=== PATIENT | female | born 1980 | race Caucasian/White ===

== ENCOUNTER 2016-10-16 12:39 | Inpatient (IN) | payer OTHER ==
[2016-10-16] MEDS ORDERED: ONDANSETRON 4 MG/2 ML VIAL IVP STA ×2 (13:22→16:23)
[2016-10-16] MEDS ORDERED: HYDROmorphone 1 MG/ML 1 ML SYRINGE IVP STA (13:22)
[2016-10-16] MEDS ORDERED: SODIUM CHLORIDE 0.9% 500 ML IV STA (13:22)
[2016-10-16] MEDS ORDERED: SODIUM CHLORIDE 0.9% 1,000 ML IV STA ×3 (13:22→16:21)
--- NOTE | 2016-10-16 13:34 | ED ---
General Adult HPI - General Source: patient, RN notes reviewed, old records reviewed Mode of arrival: EMS Limitations: no limitations <Eris Quiros - Last Filed: 10/16/16 16:49> <Emiliano Parada - Last Filed: 10/16/16 17:59> - General Chief complaint: Nausea/Vomiting/Diarrhea Stated complaint: Vomiting Time Seen by Provider: 10/16/16 13:19 - History of Present Illness Initial comments: Patient 36-year-old female who presents emergency room today by EMS, the chief complaint of symptoms of nausea vomiting over the last week. Does admit to pain in her lower abdomen. Denies any signs of blood in the emesis. States had similar symptoms in the past. States never been diagnosed the cause of the symptoms. Patient denies any recent fever, chills, shortness of breath, chest pain, back pain, numbness or tingling, dysuria or hematuria, constipation or diarrhea, headaches or visual changes, or any other complaints. (Eris Quiros) - Related Data Home Medications Medication Instructions Recorded Confirmed Albuterol Inhaler [Ventolin Hfa 1 - 2 puff INHALATION RT-TID PRN 01/13/16 Inhaler] Aspirin EC [Ecotrin Low Dose] 162 mg PO DAILY 01/13/16 10/16/16 Butalb/APAP/Caff 50-325-40Mg 1 tab PO DAILY PRN 01/13/16 10/16/16 [Fioricet 50-325-40] Dicyclomine [Bentyl] 20 mg PO QID 01/13/16 10/16/16 Fluticasone Nasal Placida [Flonase 2 spr EA NOSTRIL DAILY PRN 01/13/16 10/16/16 Nasal Placida] Gabapentin [Neurontin] 300 mg PO HS 01/13/16 01/13/16 Montelukast [Singulair] 10 mg PO DAILY 01/13/16 10/16/16 Omeprazole [PriLOSEC] 20 mg PO DAILY 01/13/16 10/16/16 Potassium 297 mg PO DAILY 01/13/16 10/16/16 QUEtiapine [SEROquel] 100 mg PO HS 01/13/16 10/16/16 Warfarin [Coumadin] 7.5 mg PO DAILY 01/13/16 10/16/16 Cetirizine HCl [Zyrtec] 10 mg PO DAILY 10/16/16 10/16/16 FLUoxetine HCL [PROzac] 40 mg PO DAILY 10/16/16 10/16/16 Ferrous Sulfate [Iron (65 MG 325 mg PO DAILY 10/16/16 10/16/16 Elemental)] Hydrochlorothiazide [Hydrodiuril] 25 mg PO DAILY 10/16/16 10/16/16 Loratadine [Claritin] 10 mg PO DAILY PRN 10/16/16 10/16/16 carBAMazepine [TEGretol XR] 100 mg PO BID 10/16/16 10/16/16 traZODone HCL 100 mg PO HS 10/16/16 10/16/16 Allergies Allergy/AdvReac Type Severity Reaction Status Date / Time adhesive tape Allergy Itching Verified 10/16/16 17:20 corn [[place]] Allergy Unknown Verified 01/13/16 08:52 Review of Systems ROS Other: All systems not noted in ROS Statement are negative. <Eris Quiros - Last Filed: 10/16/16 16:49> ROS Other: All systems not noted in ROS Statement are negative. <Emiliano Parada - Last Filed: 10/16/16 17:59> ROS Statement: Those systems with pertinent positive or pertinent negative responses have been documented in the HPI. Past Medical History Past Medical History: Asthma, COPD, GERD/Reflux, Hyperlipidemia, Mitral Valve Prolapse (MVP), Osteoarthritis (OA) Additional Past Medical History / Comment(s): IBS, Migraines, hiatal hernia, anemia History of Any Multi-Drug Resistant Organisms: None Reported Past Surgical History: Cardiac Valve Replacement, Cholecystectomy, Heart Catheterization, Hernia Repair, Tubal Ligation Additional Past Surgical History / Comment(s): mitral valve replacement 2013, Past Anesthesia/Blood Transfusion Reactions: Motion Sickness, Postoperative Nausea & Vomiting (PONV) Past Psychological History: Anxiety, Depression Smoking Status: Current every day smoker Past Alcohol Use History: None Reported Additional Past Alcohol Use History / Comment(s): smokes 1/2 PPD for 20 yrs Past Drug Use History: Marijuana - Past Family History Mother Family Medical History: Cancer Additional Family Medical History / Comment(s): LUNG CA <Eris Quiros Last Filed: 10/16/16 16:49> General Exam Limitations: no limitations <Eris Quiros Last Filed: 10/16/16 16:49> <Emiliano Parada - Last Filed: 10/16/16 17:59> - General Exam Comments Initial Comments: General: The patient is awake and alert, in no distress, and does not appear acutely ill. Eye: Pupils are equal, round and reactive to light, extra-ocular movements are intact. No nystagmus. There is normal conjunctiva bilaterally. No signs of icterus. Ears, nose, mouth and throat: There are moist mucous membranes and no oral lesions. Neck: The neck is supple, there is no tenderness or JVD. Cardiovascular: There is a regular rate and rhythm. No murmur, rub or gallop is appreciated. Respiratory: Lungs are clear to auscultation, respirations are non-labored, breath sounds are equal. No wheezes, stridor, rales, or rhonchi. Gastrointestinal: Normal appearance of abdomen. Normal bowel sounds. Mild tenderness epigastric. Mild tenderness in the left and right lower quadrants. No rebound or guarding. Musculoskeletal: Normal ROM, no tenderness. Strength 5/5. Sensation intact. Pulses equal bilaterally 2+. Neurological: A&O x 3. CN II-XII intact, There are no obvious motor or sensory deficits. Coordination appears grossly intact. Speech is normal. Skin: Skin is warm and dry and no rashes or lesions are noted. Psychiatric: Cooperative, appropriate mood & affect, normal judgment. (Eris Quiros) EKG Findings - EKG Comments: EKG Findings:: EKG performed at 1452: Shows bigeminy at 80 bpm. UT interval 194. QRS 82. QT/QTc is 436/502. No acute ST changes. <Eris Quiros - Last Filed: 10/16/16 16:49> Medical Decision Making - Lab Data Result diagrams: 10/16/16 12:57 10/16/16 15:00 <Eris Quiros - Last Filed: 10/16/16 16:49> - Lab Data Result diagrams: 10/16/16 12:57 10/16/16 15:00 <Emiliano Parada - Last Filed: 10/16/16 17:59> - Medical Decision Making Patient's CT shows 1. No bowel obstruction is present. No CT evidence for acute appendicitis. Moderate diffuse colonic fecal stasis noted. 2. Abnormal right retroperitoneal findings from the lower quadrant through the right quadrant considered hematoma versus infection. Muscular involvement is likely present. Would consider right lower extremity venous ultrasound excluded DVT given mass effect to the venous return from the right lower extremity. Patient does have a 26,000 white count. Patient's INR greater than 10. chance of DVT at this times felt less likely. Patient will be started on broad-spectrum antibiotics cover for possible infection. as discussed with attending physician and seen at bedside by who did discuss case with admitting physician Dr. Laguna who will admit the patient with consult to . (Eris Quiros) The patient was seen and examined. All diagnostics were reviewed. The case is discussed with internal medicine and they're agreeable to admission. The patient is to be admitted to the intensive care unit. A page was placed for Dr. Obregon and we are currently awaiting his call back. The case is discussed with the PA and I agree with the findings as documented. Approximately 30 minutes of critical care time was utilized and the treatment of the patient. (Emiliano Parada) - Lab Data Lab Results 10/16/16 10/16/16 10/16/16 Range/Units 12:57 12:57 15:00 WBC 26.4 H* (3.8-10.6) k/uL RBC 4.76 (3.80-5.40) m/uL Hgb 14.4 (11.4-16.0) gm/dL Hct 39.6 (34.0-46.0) % MCV 83.4 (80.0-100.0) fL MCH 30.4 (25.0-35.0) pg MCHC 36.4 (31.0-37.0) g/dL RDW 13.3 (11.5-15.5) % Plt Count 326 (150-450) k/uL Neutrophils % 93 % Lymphocytes % 4 % Monocytes % 3 % Eosinophils % 0 % Basophils % 0 % Neutrophils # 24.4 H (1.3-7.7) k/uL Lymphocytes # 1.0 (1.0-4.8) k/uL Monocytes # 0.7 (0-1.0) k/uL Eosinophils # 0.0 (0-0.7) k/uL Basophils # 0.1 (0-0.2) k/uL Hyperchromasia Slight PT (9.0-12.0) sec INR (<1.1) APTT (22.0-30.0) sec Sodium 132 L (137-145) mmol/L Potassium 1.7 L* (3.5-5.1) mmol/L Chloride 103 (98-107) mmol/L Carbon Dioxide 16 L (22-30) mmol/L Anion Gap 13 mmol/L BUN 29 H (7-17) mg/dL Creatinine 1.58 H (0.52-1.04) mg/dL Est GFR (MDRD) Af Amer 44 (>60 ml/min/1.73 sqM) Est GFR (MDRD) Non-Af 37 (>60 ml/min/1.73 sqM) Glucose 140 H (74-99) mg/dL Calcium 7.8 L (8.4-10.2) mg/dL Total Bilirubin 0.8 (0.2-1.3) mg/dL AST 21 (14-36) U/L ALT 21 (9-52) U/L Alkaline Phosphatase 123 (38-126) U/L Total Protein 6.4 (6.3-8.2) g/dL Albumin 3.5 (3.5-5.0) g/dL Amylase 93 (30-110) U/L Lipase 471 H (23-300) U/L Urine Color Urine Appearance (Clear) Urine pH (5.0-8.0) Ur Specific Mercer (1.001-1.035) Urine Protein (Negative) Urine Glucose (UA) (Negative) Urine Ketones (Negative) Urine Blood (Negative) Urine Nitrite (Negative) Urine Bilirubin (Negative) Urine Urobilinogen (<2.0) mg/dL Ur Leukocyte Esterase (Negative) Urine RBC (0-5) /hpf Urine WBC (0-5) /hpf Ur Squamous Epith Cells (0-4) /hpf Urine Bacteria (None) /hpf Hyaline Casts (0-2) /lpf Urine Mucus (None) /hpf Urine HCG, Qual (Not Detectd) Urine Opiates Screen (NotDetected) Ur Oxycodone Screen (NotDetected) Urine Methadone Screen (NotDetected) Ur Propoxyphene Screen (NotDetected) Ur Barbiturates Screen (NotDetected) U Tricyclic Antidepress (NotDetected) Ur Phencyclidine Scrn (NotDetected) Ur Amphetamines Screen (NotDetected) U Methamphetamines Scrn (NotDetected) U Benzodiazepines Scrn (NotDetected) Urine Cocaine Screen (NotDetected) U Marijuana (THC) Screen (NotDetected) 10/16/16 10/16/16 10/16/16 Range/Units 15:00 16:45 16:45 WBC (3.8-10.6) k/uL RBC (3.80-5.40) m/uL Hgb (11.4-16.0) gm/dL Hct (34.0-46.0) % MCV (80.0-100.0) fL MCH (25.0-35.0) pg MCHC (31.0-37.0) g/dL RDW (11.5-15.5) % Plt Count (150-450) k/uL Neutrophils % % Lymphocytes % % Monocytes % % Eosinophils % % Basophils % % Neutrophils # (1.3-7.7) k/uL Lymphocytes # (1.0-4.8) k/uL Monocytes # (0-1.0) k/uL Eosinophils # (0-0.7) k/uL Basophils # (0-0.2) k/uL Hyperchromasia PT 108.8 H (9.0-12.0) sec INR >10.0 H* (<1.1) APTT 60.7 H (22.0-30.0) sec Sodium (137-145) mmol/L Potassium (3.5-5.1) mmol/L Chloride (98-107) mmol/L Carbon Dioxide (22-30) mmol/L Anion Gap mmol/L BUN (7-17) mg/dL Creatinine (0.52-1.04) mg/dL Est GFR (MDRD) Af Amer (>60 ml/min/1.73 sqM) Est GFR (MDRD) Non-Af (>60 ml/min/1.73 sqM) Glucose (74-99) mg/dL Calcium (8.4-10.2) mg/dL Total Bilirubin (0.2-1.3) mg/dL AST (14-36) U/L ALT (9-52) U/L Alkaline Phosphatase (38-126) U/L Total Protein (6.3-8.2) g/dL Albumin (3.5-5.0) g/dL Amylase (30-110) U/L Lipase (23-300) U/L Urine Color Yellow Urine Appearance Clear (Clear) Urine pH 7.0 (5.0-8.0) Ur Specific [place] 1.010 (1.001-1.035) Urine Protein 1+ H (Negative) Urine Glucose (UA) Negative (Negative) Urine Ketones 1+ H (Negative) Urine Blood Moderate H (Negative) Urine Nitrite Negative (Negative) Urine Bilirubin Negative (Negative) Urine Urobilinogen <2.0 (<2.0) mg/dL Ur Leukocyte Esterase Negative (Negative) Urine RBC 37 H (0-5) /hpf Urine WBC 1 (0-5) /hpf Ur Squamous Epith Cells <1 (0-4) /hpf Urine Bacteria Rare H (None) /hpf Hyaline Casts 10 H (0-2) /lpf Urine Mucus Rare H (None) /hpf Urine HCG, Qual Not Detected (Not Detectd) Urine Opiates Screen Detected H (NotDetected) Ur Oxycodone Screen Not Detected (NotDetected) Urine Methadone Screen Not Detected (NotDetected) Ur Propoxyphene Screen Not Detected (NotDetected) Ur Barbiturates Screen Not Detected (NotDetected) U Tricyclic Antidepress Detected H (NotDetected) Ur Phencyclidine Scrn Not Detected (NotDetected) Ur Amphetamines Screen Not Detected (NotDetected) U Methamphetamines Scrn Not Detected (NotDetected) U Benzodiazepines Scrn Detected H (NotDetected) Urine Cocaine Screen Not Detected (NotDetected) U Marijuana (THC) Screen Detected H (NotDetected) Disposition Time of Disposition: 16:31 <Eris Quiros - Last Filed: 10/16/16 16:49> <Emiliano Parada - Last Filed: 10/16/16 17:59> Clinical Impression: Hypokalemia, Elevated INR, Retroperitoneal fluid collection, Abdominal pain, Leukocytosis Disposition: ADMITTED IP TO THIS [facility] Condition: Undetermined Referrals: Izabella Franklin DO [Primary Care Provider] - 1-2 days
[2016-10-16 14:04] LABS: Basophils # (A) 0.1 k/uL (0-0.2); Basophils % (A) 0 %; CH 31.4; CHCM 37.8; Eosinophils % (A) 0 %; HCT 39.6 % (34.0-46.0); HDW 2.99; HGB 14.4 gm/dL (11.4-16.0); Hyperchromasia Slight; Luc # (Auto) 0.18; Luc % (Auto) 1; Lymphocytes % (A) 4 %; MCH 30.4 pg (25.0-35.0); MCHC 36.4 g/dL (31.0-37.0); MCV 83.4 fL (80.0-100.0); Mean Platelet Volume 6.8; Monocytes # (A) 0.7 k/uL (0-1.0); Monocytes % (A) 3 %; Neutrophils # (A) 24.4 k/uL (1.3-7.7); Neutrophils % (A) 93 %; RBC 4.76 m/uL (3.80-5.40); RDW 13.3 % (11.5-15.5); WBC (Perox) 26.68
[2016-10-16 14:05] LABS: WBC 26.4 k/uL (3.8-10.6)
--- NOTE | 2016-10-16 14:13 | XR ---
EXAMINATION TYPE: XR KUB DATE OF EXAM: 10/16/2016 CLINICAL HISTORY: Nausea and vomiting. History of hiatal hernia and gallbladder repair surgery. TECHNIQUE: Single supine KUB image of the abdomen is obtained. COMPARISON: CT abdomen pelvis December 05, 2013. FINDINGS: Scattered gas is seen in non-distended small bowel loops. There is slightly prominent smal l bowel loops left midabdomen with air-fluid level. No suspicious greater than 3 cm dilatation is see n. Gas and fecal material is seen in non-distended colon. The amount of fecal material is slightly p rominent in the right colon and near the splenic flexure. Surgical sutures epigastric region from [facility] macedo fundoplication surgery are present. No pneumoperitoneum is seen. Sternal wires and metallic aortic valvular ring are partially imaged. Ch olecystectomy clips are redemonstrated. There is right-sided pelvic phlebolith redemonstrated. Visual ized osseous structures are intact. IMPRESSION: Overall nonspecific but favor nonobstructive bowel gas pattern.
[2016-10-16 14:19] LABS: Calcium 7.8 mg/dL (8.4-10.2); Total Bilirubin 0.8 mg/dL (0.2-1.3); Total Protein 6.4 g/dL (6.3-8.2)
[2016-10-16] MEDS ORDERED: RX INFO: IV CONTRAST WAS GIVEN 1 EACH MISC MISCELLANE PRN (14:20)
[2016-10-16] MEDS ORDERED: HUMAN PROTHROMBIN COMPLX 500 UNIT/16 ML VIAL IV ONE (14:23)
[2016-10-16] MEDS ORDERED: POTASSIUM CHLORIDE 20 MEQ, LIDOCAINE 2% INJ 20 MG in SODIUM CHLORIDE 0.9% 100 ML IVPB ONE ×2 (15:00→17:00)
[2016-10-16 16:00] LABS: Prothrombin Time 108.8 sec (9.0-12.0)
[2016-10-16 16:04] LABS: INR >10.0 (<1.1)
--- NOTE | 2016-10-16 16:04 | CT ---
EXAMINATION TYPE: CT abdomen pelvis wo con DATE OF EXAM: 10/16/2016 HISTORY: N/V/D for [address] week[address] of [address]. [address] DLP: 688 mGycm. Automated Exposure Control for Dose Reduction was Utilized. TECHNIQUE: CT scan of the abdomen and pelvis is performed without oral or IV contrast. COMPARISON: CT abdomen and pelvis December 05, 2013. FINDINGS: Within the limitations of a non-contrast study, the following observations are made. LUNG BASES: There is suspected interval mitral valve surgery with metallic density causing streak art ifact at level of mitral valve noted. There is new right basilar linear atelectasis or scarring. LIVER/GB: Cholecystectomy clips are redemonstrated. PANCREAS: No significant abnormality is seen. SPLEEN: No significant abnormality is seen. ADRENALS: No significant abnormality is seen. KIDNEYS: No significant abnormality is seen. BOWEL: Evaluation bowel is suboptimal secondary to lack of enteric contrast. There are surgical clips epigastric region likely from hiatal hernia repair surgery redemonstrated. There is no suspicious sm all or large bowel dilatation. Moderate fecal material is fairly prominent throughout the entire colo n. Normal-appearing appendix is seen from cecum best on coronal images 42 through 47. GENITAL ORGANS: Uterus is anteverted in shape and within normal limits in size. LYMPH NODES: No greater than 1cm abdominal or pelvic lymph nodes are appreciated. OSSEOUS STRUCTURES: No significant abnormality is seen. OTHER: Inferior to the cecum there is asymmetric ill-defined fluid over the right psoas and iliac is muscles which are asymmetrically more prominent versus opposite left side (see axial image 64 for ref erence) there is local mass effect on the adjacent iliac vessels which are deviated medially. This ex tends to the right groin level. Differential includes infectious process or hematoma. Clinical and la b correlation advised. Ill-defined fluid and fat stranding is seen at level of right groin for refere nce axial image 88. IMPRESSION: 1. No bowel obstruction is present. No CT evidence for acute appendicitis. Fairly moderate diffuse co lonic fecal stasis noted. 2. Abnormal right retroperitoneal findings from the lower quadrant through the right groin consider h ematoma versus infection. Muscular involvement is likely present. Clinical and lab correlation advise d. Also would consider right lower extremity venous ultrasound to exclude DVT given mass effect on th e venous return from the right lower extremity.
[2016-10-16 16:05] LABS: Partial Thromboplastin Time 60.7 sec (22.0-30.0)
[2016-10-16] MEDS ORDERED: PHYTONADIONE 10 MG in SODIUM CHLORIDE 0.9% 50 ML IVPB STA (16:13)
[2016-10-16] MEDS ORDERED: LEVOFLOXACIN 500MG-D5W PMX 500 MG in DEXTROSE/WATER 1 100ML.BAG IVPB STA (16:21)
[2016-10-16] MEDS ORDERED: metroNIDAZOLE-NS PMX 500 MG in SALINE 1 100ML.BAG IVPB STA (16:21)
[2016-10-16] MEDS ORDERED: LEVOFLOXACIN 500MG-D5W PMX 500 MG in DEXTROSE/WATER 1 100ML.BAG IVPB SCH (16:30)
[2016-10-16] MEDS ORDERED: SODIUM CHLORIDE 0.9% 1,000 ML IV ONE (16:42)
[2016-10-16] MEDS ORDERED: NALOXONE 0.4 MG/ML 1 ML VIAL IV PRN (16:42)
[2016-10-16 17:21] LABS: Appearance,Urine Clear (Clear); Bacteria,Urine Rare /hpf; Bilirubin,Urine Negative (Negative); Glucose,Urine (UA) Negative (Negative); Ketones,Urine 1+ (Negative); Leukocyte Esterase,Urine Negative (Negative); Mucus,Urine Rare /hpf; Nitrite,Urine Negative (Negative); Particle Count 1161; Protein,Urine 1+ (Negative); RBC,Urine 37 /hpf (0-5); Squamous Epithelial Cell,Urine <1 /hpf (0-4); UA Billing (MACRO vs. MICRO) MICRO; Urobilinogen,Urine <2.0 mg/dL (<2.0); WBC,Urine 1 /hpf (0-5)
--- NOTE | 2016-10-16 18:59 | ED ---
Medical Decision Making - Medical Decision Making 1854 called back into the room by nursing staff at approximately 1845. Patient was unresponsive to voice the heart monitor showed V. tach. Rhythm strips reviewed and does show a strip of torsades. Called Dr Parada to cris. Episode lasted approximately lasted 2-3 minutes and resolved spontaneously. Patient somewhat responsive after event. Currently resting comfortable once again at this time. Blood pressure remained stable. Pulse: 103 bpm this time. cardiology has been paged. Patient ordered 2 g of magnesium. [address] Andrea has called back recommending to give another 20 mEq of potassium through second IV site as there is 20 mEq running through the first IV site at this time. recommends 2 units of fresh frozen plasma due to INR greater than 10 but states to run potassium before giving FFP. [address] Obregon has called back and recommends to Kcentra for INR greater than 10 and holding FFP at this time. Patient will be given 50 units per KG of Kcentra - Lab Data Result diagrams: 10/21/16 06:08 10/21/16 06:08 Lab Results 10/16/16 10/16/16 10/16/16 Range/Units 12:57 12:57 15:00 WBC 26.4 H* (3.8-10.6) k/uL RBC 4.76 (3.80-5.40) m/uL Hgb 14.4 (11.4-16.0) gm/dL Hct 39.6 (34.0-46.0) % MCV 83.4 (80.0-100.0) fL MCH 30.4 (25.0-35.0) pg MCHC 36.4 (31.0-37.0) g/dL RDW 13.3 (11.5-15.5) % Plt Count 326 (150-450) k/uL Neutrophils % 93 % Lymphocytes % 4 % Monocytes % 3 % Eosinophils % 0 % Basophils % 0 % Neutrophils # 24.4 H (1.3-7.7) k/uL Lymphocytes # 1.0 (1.0-4.8) k/uL Monocytes # 0.7 (0-1.0) k/uL Eosinophils # 0.0 (0-0.7) k/uL Basophils # 0.1 (0-0.2) k/uL Hyperchromasia Slight PT (9.0-12.0) sec INR (<1.1) APTT (22.0-30.0) sec Sodium 132 L (137-145) mmol/L Potassium 1.7 L* (3.5-5.1) mmol/L Chloride 103 (98-107) mmol/L Carbon Dioxide 16 L (22-30) mmol/L Anion Gap 13 mmol/L BUN 29 H (7-17) mg/dL Creatinine 1.58 H (0.52-1.04) mg/dL Est GFR (MDRD) Af Amer 44 (>60 ml/min/1.73 sqM) Est GFR (MDRD) Non-Af 37 (>60 ml/min/1.73 sqM) Glucose 140 H (74-99) mg/dL Calcium 7.8 L (8.4-10.2) mg/dL Total Bilirubin 0.8 (0.2-1.3) mg/dL AST 21 (14-36) U/L ALT 21 (9-52) U/L Alkaline Phosphatase 123 (38-126) U/L Total Protein 6.4 (6.3-8.2) g/dL Albumin 3.5 (3.5-5.0) g/dL Amylase 93 (30-110) U/L Lipase 471 H (23-300) U/L 10/16/16 Range/Units 15:00 WBC (3.8-10.6) k/uL RBC (3.80-5.40) m/uL Hgb (11.4-16.0) gm/dL Hct (34.0-46.0) % MCV (80.0-100.0) fL MCH (25.0-35.0) pg MCHC (31.0-37.0) g/dL RDW (11.5-15.5) % Plt Count (150-450) k/uL Neutrophils % % Lymphocytes % % Monocytes % % Eosinophils % % Basophils % % Neutrophils # (1.3-7.7) k/uL Lymphocytes # (1.0-4.8) k/uL Monocytes # (0-1.0) k/uL Eosinophils # (0-0.7) k/uL Basophils # (0-0.2) k/uL Hyperchromasia PT 108.8 H (9.0-12.0) sec INR >10.0 H* (<1.1) APTT 60.7 H (22.0-30.0) sec Sodium (137-145) mmol/L Potassium (3.5-5.1) mmol/L Chloride (98-107) mmol/L Carbon Dioxide (22-30) mmol/L Anion Gap mmol/L BUN (7-17) mg/dL Creatinine (0.52-1.04) mg/dL Est GFR (MDRD) Af Amer (>60 ml/min/1.73 sqM) Est GFR (MDRD) Non-Af (>60 ml/min/1.73 sqM) Glucose (74-99) mg/dL Calcium (8.4-10.2) mg/dL Total Bilirubin (0.2-1.3) mg/dL AST (14-36) U/L ALT (9-52) U/L Alkaline Phosphatase (38-126) U/L Total Protein (6.3-8.2) g/dL Albumin (3.5-5.0) g/dL Amylase (30-110) U/L Lipase (23-300) U/L Disposition Clinical Impression: Hypokalemia, Elevated INR, Retroperitoneal fluid collection, Abdominal pain, Leukocytosis Disposition: ADMITTED IP TO THIS [facility] Condition: Undetermined
[2016-10-16] MEDS ORDERED: HUMAN PROTHROMBIN COMPLX IV ONE ×3 (19:23→20:00)
[2016-10-16] MEDS: ONDANSETRON 4 MG/2 ML VIAL IVP PRN (19:46)
[2016-10-16 19:49] LABS: Creatine Kinase MB 2.1 ng/mL (0.0-2.4)
[2016-10-16 19:53] LABS: Troponin I 0.049 ng/mL (0.000-0.034)
[2016-10-16 19:53] LABS: Glucose,Whole Blood 160 mg/dL (75-99)
[2016-10-16] MEDS: MAGNESIUM SULFATE-D5W PMX 1 GM in DEXTROSE/WATER 1 100ML.BAG IVPB SCH ×2 (19:53→21:01)
[2016-10-16] MEDS: POTASSIUM CHLORIDE ER 20 MEQ TAB.ER PO SCH ×3 (20:02→23:42)
[2016-10-16] MEDS: HYDROmorphone 1 MG/ML 1 ML SYRINGE IV PRN (20:59)
[2016-10-16 21:17] LABS: CH 30.9; CHCM 36.8; HCT 32.2 % (34.0-46.0); HGB 11.7 gm/dL (11.4-16.0); MCH 30.7 pg (25.0-35.0); MCHC 36.4 g/dL (31.0-37.0); MCV 84.4 fL (80.0-100.0); Mean Platelet Volume 6.5; RBC 3.81 m/uL (3.80-5.40); RDW 13.2 % (11.5-15.5); WBC 17.1 k/uL (3.8-10.6)
[2016-10-16 21:27] LABS: Partial Thromboplastin Time 23.5 sec (22.0-30.0); Prothrombin Time 10.6 sec (9.0-12.0)
[2016-10-16 21:31] LABS: Anion Gap 7 mmol/L; Blood Urea Nitrogen 22 mg/dL (7-17); Calcium 7.5 mg/dL (8.4-10.2); Carbon Dioxide 16 mmol/L (22-30); Chloride 111 mmol/L (98-107); Glucose 108 mg/dL (74-99); Non-African American GFR(MDRD) 56 (>60 ml/min/1.73 sqM); Sodium 134 mmol/L (137-145)
[2016-10-16 21:35] LABS: Potassium 2.3 mmol/L (3.5-5.1)
[2016-10-16] MEDS ORDERED: Potassium Replacement Protocol 1 EACH MISC MISCELLANE PRN (21:52)
[2016-10-16] MEDS: metroNIDAZOLE-NS PMX 500 MG in SALINE 1 100ML.BAG IVPB SCH (23:53)
[2016-10-17] MEDS: POTASSIUM CHLORIDE ER 20 MEQ TAB.ER PO SCH ×13 (00:30→21:03)
[2016-10-17 02:06] LABS: Creatine Kinase MB 1.8 ng/mL (0.0-2.4)
[2016-10-17 02:16] LABS: Troponin I 0.041 ng/mL (0.000-0.034)
[2016-10-17 05:06] LABS: Basophils # (A) 0.1 k/uL (0-0.2); Basophils % (A) 1 %; CH 30.5; CHCM 34.9; Eosinophils # (A) 0.1 k/uL (0-0.7); Eosinophils % (A) 1 %; HCT 32.1 % (34.0-46.0); HDW 2.78; Luc # (Auto) 0.17; Luc % (Auto) 1; Lymphocytes # (A) 2.1 k/uL (1.0-4.8); Lymphocytes % (A) 18 %; MCHC 34.2 g/dL (31.0-37.0); MCV 87.9 fL (80.0-100.0); Mean Platelet Volume 6.6; Monocytes # (A) 0.5 k/uL (0-1.0); Monocytes % (A) 4 %; Neutrophils # (A) 9.2 k/uL (1.3-7.7); Neutrophils % (A) 76 %; RBC 3.65 m/uL (3.80-5.40); RDW 13.3 % (11.5-15.5); WBC 12.1 k/uL (3.8-10.6)
[2016-10-17 05:18] LABS: Partial Thromboplastin Time 23.8 sec (22.0-30.0); Prothrombin Time 10.3 sec (9.0-12.0)
[2016-10-17 05:19] LABS: ALT 22 U/L (9-52); AST 19 U/L (14-36); Alkaline Phosphatase 85 U/L (38-126); Anion Gap 7 mmol/L; Blood Urea Nitrogen 17 mg/dL (7-17); Calcium 7.5 mg/dL (8.4-10.2); Carbon Dioxide 14 mmol/L (22-30); Chloride 114 mmol/L (98-107); Cholesterol 156 mg/dL (<200); Glucose 90 mg/dL (74-99); HDL Cholesterol 31 mg/dL (40-60); Magnesium 2.9 mg/dL (1.6-2.3); Non-African American GFR(MDRD) >60 (>60 ml/min/1.73 sqM); Phosphorous 2.1 mg/dL (2.5-4.5); Sodium 135 mmol/L (137-145); Total Bilirubin 0.9 mg/dL (0.2-1.3); Total Protein 5.2 g/dL (6.3-8.2); Triglycerides 217 mg/dL (<150)
[2016-10-17 05:21] LABS: Potassium 2.6 mmol/L (3.5-5.1)
[2016-10-17] MEDS ORDERED: Potassium Replacement Protocol 1 EACH MISC MISCELLANE PRN (05:26)
[2016-10-17] MEDS: POTASSIUM CHLORIDE 10 MEQ, LIDOCAINE 2% INJ 10 MG in SODIUM CHLORIDE 0.9% 100 ML IV SCH ×3 (05:41→06:54)
[2016-10-17] MEDS ORDERED: POTASSIUM CHLORIDE ER 20 MEQ TAB.ER PO ONE (06:00)
[2016-10-17] MEDS ORDERED: ENOXAPARIN 60 MG/0.6 ML SYRINGE SQ STA (06:20)
[2016-10-17] MEDS: SODIUM CHLORIDE 0.9% 1,000 ML IV SCH ×2 (06:29→21:08)
[2016-10-17] MEDS: HYDROmorphone 1 MG/ML 1 ML SYRINGE IV PRN ×4 (08:41→19:52)
[2016-10-17] MEDS: metroNIDAZOLE-NS PMX 500 MG in SALINE 1 100ML.BAG IVPB SCH ×3 (09:06→23:22)
[2016-10-17] MEDS: PANTOPRAZOLE 40 MG/10 ML VIAL IV SCH (09:07)
[2016-10-17] MEDS ORDERED: WARFARIN 7.5 MG TAB PO ONE (09:30)
--- NOTE | 2016-10-17 09:58 | P.GSCN ---
History of Present Illness Consult date: 10/17/16 Reason for Consult: Retroperitoneal hematoma History of present illness: Patient came to the hospital last night with a one-week history of nausea vomiting vague abdominal discomforts back pain and malaise. She was found to have critical hypokalemia with a potassium of 1.5. She also had critical INR level greater than 10. Her numbers have improved this morning. Her nausea and vomiting seems much better she states. The pain that she was having was diffuse although there did appear to be some pain in the right thigh and right back. CAT scan done last night shows what appears represent a small hematoma in the right retroperitoneal region extending down to the upper thigh. White blood cell count was elevated however that is improved this morning at 12.1. Potassium currently 2.6 INR is normal now. The patient does have a mechanical valve and for that reason anticoagulation has been restarted. She says she feels significantly better. Review of Systems The patient denies any acute changes in his vision or hearing, no dysphagia or odynophagia, no chest pain or shortness of breath, no dysuria or hematuria, no headache, no runny nose, no rectal bleeding or melena, no unexplained weight loss Past Medical History Past Medical History: Asthma, COPD, GERD/Reflux, Hyperlipidemia, Mitral Valve Prolapse (MVP), Osteoarthritis (OA) Additional Past Medical History / Comment(s): IBS, Migraines, hiatal hernia, anemia History of Any Multi-Drug Resistant Organisms: None Reported Past Surgical History: Cardiac Valve Replacement, Cholecystectomy, Heart Catheterization, Hernia Repair, Tubal Ligation Additional Past Surgical History / Comment(s): mitral valve replacement 2013, Past Anesthesia/Blood Transfusion Reactions: Motion Sickness, Postoperative Nausea & Vomiting (PONV) Past Psychological History: Anxiety, Depression Smoking Status: Current every day smoker Past Alcohol Use History: None Reported Additional Past Alcohol Use History / Comment(s): smokes 1/2 PPD for 20 yrs Past Drug Use History: Marijuana - Past Family History Mother Family Medical History: Cancer Additional Family Medical History / Comment(s): LUNG CA Medications and Allergies Home Medications Medication Instructions Recorded Confirmed Type Albuterol Inhaler [Ventolin Hfa 1 - 2 puff INHALATION RT-TID PRN 01/13/16 History Inhaler] Aspirin EC [Ecotrin Low Dose] 162 mg PO DAILY 01/13/16 10/16/16 History Butalb/APAP/Caff 50-325-40Mg 1 tab PO DAILY PRN 01/13/16 10/16/16 History [Fioricet 50-325-40] Dicyclomine [Bentyl] 20 mg PO QID 01/13/16 10/16/16 History Fluticasone Nasal [place] [Flonase 2 spr EA NOSTRIL DAILY PRN 01/13/16 10/16/16 History Nasal [place]] Gabapentin [Neurontin] 300 mg PO HS 01/13/16 01/13/16 History Montelukast [Singulair] 10 mg PO DAILY 01/13/16 10/16/16 History Omeprazole [PriLOSEC] 20 mg PO DAILY 01/13/16 10/16/16 History Potassium 297 mg PO DAILY 01/13/16 10/16/16 History QUEtiapine [SEROquel] 100 mg PO HS 01/13/16 10/16/16 History Warfarin [Coumadin] 7.5 mg PO DAILY 01/13/16 10/16/16 History Cetirizine HCl [Zyrtec] 10 mg PO DAILY 10/16/16 10/16/16 History FLUoxetine HCL [PROzac] 40 mg PO DAILY 10/16/16 10/16/16 History Ferrous Sulfate [Iron (65 MG 325 mg PO DAILY 10/16/16 10/16/16 History Elemental)] Hydrochlorothiazide [Hydrodiuril] 25 mg PO DAILY 10/16/16 10/16/16 History Loratadine [Claritin] 10 mg PO DAILY PRN 10/16/16 10/16/16 History carBAMazepine [TEGretol XR] 100 mg PO BID 10/16/16 10/16/16 History traZODone HCL 100 mg PO HS 10/16/16 10/16/16 History Allergies Allergy/AdvReac Type Severity Reaction Status Date / Time adhesive tape Allergy Itching Verified 10/16/16 17:20 corn [Thomson] Allergy Unknown Verified 01/13/16 08:52 Surgical - Exam Vital Signs Temp Pulse Resp BP Pulse Ox 98 F 46 L 20 129/68 99 10/16/16 12:43 10/16/16 12:43 10/16/16 12:43 10/16/16 12:43 10/16/16 12:43 Patient's hematoma seems to be fairly small and is related to the toxic effects of Coumadin. Agree with resuming anticoagulation with close surveillance. Continue diet as tolerated. Repeat lab work tomorrow. We'll follow with you. Results - Labs 10/17/16 04:35 10/17/16 04:35 Abnormal Lab Results - Last 24 Hours (Table) 10/16/16 10/16/16 10/16/16 Range/Units 12:57 12:57 15:00 WBC 26.4 H* (3.8-10.6) k/uL RBC (3.80-5.40) m/uL Hgb (11.4-16.0) gm/dL Hct (34.0-46.0) % Neutrophils # 24.4 H (1.3-7.7) k/uL PT (9.0-12.0) sec INR (<1.1) APTT (22.0-30.0) sec Sodium 132 L (137-145) mmol/L Potassium 1.7 L* (3.5-5.1) mmol/L Chloride (98-107) mmol/L Carbon Dioxide 16 L (22-30) mmol/L BUN 29 H (7-17) mg/dL Creatinine 1.58 H (0.52-1.04) mg/dL Glucose 140 H (74-99) mg/dL POC Glucose (mg/dL) (75-99) mg/dL Calcium 7.8 L (8.4-10.2) mg/dL Phosphorus (2.5-4.5) mg/dL Magnesium (1.6-2.3) mg/dL Troponin I (0.000-0.034) ng/mL Total Protein (6.3-8.2) g/dL Albumin (3.5-5.0) g/dL Triglycerides (<150) mg/dL HDL Cholesterol (40-60) mg/dL Lipase 471 H (23-300) U/L Urine Protein (Negative) Urine Ketones (Negative) Urine Blood (Negative) Urine RBC (0-5) /hpf Urine Bacteria (None) /hpf Hyaline Casts (0-2) /lpf Urine Mucus (None) /hpf Urine Opiates Screen (NotDetected) U Tricyclic Antidepress (NotDetected) U Benzodiazepines Scrn (NotDetected) U Marijuana (THC) Screen (NotDetected) 10/16/16 10/16/16 10/16/16 Range/Units 15:00 16:45 19:07 WBC (3.8-10.6) k/uL RBC (3.80-5.40) m/uL Hgb (11.4-16.0) gm/dL Hct (34.0-46.0) % Neutrophils # (1.3-7.7) k/uL PT 108.8 H (9.0-12.0) sec INR >10.0 H* (<1.1) APTT 60.7 H (22.0-30.0) sec Sodium (137-145) mmol/L Potassium (3.5-5.1) mmol/L Chloride (98-107) mmol/L Carbon Dioxide (22-30) mmol/L BUN (7-17) mg/dL Creatinine (0.52-1.04) mg/dL Glucose (74-99) mg/dL POC Glucose (mg/dL) (75-99) mg/dL Calcium (8.4-10.2) mg/dL Phosphorus (2.5-4.5) mg/dL Magnesium (1.6-2.3) mg/dL Troponin I 0.049 H* (0.000-0.034) ng/mL Total Protein (6.3-8.2) g/dL Albumin (3.5-5.0) g/dL Triglycerides (<150) mg/dL HDL Cholesterol (40-60) mg/dL Lipase (23-300) U/L Urine Protein 1+ H (Negative) Urine Ketones 1+ H (Negative) Urine Blood Moderate H (Negative) Urine RBC 37 H (0-5) /hpf Urine Bacteria Rare H (None) /hpf Hyaline Casts 10 H (0-2) /lpf Urine Mucus Rare H (None) /hpf Urine Opiates Screen Detected H (NotDetected) U Tricyclic Antidepress Detected H (NotDetected) U Benzodiazepines Scrn Detected H (NotDetected) U Marijuana (THC) Screen Detected H (NotDetected) 10/16/16 10/16/16 10/16/16 Range/Units 19:07 19:51 21:06 WBC (3.8-10.6) k/uL RBC (3.80-5.40) m/uL Hgb (11.4-16.0) gm/dL Hct (34.0-46.0) % Neutrophils # (1.3-7.7) k/uL PT (9.0-12.0) sec INR (<1.1) APTT (22.0-30.0) sec Sodium 134 L (137-145) mmol/L Potassium 2.1 L* 2.3 L* (3.5-5.1) mmol/L Chloride 111 H (98-107) mmol/L Carbon Dioxide 16 L (22-30) mmol/L BUN 22 H (7-17) mg/dL Creatinine 1.10 H (0.52-1.04) mg/dL Glucose 108 H (74-99) mg/dL POC Glucose (mg/dL) 160 H (75-99) mg/dL Calcium 7.5 L (8.4-10.2) mg/dL Phosphorus (2.5-4.5) mg/dL Magnesium (1.6-2.3) mg/dL Troponin I (0.000-0.034) ng/mL Total Protein (6.3-8.2) g/dL Albumin (3.5-5.0) g/dL Triglycerides (<150) mg/dL HDL Cholesterol (40-60) mg/dL Lipase (23-300) U/L Urine Protein (Negative) Urine Ketones (Negative) Urine Blood (Negative) Urine RBC (0-5) /hpf Urine Bacteria (None) /hpf Hyaline Casts (0-2) /lpf Urine Mucus (None) /hpf Urine Opiates Screen (NotDetected) U Tricyclic Antidepress (NotDetected) U Benzodiazepines Scrn (NotDetected) U Marijuana (THC) Screen (NotDetected) 10/16/16 10/17/16 10/17/16 Range/Units 21:06 01:02 04:35 WBC 17.1 H 12.1 H (3.8-10.6) k/uL RBC 3.65 L (3.80-5.40) m/uL Hgb 11.0 L (11.4-16.0) gm/dL Hct 32.2 L 32.1 L (34.0-46.0) % Neutrophils # 9.2 H (1.3-7.7) k/uL PT (9.0-12.0) sec INR (<1.1) APTT (22.0-30.0) sec Sodium (137-145) mmol/L Potassium (3.5-5.1) mmol/L Chloride (98-107) mmol/L Carbon Dioxide (22-30) mmol/L BUN (7-17) mg/dL Creatinine (0.52-1.04) mg/dL Glucose (74-99) mg/dL POC Glucose (mg/dL) (75-99) mg/dL Calcium (8.4-10.2) mg/dL Phosphorus (2.5-4.5) mg/dL Magnesium (1.6-2.3) mg/dL Troponin I 0.041 H* (0.000-0.034) ng/mL Total Protein (6.3-8.2) g/dL Albumin (3.5-5.0) g/dL Triglycerides (<150) mg/dL HDL Cholesterol (40-60) mg/dL Lipase (23-300) U/L Urine Protein (Negative) Urine Ketones (Negative) Urine Blood (Negative) Urine RBC (0-5) /hpf Urine Bacteria (None) /hpf Hyaline Casts (0-2) /lpf Urine Mucus (None) /hpf Urine Opiates Screen (NotDetected) U Tricyclic Antidepress (NotDetected) U Benzodiazepines Scrn (NotDetected) U Marijuana (THC) Screen (NotDetected) 10/17/16 Range/Units 04:35 WBC (3.8-10.6) k/uL RBC (3.80-5.40) m/uL Hgb (11.4-16.0) gm/dL Hct (34.0-46.0) % Neutrophils # (1.3-7.7) k/uL PT (9.0-12.0) sec INR (<1.1) APTT (22.0-30.0) sec Sodium 135 L (137-145) mmol/L Potassium 2.6 L* (3.5-5.1) mmol/L Chloride 114 H (98-107) mmol/L Carbon Dioxide 14 L (22-30) mmol/L BUN (7-17) mg/dL Creatinine (0.52-1.04) mg/dL Glucose (74-99) mg/dL POC Glucose (mg/dL) (75-99) mg/dL Calcium 7.5 L (8.4-10.2) mg/dL Phosphorus 2.1 L (2.5-4.5) mg/dL Magnesium 2.9 H (1.6-2.3) mg/dL Troponin I (0.000-0.034) ng/mL Total Protein 5.2 L (6.3-8.2) g/dL Albumin 2.6 L (3.5-5.0) g/dL Triglycerides 217 H (<150) mg/dL HDL Cholesterol 31 L (40-60) mg/dL Lipase (23-300) U/L Urine Protein (Negative) Urine Ketones (Negative) Urine Blood (Negative) Urine RBC (0-5) /hpf Urine Bacteria (None) /hpf Hyaline Casts (0-2) /lpf Urine Mucus (None) /hpf Urine Opiates Screen (NotDetected) U Tricyclic Antidepress (NotDetected) U Benzodiazepines Scrn (NotDetected) U Marijuana (THC) Screen (NotDetected) Diabetes panel 10/16/16 10/16/16 10/16/16 Range/Units 12:57 15:00 19:07 Sodium 132 L (137-145) mmol/L Potassium 1.7 L* 2.1 L* (3.5-5.1) mmol/L Chloride 103 (98-107) mmol/L Carbon Dioxide 16 L (22-30) mmol/L BUN 29 H (7-17) mg/dL Creatinine 1.58 H (0.52-1.04) mg/dL Glucose 140 H (74-99) mg/dL Calcium 7.8 L (8.4-10.2) mg/dL AST 21 (14-36) U/L ALT 21 (9-52) U/L Alkaline Phosphatase 123 (38-126) U/L Total Protein 6.4 (6.3-8.2) g/dL Albumin 3.5 (3.5-5.0) g/dL Triglycerides (<150) mg/dL HDL Cholesterol (40-60) mg/dL 10/16/16 10/17/16 Range/Units 21:06 04:35 Sodium 134 L 135 L (137-145) mmol/L Potassium 2.3 L* 2.6 L* (3.5-5.1) mmol/L Chloride 111 H 114 H (98-107) mmol/L Carbon Dioxide 16 L 14 L (22-30) mmol/L BUN 22 H 17 (7-17) mg/dL Creatinine 1.10 H 0.94 (0.52-1.04) mg/dL Glucose 108 H 90 (74-99) mg/dL Calcium 7.5 L 7.5 L (8.4-10.2) mg/dL AST 19 (14-36) U/L ALT 22 (9-52) U/L Alkaline Phosphatase 85 (38-126) U/L Total Protein 5.2 L (6.3-8.2) g/dL Albumin 2.6 L (3.5-5.0) g/dL Triglycerides 217 H (<150) mg/dL HDL Cholesterol 31 L (40-60) mg/dL Calcium panel 10/16/16 10/16/16 10/17/16 Range/Units 12:57 21:06 04:35 Calcium 7.8 L 7.5 L 7.5 L (8.4-10.2) mg/dL Phosphorus 2.1 L (2.5-4.5) mg/dL Albumin 3.5 2.6 L (3.5-5.0) g/dL Pituitary panel 10/16/16 10/16/16 10/16/16 Range/Units 12:57 15:00 19:07 Sodium 132 L (137-145) mmol/L Potassium 1.7 L* 2.1 L* (3.5-5.1) mmol/L Chloride 103 (98-107) mmol/L Carbon Dioxide 16 L (22-30) mmol/L BUN 29 H (7-17) mg/dL Creatinine 1.58 H (0.52-1.04) mg/dL Glucose 140 H (74-99) mg/dL Calcium 7.8 L (8.4-10.2) mg/dL 10/16/16 10/17/16 Range/Units 21:06 04:35 Sodium 134 L 135 L (137-145) mmol/L Potassium 2.3 L* 2.6 L* (3.5-5.1) mmol/L Chloride 111 H 114 H (98-107) mmol/L Carbon Dioxide 16 L 14 L (22-30) mmol/L BUN 22 H 17 (7-17) mg/dL Creatinine 1.10 H 0.94 (0.52-1.04) mg/dL Glucose 108 H 90 (74-99) mg/dL Calcium 7.5 L 7.5 L (8.4-10.2) mg/dL Adrenal panel 10/16/16 10/16/16 10/16/16 Range/Units 12:57 15:00 19:07 Sodium 132 L (137-145) mmol/L Potassium 1.7 L* 2.1 L* (3.5-5.1) mmol/L Chloride 103 (98-107) mmol/L Carbon Dioxide 16 L (22-30) mmol/L BUN 29 H (7-17) mg/dL Creatinine 1.58 H (0.52-1.04) mg/dL Glucose 140 H (74-99) mg/dL Calcium 7.8 L (8.4-10.2) mg/dL Total Bilirubin 0.8 (0.2-1.3) mg/dL AST 21 (14-36) U/L ALT 21 (9-52) U/L Alkaline Phosphatase 123 (38-126) U/L Total Protein 6.4 (6.3-8.2) g/dL Albumin 3.5 (3.5-5.0) g/dL 10/16/16 10/17/16 Range/Units 21:06 04:35 Sodium 134 L 135 L (137-145) mmol/L Potassium 2.3 L* 2.6 L* (3.5-5.1) mmol/L Chloride 111 H 114 H (98-107) mmol/L Carbon Dioxide 16 L 14 L (22-30) mmol/L BUN 22 H 17 (7-17) mg/dL Creatinine 1.10 H 0.94 (0.52-1.04) mg/dL Glucose 108 H 90 (74-99) mg/dL Calcium 7.5 L 7.5 L (8.4-10.2) mg/dL Total Bilirubin 0.9 (0.2-1.3) mg/dL AST 19 (14-36) U/L ALT 22 (9-52) U/L Alkaline Phosphatase 85 (38-126) U/L Total Protein 5.2 L (6.3-8.2) g/dL Albumin 2.6 L (3.5-5.0) g/dL
[2016-10-17] MEDS ORDERED: POTASSIUM CHLORIDE 20 MEQ, LIDOCAINE 2% INJ 20 MG in SODIUM CHLORIDE 0.9% 100 ML IVPB ONE (10:40)
--- NOTE | 2016-10-17 10:58 | US ---
EXAMINATION TYPE: US venous doppler duplex LE RT DATE OF EXAM: 10/17/2016 10:37 AM COMPARISON: CT abdomen and pelvis from yesterday. CLINICAL HISTORY: r/o DVT. elevated INR. Abnormal CT with right pelvic process causing mass effect on right pelvic veins. SIDE PERFORMED: Right TECHNIQUE: The lower extremity deep venous system is examined utilizing real time linear array sonog alannah with graded compression, doppler sonography and color-flow sonography. VESSELS IMAGED: External Iliac Vein (EIV) Common Femoral Vein Deep Femoral Vein Greater Saphenous Vein * Femoral Vein Popliteal Vein Proximal Calf Veins (* superficial vessels) Right Leg: Negative for DVT Grayscale, color doppler, spectral doppler imaging performed of the deep veins of the lower extremiti es. There is normal flow, compressibility, vascular waveforms bilaterally. IMPRESSION: No ultrasound evidence for acute DVT in the right lower extremity.
--- NOTE | 2016-10-17 11:08 | P.HPIM ---
History of Present Illness H&P Date: 10/17/16 Chief Complaint: Not feeling well This is a 36-year-old female with past medical history noted below significant for history of mitral valve replacement with [employer]'s mechanical valve in 2013 presented to the emergency room with worsening nausea and vomiting. Patient said that her symptoms started several days ago and is being getting progressively worse. She was unable to take her medication or keep anything down. She said that she was supposed to be on potassium supplements that she did not have for several weeks as her insurance did not cover. She was evaluated in the emergency room and was found to have an INR greater than 10. Patient was having abdominal discomfort so computed tomography scan of the abdomen was obtained showing evidence of retroperitoneal hematoma that was described as small in size with extension to the upper thigh. Patient remained in the emergency room and was noted to be significantly hypokalemic. She had an episode of what appeared to be V. tach with torsade to pointe. she is currently admitted to the intensive care unit. She had a hemoglobin drop approximately 4 g since presentation. Her INR was reversed with intravenous vitamin K.. Review of Systems Review of system: 14 points review of systems were obtained and were negative except to what were mentioned in the HPI. Past Medical History Past Medical History: Asthma, COPD, GERD/Reflux, Hyperlipidemia, Mitral Valve Prolapse (MVP), Osteoarthritis (OA) Additional Past Medical History / Comment(s): IBS, Migraines, hiatal hernia, anemia History of Any Multi-Drug Resistant Organisms: None Reported Past Surgical History: Cardiac Valve Replacement, Cholecystectomy, Heart Catheterization, Hernia Repair, Tubal Ligation Additional Past Surgical History / Comment(s): mitral valve replacement 2013, Past Anesthesia/Blood Transfusion Reactions: Motion Sickness, Postoperative Nausea & Vomiting (PONV) Past Psychological History: Anxiety, Depression Smoking Status: Current every day smoker Past Alcohol Use History: None Reported Additional Past Alcohol Use History / Comment(s): smokes 1/2 PPD for 20 yrs Past Drug Use History: Marijuana - Past Family History Mother Family Medical History: Cancer Additional Family Medical History / Comment(s): LUNG CA Medications and Allergies Home Medications Medication Instructions Recorded Confirmed Type Albuterol Inhaler [Ventolin Hfa 1 - 2 puff INHALATION RT-TID PRN 01/13/16 History Inhaler] Aspirin EC [Ecotrin Low Dose] 162 mg PO DAILY 01/13/16 10/16/16 History Butalb/APAP/Caff 50-325-40Mg 1 tab PO DAILY PRN 01/13/16 10/16/16 History [Fioricet 50-325-40] Dicyclomine [Bentyl] 20 mg PO QID 01/13/16 10/16/16 History Fluticasone Nasal [place] [Flonase 2 spr EA NOSTRIL DAILY PRN 01/13/16 10/16/16 History Nasal [place]] Gabapentin [Neurontin] 300 mg PO HS 01/13/16 01/13/16 History Montelukast [Singulair] 10 mg PO DAILY 01/13/16 10/16/16 History Omeprazole [PriLOSEC] 20 mg PO DAILY 01/13/16 10/16/16 History Potassium 297 mg PO DAILY 01/13/16 10/16/16 History QUEtiapine [SEROquel] 100 mg PO HS 01/13/16 10/16/16 History Warfarin [Coumadin] 7.5 mg PO DAILY 01/13/16 10/16/16 History Cetirizine HCl [Zyrtec] 10 mg PO DAILY 10/16/16 10/16/16 History FLUoxetine HCL [PROzac] 40 mg PO DAILY 10/16/16 10/16/16 History Ferrous Sulfate [Iron (65 MG 325 mg PO DAILY 10/16/16 10/16/16 History Elemental)] Hydrochlorothiazide [Hydrodiuril] 25 mg PO DAILY 10/16/16 10/16/16 History Loratadine [Claritin] 10 mg PO DAILY PRN 10/16/16 10/16/16 History carBAMazepine [TEGretol XR] 100 mg PO BID 10/16/16 10/16/16 History traZODone HCL 100 mg PO HS 10/16/16 10/16/16 History Allergies Allergy/AdvReac Type Severity Reaction Status Date / Time adhesive tape Allergy Itching Verified 10/16/16 17:20 corn [[place]] Allergy Unknown Verified 01/13/16 08:52 Physical Exam Vitals: Vital Signs Temp Pulse Resp BP Pulse Ox 10/17/16 07:00 99 29 H 94/62 100 10/17/16 06:00 86 22 110/57 98 10/17/16 05:00 83 19 98/57 99 10/17/16 04:00 98.2 F 90 21 97/52 98 10/17/16 03:52 14 10/17/16 03:00 87 14 95/60 100 10/17/16 02:00 88 18 85/59 100 10/17/16 01:00 90 19 104/66 98 10/17/16 00:00 98.3 F 84 25 H 101/56 99 10/16/16 23:52 13 10/16/16 23:00 87 13 101/60 99 10/16/16 22:40 90 15 101/60 99 10/16/16 22:20 91 17 99/56 99 10/16/16 22:00 88 18 106/59 99 10/16/16 21:40 90 16 106/59 99 10/16/16 21:20 93 14 99/57 99 10/16/16 21:00 90 129 H 99/57 100 10/16/16 20:40 90 30 H 99/57 100 10/16/16 20:20 92 85 H 109/59 100 10/16/16 20:00 100 111/58 10/16/16 19:45 92 10/16/16 19:00 90 112/62 10/16/16 18:44 270 H 101/65 10/16/16 18:14 74 18 122/83 74 L 10/16/16 17:44 76 18 118/80 99 10/16/16 17:14 88 18 99 10/16/16 16:46 76 18 140/64 99 10/16/16 16:07 98.2 F 76 18 126/60 98 10/16/16 14:34 66 20 137/64 98 10/16/16 13:34 97.5 F L 66 18 137/64 99 10/16/16 12:43 98 F 46 L 20 129/68 99 Intake and Output 10/16/16 10/17/16 10/17/16 22:59 06:59 14:59 Intake Total 300 1000 Balance 300 1000 Intake: IV 300 1000 Levofloxacin 500Mg-D5w 100 Pmx 500 mg In Dextrose/ Water 1 100ml.bag @ 100 mls/hr IVPB Q24H KLAUDIA Rx#: [id number] Sodium Chloride 0.9% 1, 200 900 000 ml @ 100 mls/hr IV . Q10H STA Rx#:[id number] metroNIDAZOLE-NS PMX 500 100 mg In Saline 1 100ml.bag @ 100 mls/hr IVPB Q8HR KLAUDIA Rx#:[id number] Other: # Voids 0 1 # Bowel Movements 1 1 Weight 62.8 kg General: The patient is awake and alert, in no distress Eye: there is normal conjunctiva bilaterally. Neck: The neck is supple, there is no JVD. Cardiovascular: Normal S1-S2, no S3-S4, no murmurs. Respiratory: Lungs clear to auscultation bilaterally Gastrointestinal: Abdomen is soft, nontender Musculoskeletal: There is no pedal edema. Neurological:. Speech is normal. Skin: Skin is warm and dry Results CBC & Chem 7: 10/17/16 04:35 10/17/16 04:35 Labs: Abnormal Lab Results - Last 24 Hours (Table) 10/16/16 10/16/16 10/16/16 Range/Units 12:57 12:57 15:00 WBC 26.4 H* (3.8-10.6) k/uL RBC (3.80-5.40) m/uL Hgb (11.4-16.0) gm/dL Hct (34.0-46.0) % Neutrophils # 24.4 H (1.3-7.7) k/uL PT (9.0-12.0) sec INR (<1.1) APTT (22.0-30.0) sec Sodium 132 L (137-145) mmol/L Potassium 1.7 L* (3.5-5.1) mmol/L Chloride (98-107) mmol/L Carbon Dioxide 16 L (22-30) mmol/L BUN 29 H (7-17) mg/dL Creatinine 1.58 H (0.52-1.04) mg/dL Glucose 140 H (74-99) mg/dL POC Glucose (mg/dL) (75-99) mg/dL Calcium 7.8 L (8.4-10.2) mg/dL Phosphorus (2.5-4.5) mg/dL Magnesium (1.6-2.3) mg/dL Troponin I (0.000-0.034) ng/mL Total Protein (6.3-8.2) g/dL Albumin (3.5-5.0) g/dL Triglycerides (<150) mg/dL HDL Cholesterol (40-60) mg/dL Lipase 471 H (23-300) U/L Urine Protein (Negative) Urine Ketones (Negative) Urine Blood (Negative) Urine RBC (0-5) /hpf Urine Bacteria (None) /hpf Hyaline Casts (0-2) /lpf Urine Mucus (None) /hpf Urine Opiates Screen (NotDetected) U Tricyclic Antidepress (NotDetected) U Benzodiazepines Scrn (NotDetected) U Marijuana (THC) Screen (NotDetected) 10/16/16 10/16/16 10/16/16 Range/Units 15:00 16:45 19:07 WBC (3.8-10.6) k/uL RBC (3.80-5.40) m/uL Hgb (11.4-16.0) gm/dL Hct (34.0-46.0) % Neutrophils # (1.3-7.7) k/uL PT 108.8 H (9.0-12.0) sec INR >10.0 H* (<1.1) APTT 60.7 H (22.0-30.0) sec Sodium (137-145) mmol/L Potassium (3.5-5.1) mmol/L Chloride (98-107) mmol/L Carbon Dioxide (22-30) mmol/L BUN (7-17) mg/dL Creatinine (0.52-1.04) mg/dL Glucose (74-99) mg/dL POC Glucose (mg/dL) (75-99) mg/dL Calcium (8.4-10.2) mg/dL Phosphorus (2.5-4.5) mg/dL Magnesium (1.6-2.3) mg/dL Troponin I 0.049 H* (0.000-0.034) ng/mL Total Protein (6.3-8.2) g/dL Albumin (3.5-5.0) g/dL Triglycerides (<150) mg/dL HDL Cholesterol (40-60) mg/dL Lipase (23-300) U/L Urine Protein 1+ H (Negative) Urine Ketones 1+ H (Negative) Urine Blood Moderate H (Negative) Urine RBC 37 H (0-5) /hpf Urine Bacteria Rare H (None) /hpf Hyaline Casts 10 H (0-2) /lpf Urine Mucus Rare H (None) /hpf Urine Opiates Screen Detected H (NotDetected) U Tricyclic Antidepress Detected H (NotDetected) U Benzodiazepines Scrn Detected H (NotDetected) U Marijuana (THC) Screen Detected H (NotDetected) 10/16/16 10/16/16 10/16/16 Range/Units 19:07 19:51 21:06 WBC (3.8-10.6) k/uL RBC (3.80-5.40) m/uL Hgb (11.4-16.0) gm/dL Hct (34.0-46.0) % Neutrophils # (1.3-7.7) k/uL PT (9.0-12.0) sec INR (<1.1) APTT (22.0-30.0) sec Sodium 134 L (137-145) mmol/L Potassium 2.1 L* 2.3 L* (3.5-5.1) mmol/L Chloride 111 H (98-107) mmol/L Carbon Dioxide 16 L (22-30) mmol/L BUN 22 H (7-17) mg/dL Creatinine 1.10 H (0.52-1.04) mg/dL Glucose 108 H (74-99) mg/dL POC Glucose (mg/dL) 160 H (75-99) mg/dL Calcium 7.5 L (8.4-10.2) mg/dL Phosphorus (2.5-4.5) mg/dL Magnesium (1.6-2.3) mg/dL Troponin I (0.000-0.034) ng/mL Total Protein (6.3-8.2) g/dL Albumin (3.5-5.0) g/dL Triglycerides (<150) mg/dL HDL Cholesterol (40-60) mg/dL Lipase (23-300) U/L Urine Protein (Negative) Urine Ketones (Negative) Urine Blood (Negative) Urine RBC (0-5) /hpf Urine Bacteria (None) /hpf Hyaline Casts (0-2) /lpf Urine Mucus (None) /hpf Urine Opiates Screen (NotDetected) U Tricyclic Antidepress (NotDetected) U Benzodiazepines Scrn (NotDetected) U Marijuana (THC) Screen (NotDetected) 10/16/16 10/17/16 10/17/16 Range/Units 21:06 01:02 04:35 WBC 17.1 H 12.1 H (3.8-10.6) k/uL RBC 3.65 L (3.80-5.40) m/uL Hgb 11.0 L (11.4-16.0) gm/dL Hct 32.2 L 32.1 L (34.0-46.0) % Neutrophils # 9.2 H (1.3-7.7) k/uL PT (9.0-12.0) sec INR (<1.1) APTT (22.0-30.0) sec Sodium (137-145) mmol/L Potassium (3.5-5.1) mmol/L Chloride (98-107) mmol/L Carbon Dioxide (22-30) mmol/L BUN (7-17) mg/dL Creatinine (0.52-1.04) mg/dL Glucose (74-99) mg/dL POC Glucose (mg/dL) (75-99) mg/dL Calcium (8.4-10.2) mg/dL Phosphorus (2.5-4.5) mg/dL Magnesium (1.6-2.3) mg/dL Troponin I 0.041 H* (0.000-0.034) ng/mL Total Protein (6.3-8.2) g/dL Albumin (3.5-5.0) g/dL Triglycerides (<150) mg/dL HDL Cholesterol (40-60) mg/dL Lipase (23-300) U/L Urine Protein (Negative) Urine Ketones (Negative) Urine Blood (Negative) Urine RBC (0-5) /hpf Urine Bacteria (None) /hpf Hyaline Casts (0-2) /lpf Urine Mucus (None) /hpf Urine Opiates Screen (NotDetected) U Tricyclic Antidepress (NotDetected) U Benzodiazepines Scrn (NotDetected) U Marijuana (THC) Screen (NotDetected) 10/17/16 Range/Units 04:35 WBC (3.8-10.6) k/uL RBC (3.80-5.40) m/uL Hgb (11.4-16.0) gm/dL Hct (34.0-46.0) % Neutrophils # (1.3-7.7) k/uL PT (9.0-12.0) sec INR (<1.1) APTT (22.0-30.0) sec Sodium 135 L (137-145) mmol/L Potassium 2.6 L* (3.5-5.1) mmol/L Chloride 114 H (98-107) mmol/L Carbon Dioxide 14 L (22-30) mmol/L BUN (7-17) mg/dL Creatinine (0.52-1.04) mg/dL Glucose (74-99) mg/dL POC Glucose (mg/dL) (75-99) mg/dL Calcium 7.5 L (8.4-10.2) mg/dL Phosphorus 2.1 L (2.5-4.5) mg/dL Magnesium 2.9 H (1.6-2.3) mg/dL Troponin I (0.000-0.034) ng/mL Total Protein 5.2 L (6.3-8.2) g/dL Albumin 2.6 L (3.5-5.0) g/dL Triglycerides 217 H (<150) mg/dL HDL Cholesterol 31 L (40-60) mg/dL Lipase (23-300) U/L Urine Protein (Negative) Urine Ketones (Negative) Urine Blood (Negative) Urine RBC (0-5) /hpf Urine Bacteria (None) /hpf Hyaline Casts (0-2) /lpf Urine Mucus (None) /hpf Urine Opiates Screen (NotDetected) U Tricyclic Antidepress (NotDetected) U Benzodiazepines Scrn (NotDetected) U Marijuana (THC) Screen (NotDetected) Thrombosis Risk Factor Assmnt - Choose All That Apply Any of the Below Risk Factors Present?: No Other Risk Factors: No Other congenital or acquired thrombophilia - If yes, enter type in comment: No Thrombosis Risk Factor Assessment Level: Very Low Risk Assessment and Plan Plan: 1. Retroperitoneal hematoma with extension to the right thigh: Probably attributed to supratherapeutic INR 2. Acute blood loss anemia: Secondary to #1 3. Severe hypokalemia: Currently replaced intravenously 4. Acute gastritis with nausea and vomiting on presentation 5. History of mitral valve replacement with [facility] [facility] mechanical valve in 2013 6. Episode of nonsustained V. tach in the emergency room probably attributed to electrolyte disturbance 7. Major depressive disorder This 36-year-old female with past medical history noted above significant for mitral valve replacement with [facility] mechanical valve in 2013 who presented to the hospital with nausea and vomiting and was found to have a supratherapeutic INR with evidence of a small retroperitoneal hematoma noted on computed tomography scan of the abdomen with extension to the right thigh. Patient had a trauma in her hemoglobin of approximately 4 g since admission. She was seen and evaluated by cardiology. She was started on anticoagulation with subcu Lovenox first dose given this morning 6:20 AM prior to my evaluation. Her blood pressure. Borderline low with a systolic in the 90s. She is awake and alert otherwise and does not appear toxic. I suggest to use IV heparin for anticoagulation for the next 24-48 hours to assure that the hemoglobin is stable and there is no expansion of the underlying hematoma. Patient was also restarted on Coumadin. Patient was also started on broad-spectrum antibiotic to cover intra-abdominal pathogens with a low suspicion that this fluid collection may represent infection. There is no documented fever. Patient does not appear toxic. We will continue antibiotic for now and monitor closely. Appreciate marketing sales consultant's recommendations. Continue ICU care. Potassium replacement. Repeat lab work in the morning.
[2016-10-17 11:28] LABS: CH 30.7; CHCM 35.4; HCT 31.9 % (34.0-46.0); HDW 2.77; HGB 11.4 gm/dL (11.4-16.0); MCH 30.9 pg (25.0-35.0); MCHC 35.5 g/dL (31.0-37.0); Mean Platelet Volume 6.7; RBC 3.67 m/uL (3.80-5.40); RDW 13.5 % (11.5-15.5); WBC 10.4 k/uL (3.8-10.6)
[2016-10-17 11:43] LABS: Anion Gap 5 mmol/L; Blood Urea Nitrogen 14 mg/dL (7-17); Calcium 7.8 mg/dL (8.4-10.2); Carbon Dioxide 16 mmol/L (22-30); Chloride 114 mmol/L (98-107); Glucose 91 mg/dL (74-99); Non-African American GFR(MDRD) >60 (>60 ml/min/1.73 sqM); Sodium 135 mmol/L (137-145)
[2016-10-17 11:53] LABS: Potassium 2.8 mmol/L (3.5-5.1)
--- NOTE | 2016-10-17 13:23 | P.CNPUL ---
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 However she continued to take her medications. Note that she is on a combination of medication which includes warfarin and hydrochlorothiazide. She came into the emergency department dehydrated. She was feeling very weak. Potassium level was as low as 1.5. During her hospital stay in the emergency, the patient went into acute torsades and this recovered spontaneously. Immediately, the patient was given potassium supplementation and 60 mg was given in the resuscitation was continued in the ICU. Magnesium level was also checked and came back at one point and this was also replaced. The most recent potassium level is up to 2.8 the patient is receiving another 60 meq. The magnesium level was checked and it was replaced.. Also the patient was toxic on Coumadin with an INR of above 10. The patient was given a CAT scan of the abdomen and pelvis and the patient was found to have an abnormal right retroperitoneal finding from the lower quadrants with the right groin which raises suspicion for hematoma. She denies having a left lower lobe or right lower quadrant pain or tenderness. No fever or chills. No paresis have appendicitis. The appendix looks within normal limits and there was no inflammatory changes. At that point at the perineal bleed was suspected due to Coumadin toxicity. The patient was given Kcentra which immediately reversed her toxicity. Her hemoglobin has remained stable and there is no significant drop in hemoglobin for now. The patient was seen this morning by cardiology and general surgery. Based on this, IV heparin was the resumed and we are closely monitoring the patient's hemoglobin for now. The patient is doing well. No further cardiac arrhythmias have been noted. Her gastrointestinal complaints have completely subsided. No toxicity. No recent antibiotic intake. No other complaints otherwise. She is a nondrinker. She smokes cigarettes and marijuana. Review of Systems All systems: negative Constitutional: Denies chills, Denies fever Eyes: denies blurred vision, denies pain Ears, nose, mouth and throat: Denies headache, Denies sore throat Cardiovascular: Denies chest pain, Denies shortness of breath Respiratory: Denies cough Gastrointestinal: Denies abdominal pain, Denies diarrhea, Denies nausea, Denies vomiting Genitourinary: Denies dysuria, Denies hematuria Musculoskeletal: Denies myalgias Integumentary: Denies pruritus, Denies rash Neurological: Denies numbness, Denies weakness Psychiatric: Denies anxiety, Denies depression Endocrine: Denies fatigue, Denies weight change Past Medical History Past Medical History: Asthma, GERD/Reflux, Hyperlipidemia, Mitral Valve Prolapse (MVP), Osteoarthritis (OA) Additional Past Medical History / Comment(s): Mitral regurgitation status post mitral valve replacement with a mechanical valve, IBS, Migraines, hiatal hernia , hypertension History of Any Multi-Drug Resistant Organisms: None Reported Past Surgical History: Cardiac Valve Replacement, Cholecystectomy, Heart Catheterization, Hernia Repair, Tubal Ligation Additional Past Surgical History / Comment(s): mitral valve replacement 2013, Past Anesthesia/Blood Transfusion Reactions: Motion Sickness, Postoperative Nausea & Vomiting (PONV) Past Psychological History: Anxiety, Depression Smoking Status: Current every day smoker Past Alcohol Use History: None Reported Additional Past Alcohol Use History / Comment(s): smokes 1/2 PPD for 20 yrs Past Drug Use History: Marijuana - Past Family History Mother Family Medical History: Cancer Additional Family Medical History / Comment(s): LUNG CA Medications and Allergies Home Medications Medication Instructions Recorded Confirmed Type Albuterol Inhaler [Ventolin Hfa 1 - 2 puff INHALATION RT-TID PRN 01/13/16 History Inhaler] Aspirin EC [Ecotrin Low Dose] 162 mg PO DAILY 01/13/16 10/16/16 History Butalb/APAP/Caff 50-325-40Mg 1 tab PO DAILY PRN 01/13/16 10/16/16 History [Fioricet 50-325-40] Dicyclomine [Bentyl] 20 mg PO QID 01/13/16 10/16/16 History Fluticasone Nasal [place] [Flonase 2 spr EA NOSTRIL DAILY PRN 01/13/16 10/16/16 History Nasal [place]] Gabapentin [Neurontin] 300 mg PO HS 01/13/16 01/13/16 History Montelukast [Singulair] 10 mg PO DAILY 01/13/16 10/16/16 History Omeprazole [PriLOSEC] 20 mg PO DAILY 01/13/16 10/16/16 History Potassium 297 mg PO DAILY 01/13/16 10/16/16 History QUEtiapine [SEROquel] 100 mg PO HS 01/13/16 10/16/16 History Warfarin [Coumadin] 7.5 mg PO DAILY 01/13/16 10/16/16 History Cetirizine HCl [Zyrtec] 10 mg PO DAILY 10/16/16 10/16/16 History FLUoxetine HCL [PROzac] 40 mg PO DAILY 10/16/16 10/16/16 History Ferrous Sulfate [Iron (65 MG 325 mg PO DAILY 10/16/16 10/16/16 History Elemental)] Hydrochlorothiazide [Hydrodiuril] 25 mg PO DAILY 10/16/16 10/16/16 History Loratadine [Claritin] 10 mg PO DAILY PRN 10/16/16 10/16/16 History carBAMazepine [TEGretol XR] 100 mg PO BID 10/16/16 10/16/16 History traZODone HCL 100 mg PO HS 10/16/16 10/16/16 History Allergies Allergy/AdvReac Type Severity Reaction Status Date / Time adhesive tape Allergy Itching Verified 10/16/16 17:20 corn [[place]] Allergy Unknown Verified 01/13/16 08:52 Physical Exam Vitals: Vital Signs Temp Pulse Resp BP Pulse Ox 10/17/16 11:00 87 20 115/67 98 10/17/16 10:00 83 23 97/61 99 10/17/16 09:00 91 17 91/46 99 10/17/16 08:00 98.7 F 88 17 95/58 100 10/17/16 07:00 99 29 H 94/62 100 10/17/16 06:00 86 22 110/57 98 10/17/16 05:00 83 19 98/57 99 10/17/16 04:00 98.2 F 90 21 97/52 98 10/17/16 03:52 14 10/17/16 03:00 87 14 95/60 100 10/17/16 02:00 88 18 85/59 100 10/17/16 01:00 90 19 104/66 98 10/17/16 00:00 98.3 F 84 25 H 101/56 99 10/16/16 23:52 13 10/16/16 23:00 87 13 101/60 99 10/16/16 22:40 90 15 101/60 99 10/16/16 22:20 91 17 99/56 99 10/16/16 22:00 88 18 106/59 99 10/16/16 21:40 90 16 106/59 99 10/16/16 21:20 93 14 99/57 99 10/16/16 21:00 90 129 H 99/57 100 10/16/16 20:40 90 30 H 99/57 100 10/16/16 20:20 92 85 H 109/59 100 10/16/16 20:00 100 111/58 10/16/16 19:45 92 10/16/16 19:00 90 112/62 10/16/16 18:44 270 H 101/65 10/16/16 18:14 74 18 122/83 74 L 10/16/16 17:44 76 18 118/80 99 10/16/16 17:14 88 18 99 10/16/16 16:46 76 18 140/64 99 10/16/16 16:07 98.2 F 76 18 126/60 98 10/16/16 14:34 66 20 137/64 98 10/16/16 13:34 97.5 F L 66 18 137/64 99 Intake and Output 10/16/16 10/17/16 10/17/16 22:59 06:59 14:59 Intake Total 300 1000 400 Balance 300 1000 400 Intake: IV 300 1000 400 Levofloxacin 500Mg-D5w 100 Pmx 500 mg In Dextrose/ Water 1 100ml.bag @ 100 mls/hr IVPB Q24H [facility] Rx#: [id number] Sodium Chloride 0.9% 1, 200 900 000 ml @ 100 mls/hr IV . Q10H [facility] Rx#:[id number] Sodium Chloride 0.9% 1, 300 000 ml @ 75 mls/hr IV . [id number] [facility] Rx#:[id number] metroNIDAZOLE-NS PMX 500 100 100 mg In Saline 1 100ml.bag @ 100 mls/hr IVPB Q8HR [facility] Rx#:[id number] Other: Voiding Method Toilet # Voids 0 1 1 # Bowel Movements 1 1 Weight 62.8 kg The patient appeared well nourished and normally developed. Vital signs as documented. Head exam is unremarkable. No scleral icterus or corneal arcus noted. Neck is without jugular venous distension, thyromegaly, or carotid bruits. Carotid upstrokes are brisk bilaterally. Lungs are clear to auscultation and percussion. Cardiac exam reveals a mitral valve click. Rhythm is regular. First and second heart sounds normal. No murmurs, rubs or gallops. Abdominal exam reveals normal bowel sounds, no masses, no organomegaly and no aortic enlargement. Extremities are nonedematous and both femoral and pedal pulses are normal. Results - Laboratory Findings CBC and BMP: 10/17/16 10:58 10/17/16 10:58 PT/INR, D-dimer PT 10.3 sec (9.0-12.0) 10/17/16 04:40 INR 1.0 (<1.1) 10/17/16 04:40 Abnormal lab findings: Abnormal Labs 10/16/16 10/16/16 10/16/16 12:57 12:57 15:00 WBC 26.4 H* RBC Hgb Hct Neutrophils # 24.4 H PT INR APTT Sodium 132 L Potassium 1.7 L* Chloride Carbon Dioxide 16 L BUN 29 H Creatinine 1.58 H Glucose 140 H POC Glucose (mg/dL) Calcium 7.8 L Phosphorus Magnesium Troponin I Total Protein Albumin Triglycerides HDL Cholesterol Lipase 471 H Urine Protein Urine Ketones Urine Blood Urine RBC Urine Bacteria Hyaline Casts Urine Mucus Urine Opiates Screen U Tricyclic Antidepress U Benzodiazepines Scrn U Marijuana (THC) Screen 10/16/16 10/16/16 10/16/16 15:00 16:45 19:07 WBC RBC Hgb Hct Neutrophils # PT 108.8 H INR >10.0 H* APTT 60.7 H Sodium Potassium Chloride Carbon Dioxide BUN Creatinine Glucose POC Glucose (mg/dL) Calcium Phosphorus Magnesium Troponin I 0.049 H* Total Protein Albumin Triglycerides HDL Cholesterol Lipase Urine Protein 1+ H Urine Ketones 1+ H Urine Blood Moderate H Urine RBC 37 H Urine Bacteria Rare H Hyaline Casts 10 H Urine Mucus Rare H Urine Opiates Screen Detected H U Tricyclic Antidepress Detected H U Benzodiazepines Scrn Detected H U Marijuana (THC) Screen Detected H 10/16/16 10/16/16 10/16/16 19:07 19:51 21:06 WBC RBC Hgb Hct Neutrophils # PT INR APTT Sodium 134 L Potassium 2.1 L* 2.3 L* Chloride 111 H Carbon Dioxide 16 L BUN 22 H Creatinine 1.10 H Glucose 108 H POC Glucose (mg/dL) 160 H Calcium 7.5 L Phosphorus Magnesium Troponin I Total Protein Albumin Triglycerides HDL Cholesterol Lipase Urine Protein Urine Ketones Urine Blood Urine RBC Urine Bacteria Hyaline Casts Urine Mucus Urine Opiates Screen U Tricyclic Antidepress U Benzodiazepines Scrn U Marijuana (THC) Screen 10/16/16 10/17/16 10/17/16 21:06 01:02 04:35 WBC 17.1 H 12.1 H RBC 3.65 L Hgb 11.0 L Hct 32.2 L 32.1 L Neutrophils # 9.2 H PT INR APTT Sodium Potassium Chloride Carbon Dioxide BUN Creatinine Glucose POC Glucose (mg/dL) Calcium Phosphorus Magnesium Troponin I 0.041 H* Total Protein Albumin Triglycerides HDL Cholesterol Lipase Urine Protein Urine Ketones Urine Blood Urine RBC Urine Bacteria Hyaline Casts Urine Mucus Urine Opiates Screen U Tricyclic Antidepress U Benzodiazepines Scrn U Marijuana (THC) Screen 10/17/16 10/17/16 10/17/16 04:35 10:58 10:58 WBC RBC 3.67 L Hgb Hct 31.9 L Neutrophils # PT INR APTT Sodium 135 L 135 L Potassium 2.6 L* 2.8 L* Chloride 114 H 114 H Carbon Dioxide 14 L 16 L BUN Creatinine Glucose POC Glucose (mg/dL) Calcium 7.5 L 7.8 L Phosphorus 2.1 L Magnesium 2.9 H Troponin I Total Protein 5.2 L Albumin 2.6 L Triglycerides 217 H HDL Cholesterol 31 L Lipase Urine Protein Urine Ketones Urine Blood Urine RBC Urine Bacteria Hyaline Casts Urine Mucus Urine Opiates Screen U Tricyclic Antidepress U Benzodiazepines Scrn U Marijuana (THC) Screen Assessment and Plan Plan: Assessment 1 acute torsades the point secondary to profound hypokalemia, improved with electrode management and potassium supplementation 2 acute Coumadin toxicity with suspected retroperitoneal hematoma, the coagulopathy has been reversed and the patient is currently back on IV heparin 3 mitral valve replacement for severe mitral regurgitation and the patient has a mechanical valve in place, [facility] mechanical valve in 2013 4 suspected blood loss probably related to retroperitoneal hematoma development as the patient's hemoglobin has dropped approximately 3 g since her admission. We'll monitor this very closely. 5 smoker 6 marijuana abuse 7 depression 8 in terms of viral gastroenteritis, improved Plan Continue monitoring the potassium level and replace accordingly to bring her potassium level above 4. Keep the magnesium level above 2. Monitor the cardiac rhythm. Start IV heparin monitor the hemoglobin and watch for any signs of bleeding. We'll continue to follow make further recommendations based on her progress. Keep the patient ICU for 24 hours. For now, the patient is hemodynamically stable.
[2016-10-17] MEDS: carBAMazepine 200 MG TAB PO SCH ×2 (16:23→21:04)
--- NOTE | 2016-10-17 16:38 | CONS ---
DATE OF CONSULTATION: This is a 36-year-old lady who sees Dr. Persaud in the outpatient setting. She came into the hospital, brought in by EMS, with a one-week history of nausea, vomiting, weakness, lack of energy, and unable to get up and move around. After she arrived she was found to be hypokalemic with a potassium of 1.7. Her BUN and creatinine were elevated. She was listless, weak, with lack of energy, and then while she was in the emergency room she had a run of wide QRS tachycardia with a torsades-type picture probably related to hypokalemia. Her INR was more than 10.0. She has a mechanical mitral valve that was placed in 2013. She had INR of more than 10.0. Hemoglobin was normal. She was severely dehydrated and she had abdominal pain. CT scan revealed a possible retroperitoneal hematoma. In view of the retroperitoneal hematoma and INR of more than 10.0, I recommended immediate reversal of her Coumadin and Kcentra was given. Patient's PT, INR was normalized. She has no further active bleeding. Her potassium was aggressively supplemented. The torsades de pointes resolved pretty much spontaneously. She is feeling much better, resting comfortably. Denies any chest discomfort at the time of my evaluation. Her nausea has improved. However, her appetite is still not back. PAST MEDICAL HISTORY: 1. 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 2. History of sinus problems and allergies. She is status post cholecystectomy, hernia surgery and tubal ligation. Medications at home include: 1. Coumadin 7.5 mg daily, and 2 days a week she takes 14 mg. 2. Hydrochlorothiazide 25 mg daily. 3. Loratadine 10 mg daily. 4. Trazodone. 5. Tegretol. 6. Singulair. 7. Flonase spray. Patient has a history of COPD, gastroesophageal reflux disease. Patient smokes half pack daily. Does not consume alcohol on a regular basis. She does use marijuana. On examination, blood pressure is 110/70. Pulse is about 80 per minute, regular. HEENT: Unremarkable. Fundus was not examined by me. Neck is supple. There is no JVD. I do hear a soft carotid bruit. Heart exam reveals S1, S2 with prosthetic valve clicks that are crisp. Lungs are clear. ABDOMEN: Soft. There is no tenderness. Lower extremities reveal diminished pulses. Central nervous system is normal. EKG this morning revealed sinus mechanism with nonspecific ST-T wave changes, QT slightly prolonged. Rhythm strips suggested torsades de pointes, and this was in the ER yesterday with a potassium of 1.7. Patient's potassium this morning is 2.6 and she has received additional 60 mEq. IMPRESSION: 1. Acute gastritis for the last one week causing severe dehydration and hypokalemia. 2. Torsades de pointes secondary to hypokalemia. 3. Status post mechanical mitral valve replacement with coagulopathy; INR of more than 10.0. 4. Probable retroperitoneal hematoma in the setting of coagulopathy. 5. History of smoking and marijuana abuse. RECOMMENDATIONS: I am recommending that we can resume anticoagulation. PT, INR have been normalized with the administration of Kcentra. Will initiate her on Lovenox 60 mg q.12 hours along with Coumadin 7.5 mg daily. I will also aggressively supplement potassium. Repeat BMP around 6 p.m. today. Patient's nausea has resolved. She is being fed. Amylase level is not elevated. Lipase is slightly high. We will therefore resume her diet, resume anticoagulation and supplement electrolytes and see how she does. I will keep her in the unit at least for one more day. Thank you very much for the consult.
[2016-10-17] MEDS: ENOXAPARIN 60 MG/0.6 ML SYRINGE SQ SCH (18:31)
[2016-10-17] MEDS: LEVOFLOXACIN 500MG-D5W PMX 500 MG in DEXTROSE/WATER 1 100ML.BAG IVPB SCH (18:31)
[2016-10-17 18:53] LABS: Anion Gap 3 mmol/L; Blood Urea Nitrogen 12 mg/dL (7-17); Calcium 7.9 mg/dL (8.4-10.2); Carbon Dioxide 19 mmol/L (22-30); Chloride 116 mmol/L (98-107); Glucose 81 mg/dL (74-99); Magnesium 2.4 mg/dL (1.6-2.3); Non-African American GFR(MDRD) >60 (>60 ml/min/1.73 sqM); Sodium 138 mmol/L (137-145)
[2016-10-17 18:55] LABS: Potassium 2.9 mmol/L (3.5-5.1)
[2016-10-17] MEDS: MONTELUKAST 10 MG TAB PO SCH (21:32)
[2016-10-17 23:54] LABS: Anion Gap 3 mmol/L; Blood Urea Nitrogen 10 mg/dL (7-17); Calcium 7.6 mg/dL (8.4-10.2); Carbon Dioxide 17 mmol/L (22-30); Chloride 118 mmol/L (98-107); Glucose 91 mg/dL (74-99); Non-African American GFR(MDRD) >60 (>60 ml/min/1.73 sqM); Potassium 3.5 mmol/L (3.5-5.1); Sodium 138 mmol/L (137-145)
[2016-10-18] MEDS ORDERED: Potassium Replacement Protocol 1 EACH MISC MISCELLANE PRN (00:01)
[2016-10-18] MEDS: POTASSIUM CHLORIDE ER 20 MEQ TAB.ER PO SCH ×3 (00:20→08:10)
[2016-10-18] MEDS: HYDROmorphone 1 MG/ML 1 ML SYRINGE IV PRN ×6 (00:27→22:39)
[2016-10-18] MEDS: ONDANSETRON 4 MG/2 ML VIAL IVP PRN (04:11)
[2016-10-18 04:45] LABS: Basophils # (A) 0.1 k/uL (0-0.2); Basophils % (A) 1 %; CH 30.4; CHCM 34.6; Eosinophils # (A) 0.1 k/uL (0-0.7); Eosinophils % (A) 1 %; HCT 33.3 % (34.0-46.0); HDW 2.72; Luc # (Auto) 0.14; Luc % (Auto) 2; Lymphocytes # (A) 3.1 k/uL (1.0-4.8); Lymphocytes % (A) 33 %; MCH 29.1 pg (25.0-35.0); MCHC 32.9 g/dL (31.0-37.0); MCV 88.3 fL (80.0-100.0); Mean Platelet Volume 6.7; Monocytes # (A) 0.4 k/uL (0-1.0); Monocytes % (A) 4 %; Neutrophils # (A) 5.5 k/uL (1.3-7.7); Neutrophils % (A) 59 %; RBC 3.77 m/uL (3.80-5.40); RDW 13.6 % (11.5-15.5); WBC 9.3 k/uL (3.8-10.6); WBC (Perox) 9.26
[2016-10-18 04:55] LABS: Anion Gap 7 mmol/L; Blood Urea Nitrogen 8 mg/dL (7-17); Calcium 8.1 mg/dL (8.4-10.2); Carbon Dioxide 13 mmol/L (22-30); Glucose 88 mg/dL (74-99); Magnesium 1.9 mg/dL (1.6-2.3); Non-African American GFR(MDRD) >60 (>60 ml/min/1.73 sqM); Phosphorous 1.5 mg/dL (2.5-4.5); Potassium 4.2 mmol/L (3.5-5.1); Sodium 140 mmol/L (137-145)
[2016-10-18 04:56] LABS: Partial Thromboplastin Time 26.1 sec (22.0-30.0)
[2016-10-18 05:06] LABS: Chloride 120 mmol/L (98-107)
[2016-10-18] MEDS ORDERED: Phosphorus Replacement Protoco 1 EACH MISC MISCELLANE PRN (05:08)
[2016-10-18] MEDS ORDERED: Magnesium Replacement Protocol 1 EACH MISC MISCELLANE PRN (05:10)
[2016-10-18] MEDS: MAGNESIUM SULFATE-D5W PMX 1 GM in DEXTROSE/WATER 1 100ML.BAG IVPB SCH ×2 (05:58→07:05)
[2016-10-18] MEDS: SODIUM PHOSPHATE 10 MMOL in SODIUM CHLORIDE 0.9% 250 ML IVPB SCH ×2 (06:00→09:44)
[2016-10-18] MEDS: ENOXAPARIN 60 MG/0.6 ML SYRINGE SQ SCH ×2 (06:01→17:51)
[2016-10-18] MEDS: PANTOPRAZOLE 40 MG/10 ML VIAL IV SCH (08:09)
[2016-10-18] MEDS: metroNIDAZOLE-NS PMX 500 MG in SALINE 1 100ML.BAG IVPB SCH ×2 (08:09→16:37)
[2016-10-18] MEDS: carBAMazepine 200 MG TAB PO SCH ×2 (09:44→20:17)
[2016-10-18] MEDS: amLODIPine 5 MG TAB PO SCH (09:44)
[2016-10-18] MEDS ORDERED: ONDANSETRON 4 MG/2 ML VIAL IVP PRN (09:53)
[2016-10-18] MEDS: SODIUM CHLORIDE 0.9% 1,000 ML IV SCH (09:56)
[2016-10-18 10:58] LABS: Amylase 65 U/L (30-110)
--- NOTE | 2016-10-18 12:34 | P.PN ---
Subjective Principal diagnosis: Abdominal pain. Patient seen to be doing better. Hemoglobin remained stable. Denies abdominal pain. No nausea or vomiting. Tolerating diet thus far. Objective - Vital Signs Vital signs: Vital Signs Temp 98.2 F 10/18/16 09:00 Pulse 79 10/18/16 12:00 Resp 18 10/18/16 12:00 BP 165/78 10/18/16 12:00 Pulse Ox 98 10/18/16 12:00 Intake & Output 10/17/16 10/18/16 10/18/16 18:59 06:59 18:59 Intake Total 1365 1365 800 Balance 1365 1365 800 Weight 65.7 kg Intake: IV 1125 925 550 Levofloxacin 500Mg-D5w 100 Pmx 500 mg In Dextrose/ Water 1 100ml.bag @ 100 mls/hr IVPB Q24H [facility] Rx#: [id number] Sodium Chloride 0.9% 1, 825 825 450 000 ml @ 75 mls/hr IV . [id number] [facility] Rx#:[id number] metroNIDAZOLE-NS PMX 500 200 100 100 mg In Saline 1 100ml.bag @ 100 mls/hr IVPB Q8HR [facility] Rx#:[id number] Intake, IV Titration 250 Amount Sodium Phosphate 10 mmol 250 In Sodium Chloride 0.9% 250 ml @ 125 mls/hr IVPB Q2H [facility] Rx#:[id number] Oral 240 440 Other: Voiding Method Toilet Toilet Toilet # Voids 1 1 1 - Exam Abdomen: Soft, nondistended, nontender - Labs CBC & Chem 7: 10/18/16 04:15 10/18/16 04:15 Labs: Abnormal Lab Results - Last 24 Hours (Table) 10/17/16 10/17/16 10/18/16 Range/Units 18:04 23:27 04:15 RBC 3.77 L (3.80-5.40) m/uL Hgb 11.0 L (11.4-16.0) gm/dL Hct 33.3 L (34.0-46.0) % Potassium 2.9 L* (3.5-5.1) mmol/L Chloride 116 H 118 H (98-107) mmol/L Carbon Dioxide 19 L 17 L (22-30) mmol/L Calcium 7.9 L 7.6 L (8.4-10.2) mg/dL Phosphorus (2.5-4.5) mg/dL Magnesium 2.4 H (1.6-2.3) mg/dL Lipase (23-300) U/L 10/18/16 10/18/16 Range/Units 04:15 04:15 RBC (3.80-5.40) m/uL Hgb (11.4-16.0) gm/dL Hct (34.0-46.0) % Potassium (3.5-5.1) mmol/L Chloride 120 H* (98-107) mmol/L Carbon Dioxide 13 L (22-30) mmol/L Calcium 8.1 L (8.4-10.2) mg/dL Phosphorus 1.5 L (2.5-4.5) mg/dL Magnesium (1.6-2.3) mg/dL Lipase 654 H (23-300) U/L Microbiology - Last 24 Hours (Table) 10/16/16 16:40 Blood Culture - Preliminary Blood No Growth after 24 hours Assessment and Plan (1) Abdominal pain Narrative/Plan: Continue diet as tolerated. Follow labs. Status: Acute
--- NOTE | 2016-10-18 12:56 | P.PN ---
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 However she continued to take her medications. Note that she is on a combination of medication which includes warfarin and hydrochlorothiazide. She came into the emergency department dehydrated. She was feeling very weak. Potassium level was as low as 1.5. During her hospital stay in the emergency, the patient went into acute torsades and this recovered spontaneously. Immediately, the patient was given potassium supplementation and 60 mg was given in the resuscitation was continued in the ICU. Magnesium level was also checked and came back at one point and this was also replaced. The most recent potassium level is up to 2.8 the patient is receiving another 60 meq. The magnesium level was checked and it was replaced.. Also the patient was toxic on Coumadin with an INR of above 10. The patient was given a CAT scan of the abdomen and pelvis and the patient was found to have an abnormal right retroperitoneal finding from the lower quadrants with the right groin which raises suspicion for hematoma. She denies having a left lower lobe or right lower quadrant pain or tenderness. No fever or chills. No paresis have appendicitis. The appendix looks within normal limits and there was no inflammatory changes. At that point at the perineal bleed was suspected due to Coumadin toxicity. The patient was given Kcentra which immediately reversed her toxicity. Her hemoglobin has remained stable and there is no significant drop in hemoglobin for now. The patient was seen this morning by cardiology and general surgery. Based on this, IV heparin was the resumed and we are closely monitoring the patient's hemoglobin for now. The patient is doing well. No further cardiac arrhythmias have been noted. Her gastrointestinal complaints have completely subsided. No toxicity. No recent antibiotic intake. No other complaints otherwise. She is a nondrinker. She smokes cigarettes and marijuana. On the patient is being seen in follow-up. No further arrhythmias of been noted in the potassium level is been corrected. There is increase in the chloride level which resulted in to a component of non-anion gap metabolic acidosis. Meanwhile, the patient is on Lovenox and the patient is being anticoagulated with warfarin. The patient had some nausea for which she was started on Zofran. Hemoglobin is stable. No abdominal distention. No signs of any bleeding. Her abdomen is extremely soft. Objective - Vital Signs Vital signs: Vital Signs Temp 98.2 F 10/18/16 09:00 Pulse 79 10/18/16 12:00 Resp 18 10/18/16 12:00 BP 165/78 10/18/16 12:00 Pulse Ox 98 10/18/16 12:00 Intake & Output 10/17/16 10/18/16 10/18/16 18:59 06:59 18:59 Intake Total 1365 1365 800 Balance 1365 1365 800 Weight 65.7 kg Intake: IV 1125 925 550 Levofloxacin 500Mg-D5w 100 Pmx 500 mg In Dextrose/ Water 1 100ml.bag @ 100 mls/hr IVPB Q24H [facility] Rx#: [id number] Sodium Chloride 0.9% 1, 825 825 450 000 ml @ 75 mls/hr IV . [id number] [facility] Rx#:[id number] metroNIDAZOLE-NS PMX 500 200 100 100 mg In Saline 1 100ml.bag @ 100 mls/hr IVPB Q8HR [facility] Rx#:[id number] Intake, IV Titration 250 Amount Sodium Phosphate 10 mmol 250 In Sodium Chloride 0.9% 250 ml @ 125 mls/hr IVPB Q2H [facility] Rx#:[id number] Oral 240 440 Other: Voiding Method Toilet Toilet Toilet # Voids 1 1 1 - Exam The patient appeared well nourished and normally developed. Vital signs as documented. Head exam is unremarkable. No scleral icterus or corneal arcus noted. Neck is without jugular venous distension, thyromegaly, or carotid bruits. Carotid upstrokes are brisk bilaterally. Lungs are clear to auscultation and percussion. Cardiac exam reveals a mitral valve click. Rhythm is regular. First and second heart sounds normal. No murmurs, rubs or gallops. Abdominal exam reveals normal bowel sounds, no masses, no organomegaly and no aortic enlargement. Extremities are nonedematous and both femoral and pedal pulses are normal. - Labs CBC & Chem 7: 10/18/16 04:15 10/18/16 04:15 Labs: Abnormal Lab Results - Last 24 Hours (Table) 0610/17/16 10/18/16 Range/Units 18:04 23:27 04:15 RBC 3.77 L (3.80-5.40) m/uL Hgb 11.0 L (11.4-16.0) gm/dL Hct 33.3 L (34.0-46.0) % Potassium 2.9 L* (3.5-5.1) mmol/L Chloride 116 H 118 H (98-107) mmol/L Carbon Dioxide 19 L 17 L (22-30) mmol/L Calcium 7.9 L 7.6 L (8.4-10.2) mg/dL Phosphorus (2.5-4.5) mg/dL Magnesium 2.4 H (1.6-2.3) mg/dL Lipase (23-300) U/L 10/18/16 10/18/16 Range/Units 04:15 04:15 RBC (3.80-5.40) m/uL Hgb (11.4-16.0) gm/dL Hct (34.0-46.0) % Potassium (3.5-5.1) mmol/L Chloride 120 H* (98-107) mmol/L Carbon Dioxide 13 L (22-30) mmol/L Calcium 8.1 L (8.4-10.2) mg/dL Phosphorus 1.5 L (2.5-4.5) mg/dL Magnesium (1.6-2.3) mg/dL Lipase 654 H (23-300) U/L Microbiology - Last 24 Hours (Table) 10/16/16 16:40 Blood Culture - Preliminary Blood No Growth after 24 hours Assessment and Plan Plan: Assessment 1 acute torsades de pointes secondary to profound hypokalemia, improved with electrode management and potassium supplementation 2 acute Coumadin toxicity with suspected retroperitoneal hematoma, the coagulopathy has been reversed and the patient is currently back on Lovenox and warfarin. 3 mitral valve replacement for severe mitral regurgitation and the patient has a mechanical valve in place, [facility] mechanical valve in 2013 4 suspected blood loss probably related to retroperitoneal hematoma development as the patient's hemoglobin has dropped approximately 3 g since her admission. We'll monitor this very closely. The hemoglobin has been stable since 5 smoker 6 marijuana abuse 7 depression 8 ongoing nausea, currently on Zofran. No vomiting. No diarrhea 9 non-anion gap metabolic acidosis because of hyperchloremia. Plan Continue Lovenox. Continue articulation with warfarin. Watch for any signs of GI bleeding. Continue antibiotic coverage. Continue Zofran. No arrhythmias have been noted. Potassium was supplemented. Monitor the non-anion gap metabolic acidosis. We'll follow
--- NOTE | 2016-10-18 13:28 | P.PN ---
Subjective Patient is awake and alert today. She does not have any pain in her side. Hemoglobin is stable. Objective - Vital Signs Vital signs: Vital Signs Temp 98.2 F 10/18/16 09:00 Pulse 79 10/18/16 12:00 Resp 18 10/18/16 12:00 BP 165/78 10/18/16 12:00 Pulse Ox 98 10/18/16 12:00 Intake & Output 10/17/16 10/18/16 10/18/16 18:59 06:59 18:59 Intake Total 1365 1365 800 Balance 1365 1365 800 Weight 65.7 kg Intake: IV 1125 925 550 Levofloxacin 500Mg-D5w 100 Pmx 500 mg In Dextrose/ Water 1 100ml.bag @ 100 mls/hr IVPB Q24H [facility] Rx#: [id number] Sodium Chloride 0.9% 1, 825 825 450 000 ml @ 75 mls/hr IV . [id number] [facility] Rx#:[id number] metroNIDAZOLE-NS PMX 500 200 100 100 mg In Saline 1 100ml.bag @ 100 mls/hr IVPB Q8HR [facility] Rx#:[id number] Intake, IV Titration 250 Amount Sodium Phosphate 10 mmol 250 In Sodium Chloride 0.9% 250 ml @ 125 mls/hr IVPB Q2H [facility] Rx#:[id number] Oral 240 440 Other: Voiding Method Toilet Toilet Toilet # Voids 1 1 1 - Exam General: The patient is awake and alert, in no distress Eye: there is normal conjunctiva bilaterally. Neck: The neck is supple, there is no JVD. Cardiovascular: Normal S1-S2, no S3-S4, no murmurs. Respiratory: Lungs clear to auscultation bilaterally Gastrointestinal: Abdomen is soft, nontender Musculoskeletal: There is no pedal edema. Neurological:. Speech is normal. Skin: Skin is warm and dry - Labs CBC & Chem 7: 10/18/16 04:15 10/18/16 04:15 Labs: Abnormal Lab Results - Last 24 Hours (Table) 10/17/16 10/17/16 10/18/16 Range/Units 18:04 23:27 04:15 RBC 3.77 L (3.80-5.40) m/uL Hgb 11.0 L (11.4-16.0) gm/dL Hct 33.3 L (34.0-46.0) % Potassium 2.9 L* (3.5-5.1) mmol/L Chloride 116 H 118 H (98-107) mmol/L Carbon Dioxide 19 L 17 L (22-30) mmol/L Calcium 7.9 L 7.6 L (8.4-10.2) mg/dL Phosphorus (2.5-4.5) mg/dL Magnesium 2.4 H (1.6-2.3) mg/dL Lipase (23-300) U/L 10/18/16 10/18/16 Range/Units 04:15 04:15 RBC (3.80-5.40) m/uL Hgb (11.4-16.0) gm/dL Hct (34.0-46.0) % Potassium (3.5-5.1) mmol/L Chloride 120 H* (98-107) mmol/L Carbon Dioxide 13 L (22-30) mmol/L Calcium 8.1 L (8.4-10.2) mg/dL Phosphorus 1.5 L (2.5-4.5) mg/dL Magnesium (1.6-2.3) mg/dL Lipase 654 H (23-300) U/L Microbiology - Last 24 Hours (Table) 10/16/16 16:40 Blood Culture - Preliminary Blood No Growth after 24 hours Assessment and Plan Plan: 1. Retroperitoneal hematoma with extension to the right thigh: Probably attributed to supratherapeutic INR 2. Acute blood loss anemia: Secondary to #1 3. Severe hypokalemia: Currently replaced intravenously 4. Acute gastritis with nausea and vomiting on presentation 5. History of mitral valve replacement with [employer] Fidel's mechanical valve in 2013 6. Episode of nonsustained V. tach in the emergency room probably attributed to electrolyte disturbance 7. Major depressive disorder 8. Metabolic acidosis This 36-year-old female with past medical history noted above significant for mitral valve replacement with [employer] Fidel's mechanical valve in 2013 who presented to the hospital with nausea and vomiting and was found to have a supratherapeutic INR with evidence of a small retroperitoneal hematoma noted on computed tomography scan of the abdomen with extension to the right thigh. She was seen and evaluated by cardiology. She was started on anticoagulation with subcu Lovenox. She is awake and alert otherwise and does not appear toxic. Hemoglobin appears stable today. May consider repeating computed tomography scan of the abdomen and pelvis within the next day or 2 to reassess the hematoma. Patient was also started on broad-spectrum antibiotic to cover intra-abdominal pathogens with a low suspicion that this fluid collection may represent infection. There is no documented fever. Patient does not appear toxic. We will continue antibiotic for now and monitor closely. Appreciate air quality consultant's recommendations. Continue ICU care. Potassium replacement. Repeat lab work in the morning.
--- NOTE | 2016-10-18 17:43 | PN ---
This lady is doing much better. Her potassium level is good. She has no chest pain. No further arrhythmia. Vital signs are stable. However, she has some nausea. S1 and S2 heard normally with a prosthetic valve clicks. Lungs reveal decent air entry. Abdomen and lower extremity exam unchanged. Plan is to continue current medications including Lovenox, Coumadin and she can be moved to telemetry unit. She continues to have intractable nausea and I am requesting a gastrointestinal evaluation for this patient. I discussed my thoughts in detail with the patient. I impressed upon her the importance of taking her medications regularly and also following up with her advertising supervisor, Dr. Persaud.
[2016-10-18] MEDS: WARFARIN 7.5 MG TAB PO SCH (17:51)
[2016-10-18] MEDS: LEVOFLOXACIN 500MG-D5W PMX 500 MG in DEXTROSE/WATER 1 100ML.BAG IVPB SCH (17:51)
[2016-10-18 18:25] LABS: Anion Gap 5 mmol/L; Blood Urea Nitrogen 5 mg/dL (7-17); Carbon Dioxide 16 mmol/L (22-30); Chloride 116 mmol/L (98-107); Glucose 114 mg/dL (74-99); Magnesium 1.9 mg/dL (1.6-2.3); Non-African American GFR(MDRD) >60 (>60 ml/min/1.73 sqM); Phosphorous 2.2 mg/dL (2.5-4.5); Potassium 3.9 mmol/L (3.5-5.1); Sodium 137 mmol/L (137-145)
[2016-10-18] MEDS: MONTELUKAST 10 MG TAB PO SCH (20:17)
[2016-10-19] MEDS: metroNIDAZOLE-NS PMX 500 MG in SALINE 1 100ML.BAG IVPB SCH ×3 (00:06→18:16)
[2016-10-19] MEDS: ENOXAPARIN 60 MG/0.6 ML SYRINGE SQ SCH ×2 (05:13→18:16)
[2016-10-19 06:46] LABS: INR 1.1 (<1.1); Partial Thromboplastin Time 28.4 sec (22.0-30.0); Prothrombin Time 11.5 sec (9.0-12.0)
[2016-10-19 06:49] LABS: Basophils # (A) 0.1 k/uL (0-0.2); Basophils % (A) 1 %; CH 30.2; CHCM 33.1; Eosinophils # (A) 0.1 k/uL (0-0.7); Eosinophils % (A) 2 %; HGB 11.2 gm/dL (11.4-16.0); Luc # (Auto) 0.15; Luc % (Auto) 2; Lymphocytes # (A) 1.6 k/uL (1.0-4.8); Lymphocytes % (A) 22 %; MCH 30.2 pg (25.0-35.0); MCV 91.5 fL (80.0-100.0); Mean Platelet Volume 6.7; Monocytes # (A) 0.5 k/uL (0-1.0); Monocytes % (A) 7 %; Neutrophils # (A) 4.6 k/uL (1.3-7.7); Neutrophils % (A) 66 %; RBC 3.71 m/uL (3.80-5.40); RDW 13.5 % (11.5-15.5); WBC (Perox) 6.62
[2016-10-19 06:56] LABS: Anion Gap 6 mmol/L; Blood Urea Nitrogen 3 mg/dL (7-17); Carbon Dioxide 17 mmol/L (22-30); Chloride 115 mmol/L (98-107); Glucose 93 mg/dL (74-99); Magnesium 1.7 mg/dL (1.6-2.3); Non-African American GFR(MDRD) >60 (>60 ml/min/1.73 sqM); Phosphorous 2.5 mg/dL (2.5-4.5); Potassium 3.2 mmol/L (3.5-5.1); Sodium 138 mmol/L (137-145)
[2016-10-19] MEDS ORDERED: Potassium Replacement Protocol 1 EACH MISC MISCELLANE PRN (08:35)
[2016-10-19] MEDS ORDERED: Magnesium Replacement Protocol 1 EACH MISC MISCELLANE PRN (08:36)
[2016-10-19] MEDS: HYDROmorphone 1 MG/ML 1 ML SYRINGE IV PRN ×4 (08:48→20:19)
[2016-10-19] MEDS: carBAMazepine 200 MG TAB PO SCH ×2 (08:48→20:18)
[2016-10-19] MEDS: amLODIPine 5 MG TAB PO SCH (08:48)
[2016-10-19] MEDS: PANTOPRAZOLE 40 MG/10 ML VIAL IV SCH (08:48)
[2016-10-19 08:58] LABS: Amylase 90 U/L (30-110)
[2016-10-19] MEDS: POTASSIUM CHLORIDE ER 20 MEQ TAB.ER PO SCH ×2 (09:43→12:18)
--- NOTE | 2016-10-19 09:59 | P.PN ---
Subjective This 36-year-old female with past medical history noted above significant for mitral valve replacement with [employer] Fidel's mechanical valve in 2013 who presented to the hospital with nausea and vomiting and was found to have a supratherapeutic INR with evidence of a small retroperitoneal hematoma noted on computed tomography scan of the abdomen with extension to the right thigh. She was seen and evaluated by cardiology. She was started on anticoagulation with subcu Lovenox. She is awake and alert otherwise and does not appear toxic. Hemoglobin appears stable today. May consider repeating computed tomography scan of the abdomen and pelvis within the next day or 2 to reassess the hematoma. Patient was also started on broad-spectrum antibiotic to cover intra-abdominal pathogens with a low suspicion that this fluid collection may represent infection. There is no documented fever. Patient does not appear toxic. Patient does report improvement in her nausea. GI service was consulted for her chronic nausea over the past week. Patient reports that she does not vomit after having her gallbladder and hiatal hernia surgery. She is remained in sinus rhythm. Magnesium and potassium replaced. She denies any chest pain or shortness of breath. Denies any burning with urination. Reports having bowel movements. She was noted to have elevated lipase today of 1011. We'll make her nothing by mouth for pancreatitis. Objective - Vital Signs Vital signs: Vital Signs Temp 97.9 F 10/19/16 08:00 Pulse 103 H 10/19/16 08:00 Resp 16 10/19/16 04:00 BP 127/92 10/19/16 08:00 Pulse Ox 97 10/19/16 08:00 Intake & Output 10/18/16 10/19/16 10/19/16 18:59 06:59 18:59 Intake Total 1340 140 Balance 1340 140 Weight 64.8 kg Intake: IV 850 140 0.9 @ 5 ml/ hr 40 Levofloxacin 500Mg-D5w 100 100 Pmx 500 mg In Dextrose/ Water 1 100ml.bag @ 100 mls/hr IVPB Q24H [facility] Rx#: [id number] Sodium Chloride 0.9% 1, 450 000 ml @ 75 mls/hr IV . [id number] [facility] Rx#:[id number] metroNIDAZOLE-NS PMX 500 300 mg In Saline 1 100ml.bag @ 100 mls/hr IVPB Q8HR [facility] Rx#:[id number] Intake, IV Titration 250 Amount Sodium Phosphate 10 mmol 250 In Sodium Chloride 0.9% 250 ml @ 125 mls/hr IVPB Q2H [facility] Rx#:[id number] Oral 240 Other: Voiding Method Toilet Toilet # Voids 1 1 # Bowel Movements 5 - Exam Head normocephalic Neck supple Lungs clear to auscultation bilaterally no wheezing or crackles Heart regular rate and rhythm S1-S2, no rub or gallop Abdomen is soft epigastric tenderness nondistended positive bowel sounds no hepatosplenomegaly Extremities no edema Neuro alert and orientated to 3 - Labs CBC & Chem 7: 10/19/16 06:09 10/19/16 06:09 Labs: Abnormal Lab Results - Last 24 Hours (Table) 10/18/16 10/18/16 10/19/16 Range/Units 04:15 17:46 06:09 RBC 3.71 L (3.80-5.40) m/uL Hgb 11.2 L (11.4-16.0) gm/dL Potassium (3.5-5.1) mmol/L Chloride 116 H (98-107) mmol/L Carbon Dioxide 16 L (22-30) mmol/L BUN 5 L (7-17) mg/dL Glucose 114 H (74-99) mg/dL Calcium 8.0 L (8.4-10.2) mg/dL Phosphorus 2.2 L (2.5-4.5) mg/dL Lipase 654 H (23-300) U/L 10/19/16 10/19/16 Range/Units 06:09 06:09 RBC (3.80-5.40) m/uL Hgb (11.4-16.0) gm/dL Potassium 3.2 L (3.5-5.1) mmol/L Chloride 115 H (98-107) mmol/L Carbon Dioxide 17 L (22-30) mmol/L BUN 3 L (7-17) mg/dL Glucose (74-99) mg/dL Calcium 8.0 L (8.4-10.2) mg/dL Phosphorus (2.5-4.5) mg/dL Lipase 1011 H (23-300) U/L Microbiology - Last 24 Hours (Table) 10/16/16 16:40 Blood Culture - Preliminary Blood No Growth after 48 hours Assessment and Plan Plan: 1. Retroperitoneal hematoma with extension to the right thigh: Probably attributed to supratherapeutic INR. Evaluated by surgical service. 2. Acute blood loss anemia: Secondary to #1. Hemoglobin currently stable at 11.2. Continue monitor closely. 3. Severe hypokalemia: Being replaced 4. Possible acute pancreatitis contributing to her nausea. Lipase elevated at 1011. Amylase normal. She does have epigastric tenderness. We'll have patient evaluated by GI service. Currently make her nothing by mouth except for meds. Patient reports having gallbladder removed 5. History of mitral valve replacement with [employer] Fidel's mechanical valve in 2013 6. Episode of nonsustained V. tach with torsades de pointes in the emergency room probably attributed to electrolyte disturbance. Followed by cardiology 7. Major depressive disorder 8. Metabolic acidosis 9. Coagulopathy on admission. Received vitamin K. INR 1.1. She's been restarted on Coumadin currently on Lovenox for bridging until INR is therapeutic I performed an examination of the patient and discussed their management with the physician Ship Yard Electrical Person. I have reviewed the Physician [employer] Electrical Person's notes and agree with the documented findings and plan of care
[2016-10-19] MEDS: MAGNESIUM SULFATE-D5W PMX 1 GM in DEXTROSE/WATER 1 100ML.BAG IVPB SCH ×2 (11:00→12:51)
--- NOTE | 2016-10-19 11:00 | ECHOF ---
Referral Reason:follw up hx mitral valve replacement MEASUREMENTS -------- HEIGHT: 165.1 cm WEIGHT: 65.3 kg BP: 100/53 IVSd: 0.8 cm (0.6 - 1.1) LVIDd: 4.2 cm (3.9 - 5.3) LVPWd: 1.3 cm (0.6 - 1.1) IVSs: 1.2 cm LVIDs: 2.8 cm LVPWs: 1.4 cm LAESV Index (A-L): 34.29 ml/m Ao Diam: 2.9 cm (2.0 - 3.7) AV Cusp: 1.2 cm (1.5 - 2.6) LA Diam: 3.9 cm (2.7 - 3.8) MV EXCURSION: 22.646 mm (> 18.000) MV EF SLOPE: 49 mm/s (70 - 150) EPSS: 0.8 cm MV E Clinton: 1.76 m/s MV DecT: 232 ms MV A [place]: 0.93 m/s MV E/A Ratio: 1.88 AV maxP.50 mmHg AV meanP.29 mmHg AR PHT: 304 ms RAP: 5.00 mmHg RVSP: 28.89 mmHg FINDINGS -------- Sinus rhythm. This was a technically good study. LV size, wall thickness and systolic function are normal, with an EF greater than 55%. The right ventricle is normal in size. LA is moderately dilated 34-39 ml/m2 The right atrial size is normal. There is moderate aortic regurgitation. Peak/mean gradient across the Aortic Valve is 18.50mmHg / 9.29mmHg. AOV opens Bicuspid. The peak and mean MV gradients are 15.28mmHg 4.37mmHg as measured by doppler. Mechanical [facility] Fidel MV. Mild tricuspid regurgitation present. There is no evidence of pulmonary hypertension. The right ventricular systolic pressure, as measured by Doppler, is 28.89mmHg. The aortic root size is normal. There is no pericardial effusion. CONCLUSIONS -------- 1. LV size, wall thickness and systolic function are normal, with an EF greater than 55%. 2. The right ventricular systolic pressure, as measured by Doppler, is 28.89mmHg. 3. The aortic root size is normal. 4. There is no pericardial effusion. 5. LA is moderately dilated 34-39 ml/m2 6. There is moderate aortic regurgitation. 7. Peak/mean gradient across the Aortic Valve is 18.50mmHg / 9.29mmHg. 8. AOV opens Bicuspid. 9. The peak and mean MV gradients are 15.28mmHg 4.37mmHg as measured by doppler. 10. Mechanical [facility] Fidel MV. 11. Mild tricuspid regurgitation present. 12. There is no evidence of pulmonary hypertension. GROUP LEADER [employer]: Marisa Morris RDCS
--- NOTE | 2016-10-19 11:50 | CDI ---
In responding to this query, please exercise your independent professional judgment. The [facility] Coding Staff and Clinical Documentation Specialists appreciate your assistance in clarifying documentation, maintaining compliance with coding guidelines, accurately documenting patients condition and capturing severity of illness. The fact that a question is asked does not imply that any particular answer is desired or expected. Communication forms are a method of clarifying documentation and are not made part of the Legal Health Record. Thank you in advance for your clarification. Last Revision, March 2015 Rowdy Veronica [address] [place] [address] Documentation Clarification Form Date: 10/19/2016 11:25:00 AM From: Wendy Broussard RN, CDS Admit Date: 10/16/2016 4:45:00 PM Patient Name: Wilmer Mendoza Visit Number: [id number] Dr. Eulalia Arias, 36 y/o female presented to ED w/ c/o nausea and vomiting for 1 week and low back pain. INR 10, Potassium 1.7 initially. Admitting diagnosis Coagulopathy Patient history/risk factors: Mitral Valve replacement, Irritable Bowel Syndrome , GERD, COPD, Severe Hypokalemia on presentation, [place] in ED Clinical Indicators: Lab findings: INR 10, K+ 1.7, WBC 26.4, LIPASE 471, CT ABD showed abnormal right retroperitoneal lower quad -right groin hematoma v. infection, mod diffuse colonic fecal stasis, "probable retroperitoneal hematoma in setting of coagulopathy" per Cardiology consult, "retroperitoneal hematoma probably r/t supratherapeutic INR" per H&P Vital Signs: 98.2 79 18 165/78 98 Treatment: Kcentra IV, Vitamin K IV, Potassium replacement IV, PT/INR, BMP/CMP, Consults: Cardiology, CCU, GI, In your professional opinion, can you please further specify Coagulopathy? Hemorrhagic Disorder due to extrinsic circulating Anticoagulants Coagulopathy Other Unable to determine Please document in your progress notes and discharge summary in order to capture severity of illness and risk of mortality. Include clinical findings that support your diagnosis. FYI: Press F11 to launch patient chart. Place X here if this finding has no clinical significance, is not applicable or if you are not able to provide any additional documentation. CRISTINA
[2016-10-19] MEDS: SODIUM CHLORIDE 0.45% 1,000 ML IV SCH (12:19)
--- NOTE | 2016-10-19 12:58 | P.PN ---
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 However she continued to take her medications. Note that she is on a combination of medication which includes warfarin and hydrochlorothiazide. She came into the emergency department dehydrated. She was feeling very weak. Potassium level was as low as 1.5. During her hospital stay in the emergency, the patient went into acute torsades and this recovered spontaneously. Immediately, the patient was given potassium supplementation and 60 mg was given in the resuscitation was continued in the ICU. Magnesium level was also checked and came back at one point and this was also replaced. The most recent potassium level is up to 2.8 the patient is receiving another 60 meq. The magnesium level was checked and it was replaced.. Also the patient was toxic on Coumadin with an INR of above 10. The patient was given a CAT scan of the abdomen and pelvis and the patient was found to have an abnormal right retroperitoneal finding from the lower quadrants with the right groin which raises suspicion for hematoma. She denies having a left lower lobe or right lower quadrant pain or tenderness. No fever or chills. No paresis have appendicitis. The appendix looks within normal limits and there was no inflammatory changes. At that point at the perineal bleed was suspected due to Coumadin toxicity. The patient was given Kcentra which immediately reversed her toxicity. Her hemoglobin has remained stable and there is no significant drop in hemoglobin for now. The patient was seen this morning by cardiology and general surgery. Based on this, IV heparin was the resumed and we are closely monitoring the patient's hemoglobin for now. The patient is doing well. No further cardiac arrhythmias have been noted. Her gastrointestinal complaints have completely subsided. No toxicity. No recent antibiotic intake. No other complaints otherwise. She is a nondrinker. She smokes cigarettes and marijuana. On the patient is being seen in follow-up. No further arrhythmias of been noted in the potassium level is been corrected. There is increase in the chloride level which resulted in to a component of non-anion gap metabolic acidosis. Meanwhile, the patient is on Lovenox and the patient is being anticoagulated with warfarin. The patient had some nausea for which she was started on Zofran. Hemoglobin is stable. No abdominal distention. No signs of any bleeding. Her abdomen is extremely soft. Patient was reevaluated today on 10/19/2016, she seems to be doing quite well, asymptomatic, she is now on Lovenox and Coumadin. Patient is basically asymptomatic, hemoglobin is 11.2. Electrolytes continued to show potassium of 3.2, and that being addressed by the medicine service. Rest of the labs were unremarkable. Patient again is asymptomatic, ambulating down in the hallway. Objective - Vital Signs Vital signs: Vital Signs Temp 97.9 F 10/19/16 08:00 Pulse 103 H 10/19/16 08:00 Resp 16 10/19/16 04:00 BP 127/92 10/19/16 08:00 Pulse Ox 97 10/19/16 08:00 Intake & Output 10/18/16 10/19/16 10/19/16 18:59 06:59 18:59 Intake Total 1340 140 Balance 1340 140 Weight 64.8 kg Intake: IV 850 140 0.9 @ 5 ml/ hr 40 Levofloxacin 500Mg-D5w 100 100 Pmx 500 mg In Dextrose/ Water 1 100ml.bag @ 100 mls/hr IVPB Q24H [facility] Rx#: [id number] Sodium Chloride 0.9% 1, 450 000 ml @ 75 mls/hr IV . [id number] [facility] Rx#:[id number] metroNIDAZOLE-NS PMX 500 300 mg In Saline 1 100ml.bag @ 100 mls/hr IVPB Q8HR [facility] Rx#:[id number] Intake, IV Titration 250 Amount Sodium Phosphate 10 mmol 250 In Sodium Chloride 0.9% 250 ml @ 125 mls/hr IVPB Q2H [facility] Rx#:[id number] Oral 240 Other: Voiding Method Toilet Toilet # Voids 1 1 # Bowel Movements 5 - Exam Physical Exam: Revealed a 36-year-old female in no distress HEENT:[Neck is supple.] [No neck masses.] [No thyromegaly.] [No JVD.] Chest: [Clear throughout, no crackles, no rhonchi, no wheezes.] Cardiac Exam: [Normal S1 and S2, no S3 gallop, no murmur.] Abdomen: [Soft, nontender, no megaly, no rebound, no guarding, normal bowel sounds.] Extremities: [No clubbing, no edema, no cyanosis.] Neurological Exam: [No focal neurologic deficit.] - Labs CBC & Chem 7: 10/19/16 06:09 10/19/16 06:09 Labs: Abnormal Lab Results - Last 24 Hours (Table) 10/18/16 10/19/16 10/19/16 Range/Units 17:46 06:09 06:09 RBC 3.71 L (3.80-5.40) m/uL Hgb 11.2 L (11.4-16.0) gm/dL Potassium 3.2 L (3.5-5.1) mmol/L Chloride 116 H 115 H (98-107) mmol/L Carbon Dioxide 16 L 17 L (22-30) mmol/L BUN 5 L 3 L (7-17) mg/dL Glucose 114 H (74-99) mg/dL Calcium 8.0 L 8.0 L (8.4-10.2) mg/dL Phosphorus 2.2 L (2.5-4.5) mg/dL Lipase (23-300) U/L 10/19/16 Range/Units 06:09 RBC (3.80-5.40) m/uL Hgb (11.4-16.0) gm/dL Potassium (3.5-5.1) mmol/L Chloride (98-107) mmol/L Carbon Dioxide (22-30) mmol/L BUN (7-17) mg/dL Glucose (74-99) mg/dL Calcium (8.4-10.2) mg/dL Phosphorus (2.5-4.5) mg/dL Lipase 1011 H (23-300) U/L Microbiology - Last 24 Hours (Table) 10/16/16 16:40 Blood Culture - Preliminary Blood No Growth after 48 hours Assessment and Plan Plan: 1 acute torsades de pointes secondary to profound hypokalemia, improved with electrode management and potassium supplementation 2 acute Coumadin toxicity with suspected retroperitoneal hematoma, the coagulopathy has been reversed and the patient is currently back on Lovenox and warfarin. 3 mitral valve replacement for severe mitral regurgitation and the patient has a mechanical valve in place, [employer] Fidel mechanical valve in 2014 4 suspected blood loss probably related to retroperitoneal hematoma development as the patient's hemoglobin has dropped approximately 3 g since her admission. We'll monitor this very closely. The hemoglobin has been stable since 5 smoker 6 marijuana abuse 7 depression 8 ongoing nausea, currently on Zofran. No vomiting. No diarrhea 9 non-anion gap metabolic acidosis because of hyperchloremia. Recommendation: Continue present treatment plan, not much to be added from our perspective, consider discharge planning once cleared by cardiology and by medicine. We'll see on when necessary basis. Time with Patient: Less than 30
--- NOTE | 2016-10-19 14:32 | P.PN ---
Subjective Principal diagnosis: Hypokalemia and hypomagnesemia This is a 36-year-old female with history of mitral valve replacement with mechanical valve, on long-term anticoagulation with Coumadin. She presented to the hospital with symptoms of feeling extremely weak. Prior to her admission to the hospital patient had been having several episodes of nausea and vomiting, was still able to take her medications at home. Potassium level on admission 1.5. Patient was also noted during this admission to have episodes of sustained ventricular tachycardia and torsade. Patient was given a potassium and magnesium replacement. She was also noted on admission here to have an INR of greater than 10. Patient was noted on the initial CAT scan of the abdomen performed that she was having abnormal right retroperitoneal finding which raise the suspicion for a hematoma. She was seen and examined on the telemetry unit today. She is not noted to have any further arrhythmias, potassium today 3.2, 80 cm level I.7. Lipase was 654 yesterday up to 1011 today. Patient is overall feeling well, no complaints today. Objective - Vital Signs Vital signs: Vital Signs Temp 97.9 F 10/19/16 08:00 Pulse 91 10/19/16 12:00 Resp 16 10/19/16 04:00 BP 107/58 10/19/16 12:00 Pulse Ox 100 10/19/16 12:00 Intake & Output 10/18/16 10/19/16 10/19/16 18:59 06:59 18:59 Intake Total 1340 140 225 Balance 1340 140 225 Weight 64.8 kg Intake: IV 850 140 125 0.9 @ 5 ml/ hr 40 25 Levofloxacin 500Mg-D5w 100 100 Pmx 500 mg In Dextrose/ Water 1 100ml.bag @ 100 mls/hr IVPB Q24H [facility] Rx#: [id number] Sodium Chloride 0.9% 1, 450 000 ml @ 75 mls/hr IV . [id number] [facility] Rx#:[id number] metroNIDAZOLE-NS PMX 500 300 100 mg In Saline 1 100ml.bag @ 100 mls/hr IVPB Q8HR [facility] Rx#:[id number] Intake, IV Titration 250 100 Amount Magnesium Sulfate-D5w Pmx 100 1 gm In Dextrose/Water 1 100ml.bag @ 100 mls/hr IVPB Q1H [facility] Rx#: [id number] Sodium Phosphate 10 mmol 250 In Sodium Chloride 0.9% 250 ml @ 125 mls/hr IVPB Q2H [facility] Rx#:[id number] Oral 240 Other: Voiding Method Toilet Toilet # Voids 1 1 # Bowel Movements 5 - Exam PHYSICAL EXAMINATION: HEENT: Head is atraumatic, normocephalic. Pupils equal, round. Neck is supple. There is no elevated jugular venous pressure. HEART EXAMINATION: Heart S1 and S2 metallic valve click is heard. CHEST EXAMINATION: Lungs are clear to auscultation and precussion. No chest wall tenderness is noted on palpation or with deep breathing.] ABDOMEN: [ Soft, nontender. Bowel sounds are heard. No organomegaly noted]. EXTREMITIES:[ 2+ peripheral pulses with no evidence of peripheral edema and no calf tenderness noted]. NEUROLOGIC [patient is awake, alert and oriented -3.] . - Labs CBC & Chem 7: 10/19/16 06:09 10/19/16 06:09 Labs: Abnormal Lab Results - Last 24 Hours (Table) 10/18/16 10/19/16 10/19/16 Range/Units 17:46 06:09 06:09 RBC 3.71 L (3.80-5.40) m/uL Hgb 11.2 L (11.4-16.0) gm/dL Potassium 3.2 L (3.5-5.1) mmol/L Chloride 116 H 115 H (98-107) mmol/L Carbon Dioxide 16 L 17 L (22-30) mmol/L BUN 5 L 3 L (7-17) mg/dL Glucose 114 H (74-99) mg/dL Calcium 8.0 L 8.0 L (8.4-10.2) mg/dL Phosphorus 2.2 L (2.5-4.5) mg/dL Lipase (23-300) U/L 10/19/16 Range/Units 06:09 RBC (3.80-5.40) m/uL Hgb (11.4-16.0) gm/dL Potassium (3.5-5.1) mmol/L Chloride (98-107) mmol/L Carbon Dioxide (22-30) mmol/L BUN (7-17) mg/dL Glucose (74-99) mg/dL Calcium (8.4-10.2) mg/dL Phosphorus (2.5-4.5) mg/dL Lipase 1011 H (23-300) U/L Microbiology - Last 24 Hours (Table) 10/16/16 16:40 Blood Culture - Preliminary Blood No Growth after 48 hours Assessment and Plan (1) Torsades de pointes Status: Acute (2) V-tach Status: Acute (3) Elevated INR Status: Acute (4) Hypokalemia Status: Acute (5) Retroperitoneal fluid collection Status: Acute (6) Status post mitral valve replacement Status: Acute Plan: From cardiology's perspective, we will replace the patient's magnesium and potassium today, continue to monitor for any arrhythmias. DNP note has been reviewed, I agree with a documented findings and plan of care. Patient was seen and examined.
--- NOTE | 2016-10-19 17:39 | CONS ---
REQUESTING PHYSICIAN: Dr. Izabella Franklin. REASON FOR CONSULTATION: Nausea, vomiting. HISTORY OF PRESENT ILLNESS: The patient is a 36-year-old white female with history of mitral valve replacement who is presently on long-term anticoagulation, was admitted to the hospital because of persistent nausea, vomiting of 1 week duration. Her symptoms were to a point where she was not able to handle any medications. She was admitted initially and resuscitated because of severe electrolyte abnormalities with potassium of 1.5. Subsequently, she was treated symptomatically and was transferred from the intensive care nature to the regular floor today. This morning, she has no further episodes of nausea or vomiting. She denies any abdominal pain. She is on a regular diet, tolerating well. In the emergency room, she did have a CT of the abdomen and pelvis done that showed abnormal right retroperitoneal findings suspicious for a hematoma and Dr. Roque has been consulted. Presently denies any abdominal pain. No prior history of peptic ulcer disease. No recent NSAID use. Her past medical history is significant for GERD, asthma, hyperlipidemia, mitral valve prolapse, osteoarthritis. PAST ( ) HISTORY: Mitral valve replacement with a mechanical valve, history of IBS, migraine, GERD, hypertension. PAST SURGICAL HISTORY: Cholecystectomy, cardiac cath, mitral valve replacement, tubal ligation, hernia repair. MEDICATIONS AT HOME: 1. Claritin. 2. Tegretol. 3. Trazodone. 4. HydroDIURIL. 5. Iron sulfate. 6. Zyrtec. 7. Coumadin. 8. Seroquel. 9. Prilosec. 10. Singulair. 11. Neurontin. 12. Nasal spray. 13. Bentyl. 14. Vicodin. 15. Aspirin. SOCIAL HISTORY: No smoking. No alcohol use. FAMILY HISTORY: Mother had some kind of lung cancer. REVIEW OF SYSTEMS: CARDIOPULMONARY: No chest pain or shortness of breath. GENITOURINARY: No dysuria or hematuria. MUSCULOSKELETAL: Unremarkable. SKIN: Unremarkable. ENDOCRINE: Unremarkable. PSYCHIATRIC: Unremarkable. NEUROLOGY: Unremarkable. ENT/VISION: Unremarkable. CONSTITUTIONAL: No recent weight loss. No fever, chills, night sweats. On physical examination, she appears comfortable, in no apparent distress. Vital signs as are stable. Blood pressure 97/61, pulse rate 91, temperature 97.9. HEENT: Unremarkable. Conjunctivae pink. Sclerae anicteric. Oral cavity, no lesions. NECK: No JVD or lymph node enlargement. CHEST: Clear to auscultation. HEART: Regular rate and rhythm. ABDOMEN: Soft. Bowel sounds are positive. No organomegaly. EXTREMITIES: No pedal edema. SKIN: No rashes. NEURO: Alert and oriented x3. No focal deficits. LABS: From today, CBC: WBC 7, hemoglobin 11, platelets normal. Basic metabolic panel showed a sodium 138, potassium 3.2, chloride 115, CO2 17, BUN 6, creatinine 0.6. Lipase was 654 and today it 1011. At the time of admission to the hospital, amylase and lipase were not done. IMPRESSION: This is a lady who presents to the hospital with persistent nausea and vomiting for the last 1 week duration and significant electrolyte abnormalities requiring admission to the intensive care unit. Presently, her electrolytes have been replaced, her symptoms have significantly improved and in fact she is on a regular diet, tolerating well. Nausea and vomiting have completely resolved. She is noted to have mild elevation of lipase, but clinically she is asymptomatic. CT of the abdomen and pelvis done in the emergency room showed possible hematoma in the right psoas, but not normal-appearing pancreas. RECOMMENDATIONS: 1. Continue with symptomatic supportive treatment. 2. Continue with a regular diet. 3. Since her symptoms are better, no need for any endoscopic intervention. Thank you for this consultation.
[2016-10-19] MEDS: WARFARIN 7.5 MG TAB PO SCH (18:16)
[2016-10-19] MEDS: MONTELUKAST 10 MG TAB PO SCH (20:19)
[2016-10-19] MEDS: LEVOFLOXACIN 500MG-D5W PMX 500 MG in DEXTROSE/WATER 1 100ML.BAG IVPB SCH (21:03)
[2016-10-20] MEDS: metroNIDAZOLE-NS PMX 500 MG in SALINE 1 100ML.BAG IVPB SCH ×2 (00:06→08:37)
[2016-10-20] MEDS: HYDROmorphone 1 MG/ML 1 ML SYRINGE IV PRN ×6 (00:07→21:46)
[2016-10-20] MEDS: SODIUM CHLORIDE 0.45% 1,000 ML IV SCH ×3 (00:07→18:23)
[2016-10-20] MEDS: ENOXAPARIN 60 MG/0.6 ML SYRINGE SQ SCH ×2 (06:01→17:51)
[2016-10-20 06:27] LABS: Basophils # (A) 0.1 k/uL (0-0.2); Basophils % (A) 1 %; CH 29.8; CHCM 33.2; Eosinophils # (A) 0.1 k/uL (0-0.7); Eosinophils % (A) 2 %; HCT 33.5 % (34.0-46.0); HDW 2.64; Luc # (Auto) 0.15; Luc % (Auto) 3; Lymphocytes % (A) 34 %; MCH 29.6 pg (25.0-35.0); MCHC 32.8 g/dL (31.0-37.0); MCV 90.2 fL (80.0-100.0); Mean Platelet Volume 6.6; Monocytes # (A) 0.3 k/uL (0-1.0); Monocytes % (A) 5 %; Neutrophils # (A) 3.3 k/uL (1.3-7.7); Neutrophils % (A) 56 %; RBC 3.71 m/uL (3.80-5.40); RDW 13.5 % (11.5-15.5); WBC (Perox) 6.21
[2016-10-20 06:33] LABS: INR 1.4 (<1.1); Partial Thromboplastin Time 26.7 sec (22.0-30.0); Prothrombin Time 13.6 sec (9.0-12.0)
[2016-10-20 06:37] LABS: Sodium 140 mmol/L (137-145)
[2016-10-20 06:39] LABS: ALT 20 U/L (9-52); AST 24 U/L (14-36); Alkaline Phosphatase 69 U/L (38-126); Amylase 77 U/L (30-110); Anion Gap 3 mmol/L; Blood Urea Nitrogen <2 mg/dL (7-17); Calcium 8.1 mg/dL (8.4-10.2); Carbon Dioxide 21 mmol/L (22-30); Chloride 116 mmol/L (98-107); Glucose 92 mg/dL (74-99); Magnesium 1.8 mg/dL (1.6-2.3); Non-African American GFR(MDRD) >60 (>60 ml/min/1.73 sqM); Potassium 4.2 mmol/L (3.5-5.1); Total Bilirubin 0.4 mg/dL (0.2-1.3); Total Protein 5.3 g/dL (6.3-8.2)
[2016-10-20] MEDS: amLODIPine 5 MG TAB PO SCH (08:38)
[2016-10-20] MEDS: carBAMazepine 200 MG TAB PO SCH ×2 (08:38→21:43)
[2016-10-20] MEDS: PANTOPRAZOLE 40 MG/10 ML VIAL IV SCH (08:38)
--- NOTE | 2016-10-20 10:05 | P.PN ---
Subjective Principal diagnosis: Nausea vomiting 36-year-old female history of cholecystectomy mechanical mitral valve with Coumadin monitoring reevaluated in regards to nausea vomiting and elevated lipase. Denies nausea vomiting. Tolerating clear liquids and asking for advancement. Anticipating discharge possibly today. Denies epigastric pain. Yesterday lipase was 1011 today 722. Amylase 77. Liver enzymes normal. Triglycerides 217. CT abdomen and pelvis reported no significant abnormality of pancreas. Small hematoma right retroperitoneal region. Objective - Vital Signs Vital signs: Vital Signs Temp 98.4 F 10/20/16 08:00 Pulse 80 10/20/16 08:00 Resp 16 10/20/16 04:00 BP 137/65 10/20/16 08:00 Pulse Ox 99 10/20/16 08:00 Intake & Output 10/19/16 10/20/16 10/20/16 18:59 06:59 18:59 Intake Total 225 800 Balance 225 800 Weight 59.5 kg Intake: IV 125 800 0.45 @ 5 ml/ hr 25 600 Levofloxacin 500Mg-D5w 100 Pmx 500 mg In Dextrose/ Water 1 100ml.bag @ 100 mls/hr IVPB Q24H [facility] Rx#: [id number] metroNIDAZOLE-NS PMX 500 100 100 mg In Saline 1 100ml.bag @ 100 mls/hr IVPB Q8HR [facility] Rx#:[id number] Intake, IV Titration 100 Amount Magnesium Sulfate-D5w Pmx 100 1 gm In Dextrose/Water 1 100ml.bag @ 100 mls/hr IVPB Q1H [facility] Rx#: [id number] Other: # Voids 1 2 # Bowel Movements 0 - Exam General appearance: The patient is alert, oriented, in no acute distress. HET: Head is normocephalic and atraumatic. Pupils are equal and reactive. Oropharynx is clear without lesions. Neck: Supple without lymphadenopathy. Trachea midline. Heart: S1 S2. Regular rate and rhythm. Lungs: No crackles or wheezes are heard. Abdomen: Soft, nontender, nondistended with bowel sounds. No peritoneal signs. No palpable organomegaly or masses. Extremities: Normal skin color and turgor. No cyanosis, rash, ulceration, clubbing, or edema. Radial and pedal pulses are 2/4 bilaterally. Neurological: No focal deficits. Strength and sensation are grossly intact. - Labs CBC & Chem 7: 10/20/16 06:03 06/13/17 06:03 Labs: Abnormal Lab Results - Last 24 Hours (Table) 10/20/16 10/20/16 10/20/16 Range/Units 06:03 06:03 06:03 RBC 3.71 L (3.80-5.40) m/uL Hgb 11.0 L (11.4-16.0) gm/dL Hct 33.5 L (34.0-46.0) % PT 13.6 H (9.0-12.0) sec Chloride 116 H (98-107) mmol/L Carbon Dioxide 21 L (22-30) mmol/L BUN <2 L (7-17) mg/dL Calcium 8.1 L (8.4-10.2) mg/dL Total Protein 5.3 L (6.3-8.2) g/dL Albumin 2.7 L (3.5-5.0) g/dL Lipase 722 H (23-300) U/L Microbiology - Last 24 Hours (Table) 10/16/16 16:40 Blood Culture - Preliminary Blood No Growth after 72 hours Assessment and Plan Plan: Impression : 1. Nausea and vomiting 1 week duration with significant electrolyte abnormalities on admission improved. Mild elevation of lipase with normal liver enzymes clinically asymptomatic. CT of the abdomen and pelvis reported no significant abnormality of the pancreas. History of cholecystectomy. Recommendations: 1. Will advance to regular diet. Continue symptomatic supportive treatment. Discharge per medicine. Assessment and plan of care discussed with Dr. Campa.
--- NOTE | 2016-10-20 13:13 | P.PN ---
Subjective Principal diagnosis: Vomiting with severe electrolyte imbalance Patient clinically improving she is able to tolerate diet well today there was no nausea or vomiting Electrolyte imbalance improving INR is still low at 1.4 patient has mechanical valve she is currently covered with Lovenox until INR is therapeutic will continue was Lovenox will give Coumadin 10 mg today and recheck labs in a.m. Patient was admitted was nausea vomiting and abdominal pain she was started on IV antibiotic Levaquin and Flagyl at this time will discontinue IV antibiotic and monitor still tomorrow Patient also had significant elevation in amylase and lipase which are improving computed tomography scan did not reveal significant abnormality Objective - Vital Signs Vital signs: Vital Signs Temp 98.4 F 10/20/16 08:00 Pulse 80 10/20/16 08:00 Resp 16 10/20/16 04:00 BP 137/65 10/20/16 08:00 Pulse Ox 99 10/20/16 08:00 Intake & Output 10/19/16 10/20/16 10/20/16 18:59 06:59 18:59 Intake Total 225 800 520 Balance 225 800 520 Weight 59.5 kg Intake: IV 125 800 0.45 @ 5 ml/ hr 25 600 Levofloxacin 500Mg-D5w 100 Pmx 500 mg In Dextrose/ Water 1 100ml.bag @ 100 mls/hr IVPB Q24H [facility] Rx#: [id number] metroNIDAZOLE-NS PMX 500 100 100 mg In Saline 1 100ml.bag @ 100 mls/hr IVPB Q8HR [facility] Rx#:[id number] Intake, IV Titration 100 Amount Magnesium Sulfate-D5w Pmx 100 1 gm In Dextrose/Water 1 100ml.bag @ 100 mls/hr IVPB Q1H [facility] Rx#: [id number] Oral 520 Other: # Voids 1 2 2 # Bowel Movements 0 0 - Exam HEENT head normocephalic and atraumatic Neck is supple no JVD no goiter no lymphadenopathy Chest is clear to auscultation no wheezing Cardiac exam reveals regular heart sounds no gallops no murmurs Abdomen is soft nontender no organomegaly Extremity exam reveals no edema no cyanosis or clubbing Neurological examination reveals no gross focal deficits - Labs CBC & Chem 7: 10/20/16 06:03 10/20/16 06:03 Labs: Abnormal Lab Results - Last 24 Hours (Table) 10/20/16 10/20/16 10/20/16 Range/Units 06:03 06:03 06:03 RBC 3.71 L (3.80-5.40) m/uL Hgb 11.0 L (11.4-16.0) gm/dL Hct 33.5 L (34.0-46.0) % PT 13.6 H (9.0-12.0) sec Chloride 116 H (98-107) mmol/L Carbon Dioxide 21 L (22-30) mmol/L BUN <2 L (7-17) mg/dL Calcium 8.1 L (8.4-10.2) mg/dL Total Protein 5.3 L (6.3-8.2) g/dL Albumin 2.7 L (3.5-5.0) g/dL Lipase 722 H (23-300) U/L Microbiology - Last 24 Hours (Table) 10/16/16 16:40 Blood Culture - Preliminary Blood No Growth after 72 hours Assessment and Plan Plan: 1. Retroperitoneal hematoma with extension to the right thigh: Probably attributed to supratherapeutic INR. Evaluated by surgical service. 2. Acute blood loss anemia: Secondary to #1. Hemoglobin currently stable at 11.2. Continue monitor closely. 3. Severe hypokalemia: Being replaced 4. Possible acute pancreatitis contributing to her nausea. Lipase elevated at 1011. Down to 770 today Amylase normal. She does have epigastric tenderness. We'll have patient evaluated by GI service. Currently make her nothing by mouth except for meds. Patient reports having gallbladder removed 5. History of mitral valve replacement with [employer] mechanical valve in 2013 6. Episode of nonsustained V. tach with torsades de pointes in the emergency room probably attributed to electrolyte disturbance. Followed by cardiology 7. Major depressive disorder 8. Metabolic acidosis 9. Coagulopathy on admission. Received vitamin K. INR 1.4. She's been restarted on Coumadin currently on Lovenox for bridging until INR is therapeutic patient has a mechanical valve and need to be on anticoagulation at all times
--- NOTE | 2016-10-20 13:45 | P.PN ---
Progress Note - Text The patient feels well. She is tolerating regular diet. On exam her vital signs are stable. Her abdomen soft nontender. Her CAT scan performed yesterday is unremarkable. Resolving abdominal pain, elevated lipase. Patient discharged home per Dr. rueda.
--- NOTE | 2016-10-20 13:46 | P.PN ---
Progress Note - Text The patient resting comfortably in her bed. She has been made nothing by mouth due to her elevated lipase. She denies a significant abdominal pain. On exam her vital signs are stable. Her abdomen soft. Patient is scheduled for computed tomography scan of the abdomen. Her results will be reviewed once the report is available.
[2016-10-20] MEDS ORDERED: WARFARIN 10 MG TAB PO ONE (18:00)
--- NOTE | 2016-10-20 21:20 | PN ---
Ms. Mendoza is a 36-year-old female status post mitral valve replacement who presented with severe hypokalemia and ventricular tachycardia. She is doing quite well this morning. Her breathing is stable. She is denying any symptoms of chest pain. She denies any dizziness. She is quite anxious to go home. She denies any nausea or vomiting. Her diarrhea and nausea and vomiting have resolved. She continues to be at this time on amlodipine and Coumadin. PHYSICAL EXAMINATION: Blood pressure running in the 130s with the heart rate in the 80s. LUNGS: Clear. HEART: Regular rate and rhythm. S1, S2 with prosthetic mitral sounds and a systolic murmur. No diastolic murmur. ABDOMEN: Soft, nontender. EXTREMITIES: No edema. Lab data revealed BUN and creatinine of less than 2 and 0.66. Potassium 4.2. Magnesium is 3. Her INR is 1.4. IMPRESSION: 1. Ventricular tachycardia related to hypokalemia, resolved with nausea and vomiting. 2. Status post mitral valve replacement with prosthetic mitral valve. 3. Episode of ventricular tachycardia and torsade de pointes. 4. Chronic anticoagulation. RECOMMENDATIONS: From the cardiac standpoint, she is stable. She will continue on the Lovenox until her INR is therapeutic. She will follow as an outpatient with Dr. Persaud.
[2016-10-20] MEDS: MONTELUKAST 10 MG TAB PO SCH (21:43)
[2016-10-21] MEDS: HYDROmorphone 1 MG/ML 1 ML SYRINGE IV PRN ×2 (01:17→06:17)
[2016-10-21 01:40] VITALS: TEMP 99.1
[2016-10-21] MEDS: SODIUM CHLORIDE 0.45% 1,000 ML IV SCH (02:49)
[2016-10-21] MEDS: ENOXAPARIN 60 MG/0.6 ML SYRINGE SQ SCH ×2 (06:17→10:33)
[2016-10-21 06:23] VITALS: RESP 18
[2016-10-21 06:27] LABS: Basophils # (A) 0.1 k/uL (0-0.2); Basophils % (A) 1 %; CHCM 32.7; Eosinophils # (A) 0.2 k/uL (0-0.7); Eosinophils % (A) 2 %; HCT 36.3 % (34.0-46.0); HDW 2.68; HGB 11.8 gm/dL (11.4-16.0); Luc # (Auto) 0.14; Luc % (Auto) 2; Lymphocytes % (A) 29 %; MCH 29.8 pg (25.0-35.0); MCHC 32.3 g/dL (31.0-37.0); MCV 92.2 fL (80.0-100.0); Mean Platelet Volume 6.4; Monocytes # (A) 0.3 k/uL (0-1.0); Monocytes % (A) 4 %; Neutrophils # (A) 4.4 k/uL (1.3-7.7); Neutrophils % (A) 62 %; RBC 3.94 m/uL (3.80-5.40); WBC 7.1 k/uL (3.8-10.6); WBC (Perox) 7.78
[2016-10-21 06:35] LABS: INR 1.9 (<1.1); Prothrombin Time 18.2 sec (9.0-12.0)
[2016-10-21 06:49] LABS: ALT 25 U/L (9-52); AST 29 U/L (14-36); Alkaline Phosphatase 70 U/L (38-126); Amylase 72 U/L (30-110); Anion Gap 7 mmol/L; Blood Urea Nitrogen 2 mg/dL (7-17); Calcium 8.2 mg/dL (8.4-10.2); Carbon Dioxide 20 mmol/L (22-30); Chloride 114 mmol/L (98-107); Glucose 92 mg/dL (74-99); Magnesium 1.6 mg/dL (1.6-2.3); Non-African American GFR(MDRD) >60 (>60 ml/min/1.73 sqM); Phosphorous 3.7 mg/dL (2.5-4.5); Potassium 3.7 mmol/L (3.5-5.1); Sodium 141 mmol/L (137-145); Total Bilirubin 0.4 mg/dL (0.2-1.3); Total Protein 5.5 g/dL (6.3-8.2)
[2016-10-21] MEDS: carBAMazepine 200 MG TAB PO SCH (08:19)
[2016-10-21] MEDS: PANTOPRAZOLE 40 MG/10 ML VIAL IV SCH (08:20)
[2016-10-21] MEDS: amLODIPine 5 MG TAB PO SCH (08:20)
[2016-10-21 09:49] VITALS: BP 116/59; PULSE 78
--- NOTE | 2016-10-21 10:08 | P.DS ---
Providers Date of admission: 10/16/16 16:45 Expected date of discharge: 10/21/16 Attending physician: Danielle Galindo Consults: 10/16/16 16:42 Consult Physician Stat Consulting Provider: Dwight Membreno Consult Reason/Comments: retroperitoneal fluid Do you want consulting provider notified?: Yes 10/16/16 17:57 Consult Physician Stat Consulting Provider: Roberto Obregon Consult Reason/Comments: INR greater than 10 Do you want consulting provider notified?: Yes 10/16/16 18:47 Consult Physician Stat Consulting Provider: [facility] Consult Reason/Comments: Hypokalemia Do you want consulting provider notified?: Yes Primary care physician: Izabella Franklin Hospital Course: Diagnoses on discharge 1. Retroperitoneal hematoma with extension to the right thigh: Probably attributed to supratherapeutic INR. Evaluated by surgical service. 2. Acute blood loss anemia: Secondary to #1. Hemoglobin currently stable at 11.2. Continue monitor closely. 3. Severe hypokalemia: Being replaced 4. Possible acute pancreatitis contributing to her nausea. Lipase elevated at 1011. Down to 770 today Amylase normal. She does have epigastric tenderness. We'll have patient evaluated by GI service. Currently make her nothing by mouth except for meds. Patient reports having gallbladder removed 5. History of mitral valve replacement with [employer] mechanical valve in 2013 6. Episode of nonsustained V. tach with torsades de pointes in the emergency room probably attributed to electrolyte disturbance. Followed by cardiology 7. Major depressive disorder 8. Metabolic acidosis 9. Coagulopathy on admission. Received vitamin K. INR 1.4. INR went down to 1.1 She's been restarted on Coumadin currently on Lovenox for bridging until INR is therapeutic patient has a mechanical valve and need to be on anticoagulation at all times, at the time of discharge INR was 1.9, at that point patient was given 10 mg of Coumadin and Lovenox 60 mg subcu she was discharged home she will start taking Coumadin 7.5 mg on 10/22/2016 she will go to cardiology office on 10/23/2016 to have her INR rechecked patient has a mechanical valve and her INR should be between 2.5-3.5 Hospital course This is a 36-year-old female with past medical history noted below significant for history of mitral valve replacement with [employer] mechanical valve in 2013 presented to the emergency room with worsening nausea and vomiting. Patient said that her symptoms started several days ago and is being getting progressively worse. She was unable to take her medication or keep anything down. She said that she was supposed to be on potassium supplements that she did not have for several weeks as her insurance did not cover. She was evaluated in the emergency room and was found to have an INR greater than 10. Patient was having abdominal discomfort so computed tomography scan of the abdomen was obtained showing evidence of retroperitoneal hematoma that was described as small in size with extension to the upper thigh. Patient remained in the emergency room and was noted to be significantly hypokalemic. She had an episode of what appeared to be V. tach with torsade to pointe. she is currently admitted to the intensive care unit. She had a hemoglobin drop approximately 4 g since presentation. Her INR was reversed with intravenous vitamin K.. Patient was evaluated by gastroenterology and by cardiology, electrolytes were corrected and patient, Coumadin dose was adjusted patient's symptoms resolved she was able to tolerate diet without any nausea or vomiting and the patient was cleared for discharge. She was discharged home on 10/21/2016 During this admission blood pressure was elevated and patient was started on Norvasc 5 mg daily hydrochlorothiazide was discontinued due to severe electrolyte imbalance. Patient will follow with cardiology in 2 days on Wednesday She was also instructed to follow-up with her primary care physician within one week Patient Condition at Discharge: Undetermined Plan - Discharge Summary New Discharge Prescriptions: New amLODIPine [Norvasc] 5 mg PO DAILY tab Continue Dicyclomine [Bentyl] 20 mg PO QID Butalb/APAP/Caff 50-325-40Mg [Fioricet 50-325-40] 1 tab PO DAILY PRN PRN Reason: Headache Warfarin [Coumadin] 7.5 mg PO DAILY Gabapentin [Neurontin] 300 mg PO HS QUEtiapine [SEROquel] 100 mg PO HS Omeprazole [PriLOSEC] 20 mg PO DAILY Aspirin EC [Ecotrin Low Dose] 162 mg PO DAILY Fluticasone Nasal Hammond [Flonase Nasal [place]] 2 spr EA NOSTRIL DAILY PRN PRN Reason: ALLERGIES Montelukast [Singulair] 10 mg PO DAILY Albuterol Inhaler [Ventolin Hfa Inhaler] 1 - 2 puff INHALATION RT-TID PRN PRN Reason: Shortness Of Breath carBAMazepine [TEGretol XR] 100 mg PO BID Cetirizine HCl [Zyrtec] 10 mg PO DAILY Ferrous Sulfate [Iron (65 MG Elemental)] 325 mg PO DAILY FLUoxetine HCL [PROzac] 40 mg PO DAILY traZODone HCL 100 mg PO HS Discontinued Potassium 297 mg PO DAILY Hydrochlorothiazide [Hydrodiuril] 25 mg PO DAILY Loratadine [Claritin] 10 mg PO DAILY PRN PRN Reason: Allergy Symptoms Discharge Medication List Albuterol Inhaler [Ventolin Hfa Inhaler] 1 - 2 puff INHALATION RT-TID PRN [History] Aspirin EC [Ecotrin Low Dose] 162 mg PO DAILY 01/13/16 [History] Butalb/APAP/Caff 50-325-40Mg [Fioricet 50-325-40] 1 tab PO DAILY PRN 01/13/16 [ History] Dicyclomine [Bentyl] 20 mg PO QID 01/13/16 [History] Fluticasone Nasal Hammond [Flonase Nasal Hammond] 2 spr EA NOSTRIL DAILY PRN [History] Gabapentin [Neurontin] 300 mg PO HS 01/13/16 [History] Montelukast [Singulair] 10 mg PO DAILY 01/13/16 [History] Omeprazole [PriLOSEC] 20 mg PO DAILY 01/13/16 [History] QUEtiapine [SEROquel] 100 mg PO HS 01/13/16 [History] Warfarin [Coumadin] 7.5 mg PO DAILY 01/13/16 [History] Cetirizine HCl [Zyrtec] 10 mg PO DAILY 10/16/16 [History] FLUoxetine HCL [PROzac] 40 mg PO DAILY 10/16/16 [History] Ferrous Sulfate [Iron (65 MG Elemental)] 325 mg PO DAILY 10/16/16 [History] carBAMazepine [TEGretol XR] 100 mg PO BID 10/16/16 [History] traZODone HCL 100 mg PO HS 10/16/16 [History] amLODIPine [Norvasc] 5 mg PO DAILY tab 10/21/16 [Rx] Follow up Appointment(s)/Referral(s): Izabella Franklin DO [Primary Care Provider] - 1-2 days
[2016-10-21] MEDS ORDERED: WARFARIN 10 MG TAB PO ONE (10:36)
== END 2016-10-21 11:16 | disposition home or self-care (01) | DRG 813 ==
LOC: EC 12:39 → 6ICU 16:45 → 6SEL 10-18 17:10
PROVIDERS: ADMIT Internal Medicine; ATTEND Internal Medicine
DX: D68.32 Hemorrhagic disorder due to extrinsic circulating anticoagulants (principal); E87.2 Acidosis; E87.8 Other disorders of electrolyte and fluid balance, not elsewhere classified; K85.90 Acute pancreatitis without necrosis or infection, unspecified; D62 Acute posthemorrhagic anemia; E83.42 Hypomagnesemia; E86.0 Dehydration; R58 Hemorrhage, not elsewhere classified; T45.515A Adverse effect of anticoagulants, initial encounter; E78.5 Hyperlipidemia, unspecified; E87.6 Hypokalemia; F12.10 Cannabis abuse, uncomplicated; F17.210 Nicotine dependence, cigarettes, uncomplicated; F32.9 Major depressive disorder, single episode, unspecified; F41.9 Anxiety disorder, unspecified; I10 Essential (primary) hypertension; J44.9 Chronic obstructive pulmonary disease, unspecified; K21.9 Gastro-esophageal reflux disease without esophagitis; K29.00 Acute gastritis without bleeding; K58.9 Irritable bowel syndrome, unspecified; Z79.01 Long term (current) use of anticoagulants; Z79.899 Other long term (current) drug therapy; Z95.2 Presence of prosthetic heart valve
CPT/HCPCS: 36415; 74000; 74176; 80048; 80053; 80061; 80306; 81001; 81025; 82150; 82550; 82553; 83690; 83735; 84100; 84132; 84484; 85025; 85027; 85610; 85730; 87040; 93005; 93306; 96361; 96365; 96366; 96368; 96375; 96376; 99291

== ENCOUNTER 2016-12-26 18:28 | Inpatient (IN) | payer OTHER ==
[2016-12-26] MEDS ORDERED: SODIUM CHLORIDE 0.9% 1,000 ML IV STA (18:39)
[2016-12-26] MEDS ORDERED: ONDANSETRON 4 MG/2 ML VIAL IVP STA (18:39)
[2016-12-26] MEDS ORDERED: HYDROmorphone 1 MG/ML 1 ML SYRINGE IVP STA (18:39)
[2016-12-26] MEDS ORDERED: RX INFO: IV CONTRAST WAS GIVEN 1 EACH MISC MISCELLANE PRN (18:57)
--- NOTE | 2016-12-26 18:57 | ED ---
General Adult HPI <Musa Do - Last Filed: 12/26/16 20:32> - General Source: EMS, RN notes reviewed Mode of arrival: EMS Limitations: no limitations <Macy Norman - Last Filed: 12/26/16 20:52> - General Chief complaint: Recheck/Abnormal Lab/Rx Stated complaint: Nausea Time Seen by Provider: 12/26/16 18:31 - History of Present Illness Initial comments: 36-year-old female presents to the emergency department with a chief complaint of nausea and lower abdominal pain. Patient states that she has been feeling this way for the past 2 days. Patient does have a history of GI bleed due to an elevated Coumadin level in the past. Patient states that she is concerned she may have similar symptoms. Patient denies any blood in the stool. Patient states she's vomited without any blood as well. Patient states she just continues to have this nausea and lower abdominal cramping so she thought that she should be evaluated. Patient denies any cough cold runny nose with this. Patient states that she has not had any other symptoms. Patient denies any recent fever, chills, shortness of breath, chest pain, back pain, numbness or tingling, dysuria or hematuria, constipation or diarrhea, headaches or visual changes, or any other current symptoms. (Macy Norman) - Related Data Home Medications Medication Instructions Recorded Confirmed Albuterol Inhaler [Ventolin Hfa 1 - 2 puff INHALATION RT-TID PRN 01/13/16 Inhaler] Aspirin EC [Ecotrin Low Dose] 162 mg PO DAILY 01/13/16 12/26/16 Dicyclomine [Bentyl] 20 mg PO QID 01/13/16 12/26/16 Fluticasone Nasal [place] [Flonase 2 spr EA NOSTRIL DAILY PRN 01/13/16 12/26/16 Nasal [place]] Montelukast [Singulair] 10 mg PO DAILY 01/13/16 12/26/16 Omeprazole [PriLOSEC] 20 mg PO DAILY 01/13/16 12/26/16 QUEtiapine [SEROquel] 100 mg PO HS 01/13/16 12/26/16 Warfarin [Coumadin] 7.5 mg PO SUTUWETHFRSA 01/13/16 12/26/16 Cetirizine HCl [Zyrtec] 10 mg PO DAILY 10/16/16 12/26/16 FLUoxetine HCL [PROzac] 40 mg PO DAILY 10/16/16 12/26/16 Ferrous Sulfate [Iron (65 MG 325 mg PO DAILY 10/16/16 12/26/16 Elemental)] carBAMazepine [TEGretol XR] 100 mg PO BID 10/16/16 12/26/16 traZODone HCL 100 mg PO HS 10/16/16 12/26/16 Potassium 396 mg PO DAILY 12/26/16 12/26/16 Warfarin [Coumadin] 15 mg PO MO 12/26/16 12/26/16 Allergies Allergy/AdvReac Type Severity Reaction Status Date / Time adhesive tape Allergy Itching Verified 12/26/16 19:09 corn [[place]] Allergy Unknown Verified 12/26/16 19:09 Review of Systems ROS Other: All systems not noted in ROS Statement are negative. <Musa Do - Last Filed: 12/26/16 20:32> ROS Other: All systems not noted in ROS Statement are negative. <Macy Norman - Last Filed: 12/26/16 20:52> ROS Statement: Those systems with pertinent positive or pertinent negative responses have been documented in the HPI. Past Medical History Past Medical History: Asthma, GERD/Reflux, Hyperlipidemia, Mitral Valve Prolapse (MVP), Osteoarthritis (OA) Additional Past Medical History / Comment(s): Mitral regurgitation status post mitral valve replacement with a mechanical valve, IBS, Migraines, hiatal hernia , hypertension History of Any Multi-Drug Resistant Organisms: None Reported Past Surgical History: Cardiac Valve Replacement, Cholecystectomy, Heart Catheterization, Hernia Repair, Tubal Ligation Additional Past Surgical History / Comment(s): mitral valve replacement 2013, Past Anesthesia/Blood Transfusion Reactions: Motion Sickness, Postoperative Nausea & Vomiting (PONV) Past Psychological History: Anxiety, Depression Smoking Status: Current every day smoker Past Alcohol Use History: None Reported Past Drug Use History: Marijuana - Past Family History Mother Family Medical History: Cancer Additional Family Medical History / Comment(s): LUNG CA <Macy Norman - Last Filed: 12/26/16 20:52> General Exam <Musa Do - Last Filed: 12/26/16 20:32> Limitations: no limitations <Macy Norman - Last Filed: 12/26/16 20:52> - General Exam Comments Initial Comments: General: The patient is awake and alert, in no distress, and does not appear acutely ill. Eye: Pupils are equal, round and reactive to light, extra-ocular movements are intact; there is normal conjunctiva bilaterally. No signs of icterus. Ears, nose, mouth and throat: There are moist mucous membranes and no oral lesions. Neck: The neck is supple, there is no tenderness. Cardiovascular: There is a regular rate and rhythm. No murmur, rub or gallop is appreciated. Respiratory: Lungs are clear to auscultation, respirations are non-labored, breath sounds are equal. No wheezes, stridor, rales, or rhonchi. Gastrointestinal: Soft, non-distended, non-tender abdomen without masses or organomegaly noted. There is no rebound or guarding present. No CVA tenderness. Bowel sounds are unremarkable. Back: There is no tenderness to palpation in the midline. There is no obvious deformity. No rashes noted. Musculoskeletal: Normal ROM, no tenderness, There is no pedal edema. There is no calf tenderness or swelling. Sensation intact. Pulses equal bilaterally 2+. Neurological: CN II-XII intact, There are no obvious motor or sensory deficits. Coordination appears grossly intact. Speech is normal. Skin: Skin is warm and dry and no rashes or lesions are noted. Psychiatric: Cooperative, appropriate mood & affect, normal judgment. (Macy Norman) Medical Decision Making - Lab Data Result diagrams: 12/26/16 18:53 12/26/16 18:53 <Musa Do - Last Filed: 12/26/16 20:32> - Lab Data Result diagrams: 12/26/16 18:53 12/26/16 18:53 - Radiology Data Radiology results: report reviewed, image reviewed <Macy Norman - Last Filed: 12/26/16 20:52> - Medical Decision Making Medical decision-making. The patient presents with abdominal cramping and discomfort. With history of colitis. Patient's on Coumadin because of having had her mitral valve replaced. Labs at this time showed a white count of 16.5 hemoglobin 13 hematocrit 39 with an INR 6.6. Patient reports she did take Coumadin today but she vomited shortly thereafter. The patient's CT of the abdomen was done and reviewed. The radiologist's impression includes colitis of the ascending colon at the hepatic flexure. Minimal ascites within the lower pelvis. 1.9 cm right ovarian cyst. And diverticulosis without acute diverticulitis. As read by Dr. Castillo I examined the patient does not have an acute surgical abdomen. No rebound or referred pain. Patient will be admitted to hospital with pain management and repeat INR levels. Urine shows greater than 180 rbc's i.e. microscopic hematuria. Her stool guaiac was negative. No flank pain suggestive of a kidney stone. Last week she had GI bleed because of an INR of 8. Dr. Do I discussed the case with Dr. dr kruse, . (Musa Do) 28-year-old female presents to the emergency room with chief complaint of left abdominal pain and nausea.assessment patient will be admitted. This is discussed and they are negative this plan. (Macy Norman) - Lab Data Lab Results 12/26/16 12/26/16 12/26/16 Range/Units 18:53 18:53 18:53 WBC 16.5 H (3.8-10.6) k/uL RBC 4.32 (3.80-5.40) m/uL Hgb 13.2 (11.4-16.0) gm/dL Hct 39.5 (34.0-46.0) % MCV 91.5 (80.0-100.0) fL MCH 30.6 (25.0-35.0) pg MCHC 33.4 (31.0-37.0) g/dL RDW 14.0 (11.5-15.5) % Plt Count 265 (150-450) k/uL Neutrophils % 94 % Lymphocytes % 4 % Monocytes % 1 % Eosinophils % 1 % Basophils % 0 % Neutrophils # 15.5 H (1.3-7.7) k/uL Lymphocytes # 0.7 L (1.0-4.8) k/uL Monocytes # 0.2 (0-1.0) k/uL Eosinophils # 0.1 (0-0.7) k/uL Basophils # 0.0 (0-0.2) k/uL PT (9.0-12.0) sec INR (<1.2) APTT (22.0-30.0) sec Sodium 139 (137-145) mmol/L Potassium 4.5 (3.5-5.1) mmol/L Chloride 113 H (98-107) mmol/L Carbon Dioxide 18 L (22-30) mmol/L Anion Gap 8 mmol/L BUN 12 (7-17) mg/dL Creatinine 0.80 (0.52-1.04) mg/dL Est GFR (MDRD) Af Amer >60 (>60 ml/min/1.73 sqM) Est GFR (MDRD) Non-Af >60 (>60 ml/min/1.73 sqM) Glucose 117 H (74-99) mg/dL Plasma Lactic Acid [place] 1.1 (0.7-2.0) mmol/L Calcium 8.4 (8.4-10.2) mg/dL Total Bilirubin 0.3 (0.2-1.3) mg/dL AST 15 (14-36) U/L ALT 24 (9-52) U/L Alkaline Phosphatase 132 H (38-126) U/L Total Protein 5.1 L (6.3-8.2) g/dL Albumin 2.6 L (3.5-5.0) g/dL Amylase <30 L (30-110) U/L Lipase 52 (23-300) U/L Urine Color Urine Appearance (Clear) Urine pH (5.0-8.0) Ur Specific [place] (1.001-1.035) Urine Protein (Negative) Urine Glucose (UA) (Negative) Urine Ketones (Negative) Urine Blood (Negative) Urine Nitrite (Negative) Urine Bilirubin (Negative) Urine Urobilinogen (<2.0) mg/dL Ur Leukocyte Esterase (Negative) Urine RBC (0-5) /hpf Urine WBC (0-5) /hpf Ur Squamous Epith Cells (0-4) /hpf Urine Bacteria (None) /hpf Urine Mucus (None) /hpf Stool Occult Blood (Negative) 12/26/16 12/26/16 12/26/16 Range/Units 18:53 18:53 19:31 WBC (3.8-10.6) k/uL RBC (3.80-5.40) m/uL Hgb (11.4-16.0) gm/dL Hct (34.0-46.0) % MCV (80.0-100.0) fL MCH (25.0-35.0) pg MCHC (31.0-37.0) g/dL RDW (11.5-15.5) % Plt Count (150-450) k/uL Neutrophils % % Lymphocytes % % Monocytes % % Eosinophils % % Basophils % % Neutrophils # (1.3-7.7) k/uL Lymphocytes # (1.0-4.8) k/uL Monocytes # (0-1.0) k/uL Eosinophils # (0-0.7) k/uL Basophils # (0-0.2) k/uL PT 67.7 H (9.0-12.0) sec INR 6.6 H* (<1.2) APTT 52.2 H (22.0-30.0) sec Sodium (137-145) mmol/L Potassium (3.5-5.1) mmol/L Chloride (98-107) mmol/L Carbon Dioxide (22-30) mmol/L Anion Gap mmol/L BUN (7-17) mg/dL Creatinine (0.52-1.04) mg/dL Est GFR (MDRD) Af Amer (>60 ml/min/1.73 sqM) Est GFR (MDRD) Non-Af (>60 ml/min/1.73 sqM) Glucose (74-99) mg/dL Plasma Lactic Acid [place] (0.7-2.0) mmol/L Calcium (8.4-10.2) mg/dL Total Bilirubin (0.2-1.3) mg/dL AST (14-36) U/L ALT (9-52) U/L Alkaline Phosphatase (38-126) U/L Total Protein (6.3-8.2) g/dL Albumin (3.5-5.0) g/dL Amylase (30-110) U/L Lipase (23-300) U/L Urine Color Yellow Urine Appearance Cloudy H (Clear) Urine pH 6.5 (5.0-8.0) Ur Specific [place] 1.039 H (1.001-1.035) Urine Protein 2+ H (Negative) Urine Glucose (UA) Negative (Negative) Urine Ketones Negative (Negative) Urine Blood Moderate H (Negative) Urine Nitrite Negative (Negative) Urine Bilirubin Negative (Negative) Urine Urobilinogen 3.0 (<2.0) mg/dL Ur Leukocyte Esterase Negative (Negative) Urine RBC >182 H (0-5) /hpf Urine WBC 3 (0-5) /hpf Ur Squamous Epith Cells 10 H (0-4) /hpf Urine Bacteria Rare H (None) /hpf Urine Mucus Occasional H (None) /hpf Stool Occult Blood Negative (Negative) Disposition <Musa Do - Last Filed: 12/26/16 20:32> Time of Disposition: 20:52 Decision Date: 12/26/16 Decision Time: 20:52 <Macy Norman - Last Filed: 12/26/16 20:52> Clinical Impression: Colitis, Coagulopathy, Hematuria Disposition: ADMITTED IP TO THIS [facility] Condition: Stable Referrals: Izabella Franklin DO [Primary Care Provider] - 1-2 days
[2016-12-26 19:03] LABS: Basophils % (A) 0 %; CH 30.2; CHCM 33.2; Eosinophils # (A) 0.1 k/uL (0-0.7); Eosinophils % (A) 1 %; HCT 39.5 % (34.0-46.0); HDW 2.43; HGB 13.2 gm/dL (11.4-16.0); Luc # (Auto) 0.03; Luc % (Auto) 0; Lymphocytes # (A) 0.7 k/uL (1.0-4.8); Lymphocytes % (A) 4 %; MCH 30.6 pg (25.0-35.0); MCHC 33.4 g/dL (31.0-37.0); MCV 91.5 fL (80.0-100.0); Mean Platelet Volume 7.1; Monocytes # (A) 0.2 k/uL (0-1.0); Monocytes % (A) 1 %; Neutrophils # (A) 15.5 k/uL (1.3-7.7); Neutrophils % (A) 94 %; RBC 4.32 m/uL (3.80-5.40); WBC 16.5 k/uL (3.8-10.6)
[2016-12-26 19:23] LABS: ALT 24 U/L (9-52); AST 15 U/L (14-36); Alkaline Phosphatase 132 U/L (38-126); Amylase <30 U/L (30-110); Anion Gap 8 mmol/L; Blood Urea Nitrogen 12 mg/dL (7-17); Calcium 8.4 mg/dL (8.4-10.2); Carbon Dioxide 18 mmol/L (22-30); Chloride 113 mmol/L (98-107); Glucose 117 mg/dL (74-99); Non-African American GFR(MDRD) >60 (>60 ml/min/1.73 sqM); Potassium 4.5 mmol/L (3.5-5.1); Sodium 139 mmol/L (137-145); Total Bilirubin 0.3 mg/dL (0.2-1.3); Total Protein 5.1 g/dL (6.3-8.2)
[2016-12-26 19:46] LABS: Partial Thromboplastin Time 52.2 sec (22.0-30.0); Prothrombin Time 67.7 sec (9.0-12.0)
[2016-12-26 19:49] LABS: INR 6.6 (<1.2)
[2016-12-26 19:52] LABS: Appearance,Urine Cloudy (Clear); Bacteria,Urine Rare /hpf; Bilirubin,Urine Negative (Negative); Glucose,Urine (UA) Negative (Negative); Ketones,Urine Negative (Negative); Leukocyte Esterase,Urine Negative (Negative); Mucus,Urine Occasional /hpf; Nitrite,Urine Negative (Negative); PH, Urine 6.5 (5.0-8.0); Particle Count 11253; Protein,Urine 2+ (Negative); RBC,Urine >182 /hpf (0-5); Specific Gravity,Urine 1.039 (1.001-1.035); Squamous Epithelial Cell,Urine 10 /hpf (0-4); UA Billing (MACRO vs. MICRO) MICRO; WBC,Urine 3 /hpf (0-5)
--- NOTE | 2016-12-26 20:21 | CT ---
EXAMINATION TYPE: CT abdomen pelvis w con DATE OF EXAM: 12/26/2016 COMPARISON: 10/16/2016 INDICATION: Patient complains of nausea, vomiting, and generalized pelvic pain. DLP: 965 mGycm, Automated exposure control for dose reduction was used. CONTRAST: 100 mL of Omnipaque 300. Study performed without Oral Contrast TECHNIQUE: Axial images were obtained from above the diaphragm to the pubic rami in the axial plane a t 5 mm thick sections. Reconstructed images are reviewed on the computer in the coronal plane. FINDINGS: Limited CT sections are obtained the lung bases. The lung bases are clear. A pneumatocele may be in the posterior right lung base. CT ABDOMEN: Liver: Normal Spleen: Normal Pancreas: Atrophic Adrenal glands: The adrenal glands are normal. Gallbladder: Surgically absent Kidneys: No masses are evident. No hydronephrosis is present. No cysts are present. Delayed images were obtained through the kidneys, which remain unremarkable. Aorta: Normal Inferior vena cava: Normal. CT PELVIS: There is thickening through the ascending colon especially at the hepatic flexure. Findings can be co mpatible with colitis. Clinical correlation is recommended. Mild inflammatory changes adjacent. Diverticulosis without acute diverticulitis is within the sigmoid colon. Small amount of free fluid is within the lower pelvis. Appendix: The appendix is normal. Urinary bladder: Decompressed and nondiagnostic for evaluation Genitourinary structures: Uterus appears normal. There is a 1.9 cm cyst on the right ovary. Osseous structures: No suspicious lytic or sclerotic lesions. IMPRESSIONS: 1. Colitis of the ascending colon at the hepatic flexure. 2. Minimal ascites within the lower pelvis. 3. 1.9 cm right ovarian cyst 4. Diverticulosis without acute diverticulitis.
[2016-12-26] MEDS ORDERED: NALOXONE 0.4 MG/ML 1 ML VIAL IV PRN (20:52)
[2016-12-26] MEDS ORDERED: HYDROcodone/APAP 5-325MG 1 EACH TAB PO PRN (20:52)
[2016-12-26] MEDS ORDERED: ACETAMINOPHEN TAB 325 MG TAB PO PRN (20:52)
[2016-12-26] MEDS ORDERED: ALBUTEROL NEBULIZED 2.5 MG/3 ML INHALATION PRN (20:54)
[2016-12-26] MEDS ORDERED: FLUTICASONE 50MCG/SPRAY NASAL 16GM EA NOSTRIL PRN (20:54)
[2016-12-26] MEDS: SODIUM CHLORIDE 0.9% 1,000 ML IV SCH (21:48)
[2016-12-26] MEDS: HYDROmorphone 1 MG/ML 1 ML SYRINGE IV PRN (21:56)
[2016-12-26] MEDS: ONDANSETRON 4 MG/2 ML VIAL IVP PRN (21:56)
[2016-12-26] MEDS: DICYCLOMINE 20 MG TAB PO SCH (22:58)
[2016-12-26] MEDS: QUEtiapine 100 MG TAB PO SCH (22:58)
[2016-12-26] MEDS: traZODone HCL 100 MG TAB PO SCH (22:58)
[2016-12-26] MEDS: carBAMazepine 100 MG TAB.ER.12H PO SCH (22:58)
[2016-12-27] MEDS: HYDROmorphone 1 MG/ML 1 ML SYRINGE IV PRN ×7 (00:17→23:06)
[2016-12-27] MEDS: ONDANSETRON 4 MG/2 ML VIAL IVP PRN ×2 (07:39→16:48)
[2016-12-27] MEDS: SODIUM CHLORIDE 0.9% 1,000 ML IV SCH ×2 (07:54→17:21)
[2016-12-27 08:49] LABS: ALT 20 U/L (9-52); AST 11 U/L (14-36); Alkaline Phosphatase 101 U/L (38-126); Anion Gap 1 mmol/L; Blood Urea Nitrogen 7 mg/dL (7-17); Calcium 7.7 mg/dL (8.4-10.2); Carbon Dioxide 19 mmol/L (22-30); Chloride 116 mmol/L (98-107); Glucose 74 mg/dL (74-99); Non-African American GFR(MDRD) >60 (>60 ml/min/1.73 sqM); Potassium 4.1 mmol/L (3.5-5.1); Sodium 136 mmol/L (137-145); Total Bilirubin <0.1 mg/dL (0.2-1.3); Total Protein 4.4 g/dL (6.3-8.2)
[2016-12-27 08:50] LABS: Prothrombin Time 90.7 sec (9.0-12.0)
[2016-12-27 08:52] LABS: Basophils # (A) 0.1 k/uL (0-0.2); Basophils % (A) 0 %; CH 29.9; Eosinophils # (A) 0.3 k/uL (0-0.7); Eosinophils % (A) 2 %; HCT 36.1 % (34.0-46.0); HDW 2.44; HGB 11.9 gm/dL (11.4-16.0); Luc # (Auto) 0.09; Luc % (Auto) 1; Lymphocytes # (A) 2.5 k/uL (1.0-4.8); Lymphocytes % (A) 20 %; MCH 30.9 pg (25.0-35.0); MCHC 32.9 g/dL (31.0-37.0); MCV 93.9 fL (80.0-100.0); Mean Platelet Volume 7.3; Monocytes # (A) 0.4 k/uL (0-1.0); Monocytes % (A) 3 %; Neutrophils # (A) 9.6 k/uL (1.3-7.7); Neutrophils % (A) 74 %; RBC 3.85 m/uL (3.80-5.40); RDW 14.1 % (11.5-15.5); WBC 12.9 k/uL (3.8-10.6); WBC (Perox) 12.73
[2016-12-27] MEDS ORDERED: NON-FORMULARY DRUG (Omeprazole 20 MG) PO SCH (09:00)
[2016-12-27] MEDS: FERROUS SULFATE 325 MG TAB PO SCH (09:01)
[2016-12-27] MEDS: carBAMazepine 100 MG TAB.ER.12H PO SCH ×2 (09:01→20:21)
[2016-12-27] MEDS: ASPIRIN 81 MG CHEW PO SCH (09:01)
[2016-12-27] MEDS: POTASSIUM CHLORIDE ER 10 MEQ TAB.ER.PRT PO SCH (09:01)
[2016-12-27] MEDS: DICYCLOMINE 20 MG TAB PO SCH ×4 (09:01→23:06)
[2016-12-27] MEDS: LORATADINE 10 MG TAB PO SCH (09:01)
[2016-12-27] MEDS: MONTELUKAST 10 MG TAB PO SCH (09:01)
[2016-12-27] MEDS: FLUoxetine HCL 20 MG CAP PO SCH (09:01)
[2016-12-27 09:05] LABS: INR 8.7 (<1.2)
[2016-12-27] MEDS: PANTOPRAZOLE 40 MG/10 ML VIAL IV SCH (10:31)
--- NOTE | 2016-12-27 16:02 | P.HPIM ---
History of Present Illness H&P Date: 12/27/16 Chief Complaint: Abdominal pain This is a 36-year-old female complicated past medical history significant for history of mitral valve replacement with mechanical valve in 2013 and presented to the emergency room with worsening abdominal pain and nausea. Patient said that her symptoms started a few days ago and is being getting progressively worse. She described her pain as sharp and occasionally up to 10 out of 10 in severity. She said that she is also feeling nauseated and vomited once. She denies any blood in her stool or black stool. She was evaluated in the emergency room and computed tomography scan of the abdomen showed evidence of colitis of the ascending colon at the hepatic flexure. No evidence of diverticulitis. Patient was started on IV fluid hydration and pain medication and was admitted to the hospital for further evaluation. Patient said that her symptoms of improved significantly since admission. She is able to tolerate liquid diet with no difficulty. No episode of vomiting since admission. Review of Systems Review of system: 14 points review of systems were obtained and were negative except to what were mentioned in the HPI. Past Medical History Past Medical History: Asthma, GERD/Reflux, Hyperlipidemia, Mitral Valve Prolapse (MVP), Osteoarthritis (OA) Additional Past Medical History / Comment(s): Mitral regurgitation status post mitral valve replacement with a mechanical valve, IBS, Migraines, hiatal hernia , hypertension History of Any Multi-Drug Resistant Organisms: None Reported Past Surgical History: Cardiac Valve Replacement, Cholecystectomy, Heart Catheterization, Hernia Repair, Tubal Ligation Additional Past Surgical History / Comment(s): mitral valve replacement 2013, Past Anesthesia/Blood Transfusion Reactions: Motion Sickness, Postoperative Nausea & Vomiting (PONV) Past Psychological History: Anxiety, Depression Smoking Status: Current every day smoker Past Alcohol Use History: None Reported Additional Past Alcohol Use History / Comment(s): smokes 1/2 PPD for 20 yrs Past Drug Use History: Marijuana - Past Family History Mother Family Medical History: Cancer Additional Family Medical History / Comment(s): LUNG CA Medications and Allergies Home Medications Medication Instructions Recorded Confirmed Type Albuterol Inhaler [Ventolin Hfa 1 - 2 puff INHALATION RT-TID PRN 01/13/16 History Inhaler] Aspirin EC [Ecotrin Low Dose] 162 mg PO DAILY 01/13/16 12/26/16 History Dicyclomine [Bentyl] 20 mg PO QID 01/13/16 12/26/16 History Fluticasone Nasal [place] [Flonase 2 spr EA NOSTRIL DAILY PRN 01/13/16 12/26/16 History Nasal [place]] Montelukast [Singulair] 10 mg PO DAILY 01/13/16 12/26/16 History Omeprazole [PriLOSEC] 20 mg PO DAILY 01/13/16 12/26/16 History QUEtiapine [SEROquel] 100 mg PO HS 01/13/16 12/26/16 History Warfarin [Coumadin] 7.5 mg PO SUTUWETHFRSA 01/13/16 12/26/16 History Cetirizine HCl [Zyrtec] 10 mg PO DAILY 10/16/16 12/26/16 History FLUoxetine HCL [PROzac] 40 mg PO DAILY 10/16/16 12/26/16 History Ferrous Sulfate [Iron (65 MG 325 mg PO DAILY 10/16/16 12/26/16 History Elemental)] carBAMazepine [TEGretol XR] 100 mg PO BID 10/16/16 12/26/16 History traZODone HCL 100 mg PO HS 10/16/16 12/26/16 History Potassium 396 mg PO DAILY 12/26/16 12/26/16 History Warfarin [Coumadin] 15 mg PO MO 12/26/16 12/26/16 History Allergies Allergy/AdvReac Type Severity Reaction Status Date / Time adhesive tape Allergy Itching Verified 12/26/16 19:09 corn [[place]] Allergy Unknown Verified 12/26/16 19:09 Physical Exam Vitals: Vital Signs Temp Pulse Pulse Resp BP BP Pulse Ox 12/27/16 15:00 97.5 F L 75 16 90/58 97 12/27/16 07:00 99.5 F 78 16 87/44 97 12/26/16 23:51 98.1 F 82 18 105/58 97 12/26/16 22:20 98.0 F 76 16 142/73 12/26/16 18:33 98.8 F 75 18 137/64 99 Intake and Output 12/27/16 12/27/16 12/27/16 06:59 14:59 22:59 Intake Total 320 Balance 320 Intake: Oral 320 Other: # Voids 1 2 General: The patient is awake and alert, in no distress Eye: there is normal conjunctiva bilaterally. Neck: The neck is supple, there is no JVD. Cardiovascular: Normal S1-S2, no S3-S4, no murmurs. Respiratory: Lungs clear to auscultation bilaterally Gastrointestinal: Abdomen is soft, nontender Musculoskeletal: There is no pedal edema. Neurological:. Speech is normal. Skin: Skin is warm and dry Results CBC & Chem 7: 12/27/16 08:00 12/27/16 08:00 Labs: Abnormal Lab Results - Last 24 Hours (Table) 12/26/16 12/26/16 12/26/16 Range/Units 18:53 18:53 18:53 WBC 16.5 H (3.8-10.6) k/uL Neutrophils # 15.5 H (1.3-7.7) k/uL Lymphocytes # 0.7 L (1.0-4.8) k/uL PT 67.7 H (9.0-12.0) sec INR 6.6 H* (<1.2) APTT 52.2 H (22.0-30.0) sec Sodium (137-145) mmol/L Chloride 113 H (98-107) mmol/L Carbon Dioxide 18 L (22-30) mmol/L Glucose 117 H (74-99) mg/dL Calcium (8.4-10.2) mg/dL Total Bilirubin (0.2-1.3) mg/dL AST (14-36) U/L Alkaline Phosphatase 132 H (38-126) U/L Total Protein 5.1 L (6.3-8.2) g/dL Albumin 2.6 L (3.5-5.0) g/dL Amylase <30 L (30-110) U/L Urine Appearance (Clear) Ur Specific [place] (1.001-1.035) Urine Protein (Negative) Urine Blood (Negative) Urine RBC (0-5) /hpf Ur Squamous Epith Cells (0-4) /hpf Urine Bacteria (None) /hpf Urine Mucus (None) /hpf 12/26/16 12/27/16 12/27/16 Range/Units 19:31 08:00 08:00 WBC 12.9 H (3.8-10.6) k/uL Neutrophils # 9.6 H (1.3-7.7) k/uL Lymphocytes # (1.0-4.8) k/uL PT 90.7 H (9.0-12.0) sec INR 8.7 H* (<1.2) APTT (22.0-30.0) sec Sodium (137-145) mmol/L Chloride (98-107) mmol/L Carbon Dioxide (22-30) mmol/L Glucose (74-99) mg/dL Calcium (8.4-10.2) mg/dL Total Bilirubin (0.2-1.3) mg/dL AST (14-36) U/L Alkaline Phosphatase (38-126) U/L Total Protein (6.3-8.2) g/dL Albumin (3.5-5.0) g/dL Amylase (30-110) U/L Urine Appearance Cloudy H (Clear) Ur Specific [place] 1.039 H (1.001-1.035) Urine Protein 2+ H (Negative) Urine Blood Moderate H (Negative) Urine RBC >182 H (0-5) /hpf Ur Squamous Epith Cells 10 H (0-4) /hpf Urine Bacteria Rare H (None) /hpf Urine Mucus Occasional H (None) /hpf 12/27/16 Range/Units 08:00 WBC (3.8-10.6) k/uL Neutrophils # (1.3-7.7) k/uL Lymphocytes # (1.0-4.8) k/uL PT (9.0-12.0) sec INR (<1.2) APTT (22.0-30.0) sec Sodium 136 L (137-145) mmol/L Chloride 116 H (98-107) mmol/L Carbon Dioxide 19 L (22-30) mmol/L Glucose (74-99) mg/dL Calcium 7.7 L (8.4-10.2) mg/dL Total Bilirubin <0.1 L (0.2-1.3) mg/dL AST 11 L (14-36) U/L Alkaline Phosphatase (38-126) U/L Total Protein 4.4 L (6.3-8.2) g/dL Albumin 2.1 L (3.5-5.0) g/dL Amylase (30-110) U/L Urine Appearance (Clear) Ur Specific [place] (1.001-1.035) Urine Protein (Negative) Urine Blood (Negative) Urine RBC (0-5) /hpf Ur Squamous Epith Cells (0-4) /hpf Urine Bacteria (None) /hpf Urine Mucus (None) /hpf Thrombosis Risk Factor Assmnt - Choose All That Apply Any of the Below Risk Factors Present?: Yes Each Factor Represents 1 point: Hx of IBD Other Risk Factors: No Other congenital or acquired thrombophilia - If yes, enter type in comment: No Thrombosis Risk Factor Assessment Total Risk Factor Score: 1 Thrombosis Risk Factor Assessment Level: Low Risk Assessment and Plan Plan: 1. Acute colitis: I doubt infectious cause. May be inflammatory? I would consult gastroenterology for further evaluation. We'll continue symptomatic management. 2. Coagulopathy with elevated INR. I would hold off on her Coumadin right now. I would not give her any vitamin K at this time as there is no evidence of bleeding. We'll monitor INR daily. 3. History of mitral valve replacement with [facility] mechanical valve is 2013 4. Major depressive disorder Today, I reviewed her medication list and lab work results. Continue current regimen. Continue IV fluid hydration, antiemetic, and pain medications as needed. Repeat lab work in the morning. Consult gastroenterology for further evaluation.
[2016-12-27] MEDS: traZODone HCL 100 MG TAB PO SCH (20:22)
[2016-12-27] MEDS: QUEtiapine 100 MG TAB PO SCH (20:22)
--- NOTE | 2016-12-27 23:44 | P.CONS ---
History of Present Illness - Reason for Consult Consult date: 12/27/16 - History of Present Illness The patient is a 36-year-old female with past medical history significant for mitral valve replacement with mechanical valve in 2013 on anticoagulation, presented to the emergency room with worsening abdominal pain and nausea. The patient gave history of irritable bowel syndrome and has been on treatment for the last 2 years with exacerbation of her symptoms of diarrhea and pain recently when she ran out of her Bentyl. Her medication has subsequently been renew it and was doing well for the last week or so. Her symptoms started a few days prior to admission and were getting progressively worse. She described her pain as sharp and occasionally up to 10 out of 10 in severity. She said that she is also feeling nauseated and vomited once. She denies any blood in her stool or black stool. She was evaluated in the emergency room and computed tomography scan of the abdomen showed evidence of colitis of the ascending colon at the hepatic flexure. No evidence of diverticulitis. Patient was started on IV fluid hydration and pain medication and was admitted to the hospital for further evaluation. We were asked to see her regarding her colitis. Patient said that her symptoms has improved significantly since admission. She is able to tolerate liquid diet with no difficulty. No episode of vomiting since admission. Her last colonoscopy was within the last few years. Review of Systems 14 point review of systems is, otherwise, negative except as mentioned in the present illness above. Past Medical History Past Medical History: Asthma, GERD/Reflux, Hyperlipidemia, Mitral Valve Prolapse (MVP), Osteoarthritis (OA) Additional Past Medical History / Comment(s): Mitral regurgitation status post mitral valve replacement with a mechanical valve, IBS, Migraines, hiatal hernia , hypertension History of Any Multi-Drug Resistant Organisms: None Reported Past Surgical History: Cardiac Valve Replacement, Cholecystectomy, Heart Catheterization, Hernia Repair, Tubal Ligation Additional Past Surgical History / Comment(s): mitral valve replacement 2013, Past Anesthesia/Blood Transfusion Reactions: Motion Sickness, Postoperative Nausea & Vomiting (PONV) Past Psychological History: Anxiety, Depression Smoking Status: Current every day smoker Past Alcohol Use History: None Reported Additional Past Alcohol Use History / Comment(s): smokes 1/2 PPD for 20 yrs Past Drug Use History: Marijuana - Past Family History Mother Family Medical History: Cancer Additional Family Medical History / Comment(s): LUNG CA Medications and Allergies Home Medications Medication Instructions Recorded Confirmed Type Albuterol Inhaler [Ventolin Hfa 1 - 2 puff INHALATION RT-TID PRN 01/13/16 History Inhaler] Aspirin EC [Ecotrin Low Dose] 162 mg PO DAILY 01/13/16 12/26/16 History Dicyclomine [Bentyl] 20 mg PO QID 01/13/16 12/26/16 History Fluticasone Nasal [place] [Flonase 2 spr EA NOSTRIL DAILY PRN 01/13/16 12/26/16 History Nasal [place]] Montelukast [Singulair] 10 mg PO DAILY 01/13/16 12/26/16 History Omeprazole [PriLOSEC] 20 mg PO DAILY 01/13/16 12/26/16 History QUEtiapine [SEROquel] 100 mg PO HS 01/13/16 12/26/16 History Warfarin [Coumadin] 7.5 mg PO SUTUWETHFRSA 01/13/16 12/26/16 History Cetirizine HCl [Zyrtec] 10 mg PO DAILY 10/16/16 12/26/16 History FLUoxetine HCL [PROzac] 40 mg PO DAILY 10/16/16 12/26/16 History Ferrous Sulfate [Iron (65 MG 325 mg PO DAILY 10/16/16 12/26/16 History Elemental)] carBAMazepine [TEGretol XR] 100 mg PO BID 10/16/16 12/26/16 History traZODone HCL 100 mg PO HS 10/16/16 12/26/16 History Potassium 396 mg PO DAILY 12/26/16 12/26/16 History Warfarin [Coumadin] 15 mg PO MO 12/26/16 12/26/16 History Allergies Allergy/AdvReac Type Severity Reaction Status Date / Time adhesive tape Allergy Itching Verified 12/26/16 19:09 corn [[place]] Allergy Unknown Verified 12/26/16 19:09 Physical Exam Vitals: Vital Signs Temp Pulse Resp BP Pulse Ox 12/27/16 15:00 97.5 F L 75 16 90/58 97 12/27/16 07:00 99.5 F 78 16 87/44 97 12/26/16 23:51 98.1 F 82 18 105/58 97 Intake and Output 12/27/16 12/27/16 12/27/16 06:59 14:59 22:59 Intake Total 320 Balance 320 Intake: Oral 320 Other: # Voids 1 2 General appearance: The patient is alert, oriented, in no acute distress. HET: Head is normocephalic and atraumatic. Pupils are equal and reactive. Oropharynx is clear without lesions. Neck: Supple without lymphadenopathy. Trachea midline. Heart: S1 S2. Regular rate and rhythm. Lungs: No crackles or wheezes are heard. Abdomen: Soft, nontender, nondistended with bowel sounds. No peritoneal signs. No palpable organomegaly or masses. Extremities: Normal skin color and turgor. No cyanosis, rash, ulceration, clubbing, or edema. Radial and pedal pulses are 2/4 bilaterally. Neurological: No focal deficits. Strength and sensation are grossly intact. Results CBC & Chem 7: 12/27/16 08:00 12/27/16 08:00 Labs: Abnormal Lab Results - Last 24 Hours (Table) 12/27/16 12/27/16 12/27/16 Range/Units 08:00 08:00 08:00 WBC 12.9 H (3.8-10.6) k/uL Neutrophils # 9.6 H (1.3-7.7) k/uL PT 90.7 H (9.0-12.0) sec INR 8.7 H* (<1.2) Sodium 136 L (137-145) mmol/L Chloride 116 H (98-107) mmol/L Carbon Dioxide 19 L (22-30) mmol/L Calcium 7.7 L (8.4-10.2) mg/dL Total Bilirubin <0.1 L (0.2-1.3) mg/dL AST 11 L (14-36) U/L Total Protein 4.4 L (6.3-8.2) g/dL Albumin 2.1 L (3.5-5.0) g/dL Assessment and Plan Plan: 36-year-old female with history of irritable bowel syndrome, now presenting with abdominal pain and nausea and abnormal findings on CT. In the absence of diarrhea or bleeding at this time, I doubt that we are dealing with nonspecific inflammatory bowel disease such as ulcerative colitis. It is possible that the changes on CT are related to a recent gastroenteritis or self-limited colitis that she thought was all part of her irritable bowel syndrome when she was off her medications recently. Since she is improving and is tolerating diet, I will recommend that we continue current management and keep additional endoscopic workup as a contingency based on her course.
[2016-12-28] MEDS: HYDROmorphone 1 MG/ML 1 ML SYRINGE IV PRN ×6 (02:01→22:01)
[2016-12-28] MEDS: SODIUM CHLORIDE 0.9% 1,000 ML IV SCH ×3 (06:03→23:32)
[2016-12-28 07:54] LABS: INR 4.1 (<1.2); Prothrombin Time 40.8 sec (9.0-12.0)
[2016-12-28] MEDS: ASPIRIN 81 MG CHEW PO SCH (08:02)
[2016-12-28] MEDS: DICYCLOMINE 20 MG TAB PO SCH ×4 (08:02→22:01)
[2016-12-28] MEDS: FERROUS SULFATE 325 MG TAB PO SCH (08:02)
[2016-12-28] MEDS: LORATADINE 10 MG TAB PO SCH (08:02)
[2016-12-28] MEDS: PANTOPRAZOLE 40 MG/10 ML VIAL IV SCH (08:02)
[2016-12-28] MEDS: FLUoxetine HCL 20 MG CAP PO SCH (08:02)
[2016-12-28] MEDS: POTASSIUM CHLORIDE ER 10 MEQ TAB.ER.PRT PO SCH (08:02)
[2016-12-28] MEDS: carBAMazepine 100 MG TAB.ER.12H PO SCH ×2 (08:02→22:00)
[2016-12-28] MEDS: MONTELUKAST 10 MG TAB PO SCH (08:02)
[2016-12-28 08:15] LABS: Anion Gap 1 mmol/L; Blood Urea Nitrogen 2 mg/dL (7-17); Calcium 7.3 mg/dL (8.4-10.2); Carbon Dioxide 20 mmol/L (22-30); Chloride 118 mmol/L (98-107); Glucose 70 mg/dL (74-99); Non-African American GFR(MDRD) >60 (>60 ml/min/1.73 sqM); Potassium 4.2 mmol/L (3.5-5.1); Sodium 139 mmol/L (137-145)
[2016-12-28 08:19] LABS: Basophils % (A) 1 %; CH 29.9; CHCM 31.8; Eosinophils # (A) 0.2 k/uL (0-0.7); Eosinophils % (A) 3 %; HDW 2.53; HGB 10.8 gm/dL (11.4-16.0); Luc # (Auto) 0.11; Luc % (Auto) 2; Lymphocytes # (A) 2.1 k/uL (1.0-4.8); Lymphocytes % (A) 28 %; MCH 29.1 pg (25.0-35.0); MCHC 30.8 g/dL (31.0-37.0); MCV 94.5 fL (80.0-100.0); Mean Platelet Volume 7.2; Monocytes # (A) 0.3 k/uL (0-1.0); Monocytes % (A) 4 %; Neutrophils # (A) 4.7 k/uL (1.3-7.7); Neutrophils % (A) 63 %; WBC 7.4 k/uL (3.8-10.6)
[2016-12-28] MEDS: ONDANSETRON 4 MG/2 ML VIAL IVP PRN ×2 (10:15→18:42)
--- NOTE | 2016-12-28 11:49 | P.PN ---
Subjective This is a 36-year-old female complicated past medical history significant for history of mitral valve replacement with mechanical valve in 2013 and presented to the emergency room with worsening abdominal pain and nausea. Patient said that her symptoms started a few days ago and is being getting progressively worse. She described her pain as sharp and occasionally up to 10 out of 10 in severity. She said that she is also feeling nauseated and vomited once. She denies any blood in her stool or black stool. She was evaluated in the emergency room and computed tomography scan of the abdomen showed evidence of colitis of the ascending colon at the hepatic flexure. No evidence of diverticulitis. Patient was started on IV fluid hydration and pain medication and was admitted to the hospital for further evaluation. Patient said that her symptoms of improved significantly since admission. She is able to tolerate liquid diet with no difficulty. No episode of vomiting since admission. 12/28/2016 patient still complaining of abdominal pain. She is tolerating a clear liquid diet. She reports that pain may have had slight improvement since admission. She denies any nausea or vomiting. Last bowel movement 2 days ago. She had low blood pressure this morning of 88/54. Repeat blood pressure shows 101/62. She's followed by GI service at this time they are monitoring patient and endoscopy workup on contingency based on her course Objective - Vital Signs Vital signs: Vital Signs Temp 97.6 F 12/28/16 07:00 Pulse 69 12/28/16 07:00 Resp 16 12/28/16 07:00 BP 101/62 12/28/16 10:00 Pulse Ox 96 12/28/16 07:00 Intake & Output 12/27/16 12/28/16 12/28/16 18:59 06:59 18:59 Intake Total 320 1050 200 Balance 320 1050 200 Intake: Oral 320 1050 200 Other: # Voids 2 2 1 - Exam Head normocephalic Neck supple Lungs clear to auscultation bilaterally no wheezing or crackles Heart regular rate and rhythm S1-S2, no rub or gallop Abdomen is soft tender in the lower abdominal quadrants positive bowel sounds and nondistended Extremities no edema Neuro alert and orientated to 3 - Labs CBC & Chem 7: 12/28/16 07:29 12/28/16 07:29 Labs: Abnormal Lab Results - Last 24 Hours (Table) 12/28/16 12/28/16 12/28/16 Range/Units 07:29 07:29 07:29 RBC 3.70 L (3.80-5.40) m/uL Hgb 10.8 L (11.4-16.0) gm/dL MCHC 30.8 L (31.0-37.0) g/dL PT 40.8 H (9.0-12.0) sec INR 4.1 H (<1.2) Chloride 118 H (98-107) mmol/L Carbon Dioxide 20 L (22-30) mmol/L BUN 2 L (7-17) mg/dL Glucose 70 L (74-99) mg/dL Calcium 7.3 L (8.4-10.2) mg/dL Assessment and Plan Plan: 1. Acute colitis: Computed tomography scan had shown colitis in the ascending colon and hepatic flexure. Fecal occult blood negative. Patient seen by GI service. [place] findings and symptoms might be related to a gastroenteritis and is self limited colitis. Patient currently on IV fluids and receiving pain medication. We'll await further GI recommendations. Continue Protonix 2. Coagulopathy with elevated INR. I would hold off on her Coumadin right now. INR has come down to 4.1. She reports no evidence of bleeding. Repeat PT /INR in a.m. 3. History of mitral valve replacement with [facility] mechanical valve is 2013. 4. Major depressive disorder 5. Severe protein calorie malnutrition: Start ensure I performed an examination of the patient and discussed their management with the physician Wet Wheeler. I have reviewed the Physician Wet Wheeler's notes and agree with the documented findings and plan of care
[2016-12-28] MEDS ORDERED: WARFARIN 7.5 MG TAB PO ONE (18:00)
[2016-12-28] MEDS: DOCUSATE 100 MG CAP PO SCH (22:01)
[2016-12-28] MEDS: traZODone HCL 100 MG TAB PO SCH (22:01)
[2016-12-28] MEDS: QUEtiapine 100 MG TAB PO SCH (22:01)
[2016-12-29] MEDS: HYDROmorphone 1 MG/ML 1 ML SYRINGE IV PRN ×7 (01:04→23:58)
--- NOTE | 2016-12-29 01:18 | P.PN ---
Subjective Principal diagnosis: Colitis The patient is a 36-year-old female with past medical history significant for mitral valve replacement with mechanical valve in 2013 on anticoagulation, presented to the emergency room with worsening abdominal pain and nausea. The patient gave history of irritable bowel syndrome and has been on treatment for the last 2 years with exacerbation of her symptoms of diarrhea and pain recently when she ran out of her Bentyl. Her medication has subsequently been renew it and was doing well for the last week or so. Her symptoms started a few days prior to admission and were getting progressively worse. She described her pain as sharp and occasionally up to 10 out of 10 in severity. She said that she is also feeling nauseated and vomited once. She denies any blood in her stool or black stool. She was evaluated in the emergency room and computed tomography scan of the abdomen showed evidence of colitis of the ascending colon at the hepatic flexure. No evidence of diverticulitis. Patient was started on IV fluid hydration and pain medication and was admitted to the hospital for further evaluation. We were asked to see her regarding her colitis. The patient has no new complaints. She continues to have back and flank aches. No bowel movements since admission and no nausea or vomiting. Tolerating liquid diet. Objective - Vital Signs Vital signs: Vital Signs Temp 97.6 F 12/28/16 15:00 Pulse 84 12/28/16 15:00 Resp 16 12/28/16 15:00 BP 96/61 12/28/16 15:00 Pulse Ox 99 12/28/16 15:00 Intake & Output 12/28/16 12/28/16 12/29/16 06:59 18:59 06:59 Intake Total 1050 600 Balance 1050 600 Intake: Oral 1050 600 Other: # Voids 2 3 # Bowel Movements 0 - Exam General appearance: The patient is alert, oriented, in no acute distress. HET: Head is normocephalic and atraumatic. Pupils are equal and reactive. Oropharynx is clear without lesions. Neck: Supple without lymphadenopathy. Trachea midline. Heart: S1 S2. Regular rate and rhythm. Lungs: No crackles or wheezes are heard. Abdomen: Soft, nontender, nondistended with bowel sounds. No peritoneal signs. No palpable organomegaly or masses. Extremities: Normal skin color and turgor. No cyanosis, rash, ulceration, clubbing, or edema. Radial and pedal pulses are 2/4 bilaterally. Neurological: No focal deficits. Strength and sensation are grossly intact. - Labs CBC & Chem 7: 12/28/16 07:29 12/28/16 07:29 Labs: Abnormal Lab Results - Last 24 Hours (Table) 12/28/16 12/28/16 12/28/16 Range/Units 07:29 07:29 07:29 RBC 3.70 L (3.80-5.40) m/uL Hgb 10.8 L (11.4-16.0) gm/dL MCHC 30.8 L (31.0-37.0) g/dL PT 40.8 H (9.0-12.0) sec INR 4.1 H (<1.2) Chloride 118 H (98-107) mmol/L Carbon Dioxide 20 L (22-30) mmol/L BUN 2 L (7-17) mg/dL Glucose 70 L (74-99) mg/dL Calcium 7.3 L (8.4-10.2) mg/dL Assessment and Plan Plan: 36-year-old female with history of irritable bowel syndrome presented with abdominal pain and nausea and abnormal findings on CT. In the absence of diarrhea or bleeding it is unlikely that we are dealing with inflammatory bowel disease. A resolving passed gastroenteritis remains a possibility. I did not schedule any endoscopic workup at this time and this can be kept as a contingency based on her course. I will discuss with you and follow with interest.
[2016-12-29] MEDS: ASPIRIN 81 MG CHEW PO SCH (07:32)
[2016-12-29] MEDS: PANTOPRAZOLE 40 MG/10 ML VIAL IV SCH (07:32)
[2016-12-29] MEDS: FERROUS SULFATE 325 MG TAB PO SCH (07:32)
[2016-12-29] MEDS: FLUoxetine HCL 20 MG CAP PO SCH (07:32)
[2016-12-29] MEDS: MONTELUKAST 10 MG TAB PO SCH (07:32)
[2016-12-29] MEDS: carBAMazepine 100 MG TAB.ER.12H PO SCH ×2 (07:32→21:04)
[2016-12-29] MEDS: DOCUSATE 100 MG CAP PO SCH ×2 (07:32→21:02)
[2016-12-29] MEDS: POTASSIUM CHLORIDE ER 10 MEQ TAB.ER.PRT PO SCH (07:33)
[2016-12-29] MEDS: LORATADINE 10 MG TAB PO SCH (07:33)
[2016-12-29] MEDS: DICYCLOMINE 20 MG TAB PO SCH ×4 (07:34→21:03)
[2016-12-29 07:46] LABS: Basophils % (A) 1 %; Eosinophils # (A) 0.1 k/uL (0-0.7); Eosinophils % (A) 2 %; HCT 33.8 % (34.0-46.0); HDW 2.63; HGB 10.9 gm/dL (11.4-16.0); Luc # (Auto) 0.07; Luc % (Auto) 2; Lymphocytes # (A) 1.9 k/uL (1.0-4.8); Lymphocytes % (A) 39 %; MCH 29.4 pg (25.0-35.0); MCHC 32.3 g/dL (31.0-37.0); MCV 90.9 fL (80.0-100.0); Mean Platelet Volume 6.5; Monocytes # (A) 0.3 k/uL (0-1.0); Monocytes % (A) 5 %; Neutrophils # (A) 2.6 k/uL (1.3-7.7); Neutrophils % (A) 52 %; RBC 3.72 m/uL (3.80-5.40); RDW 13.4 % (11.5-15.5); WBC (Perox) 5.16
[2016-12-29 07:54] LABS: Anion Gap 5 mmol/L; Blood Urea Nitrogen 2 mg/dL (7-17); Calcium 7.7 mg/dL (8.4-10.2); Carbon Dioxide 19 mmol/L (22-30); Chloride 115 mmol/L (98-107); Glucose 71 mg/dL (74-99); Non-African American GFR(MDRD) >60 (>60 ml/min/1.73 sqM); Potassium 3.7 mmol/L (3.5-5.1); Sodium 139 mmol/L (137-145)
[2016-12-29 07:58] LABS: Prothrombin Time 19.2 sec (9.0-12.0)
--- NOTE | 2016-12-29 08:22 | P.PN ---
Progress Note - Text Incident Report: Patient admitted with coagulopathy, INR on 12/27/2016 was 8.7 It came down on 12/28/2016 to 4.1 Order for Coumadin 7.5 mg on 12/28/2016 was given Pharmacy questioned disorder and I talked to the nurse on 12/28/2016 and due to the decline from 8.7 to 4.1. I asked that Coumadin would be given. However Coumadin was not given on 12/28/2016 against my orders. On 12/29/2016 INR is down to 2.0 which is low for patient with a mechanical valve. I ordered Coumadin 7.5 mg today and started patient on Lovenox 80 mg subcu twice daily to bridge while her Coumadin comes up to above 2.5 Incident report will be filed.
[2016-12-29] MEDS ORDERED: ENOXAPARIN 60 MG/0.6 ML SYRINGE SQ SCH (09:00)
[2016-12-29] MEDS ORDERED: ENOXAPARIN 80 MG/0.8 ML SYRINGE SQ SCH (09:00)
[2016-12-29] MEDS: SODIUM CHLORIDE 0.9% 1,000 ML IV SCH ×2 (09:08→21:01)
[2016-12-29] MEDS: ENOXAPARIN 60 MG/0.6 ML SYRINGE SQ SCH ×2 (09:22→21:02)
--- NOTE | 2016-12-29 10:28 | P.PN ---
Subjective Principal diagnosis: Feels better. Reports back pain. No diarrhea. Requesting diet advancement. Afebrile. Denies abdominal pain. Objective - Vital Signs Vital signs: Vital Signs Temp 96.7 F L 12/29/16 07:00 Pulse 70 12/29/16 07:00 Resp 19 12/29/16 07:00 BP 99/51 12/29/16 07:00 Pulse Ox 99 12/29/16 07:00 Intake & Output 12/28/16 12/29/16 12/29/16 18:59 06:59 18:59 Intake Total 600 1100 Balance 600 1100 Intake: Oral 600 1100 Other: # Voids 3 2 # Bowel Movements 0 - Exam General appearance: The patient is alert, oriented, in no acute distress. HET: Head is normocephalic and atraumatic. Pupils are equal and reactive. Oropharynx is clear without lesions. Neck: Supple without lymphadenopathy. Trachea midline. Heart: S1 S2. Regular rate and rhythm. Lungs: No crackles or wheezes are heard. Abdomen: Soft, nontender, nondistended with bowel sounds. No peritoneal signs. No palpable organomegaly or masses. Extremities: Normal skin color and turgor. No cyanosis, rash, ulceration, clubbing, or edema. Radial and pedal pulses are 2/4 bilaterally. Neurological: No focal deficits. Strength and sensation are grossly intact. - Labs CBC & Chem 7: 12/29/16 07:23 12/29/16 07:23 Labs: Abnormal Lab Results - Last 24 Hours (Table) 12/29/16 12/29/16 12/29/16 Range/Units 07:23 07:23 07:23 RBC 3.72 L (3.80-5.40) m/uL Hgb 10.9 L (11.4-16.0) gm/dL Hct 33.8 L (34.0-46.0) % PT 19.2 H (9.0-12.0) sec INR 2.0 H (<1.2) Chloride 115 H (98-107) mmol/L Carbon Dioxide 19 L (22-30) mmol/L BUN 2 L (7-17) mg/dL Glucose 71 L (74-99) mg/dL Calcium 7.7 L (8.4-10.2) mg/dL Assessment and Plan Plan: Impression: 1. Abdominal pain with history of IBS doubt inflammatory bowel disease possible gastroenteritis. 2. History of mitral mechanical valve. Recommendations: 1. Symptoms are improving. Bentyl 20 mg 4 times daily. Continue with anticoagulation. Advance diet. Discharge per medicine. Follow up in GI office after discharge 2 weeks for reevaluation. Assessment and plan a care discussed with Dr. Sweet
[2016-12-29] MEDS: ONDANSETRON 4 MG/2 ML VIAL IVP PRN ×2 (11:21→21:04)
[2016-12-29 11:34] VITALS: BMI 19.4
[2016-12-29] MEDS ORDERED: WARFARIN 7.5 MG TAB PO ONE (18:00)
--- NOTE | 2016-12-29 18:04 | P.PN ---
Subjective This is a 36-year-old female complicated past medical history significant for history of mitral valve replacement with mechanical valve in 2013 and presented to the emergency room with worsening abdominal pain and nausea. Patient said that her symptoms started a few days ago and is being getting progressively worse. She described her pain as sharp and occasionally up to 10 out of 10 in severity. She said that she is also feeling nauseated and vomited once. She denies any blood in her stool or black stool. She was evaluated in the emergency room and computed tomography scan of the abdomen showed evidence of colitis of the ascending colon at the hepatic flexure. No evidence of diverticulitis. Patient was started on IV fluid hydration and pain medication and was admitted to the hospital for further evaluation. Patient said that her symptoms of improved significantly since admission. She is able to tolerate liquid diet with no difficulty. No episode of vomiting since admission. 12/28/2016 patient still complaining of abdominal pain. She is tolerating a clear liquid diet. She reports that pain may have had slight improvement since admission. She denies any nausea or vomiting. Last bowel movement 2 days ago. She had low blood pressure this morning of 88/54. Repeat blood pressure shows 101/62. She's followed by GI service at this time they are monitoring patient and endoscopy workup on contingency based on her course On 12/29/2016 patient is still complaining of abdominal pain she states she is having constipation last bowel movement was 4 days ago before she was admitted to the hospital, INR today is low at 2.0 patient has a mechanical valve she will be bridged with Lovenox until INR is above 2.5 Objective - Vital Signs Vital signs: Vital Signs Temp 98.0 F 12/29/16 15:00 Pulse 77 12/29/16 15:00 Resp 18 12/29/16 15:00 BP 103/60 12/29/16 15:00 Pulse Ox 99 12/29/16 15:00 Intake & Output 12/28/16 12/29/16 12/29/16 18:59 06:59 18:59 Intake Total 600 1100 Balance 600 1100 Weight 53.07 kg Intake: Oral 600 1100 Other: # Voids 3 2 4 # Bowel Movements 0 - Exam In general patient is alert and oriented 3 in no apparent distress HEENT head normocephalic and atraumatic Neck is supple no JVD no goiter no lymphadenopathy Chest exam reveals a few scattered rhonchi no wheezing Cardiac exam reveals regular heart sounds S1 and S2 no gallops no murmurs Abdomen is soft with mild diffuse tenderness no organomegaly Extremity exam reveals no edema no cyanosis or clubbing - Labs CBC & Chem 7: 12/29/16 07:23 12/29/16 07:23 Labs: Abnormal Lab Results - Last 24 Hours (Table) 12/29/16 12/29/16 12/29/16 Range/Units 07:23 07:23 07:23 RBC 3.72 L (3.80-5.40) m/uL Hgb 10.9 L (11.4-16.0) gm/dL Hct 33.8 L (34.0-46.0) % PT 19.2 H (9.0-12.0) sec INR 2.0 H (<1.2) Chloride 115 H (98-107) mmol/L Carbon Dioxide 19 L (22-30) mmol/L BUN 2 L (7-17) mg/dL Glucose 71 L (74-99) mg/dL Calcium 7.7 L (8.4-10.2) mg/dL Assessment and Plan Plan: 1. Acute colitis: Computed tomography scan had shown colitis in the ascending colon and hepatic flexure. Fecal occult blood negative. Patient seen by GI service. [place] findings and symptoms might be related to a gastroenteritis and is self limited colitis. Patient currently on IV fluids and receiving pain medication. We'll await further GI recommendations. Continue Protonix 2. Coagulopathy on admission now INR is low at 2.0 continue with Coumadin 7.5 mg daily bridge was Lovenox until INR is above 2.5 patient has a mechanical 3. History of mitral valve replacement with [facility] mechanical valve is 2013. 4. Major depressive disorder 5. Severe protein calorie malnutrition: Start ensure 6. constipation patient will be given a dose of lactulose today
[2016-12-29] MEDS: traZODone HCL 100 MG TAB PO SCH (21:03)
[2016-12-29] MEDS: QUEtiapine 100 MG TAB PO SCH (21:03)
[2016-12-30] MEDS: HYDROmorphone 1 MG/ML 1 ML SYRINGE IV PRN ×7 (04:15→23:41)
[2016-12-30] MEDS: SODIUM CHLORIDE 0.9% 1,000 ML IV SCH ×2 (06:10→18:10)
[2016-12-30 07:32] VITALS: RESP 16
[2016-12-30] MEDS: ENOXAPARIN 60 MG/0.6 ML SYRINGE SQ SCH ×2 (08:26→20:19)
[2016-12-30] MEDS: LORATADINE 10 MG TAB PO SCH (08:26)
[2016-12-30] MEDS: PANTOPRAZOLE 40 MG/10 ML VIAL IV SCH (08:26)
[2016-12-30] MEDS: FERROUS SULFATE 325 MG TAB PO SCH (08:26)
[2016-12-30] MEDS: FLUoxetine HCL 20 MG CAP PO SCH (08:26)
[2016-12-30] MEDS: POTASSIUM CHLORIDE ER 10 MEQ TAB.ER.PRT PO SCH (08:26)
[2016-12-30] MEDS: DICYCLOMINE 20 MG TAB PO SCH ×4 (08:27→21:35)
[2016-12-30] MEDS: DOCUSATE 100 MG CAP PO SCH ×2 (08:27→20:05)
[2016-12-30] MEDS: MONTELUKAST 10 MG TAB PO SCH (08:27)
[2016-12-30] MEDS: ASPIRIN 81 MG CHEW PO SCH (08:27)
[2016-12-30] MEDS: ONDANSETRON 4 MG/2 ML VIAL IVP PRN (08:35)
[2016-12-30 09:09] LABS: Basophils % (A) 0 %; CH 30.3; CHCM 32.9; Eosinophils # (A) 0.1 k/uL (0-0.7); Eosinophils % (A) 2 %; HCT 37.3 % (34.0-46.0); HDW 2.56; HGB 11.7 gm/dL (11.4-16.0); Luc # (Auto) 0.08; Luc % (Auto) 1; Lymphocytes # (A) 1.4 k/uL (1.0-4.8); Lymphocytes % (A) 26 %; MCH 29.1 pg (25.0-35.0); MCHC 31.4 g/dL (31.0-37.0); MCV 92.5 fL (80.0-100.0); Mean Platelet Volume 7.3; Monocytes # (A) 0.4 k/uL (0-1.0); Monocytes % (A) 7 %; Neutrophils # (A) 3.5 k/uL (1.3-7.7); Neutrophils % (A) 64 %; RBC 4.04 m/uL (3.80-5.40); RDW 13.9 % (11.5-15.5); WBC 5.5 k/uL (3.8-10.6); WBC (Perox) 5.86
[2016-12-30 09:15] LABS: INR 1.8 (<1.2); Prothrombin Time 17.4 sec (9.0-12.0)
[2016-12-30] MEDS: carBAMazepine 100 MG TAB.ER.12H PO SCH ×2 (09:58→20:07)
[2016-12-30 10:13] LABS: ALT 15 U/L (9-52); AST 9 U/L (14-36); Alkaline Phosphatase 103 U/L (38-126); Anion Gap 4 mmol/L; Blood Urea Nitrogen 3 mg/dL (7-17); Calcium 7.8 mg/dL (8.4-10.2); Carbon Dioxide 22 mmol/L (22-30); Chloride 113 mmol/L (98-107); Glucose 76 mg/dL (74-99); Non-African American GFR(MDRD) >60 (>60 ml/min/1.73 sqM); Potassium 4.3 mmol/L (3.5-5.1); Sodium 139 mmol/L (137-145); Total Bilirubin 0.2 mg/dL (0.2-1.3); Total Protein 4.4 g/dL (6.3-8.2)
[2016-12-30] MEDS ORDERED: WARFARIN 10 MG TAB PO ONE (18:00)
--- NOTE | 2016-12-30 19:38 | P.PN ---
Subjective This is a 36-year-old female complicated past medical history significant for history of mitral valve replacement with mechanical valve in 2013 and presented to the emergency room with worsening abdominal pain and nausea. Patient said that her symptoms started a few days ago and is being getting progressively worse. She described her pain as sharp and occasionally up to 10 out of 10 in severity. She said that she is also feeling nauseated and vomited once. She denies any blood in her stool or black stool. She was evaluated in the emergency room and computed tomography scan of the abdomen showed evidence of colitis of the ascending colon at the hepatic flexure. No evidence of diverticulitis. Patient was started on IV fluid hydration and pain medication and was admitted to the hospital for further evaluation. Patient said that her symptoms of improved significantly since admission. She is able to tolerate liquid diet with no difficulty. No episode of vomiting since admission. 12/28/2016 patient still complaining of abdominal pain. She is tolerating a clear liquid diet. She reports that pain may have had slight improvement since admission. She denies any nausea or vomiting. Last bowel movement 2 days ago. She had low blood pressure this morning of 88/54. Repeat blood pressure shows 101/62. She's followed by GI service at this time they are monitoring patient and endoscopy workup on contingency based on her course On 12/29/2016 patient is still complaining of abdominal pain she states she is having constipation last bowel movement was 4 days ago before she was admitted to the hospital, INR today is low at 2.0 patient has a mechanical valve she will be bridged with Lovenox until INR is above 2.5 On 12/30/2016 and was seen and examined she is doing better she is tolerating diet well INR is subtherapeutic at 1.8 continue was Lovenox injection will give Coumadin 10 mg today and recheck INR tomorrow Objective - Vital Signs Vital signs: Vital Signs Temp 98.4 F 12/30/16 14:46 Pulse 71 12/30/16 15:29 Resp 16 12/30/16 15:29 BP 103/62 12/30/16 15:22 Pulse Ox 96 12/30/16 15:22 Intake & Output 12/30/16 12/30/16 12/31/16 06:59 18:59 06:59 Intake Total 1600 840 Balance 1600 840 Intake: Intake, IV Titration 1000 Amount Sodium Chloride 0.9% 1, 1000 000 ml @ 100 mls/hr IV . Q10H [facility] Rx#:[id number] Oral 600 840 Other: Voiding Method Toilet # Voids 1 3 # Bowel Movements 0 - Exam In general patient is alert and oriented 3 in no apparent distress HEENT head normocephalic and atraumatic Neck is supple no JVD no goiter no lymphadenopathy Chest exam reveals a few scattered rhonchi no wheezing Cardiac exam reveals regular heart sounds S1 and S2 no gallops no murmurs Abdomen is soft with mild diffuse tenderness no organomegaly Extremity exam reveals no edema no cyanosis or clubbing - Labs CBC & Chem 7: 12/30/16 08:05 12/30/16 08:05 Labs: Abnormal Lab Results - Last 24 Hours (Table) 12/30/16 12/30/16 Range/Units 08:05 08:05 PT 17.4 H (9.0-12.0) sec INR 1.8 H (<1.2) Chloride 113 H (98-107) mmol/L BUN 3 L (7-17) mg/dL Calcium 7.8 L (8.4-10.2) mg/dL AST 9 L (14-36) U/L Total Protein 4.4 L (6.3-8.2) g/dL Albumin 2.1 L (3.5-5.0) g/dL Assessment and Plan Plan: 1. Acute colitis: Computed tomography scan had shown colitis in the ascending colon and hepatic flexure. Fecal occult blood negative. Patient seen by GI service. [place] findings and symptoms might be related to a gastroenteritis and is self limited colitis. Patient currently on IV fluids and receiving pain medication. We'll await further GI recommendations. Continue Protonix 2. Coagulopathy on admission now INR is low at 1.8 continue with Coumadin 10 mg daily bridge was Lovenox until INR is above 2.5 patient has a mechanical 3. History of mitral valve replacement with [facility] mechanical valve is 2013. 4. Major depressive disorder 5. Severe protein calorie malnutrition: Start ensure 6. constipation patient will be given a dose of lactulose today
[2016-12-30] MEDS: QUEtiapine 100 MG TAB PO SCH (21:35)
[2016-12-30] MEDS: traZODone HCL 100 MG TAB PO SCH (21:35)
[2016-12-31] MEDS: ONDANSETRON 4 MG/2 ML VIAL IVP PRN (02:18)
[2016-12-31] MEDS: HYDROmorphone 1 MG/ML 1 ML SYRINGE IV PRN (02:20)
[2016-12-31] MEDS: SODIUM CHLORIDE 0.9% 1,000 ML IV SCH ×2 (02:21→12:11)
[2016-12-31] MEDS ORDERED: PANTOPRAZOLE 40 MG TABLET PO SCH (07:30)
[2016-12-31 07:46] VITALS: BP 105/57; PULSE 64; TEMP 97.8
[2016-12-31 07:58] LABS: Basophils # (A) 0.1 k/uL (0-0.2); Basophils % (A) 1 %; CH 30.1; CHCM 32.6; Eosinophils # (A) 0.1 k/uL (0-0.7); Eosinophils % (A) 3 %; HCT 36.2 % (34.0-46.0); HDW 2.49; HGB 11.3 gm/dL (11.4-16.0); Luc % (Auto) 2; Lymphocytes % (A) 38 %; MCH 29.1 pg (25.0-35.0); MCHC 31.3 g/dL (31.0-37.0); MCV 92.8 fL (80.0-100.0); Mean Platelet Volume 6.9; Monocytes # (A) 0.3 k/uL (0-1.0); Monocytes % (A) 6 %; Neutrophils # (A) 2.6 k/uL (1.3-7.7); Neutrophils % (A) 50 %; RDW 14.3 % (11.5-15.5); WBC 5.2 k/uL (3.8-10.6); WBC (Perox) 5.23
[2016-12-31 08:00] LABS: INR 3.1 (<1.2); Prothrombin Time 29.8 sec (9.0-12.0)
[2016-12-31 08:02] LABS: ALT 23 U/L (9-52); AST 9 U/L (14-36); Alkaline Phosphatase 88 U/L (38-126); Anion Gap 2 mmol/L; Blood Urea Nitrogen 3 mg/dL (7-17); Calcium 7.9 mg/dL (8.4-10.2); Carbon Dioxide 25 mmol/L (22-30); Chloride 113 mmol/L (98-107); Glucose 74 mg/dL (74-99); Non-African American GFR(MDRD) >60 (>60 ml/min/1.73 sqM); Potassium 4.3 mmol/L (3.5-5.1); Sodium 140 mmol/L (137-145); Total Bilirubin <0.1 mg/dL (0.2-1.3); Total Protein 4.5 g/dL (6.3-8.2)
[2016-12-31] MEDS ORDERED: HYDROcodone/APAP 10-325MG 1 EACH TAB PO PRN (09:40)
[2016-12-31] MEDS: carBAMazepine 100 MG TAB.ER.12H PO SCH (09:59)
[2016-12-31] MEDS: POTASSIUM CHLORIDE ER 10 MEQ TAB.ER.PRT PO SCH (09:59)
[2016-12-31] MEDS: ASPIRIN 81 MG CHEW PO SCH (09:59)
[2016-12-31] MEDS: FERROUS SULFATE 325 MG TAB PO SCH (09:59)
[2016-12-31] MEDS: LORATADINE 10 MG TAB PO SCH (09:59)
[2016-12-31] MEDS: FLUoxetine HCL 20 MG CAP PO SCH (09:59)
[2016-12-31] MEDS: DICYCLOMINE 20 MG TAB PO SCH ×2 (09:59→12:12)
[2016-12-31] MEDS: MONTELUKAST 10 MG TAB PO SCH (10:00)
[2016-12-31] MEDS: DOCUSATE 100 MG CAP PO SCH (10:00)
[2016-12-31] MEDS: ENOXAPARIN 60 MG/0.6 ML SYRINGE SQ SCH (10:15)
--- NOTE | 2016-12-31 12:24 | P.DS ---
Providers Date of admission: 12/26/16 21:08 Expected date of discharge: 12/31/16 Attending physician: Danielle Galindo Primary care physician: Izabella Franklin Hospital Course: Discharge diagnosis 1. Acute colitis: Computed tomography scan had shown colitis in the ascending colon and hepatic flexure. Fecal occult blood negative. Patient seen by GI service. [place] findings and symptoms might be related to a gastroenteritis and is self limited colitis. Patient currently on IV fluids and receiving pain medication. We'll await further GI recommendations. Continue Protonix 2. Coagulopathy INR now therapeutic 3. History of mitral valve replacement with [facility] [employer] mechanical valve is 2013. 4. Major depressive disorder 5. Severe protein calorie malnutrition: Start ensure 6. constipation patient will be given a dose of lactulose today Hospital course This is a 36-year-old female complicated past medical history significant for history of mitral valve replacement with mechanical valve in 2013 and presented to the emergency room with worsening abdominal pain and nausea. Patient said that her symptoms started a few days ago and is being getting progressively worse. She described her pain as sharp and occasionally up to 10 out of 10 in severity. She said that she is also feeling nauseated and vomited once. She denies any blood in her stool or black stool. She was evaluated in the emergency room and computed tomography scan of the abdomen showed evidence of colitis of the ascending colon at the hepatic flexure. No evidence of diverticulitis. Patient was started on IV fluid hydration and pain medication and was admitted to the hospital for further evaluation. Patient said that her symptoms of improved significantly since admission. She is able to tolerate liquid diet with no difficulty. No episode of vomiting since admission. Patient's symptoms did improve over the course of her stay. She was diagnosed with a acute colitis is likely related to gastroenteritis and is self-limited colitis. Treated with IV fluids and pain meds. She tolerated advancement of diet. GI service cleared her for discharge and she'll follow up with them in 2 weeks. She is to continue on her Bentyl. INR was elevated on admission. Discharge INR is 3.1. Coumadin dose adjusted to 7.5 mg daily. Patient will follow-up with her PCP and GI service outpatient. Please refer to chart for any further details. Patient was informed that she needs to follow-up with her PCP for pain medications I performed an examination of the patient and discussed their management with the physician Mobile Solutions Architect. I have reviewed the Physician Mobile Solutions Architect's notes and agree with the documented findings and plan of care Patient Condition at Discharge: Stable Plan - Discharge Summary New Discharge Prescriptions: New Warfarin [Coumadin] 7.5 mg PO DAILY #30 tab Continue Dicyclomine [Bentyl] 20 mg PO QID QUEtiapine [SEROquel] 100 mg PO HS Omeprazole [PriLOSEC] 20 mg PO DAILY Aspirin EC [Ecotrin Low Dose] 162 mg PO DAILY Fluticasone Nasal [place] [Flonase Nasal [place]] 2 spr EA NOSTRIL DAILY PRN PRN Reason: ALLERGIES Montelukast [Singulair] 10 mg PO DAILY Albuterol Inhaler [Ventolin Hfa Inhaler] 1 - 2 puff INHALATION RT-TID PRN PRN Reason: Shortness Of Breath carBAMazepine [TEGretol XR] 100 mg PO BID Cetirizine HCl [Zyrtec] 10 mg PO DAILY Ferrous Sulfate [Iron (65 MG Elemental)] 325 mg PO DAILY FLUoxetine HCL [PROzac] 40 mg PO DAILY traZODone HCL 100 mg PO HS Potassium 396 mg PO DAILY Discontinued Warfarin [Coumadin] 7.5 mg PO SUTUWETHFRSA Warfarin [Coumadin] 15 mg PO MO Discharge Medication List Albuterol Inhaler [Ventolin Hfa Inhaler] 1 - 2 puff INHALATION RT-TID PRN [History] Aspirin EC [Ecotrin Low Dose] 162 mg PO DAILY 01/13/16 [History] Dicyclomine [Bentyl] 20 mg PO QID 01/13/16 [History] Fluticasone Nasal [place] [Flonase Nasal [place]] 2 spr EA NOSTRIL DAILY PRN [History] Montelukast [Singulair] 10 mg PO DAILY 01/13/16 [History] Omeprazole [PriLOSEC] 20 mg PO DAILY 01/13/16 [History] QUEtiapine [SEROquel] 100 mg PO HS 01/13/16 [History] Cetirizine HCl [Zyrtec] 10 mg PO DAILY 10/16/16 [History] FLUoxetine HCL [PROzac] 40 mg PO DAILY 10/16/16 [History] Ferrous Sulfate [Iron (65 MG Elemental)] 325 mg PO DAILY 10/16/16 [History] carBAMazepine [TEGretol XR] 100 mg PO BID 10/16/16 [History] traZODone HCL 100 mg PO HS 10/16/16 [History] Potassium 396 mg PO DAILY 12/26/16 [History] Warfarin [Coumadin] 7.5 mg PO DAILY #30 tab 12/31/16 [Rx] Follow up Appointment(s)/Referral(s): David Sweet MD [STAFF PHYSICIAN] - 3 Weeks Izabella Franklin DO [Primary Care Provider] - 3 Days Activity/Diet/Wound Care/Special Instructions: Diet: Low fiber diet Activity as tolerated Discharge Disposition: HOME SELF-CARE
== END 2016-12-31 12:59 | disposition home or self-care (01) | DRG 391 ==
LOC: EC 18:28 → 4MS4W 21:08
PROVIDERS: ADMIT Internal Medicine; ATTEND Internal Medicine
DX: K52.9 Noninfective gastroenteritis and colitis, unspecified (principal); E43 Unspecified severe protein-calorie malnutrition; I10 Essential (primary) hypertension; F32.9 Major depressive disorder, single episode, unspecified; J45.909 Unspecified asthma, uncomplicated; K21.9 Gastro-esophageal reflux disease without esophagitis; E78.5 Hyperlipidemia, unspecified; M19.91 Primary osteoarthritis, unspecified site; G43.909 Migraine, unspecified, not intractable, without status migrainosus; K44.9 Diaphragmatic hernia without obstruction or gangrene; F17.200 Nicotine dependence, unspecified, uncomplicated; N83.201 Unspecified ovarian cyst, right side; K57.30 Diverticulosis of large intestine without perforation or abscess without bleeding; T45.515A Adverse effect of anticoagulants, initial encounter; R79.1 Abnormal coagulation profile; F41.9 Anxiety disorder, unspecified; Z79.01 Long term (current) use of anticoagulants; Z79.82 Long term (current) use of aspirin; Z79.899 Other long term (current) drug therapy; Z90.49 Acquired absence of other specified parts of digestive tract; Z95.2 Presence of prosthetic heart valve; Z91.018 Allergy to other foods; Z91.048 Other nonmedicinal substance allergy status
CPT/HCPCS: 36415; 74177; 80048; 80053; 81001; 82150; 82272; 83605; 83690; 85025; 85610; 85730; 96361; 96374; 96375; 96376; 99285

== ENCOUNTER 2021-02-01 22:01 | Observation (INO) | payer OTHER ==
[2021-02-01 22:40] LABS: Anisocytosis Slight; Basophils # (A) 0.1 k/uL (0-0.2); Basophils % (A) 1 %; Eosinophils % (A) 0 %; HCT 34.7 % (34.0-46.0); HGB 11.3 gm/dL (11.4-16.0); Hypochromasia Slight; Lymphocytes # (A) 1.5 k/uL (1.0-4.8); Lymphocytes % (A) 13 %; MCH 25.5 pg (25.0-35.0); MCHC 32.6 g/dL (31.0-37.0); MCV 78.3 fL (80.0-100.0); Mean Platelet Volume 8.1; Microcytosis Slight; Monocytes # (A) 0.5 k/uL (0-1.0); Monocytes % (A) 4 %; Neutrophils # (A) 9.7 k/uL (1.3-7.7); Neutrophils % (A) 81 %; Platelet Count 349 k/uL (150-450); Poikilocytosis Slight; RBC 4.42 m/uL (3.80-5.40); RDW 17.3 % (11.5-15.5); WBC 11.9 k/uL (3.8-10.6)
[2021-02-01 22:49] LABS: INR 1.1 (<1.2); Prothrombin Time 11.5 sec (9.0-12.0)
[2021-02-01 23:19] LABS: ALT 9 U/L (4-34); AST 17 U/L (14-36); African American GFR (CKD) >90 (>60 ml/min/1.73 sqM); Albumin 3.3 g/dL (3.5-5.0); Alkaline Phosphatase 69 U/L (38-126); Anion Gap 7 mmol/L; Blood Urea Nitrogen 13 mg/dL (7-17); Calcium 8.2 mg/dL (8.4-10.2); Carbon Dioxide 16 mmol/L (22-30); Chloride 114 mmol/L (98-107); Glucose 115 mg/dL (74-99); Non-African American GFR(CKD) 84 (>60 ml/min/1.73 sqM); Partial Thromboplastin Time 67.9 sec (22.0-30.0); Potassium 3.9 mmol/L (3.5-5.1); Sodium 137 mmol/L (137-145); Total Bilirubin 0.4 mg/dL (0.2-1.3); Total Protein 6.1 g/dL (6.3-8.2)
[2021-02-02] MEDS ORDERED: NALOXONE 0.4 MG/ML 1 ML VIAL IV PRN (00:14)
--- NOTE | 2021-02-02 00:14 | ED ---
General Adult HPI - General Chief complaint: Chest Pain Stated complaint: Chest Pain Time Seen by Provider: 02/01/21 22:04 Source: patient, EMS Mode of arrival: EMS Limitations: no limitations - History of Present Illness Initial comments: Nechole 40-year-old female who presents to the emergency department at [facility] via ambulance as a transfer from [facility]. Patient presented to the [facility] with complaint of abdominal pain and 3 days of intractable nausea and vomiting. Labs at the outside hospital showed some signs of dehydration some mild hypokalemia and most concerning the an INR of only 1.0. Patient is on Coumadin due to mechanical mitral valve. Patient has not been able to tolerate any of her oral home medications for 3 days and therefore is subtherapeutic on her Coumadin level. Incidentally her labs also showed a mildly elevated troponin. Due to need for anticoagulation and elevated troponin discharge the patient needed to be hospitalized the facility with cardiology. Patient previously followed with Dr. Rosas out of our hospital therefore transferred to our facility was recommended. Patient received multiple antiemetics, Pepcid, Ativan and had persistent nausea and vomiting at outside facility. CT could not rule out possible colitis. No other acute findings were noted. Patient tested negative for COVID-19 - Related Data Home Medications Medication Instructions Recorded Confirmed Aspirin EC [Ecotrin Low Dose] 162 mg PO DAILY 01/13/16 02/01/21 Dicyclomine [Bentyl] 20 mg PO TID 01/13/16 02/01/21 Fluticasone Nasal [place] [Flonase 2 spr EA NOSTRIL DAILY PRN 01/13/16 02/01/21 Nasal [place]] Montelukast [Singulair] 10 mg PO HS 01/13/16 02/01/21 Potassium 99 mg PO DAILY 12/26/16 02/01/21 Albuterol Sulfate [Proair Hfa] 2 puff INHALATION RT-Q6H PRN 02/01/21 02/01/21 Amitriptyline HCl [Elavil] 25 mg PO HS 02/01/21 02/01/21 DULoxetine HCL [Cymbalta] 60 mg PO DAILY 02/01/21 02/01/21 Fexofenadine HCl [Sonja Allergy] 180 mg PO DAILY 02/01/21 02/01/21 Omeprazole 40 mg PO DAILY 02/01/21 02/01/21 Rizatriptan Benzoate [Maxalt] 10 mg PO DAILY PRN 02/01/21 02/01/21 Topiramate [Topamax] 50 mg PO HS 02/01/21 02/01/21 Warfarin [Coumadin] 7.5 mg PO HS 02/01/21 02/01/21 Allergies Allergy/AdvReac Type Severity Reaction Status Date / Time adhesive tape Allergy Itching Verified 02/01/21 23:22 Review of Systems ROS Statement: Those systems with pertinent positive or pertinent negative responses have been documented in the HPI. ROS Other: All systems not noted in ROS Statement are negative. Past Medical History Past Medical History: Asthma, GERD/Reflux, Hyperlipidemia, Mitral Valve Prolapse (MVP), Osteoarthritis (OA) Additional Past Medical History / Comment(s): Mitral regurgitation status post mitral valve replacement with a mechanical valve, IBS, Migraines, hiatal hernia, hypertension, anemia History of Any Multi-Drug Resistant Organisms: None Reported Past Surgical History: Cardiac Valve Replacement, Cholecystectomy, Heart Catheterization, Hernia Repair, Tubal Ligation Additional Past Surgical History / Comment(s): mitral valve replacement 2013, Past Anesthesia/Blood Transfusion Reactions: Motion Sickness, Postoperative Nausea & Vomiting (PONV) Past Psychological History: Anxiety, Depression Smoking Status: Current every day smoker Past Alcohol Use History: None Reported Past Drug Use History: Marijuana - Past Family History Mother Family Medical History: Cancer Additional Family Medical History / Comment(s): LUNG CA General Exam - General Exam Comments Initial Comments: Physical Exam GENERAL: Patient is well-developed and well-nourished. Patient is nontoxic and well-hydrated and is in no distress. HENT: Normocephalic, Atraumatic. EYES: PERRL, EOMI PULMONARY: Unlabored respirations. CARDIOVASCULAR: RRR Warm and well perfused extremities Mechanical valve ABDOMEN: Non-distended SKIN: No rashes or bruising : Deferred NEUROLOGIC: Alert and oriented Normal speech Normal gait MUSCULOSKELETAL: Moving all extremities with no apparent injury PSYCHIATRIC: No SI/HI Limitations: no limitations Course Vital Signs 02/01/21 22:04 Temperature 98.8 F Pulse Rate 62 Respiratory 16 Rate Blood Pressure 146/50 O2 Sat by Pulse 100 Oximetry Medical Decision Making - Medical Decision Making Patient was seen and evaluated history is obtained from the patient and transferring physician exam 40-year-old female with a mechanical mitral valve on Coumadin and had 3 days of nausea vomiting unable to tolerate oral medications presents to the hospital with intractable nausea and vomiting subtherapeutic INR. Patient was treated with heparin for her need for anticoagulation and for mildly elevated troponins. Patient with persistent nausea here but not actively vomiting repeat labs were obtained PTT is elevated consistent with heparin use. Troponin continues to trend downward from 0.08, 0.07 to now 0.068 Patient will be admitted for intractable nausea and vomiting, inability tolerate oral medications, subtherapeutic INR - Lab Data Result diagrams: 02/01/21 22:23 02/01/21 22:23 Lab Results 02/01/21 02/01/21 02/01/21 Range/Units 22:23 22:23 22:23 WBC 11.9 H (3.8-10.6) k/uL RBC 4.42 (3.80-5.40) m/uL Hgb 11.3 L (11.4-16.0) gm/dL Hct 34.7 (34.0-46.0) % MCV 78.3 L (80.0-100.0) fL MCH 25.5 (25.0-35.0) pg MCHC 32.6 (31.0-37.0) g/dL RDW 17.3 H (11.5-15.5) % Plt Count 349 (150-450) k/uL MPV 8.1 Neutrophils % 81 % Lymphocytes % 13 % Monocytes % 4 % Eosinophils % 0 % Basophils % 1 % Neutrophils # 9.7 H (1.3-7.7) k/uL Lymphocytes # 1.5 (1.0-4.8) k/uL Monocytes # 0.5 (0-1.0) k/uL Eosinophils # 0.0 (0-0.7) k/uL Basophils # 0.1 (0-0.2) k/uL Hypochromasia Slight Poikilocytosis Slight Anisocytosis Slight Microcytosis Slight PT 11.5 (9.0-12.0) sec INR 1.1 (<1.2) APTT 67.9 H (22.0-30.0) sec Sodium 137 (137-145) mmol/L Potassium 3.9 (3.5-5.1) mmol/L Chloride 114 H (98-107) mmol/L Carbon Dioxide 16 L (22-30) mmol/L Anion Gap 7 mmol/L BUN 13 (7-17) mg/dL Creatinine 0.86 (0.52-1.04) mg/dL Est GFR (CKD-EPI)AfAm >90 (>60 ml/min/1.73 sqM) Est GFR (CKD-EPI)NonAf 84 (>60 ml/min/1.73 sqM) Glucose 115 H (74-99) mg/dL Calcium 8.2 L (8.4-10.2) mg/dL Total Bilirubin 0.4 (0.2-1.3) mg/dL AST 17 (14-36) U/L ALT 9 (4-34) U/L Alkaline Phosphatase 69 (38-126) U/L Troponin I (0.000-0.034) ng/mL Total Protein 6.1 L (6.3-8.2) g/dL Albumin 3.3 L (3.5-5.0) g/dL 02/01/21 Range/Units 22:23 WBC (3.8-10.6) k/uL RBC (3.80-5.40) m/uL Hgb (11.4-16.0) gm/dL Hct (34.0-46.0) % MCV (80.0-100.0) fL MCH (25.0-35.0) pg MCHC (31.0-37.0) g/dL RDW (11.5-15.5) % Plt Count (150-450) k/uL MPV Neutrophils % % Lymphocytes % % Monocytes % % Eosinophils % % Basophils % % Neutrophils # (1.3-7.7) k/uL Lymphocytes # (1.0-4.8) k/uL Monocytes # (0-1.0) k/uL Eosinophils # (0-0.7) k/uL Basophils # (0-0.2) k/uL Hypochromasia Poikilocytosis Anisocytosis Microcytosis PT (9.0-12.0) sec INR (<1.2) APTT (22.0-30.0) sec Sodium (137-145) mmol/L Potassium (3.5-5.1) mmol/L Chloride (98-107) mmol/L Carbon Dioxide (22-30) mmol/L Anion Gap mmol/L BUN (7-17) mg/dL Creatinine (0.52-1.04) mg/dL Est GFR (CKD-EPI)AfAm (>60 ml/min/1.73 sqM) Est GFR (CKD-EPI)NonAf (>60 ml/min/1.73 sqM) Glucose (74-99) mg/dL Calcium (8.4-10.2) mg/dL Total Bilirubin (0.2-1.3) mg/dL AST (14-36) U/L ALT (4-34) U/L Alkaline Phosphatase (38-126) U/L Troponin I 0.068 H* (0.000-0.034) ng/mL Total Protein (6.3-8.2) g/dL Albumin (3.5-5.0) g/dL Disposition Clinical Impression: Intractable nausea and vomiting, Subtherapeutic international normalized ratio (INR), Colitis Disposition: ADMITTED IP TO THIS HOSP Referrals: Yonny Nettles MD [Primary Care Provider] - 1-2 days
[2021-02-02] MEDS ORDERED: MORPHINE SULFATE 4 MG/ML SYRINGE IVP STA (01:06)
[2021-02-02] MEDS ORDERED: ONDANSETRON 4 MG/2 ML VIAL IVP STA (01:06)
[2021-02-02] MEDS ORDERED: ENOXAPARIN 60 MG/0.6 ML SYRINGE SQ SCH (03:08)
[2021-02-02] MEDS ORDERED: ONDANSETRON 4 MG/2 ML VIAL IVP PRN (03:15)
[2021-02-02] MEDS ORDERED: IPRATROPIUM-ALBUTEROL 3 ML NEB INHALATION PRN (03:15)
[2021-02-02] MEDS ORDERED: WARFARIN 10 MG TAB PO ONE (03:30)
--- NOTE | 2021-02-02 03:59 | P.HPIM ---
History of Present Illness H&P Date: 02/01/21 40 year old female with IBS, mechanical mitral heart valve on coumadin non compliant due to heavy menses, GERD patient transferred from [facility] where she presented with intractable nausea and vomiting of few days, however, she was found to have subtheraputic INR due to inability to take her PO pills, and elevated trops, she was sent in here for cardiology eval imaging at [facility] showd possible colitis. patient denies any fever, chills, she reports repeated vomoiting and generalized vague abd discomfort. she admits to being non compliant with her coumadin due to heavy menses. she denies any diarrhea, urinary changes, denies any current chest pain , but does report an episode earlier when she was at work had some chest pain left sided 5/10 in severity associated with nausea and vomiting and diaphoresis . no SOB, no cough COVID testing negative patient denies family history of premature CAD, however, she does smoke cigarettes and marijuana , she also had a LHC at time of her surgery 2013 which was clean at the time. patient also reports dizziness and lightheadedness at this time , she is currently on her period Review of Systems Pertinent positives as noted in HPI. All other systems were reviewed and are negative Past Medical History Past Medical History: Asthma, GERD/Reflux, Hyperlipidemia, Mitral Valve Prolapse (MVP), Osteoarthritis (OA) Additional Past Medical History / Comment(s): Mitral regurgitation status post mitral valve replacement with a mechanical valve, IBS, Migraines, hiatal hernia, hypertension, anemia History of Any Multi-Drug Resistant Organisms: None Reported Past Surgical History: Cardiac Valve Replacement, Cholecystectomy, Heart Catheterization, Hernia Repair, Tubal Ligation Additional Past Surgical History / Comment(s): mitral valve replacement 2013, Past Anesthesia/Blood Transfusion Reactions: Motion Sickness, Postoperative Nausea & Vomiting (PONV) Past Psychological History: Anxiety, Depression Smoking Status: Current every day smoker Past Alcohol Use History: None Reported Past Drug Use History: Marijuana - Past Family History Mother Family Medical History: Cancer Additional Family Medical History / Comment(s): LUNG CA Medications and Allergies Home Medications Medication Instructions Recorded Confirmed Type Aspirin EC [Ecotrin Low Dose] 162 mg PO DAILY 01/13/16 02/01/21 History Dicyclomine [Bentyl] 20 mg PO TID 01/13/16 02/01/21 History Fluticasone Nasal [place] [Flonase 2 spr EA NOSTRIL DAILY PRN 01/13/16 02/01/21 History Nasal [place]] Montelukast [Singulair] 10 mg PO HS 01/13/16 02/01/21 History Potassium 99 mg PO DAILY 12/26/16 02/01/21 History Albuterol Sulfate [Proair Hfa] 2 puff INHALATION RT-Q6H PRN 02/01/21 02/01/21 History Amitriptyline HCl [Elavil] 25 mg PO HS 02/01/21 02/01/21 History DULoxetine HCL [Cymbalta] 60 mg PO DAILY 02/01/21 02/01/21 History Fexofenadine HCl [Sonja Allergy] 180 mg PO DAILY 02/01/21 02/01/21 History Omeprazole 40 mg PO DAILY 02/01/21 02/01/21 History Rizatriptan Benzoate [Maxalt] 10 mg PO DAILY PRN 02/01/21 02/01/21 History Topiramate [Topamax] 50 mg PO HS 02/01/21 02/01/21 History Warfarin [Coumadin] 7.5 mg PO HS 02/01/21 02/01/21 History Allergies Allergy/AdvReac Type Severity Reaction Status Date / Time adhesive tape Allergy Itching Verified 02/01/21 23:22 Physical Exam Vitals: Vital Signs Temp Pulse Resp BP Pulse Ox 02/02/21 01:10 73 16 134/57 99 02/01/21 22:04 98.8 F 62 16 146/50 100 Intake and Output 02/01/21 02/01/21 02/02/21 14:59 22:59 06:59 Other: Weight 55.792 kg Constitutional: No acute distress, conversant, pleasant Eyes: Anicteric sclerae, moist conjunctiva, Pupils equal round reactive to light ENMT: NC/AT Oropharynx clear, no erythema, or exudates Neck: Supple, FROM, no masses, or JVD No carotid bruits No thyromegaly Lungs: Clear to auscultation Clear to percussion Normal respiratory effort, no accessory muscle use Cardiovascular: Heart regular in rate and rhythm, systolic murmurs, gallops, or rubs No peripheral edema Abdominal: Soft Nontender, no guarding, rebound or rigidity Abdomen moving with respiration Normoactive bowel sounds No hepatomegaly, No splenomegaly No palpable mass No abdominal wall hernia noted Skin: Normal temperature, tone, texture, turgor No induration No subcutaneous nodules No rash, lesions No ulcers Extremities: No digital cyanosis No clubbing Pedal pulses intact and symmetrical Radial pulses intact and symmetrical No calf tenderness Psychiatric: Alert and oriented to person, place and time Appropriate affect fair judgement Neuro Muscles Strength 5/5 in all 4 extremities Sensation to light touch grossly present throughout Cranial nerves II-XII grossly intact No focal sensory deficits Lymphatics: no palpable cervical or supraclavicular , or inguinal lymph nodes Results CBC & Chem 7: 02/01/21 22:23 02/01/21 22:23 Labs: Abnormal Lab Results - Last 24 Hours (Table) 02/01/21 02/01/21 02/01/21 Range/Units 22:23 22:23 22:23 WBC 11.9 H (3.8-10.6) k/uL Hgb 11.3 L (11.4-16.0) gm/dL MCV 78.3 L (80.0-100.0) fL RDW 17.3 H (11.5-15.5) % Neutrophils # 9.7 H (1.3-7.7) k/uL APTT 67.9 H (22.0-30.0) sec Chloride 114 H (98-107) mmol/L Carbon Dioxide 16 L (22-30) mmol/L Glucose 115 H (74-99) mg/dL Calcium 8.2 L (8.4-10.2) mg/dL Troponin I (0.000-0.034) ng/mL Total Protein 6.1 L (6.3-8.2) g/dL Albumin 3.3 L (3.5-5.0) g/dL 02/01/21 Range/Units 22:23 WBC (3.8-10.6) k/uL Hgb (11.4-16.0) gm/dL MCV (80.0-100.0) fL RDW (11.5-15.5) % Neutrophils # (1.3-7.7) k/uL APTT (22.0-30.0) sec Chloride (98-107) mmol/L Carbon Dioxide (22-30) mmol/L Glucose (74-99) mg/dL Calcium (8.4-10.2) mg/dL Troponin I 0.068 H* (0.000-0.034) ng/mL Total Protein (6.3-8.2) g/dL Albumin (3.5-5.0) g/dL Assessment and Plan Assessment: atypical chest pain , with elevated trops, trending down , rule out ACS mechanical mitral valve non-compliant with coumadin intractable nausea and vomiting 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
[2021-02-02] MEDS: SODIUM CHLORIDE 0.9% 1,000 ML IV SCH ×2 (05:30→18:00)
[2021-02-02 06:13] LABS: Anisocytosis Slight; Basophils # (A) 0.1 k/uL (0-0.2); Basophils % (A) 1 %; Eosinophils % (A) 1 %; HGB 10.4 gm/dL (11.4-16.0); Hypochromasia Slight; Lymphocytes # (A) 2.1 k/uL (1.0-4.8); Lymphocytes % (A) 26 %; MCH 25.1 pg (25.0-35.0); MCHC 31.5 g/dL (31.0-37.0); MCV 79.5 fL (80.0-100.0); Mean Platelet Volume 7.6; Microcytosis Slight; Monocytes # (A) 0.4 k/uL (0-1.0); Monocytes % (A) 5 %; Neutrophils # (A) 5.5 k/uL (1.3-7.7); Neutrophils % (A) 67 %; Platelet Count 274 k/uL (150-450); RBC 4.15 m/uL (3.80-5.40); RDW 17.1 % (11.5-15.5); WBC 8.2 k/uL (3.8-10.6)
[2021-02-02] MEDS: ENOXAPARIN 60 MG/0.6 ML SYRINGE SQ SCH ×2 (06:19→18:00)
[2021-02-02 06:23] LABS: ALT 7 U/L (4-34); AST 16 U/L (14-36); African American GFR (CKD) >90 (>60 ml/min/1.73 sqM); Albumin 3.2 g/dL (3.5-5.0); Alkaline Phosphatase 67 U/L (38-126); Anion Gap 6 mmol/L; Blood Urea Nitrogen 13 mg/dL (7-17); Calcium 8.5 mg/dL (8.4-10.2); Carbon Dioxide 18 mmol/L (22-30); Chloride 113 mmol/L (98-107); Glucose 91 mg/dL (74-99); Non-African American GFR(CKD) 89 (>60 ml/min/1.73 sqM); Potassium 3.8 mmol/L (3.5-5.1); Sodium 137 mmol/L (137-145); Total Bilirubin 0.4 mg/dL (0.2-1.3); Total Protein 5.8 g/dL (6.3-8.2)
[2021-02-02 06:24] LABS: INR 1.1 (<1.2); Prothrombin Time 11.4 sec (9.0-12.0)
[2021-02-02] MEDS: DULoxetine HCL 60 MG CAPSULE.DR PO SCH (09:09)
[2021-02-02] MEDS: PANTOPRAZOLE 40 MG TABLET PO SCH (09:09)
[2021-02-02] MEDS: ASPIRIN 81 MG PO SCH (09:09)
[2021-02-02] MEDS: DICYCLOMINE 20 MG TAB PO SCH ×3 (09:09→22:31)
[2021-02-02] MEDS: LORATADINE 10 MG TAB PO SCH (09:09)
[2021-02-02 10:29] LABS: % Iron Saturation 5.96 (12.00-45.00); Ferritin 5.8 ng/mL (10.0-291.0); Iron 19 ug/dL (50-170); Total Iron Binding Capacity 319 ug/dL (228-460)
--- NOTE | 2021-02-02 10:35 | P.PN ---
Subjective Progress Note Date: 02/02/21 Pt says that her diarrhea, nausea, and vomiting have improved today. Able to tolerate PO and has an appetite. Currently bridging back to coumadin with lovenox. Pending cardiology c/s. Objective - Vital Signs Vital signs: Vital Signs Temp 98.8 F 02/01/21 22:04 Pulse 66 02/02/21 09:15 Resp 18 02/02/21 09:15 BP 98/48 02/02/21 09:15 Pulse Ox 100 02/02/21 09:15 Intake & Output 02/01/21 02/02/21 02/02/21 18:59 06:59 18:59 Weight 55.792 kg - Exam Gen: awake, alert HEENT: normocephalic, atraumatic, good hearing acuity, moist mucous membranes Resp: good air exchange, breathing comfortably with no accessory muscle use, clear to auscultation bilaterally without wheezes or crackles CVS: good distal perfusion x 4, regular rate and rhythm, blowing systolic murmur GI: soft, NTTP, ND : no SPT, no CVAT, araujo catheter not present MSK: no pitting edema, no clubbing Neuro: non-focal, moving all extremities Psych: cooperative, euthymic mood - Labs CBC & Chem 7: 02/02/21 05:16 02/02/21 05:16 Labs: Abnormal Lab Results - Last 24 Hours (Table) 02/01/21 02/01/21 02/01/21 Range/Units 22:23 22:23 22:23 WBC 11.9 H (3.8-10.6) k/uL Hgb 11.3 L (11.4-16.0) gm/dL Hct (34.0-46.0) % MCV 78.3 L (80.0-100.0) fL RDW 17.3 H (11.5-15.5) % Neutrophils # 9.7 H (1.3-7.7) k/uL APTT 67.9 H (22.0-30.0) sec Chloride 114 H (98-107) mmol/L Carbon Dioxide 16 L (22-30) mmol/L Glucose 115 H (74-99) mg/dL Calcium 8.2 L (8.4-10.2) mg/dL Iron (50-170) ug/dL % Saturation (12.00-45.00) Ferritin (10.0-291.0) ng/mL Troponin I (0.000-0.034) ng/mL Total Protein 6.1 L (6.3-8.2) g/dL Albumin 3.3 L (3.5-5.0) g/dL 02/01/21 02/02/21 02/02/21 Range/Units 22:23 05:16 05:16 WBC (3.8-10.6) k/uL Hgb 10.4 L (11.4-16.0) gm/dL Hct 33.0 L (34.0-46.0) % MCV 79.5 L (80.0-100.0) fL RDW 17.1 H (11.5-15.5) % Neutrophils # (1.3-7.7) k/uL APTT (22.0-30.0) sec Chloride 113 H (98-107) mmol/L Carbon Dioxide 18 L (22-30) mmol/L Glucose (74-99) mg/dL Calcium (8.4-10.2) mg/dL Iron 19 L (50-170) ug/dL % Saturation 5.96 L (12.00-45.00) Ferritin 5.8 L (10.0-291.0) ng/mL Troponin I 0.068 H* (0.000-0.034) ng/mL Total Protein 5.8 L (6.3-8.2) g/dL Albumin 3.2 L (3.5-5.0) g/dL Assessment and Plan Assessment: atypical chest pain , with elevated trops, trending down , rule out ACS mechanical mitral valve non-compliant with coumadin intractable nausea and vomiting 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
--- NOTE | 2021-02-02 13:01 | P.CRDCN ---
History of Present Illness Consult date: 02/02/21 History of present illness: This is a 40-year-old female with history of mitral valve replacement done in 2013 for severe mitral stenosis and regurgitation and symptoms of CHF. She had a mechanical valve, which was 29 mm in size. Recently patient hasn't had any cardiac follow-up. Patient has been on Coumadin. Recently, patient became sick and was having nausea vomiting and was unable to take medications. Patient was also having some palpitations and atypical chest pain. Because of the symptom, Patient went to the emergency room. Her troponin was mildly elevated. Her INR was subtherapeutic. Patient was transferred here for further evaluation. She also had a microscopic hypochromic picture size to of iron deficiency. Her EKGs did not reveal any acute changes. Patient seemed to be comfortable. Patient also had hypo-kalemia with the potassium of 3. Patient had similar symptoms when she had previous potassium levels being low. She is being admitted for further evaluation. She is being bridged with Lovenox until the Coumadin and PT/INR levels become therapeutic. We will get an echocardiogram to assess LV function. Denies any orthopnea or paroxysmal nocturnal dyspnea. Patient seemed to be in sinus rhythm Review of Systems As per the chart Past Medical History Past Medical History: Asthma, GERD/Reflux, Hyperlipidemia, Mitral Valve Prolapse (MVP), Osteoarthritis (OA) Additional Past Medical History / Comment(s): Mitral regurgitation status post mitral valve replacement with a mechanical valve, IBS, Migraines, hiatal hernia, hypertension, anemia History of Any Multi-Drug Resistant Organisms: None Reported Past Surgical History: Cardiac Valve Replacement, Cholecystectomy, Heart Catheterization, Hernia Repair, Tubal Ligation Additional Past Surgical History / Comment(s): mitral valve replacement 2013, Past Anesthesia/Blood Transfusion Reactions: Motion Sickness, Postoperative Nausea & Vomiting (PONV) Past Psychological History: Anxiety, Depression Smoking Status: Current every day smoker Past Alcohol Use History: None Reported Past Drug Use History: Marijuana - Past Family History Mother Family Medical History: Cancer Additional Family Medical History / Comment(s): LUNG CA Medications and Allergies Home Medications Medication Instructions Recorded Confirmed Type Aspirin EC [Ecotrin Low Dose] 162 mg PO DAILY 01/13/16 02/01/21 History Dicyclomine [Bentyl] 20 mg PO TID 01/13/16 02/01/21 History Fluticasone Nasal [place] [Flonase 2 spr EA NOSTRIL DAILY PRN 01/13/16 02/01/21 History Nasal [place]] Montelukast [Singulair] 10 mg PO HS 01/13/16 02/01/21 History Potassium 99 mg PO DAILY 12/26/16 02/01/21 History Albuterol Sulfate [Proair Hfa] 2 puff INHALATION RT-Q6H PRN 02/01/21 02/01/21 History Amitriptyline HCl [Elavil] 25 mg PO HS 02/01/21 02/01/21 History DULoxetine HCL [Cymbalta] 60 mg PO DAILY 02/01/21 02/01/21 History Fexofenadine HCl [Sonja Allergy] 180 mg PO DAILY 02/01/21 02/01/21 History Omeprazole 40 mg PO DAILY 02/01/21 02/01/21 History Rizatriptan Benzoate [Maxalt] 10 mg PO DAILY PRN 02/01/21 02/01/21 History Topiramate [Topamax] 50 mg PO HS 02/01/21 02/01/21 History Warfarin [Coumadin] 7.5 mg PO HS 02/01/21 02/01/21 History Allergies Allergy/AdvReac Type Severity Reaction Status Date / Time adhesive tape Allergy Itching Verified 02/01/21 23:22 Physical Exam Vitals: Vital Signs Temp Pulse Resp BP Pulse Ox 02/02/21 12:00 98.1 F 63 18 100/51 99 02/02/21 09:15 66 18 98/48 100 02/02/21 06:21 62 16 104/52 98 02/02/21 01:10 73 16 134/57 99 02/01/21 22:04 98.8 F 62 16 146/50 100 Intake and Output 02/01/21 02/02/21 02/02/21 22:59 06:59 14:59 Other: Weight 55.792 kg GENERAL EXAM: Patient is alert and oriented and doesn't appear to be in any acute distress HEENT: Normocephalic. Normal reaction of pupils, equal size, normal range of extraocular motion. No erythema or exudates in the throat. NECK: No masses, no nuchal rigidity. CHEST: No chest wall deformity. LUNGS: Equal air entry with no crackles or wheeze. HEART: S1 and S2 normal with mechanical heart sounds ABDOMEN: No hepatosplenomegaly, normal bowel sounds, no guarding or rigidity. SKIN: No rashes CENTRAL NERVOUS SYSTEM: No focal deficits. EXTREMITIES: No cyanosis, clubbing or edema. Results 02/02/21 05:16 02/02/21 05:16 Cardiac Enzymes 02/01/21 02/01/21 02/02/21 Range/Units 22:23 22:23 05:16 AST 17 16 (14-36) U/L Troponin I 0.068 H* (0.000-0.034) ng/mL Coagulation 02/01/21 02/02/21 Range/Units 22:23 05:16 PT 11.5 11.4 (9.0-12.0) sec APTT 67.9 H (22.0-30.0) sec CBC 02/01/21 02/02/21 Range/Units 22:23 05:16 WBC 11.9 H 8.2 (3.8-10.6) k/uL RBC 4.42 4.15 (3.80-5.40) m/uL Hgb 11.3 L 10.4 L (11.4-16.0) gm/dL Hct 34.7 33.0 L (34.0-46.0) % Plt Count 349 274 (150-450) k/uL Comprehensive Metabolic Panel 02/01/21 02/02/21 Range/Units 22:23 05:16 Sodium 137 137 (137-145) mmol/L Potassium 3.9 3.8 (3.5-5.1) mmol/L Chloride 114 H 113 H (98-107) mmol/L Carbon Dioxide 16 L 18 L (22-30) mmol/L BUN 13 13 (7-17) mg/dL Creatinine 0.86 0.82 (0.52-1.04) mg/dL Glucose 115 H 91 (74-99) mg/dL Calcium 8.2 L 8.5 (8.4-10.2) mg/dL AST 17 16 (14-36) U/L ALT 9 7 (4-34) U/L Alkaline Phosphatase 69 67 (38-126) U/L Total Protein 6.1 L 5.8 L (6.3-8.2) g/dL Albumin 3.3 L 3.2 L (3.5-5.0) g/dL Current Medications Generic Name Dose Route Start Last Admin Trade Name Freq PRN Reason Stop Dose Admin Albuterol/Ipratropium 3 ml 02/02/21 03:15 Ipratropium-Albuterol 3 Ml Neb INHALATION RT-QID PRN Shortness Of Breath Or Wheezing Amitriptyline HCl 25 mg 02/02/21 21:00 Amitriptyline Hcl 25 Mg Tab PO HS KLAUDIA Aspirin 162 mg 02/02/21 09:00 02/02/21 09:09 Aspirin 81 Mg PO 162 mg DAILY KLAUDIA Administration Dicyclomine HCl 20 mg 02/02/21 09:00 02/02/21 09:09 Dicyclomine 20 Mg Tab PO 20 mg TID KLAUDIA Administration Duloxetine HCl 60 mg 02/02/21 09:00 02/02/21 09:09 Duloxetine Hcl 60 Mg Capsule.Dr PO 60 mg DAILY KLAUDIA Administration Enoxaparin Sodium 60 mg 02/02/21 06:00 02/02/21 06:19 Enoxaparin 60 Mg/0.6 Ml Syringe SQ 60 mg Q12H KLAUDIA Administration Sodium Chloride 1,000 mls @ 75 mls/hr 02/02/21 03:15 02/02/21 05:30 Saline 0.9% IV 75 mls/hr .[id number] KLAUDIA Administration Loratadine 10 mg 02/02/21 09:00 02/02/21 09:09 Loratadine 10 Mg Tab PO 10 mg DAILY KLAUDIA Administration Miscellaneous Information 1 each 02/02/21 03:09 Warfarin Per Pharmacy MISCELLANE DIRECTED PRN Per Protocol Protocol Montelukast Sodium 10 mg 02/02/21 21:00 Montelukast 10 Mg Tab PO HS KLAUDIA Naloxone HCl 0.2 mg 02/02/21 00:14 Naloxone 0.4 Mg/Ml 1 Ml Vial IV Q2M PRN Opioid Reversal Ondansetron HCl 4 mg 02/02/21 03:15 Ondansetron 4 Mg/2 Ml Vial IVP Q6HR PRN Nausea And Vomiting Pantoprazole Sodium 40 mg 02/02/21 07:30 02/02/21 09:09 Pantoprazole 40 Mg Tablet PO 40 mg [id number] KLAUDIA Administration Sumatriptan Succinate 100 mg 02/02/21 03:09 Sumatriptan Succinate 50 Mg Tab PO DAILY PRN Migraine Headache Topiramate 50 mg 02/02/21 21:00 Topiramate 25 Mg Tab PO HS KLAUDIA Intake and Output 02/01/21 02/02/21 02/02/21 22:59 06:59 14:59 Other: Weight 55.792 kg 02/02/21 05:16 02/02/21 05:16 EKG Interpretations (text) Sinus rhythm Assessment and Plan (1) Elevated troponin Current Visit: Yes Status: Acute Code(s): R77.8 - OTHER SPECIFIED ABNORMALITIES OF PLASMA PROTEINS SNOMED Code(s): 970533929 (2) Colitis Current Visit: Yes Status: Acute Code(s): K52.9 - NONINFECTIVE GASTROENTERITIS AND COLITIS, UNSPECIFIED SNOMED Code(s): 85048583 (3) Subtherapeutic international normalized ratio (INR) Current Visit: Yes Status: Acute Code(s): R79.1 - ABNORMAL COAGULATION PROFILE SNOMED Code(s): 608966207 (4) Hypokalemia Current Visit: No Status: Acute Code(s): E87.6 - HYPOKALEMIA SNOMED Code(s): 33757288 (5) Status post mitral valve replacement Current Visit: No Status: Acute Code(s): Z95.2 - PRESENCE OF PROSTHETIC HEART VALVE SNOMED Code(s): 8583768562126 Plan: Patient basically went to the hospital with palpitations and weakness, nausea and vomiting. Found to be hypokalemic. EKG did not reveal any acute changes. Cardiac enzymes showed mildly elevated troponin. We'll continue to monitor her for any arrhythmias. We'll get an echo cardiogram to rule out any wall motion abnormalities and also check processing mitral valve. Further recommendation depend upon the clinical course. She has no history of ischemic heart disease. Unfortunately, patient continues to smoke
[2021-02-02] MEDS: WARFARIN 10 MG TAB PO ONE ×4 (18:54→22:48)
[2021-02-02] MEDS: TOPIRAMATE 25 MG TAB PO SCH (22:48)
[2021-02-02] MEDS: MONTELUKAST 10 MG TAB PO SCH (22:48)
[2021-02-02] MEDS: AMITRIPTYLINE HCL 25 MG TAB PO SCH (22:49)
[2021-02-03] MEDS ORDERED: LORazepam 2 MG/ML INJ IV STA (02:03)
[2021-02-03] MEDS: PANTOPRAZOLE 40 MG TABLET PO SCH (07:29)
[2021-02-03] MEDS: ENOXAPARIN 60 MG/0.6 ML SYRINGE SQ SCH ×2 (07:30→18:10)
[2021-02-03] MEDS: SUMAtriptan succinate 50 MG TAB PO PRN ×2 (09:37→14:47)
[2021-02-03] MEDS: DICYCLOMINE 20 MG TAB PO SCH ×3 (09:38→20:17)
[2021-02-03] MEDS: ASPIRIN 81 MG PO SCH (09:38)
[2021-02-03] MEDS: DULoxetine HCL 60 MG CAPSULE.DR PO SCH (09:38)
[2021-02-03] MEDS: LORATADINE 10 MG TAB PO SCH (09:38)
--- NOTE | 2021-02-03 11:41 | P.PN ---
Subjective Progress Note Date: 02/03/21 HISTORY OF PRESENT ILLNESS: This is a 40-year-old female with history of mitral valve replacement done in 2013 for severe mitral stenosis and regurgitation and symptoms of CHF. She had a mechanical valve, which was 29 mm in size. Recently patient hasn't had any cardiac follow-up. Patient has been on Coumadin. Recently, patient became sick and was having nausea vomiting and was unable to take medications. Patient was also having some palpitations and atypical chest pain. Because of the symptom, Patient went to the emergency room. Her troponin was mildly elevated. Her INR was subtherapeutic. Patient was transferred here for further evaluation. She also had a microscopic hypochromic picture size to of iron deficiency. Her EKGs did not reveal any acute changes. Patient seemed to be comfortable. Patient also had hypo-kalemia with the potassium of 3. Patient had similar symptoms when she had previous potassium levels being low. She is being admitted for further evaluation. She is being bridged with Lovenox until the Coumadin and PT/INR levels become therapeutic. We will get an echocardiogram to assess LV function. Denies any orthopnea or paroxysmal nocturnal dyspnea. Patient seemed to be in sinus rhythm 02/03/2021 Patient examined this morning in the emergency room. Patient denies chest pain or pressure. Denies shortness of breath. Telemetry reveals sinus mechanism. INR 1.0 today. Patient received 10mg of Coumadin last night. She is also on Lovenox. PHYSICAL EXAM: VITAL SIGNS: Reviewed. GENERAL: Well-developed in no acute distress. NECK: Supple. No JVD or thyromegaly LUNGS: Respirations even and unlabored. Lungs essentially clear to auscultation bilaterally. HEART: Regular rate and rhythm. S1 and S2 heard. Systolic murmur noted. EXTREMITIES: Normal range of motion. No clubbing or cyanosis. Peripheral pulses intact. No lower extremity edema ASSESSMENT: Nausea and vomiting History of mitral valve replacement secondary to severe mitral stenosis and regurgitation Abnormal troponins, not suggestive of acute coronary syndrome Subtherapeutic INR Hypokalemia Nicotine dependence PLAN: 2D echo ordered. Await results. Check additional troponin level Continue Coumadin. Monitor INR. Continue Lovenox. Further recommendations pending patient course. Nurse practitioner note has been reviewed by physician. Signing provider agrees with the documented findings, assessment, and plan of care. Objective - Vital Signs Vital signs: Vital Signs Temp 99.1 F 02/03/21 05:55 Pulse 66 02/03/21 09:41 Resp 18 02/03/21 09:41 BP 158/73 02/03/21 09:41 Pulse Ox 98 02/03/21 09:41 - Labs CBC & Chem 7: 02/02/21 05:16 02/02/21 05:16 Labs: Abnormal Lab Results - Last 24 Hours (Table) 02/03/21 Range/Units 09:06 Troponin I 0.037 H* (0.000-0.034) ng/mL
[2021-02-03] MEDS ORDERED: FLUTICASONE 50MCG/SPRAY NASAL 16GM EA NOSTRIL PRN (12:34)
--- NOTE | 2021-02-03 13:07 | P.PN ---
Subjective Progress Note Date: 02/03/21 Pt is in distress from migraines today. Had some elevation of troponin, cardiology following. Objective - Vital Signs Vital signs: Vital Signs Temp 99.1 F 02/03/21 05:55 Pulse 66 02/03/21 09:41 Resp 18 02/03/21 09:41 BP 158/73 02/03/21 09:41 Pulse Ox 98 02/03/21 09:41 - Exam Gen: awake, alert HEENT: normocephalic, atraumatic, good hearing acuity, moist mucous membranes Resp: good air exchange, breathing comfortably with no accessory muscle use, clear to auscultation bilaterally without wheezes or crackles CVS: good distal perfusion x 4, regular rate and rhythm, blowing systolic murmur GI: soft, NTTP, ND : no SPT, no CVAT, araujo catheter not present MSK: no pitting edema, no clubbing Neuro: non-focal, moving all extremities Psych: cooperative, euthymic mood - Labs CBC & Chem 7: 02/02/21 05:16 02/02/21 05:16 Labs: Abnormal Lab Results - Last 24 Hours (Table) 02/03/21 Range/Units 09:06 Troponin I 0.037 H* (0.000-0.034) ng/mL Assessment and Plan Assessment: atypical chest pain , with elevated trops, trending down , rule out ACS mechanical mitral valve non-compliant with coumadin intractable nausea and vomiting cardiology consult trend trops [employer] lovenox bridging coumadin pain control IVF hydration with normal saline monitor vital signs microcytic anemia , most likely secondary to heavy periods check iron studies monitor hemoglobin chronic conditions GERD IBS migraine headaches resume home meds full code anticipated length of stay < 2 midnights
--- NOTE | 2021-02-03 13:44 | ECHOF ---
Referral Reason:LV function, abnormal troponin MEASUREMENTS -------- HEIGHT: 165.1 cm WEIGHT: 55.8 kg BP: 158/73 RVIDd: 2.8 cm (< 3.3) IVSd: 1.0 cm (0.6 - 1.1) LVIDd: 4.9 cm (3.9 - 5.3) LVPWd: 1.1 cm (0.6 - 1.1) IVSs: 1.5 cm LVIDs: 2.9 cm LVPWs: 1.4 cm LA Diam: 4.6 cm (2.7 - 3.8) LAESV Index (A-L): 30.60 ml/m Ao Diam: 2.8 cm (2.0 - 3.7) AV Cusp: 1.6 cm (1.5 - 2.6) MV E Clinton: 1.93 m/s MV DecT: 236 ms MV A [place]: 0.80 m/s MV E/A Ratio: 2.43 AV maxP.84 mmHg AV meanP.93 mmHg AR PHT: 472 ms RAP: 5.00 mmHg RVSP: 41.95 mmHg FINDINGS -------- Sinus rhythm. This was a technically adequate study. The left ventricular size is normal. Left ventricular wall thickness is normal. Overall left vent ricular systolic function is normal with, an EF between 60 - 65 %. The right ventricle is normal in size. LA is midly dilated 29-33ml/m2. The right atrium is normal in size. Interatrial and interventricular septum intact. There is diyyfwfq-vk-cvwriv aortic regurgitation. There is mild aortic stenosis present. Peak/jose n gradient across the Aortic Valve is 40.84mmHg / 15.93mmHg. The peak and mean MV gradients are 21.23mmHg 4.52mmHg as measured by doppler. Mechanical MVR is wel l seated. Trace tricuspid regurgitation present. Trace/mild (physiologic) pulmonic regurgitation. The aortic root size is normal. Normal inferior vena cava with normal inspiratory collapse consistent with estimated right atrial pre ssure of 5 mmHg. There is no pericardial effusion. CONCLUSIONS -------- 1. The left ventricular size is normal. 2. Left ventricular wall thickness is normal. 3. Overall left ventricular systolic function is normal with, an EF between 60 - 65 %. 4. LA is midly dilated 29-33ml/m2. 5. There is dtcusmer-wa-uhqnlu aortic regurgitation. 6. There is mild aortic stenosis present. 7. Peak/mean gradient across the Aortic Valve is 40.84mmHg / 15.93mmHg. 8. The peak and mean MV gradients are 21.23mmHg 4.52mmHg as measured by doppler. 9. Mechanical MVR is well seated. 10. Trace tricuspid regurgitation present. 11. Trace/mild (physiologic) pulmonic regurgitation. 12. There is no pericardial effusion. SUPERVISOR INSTRUMENT REPAIR: Sallie Hanley RDCS
[2021-02-03] MEDS: LORazepam 2 MG/ML INJ IV PRN ×2 (14:52→18:07)
[2021-02-03] MEDS: SODIUM CHLORIDE 0.9% 1,000 ML IV SCH ×2 (16:43→18:01)
[2021-02-03] MEDS ORDERED: WARFARIN 10 MG TAB PO ONE (18:00)
[2021-02-03] MEDS ORDERED: MORPHINE SULFATE 4 MG/ML SYRINGE IVP STA (18:13)
[2021-02-03 18:36] LABS: Appearance,Urine Clear (Clear); Bacteria,Urine Rare /hpf; Bilirubin,Urine Negative (Negative); Blood,Urine Moderate (Negative); Color,Urine Light Yellow; Glucose,Urine (UA) Negative (Negative); Ketones,Urine Negative (Negative); Leukocyte Esterase,Urine Negative (Negative); Nitrite,Urine Negative (Negative); PH, Urine 6.5 (5.0-8.0); Protein,Urine Negative (Negative); RBC,Urine 6 /hpf (0-5); Specific Gravity,Urine 1.005 (1.001-1.035); Squamous Epithelial Cell,Urine <1 /hpf (0-4); Urobilinogen,Urine <2.0 mg/dL (<2.0); WBC,Urine <1 /hpf (0-5)
[2021-02-03] MEDS: TOPIRAMATE 25 MG TAB PO SCH (20:16)
[2021-02-03] MEDS: MONTELUKAST 10 MG TAB PO SCH (20:16)
[2021-02-03] MEDS: AMITRIPTYLINE HCL 25 MG TAB PO SCH (20:17)
[2021-02-04] MEDS: ENOXAPARIN 60 MG/0.6 ML SYRINGE SQ SCH ×2 (06:17→17:40)
[2021-02-04] MEDS: PANTOPRAZOLE 40 MG TABLET PO SCH (06:17)
[2021-02-04 08:05] LABS: INR 1.8 (<1.2); Prothrombin Time 17.5 sec (9.0-12.0)
[2021-02-04 09:24] LABS: Anisocytosis Slight; Basophils # (A) 0.1 k/uL (0-0.2); Basophils % (A) 1 %; Eosinophils # (A) 0.1 k/uL (0-0.7); Eosinophils % (A) 1 %; HCT 35.9 % (34.0-46.0); HGB 11.6 gm/dL (11.4-16.0); Hypochromasia Slight; Lymphocytes # (A) 1.8 k/uL (1.0-4.8); Lymphocytes % (A) 30 %; MCH 25.4 pg (25.0-35.0); MCHC 32.3 g/dL (31.0-37.0); MCV 78.4 fL (80.0-100.0); Mean Platelet Volume 8.5; Microcytosis Slight; Monocytes # (A) 0.3 k/uL (0-1.0); Monocytes % (A) 5 %; Neutrophils # (A) 3.6 k/uL (1.3-7.7); Neutrophils % (A) 60 %; Platelet Count 343 k/uL (150-450); Poikilocytosis Slight; RBC 4.57 m/uL (3.80-5.40); RDW 17.1 % (11.5-15.5)
[2021-02-04] MEDS: SODIUM CHLORIDE 0.9% 1,000 ML IV SCH (09:37)
[2021-02-04 09:39] LABS: Calcium 8.8 mg/dL (8.4-10.2); Potassium 3.6 mmol/L (3.5-5.1)
[2021-02-04] MEDS: DICYCLOMINE 20 MG TAB PO SCH ×2 (09:44→16:38)
[2021-02-04] MEDS: DULoxetine HCL 60 MG CAPSULE.DR PO SCH (09:44)
[2021-02-04] MEDS: ASPIRIN 81 MG PO SCH (09:44)
[2021-02-04] MEDS: LORATADINE 10 MG TAB PO SCH (09:44)
[2021-02-04] MEDS ORDERED: WARFARIN 7.5 MG TAB PO ONE ×2 (11:00→18:00)
--- NOTE | 2021-02-04 12:35 | P.PN ---
Subjective This is a pleasant 40-year-old female past medical history significant for valvular heart disease status post mechanical mitral valve replacement 2013, aortic stenosis, chronic nicotine dependence and migraines. She has followed in the past with Dr. Dr. Persaud however has not been to the office since 2016. She is seen and examined resting comfortably lying flat in bed in no acute distress. She denies any further symptoms of nausea or vomiting. She has had no shortness of breath or chest pain. Telemetry tracings reveal she is maintaining sinus rhythm. Blood pressure 100/64 heart rate 74 afebrile maintaining oxygen saturation on room air. Laboratory data reviewed, CBC unremarkable, INR 1.8, sodium 138, potassium 3.6, creatinine 0.95 and repeat troponin 0.0 37. Echocardiogram obtained reveals preserved LV systolic function with ejection fraction 60-65%, moderate to severe aortic regurgitation with a mean gradient across the valve of 15 mmHg, normally functioning mechanical valve in the mitral placement with a mean gradient of 4.5 mmHg, suspect bicuspid aortic valve. GENERAL: Well-appearing, well-nourished and in no acute distress. NECK: Supple without JVD or thyromegaly. LUNGS: Breath sounds clear to auscultation bilaterally. Respiration equal and unlabored. No wheezes, rales or rhonchi. HEART: Regular rate and rhythm with mechanical click noted, systolic ejection murmurs, rubs or gallops. S1 and S2 heard. EXTREMITIES: Normal range of motion, no edema. No clubbing or cyanosis. Peripheral pulses intact. ASSESSMENT Subtherapeutic INR status post mechanical mitral valve replacement 2013 Troponin leak of unclear significance, not related to ACS Aortic stenosis, suspect bicuspid aortic valve Chronic nicotine dependence PLAN Give Coumadin 7.5 mg today. Continue Lovenox bridging for another 24 hours. Target INR 2.5-3.5. Nurse Practitioner note has been reviewed, I agree with a documented findings and plan of care. Patient was seen and examined. Objective - Vital Signs Vital signs: Vital Signs Temp 98.1 F 02/04/21 11:18 Pulse 74 02/04/21 11:18 Resp 16 02/04/21 11:18 BP 100/64 02/04/21 11:18 Pulse Ox 99 02/04/21 11:18 Intake & Output 02/03/21 02/04/21 02/04/21 18:59 06:59 18:59 Intake Total 118 600 Output Total 200 Balance 118 -200 600 Weight 55.792 kg 50.8 kg Intake: Oral 118 600 Output: Urine 200 Other: Voiding Method Toilet Toilet Toilet # Voids 1 2 - Labs CBC & Chem 7: 02/04/21 07:31 02/04/21 07:31 Labs: Abnormal Lab Results - Last 24 Hours (Table) 02/03/21 02/04/21 02/04/21 Range/Units 18:26 07:31 07:31 MCV 78.4 L (80.0-100.0) fL RDW 17.1 H (11.5-15.5) % PT (9.0-12.0) sec INR (<1.2) Chloride 113 H (98-107) mmol/L Carbon Dioxide 21 L (22-30) mmol/L Glucose 104 H (74-99) mg/dL Urine Blood Moderate H (Negative) Urine RBC 6 H (0-5) /hpf Urine Bacteria Rare H (None) /hpf 02/04/21 Range/Units 07:33 MCV (80.0-100.0) fL RDW (11.5-15.5) % PT 17.5 H (9.0-12.0) sec INR 1.8 H (<1.2) Chloride (98-107) mmol/L Carbon Dioxide (22-30) mmol/L Glucose (74-99) mg/dL Urine Blood (Negative) Urine RBC (0-5) /hpf Urine Bacteria (None) /hpf
--- NOTE | 2021-02-04 13:27 | P.PN ---
Subjective Progress Note Date: 02/04/21 Pt no longer has migraine, feels back to usual state of health. Pending INR to become therapeutic. Objective - Vital Signs Vital signs: Vital Signs Temp 98.1 F 02/04/21 11:18 Pulse 74 02/04/21 11:18 Resp 16 02/04/21 11:18 BP 100/64 02/04/21 11:18 Pulse Ox 99 02/04/21 11:18 Intake & Output 02/03/21 02/04/21 02/04/21 18:59 06:59 18:59 Intake Total 118 600 Output Total 200 Balance 118 -200 600 Weight 55.792 kg 50.8 kg Intake: Oral 118 600 Output: Urine 200 Other: Voiding Method Toilet Toilet Toilet # Voids 1 2 - Exam Gen: awake, alert HEENT: normocephalic, atraumatic, good hearing acuity, moist mucous membranes Resp: good air exchange, breathing comfortably with no accessory muscle use, clear to auscultation bilaterally without wheezes or crackles CVS: good distal perfusion x 4, regular rate and rhythm, blowing systolic murmur GI: soft, NTTP, ND : no SPT, no CVAT, araujo catheter not present MSK: no pitting edema, no clubbing Neuro: non-focal, moving all extremities Psych: cooperative, euthymic mood - Labs CBC & Chem 7: 02/04/21 07:31 02/04/21 07:31 Labs: Abnormal Lab Results - Last 24 Hours (Table) 02/03/21 02/04/21 02/04/21 Range/Units 18:26 07:31 07:31 MCV 78.4 L (80.0-100.0) fL RDW 17.1 H (11.5-15.5) % PT (9.0-12.0) sec INR (<1.2) Chloride 113 H (98-107) mmol/L Carbon Dioxide 21 L (22-30) mmol/L Glucose 104 H (74-99) mg/dL Urine Blood Moderate H (Negative) Urine RBC 6 H (0-5) /hpf Urine Bacteria Rare H (None) /hpf 02/04/21 Range/Units 07:33 MCV (80.0-100.0) fL RDW (11.5-15.5) % PT 17.5 H (9.0-12.0) sec INR 1.8 H (<1.2) Chloride (98-107) mmol/L Carbon Dioxide (22-30) mmol/L Glucose (74-99) mg/dL Urine Blood (Negative) Urine RBC (0-5) /hpf Urine Bacteria (None) /hpf Assessment and Plan Assessment: atypical chest pain , with elevated trops, trending down , rule out ACS mechanical mitral valve non-compliant with coumadin intractable nausea and vomiting cardiology consult trend trops monitoring coordinator lovenox bridging coumadin pain control IVF hydration with normal saline monitor vital signs microcytic anemia , most likely secondary to heavy periods check iron studies monitor hemoglobin chronic conditions GERD IBS migraine headaches resume home meds full code anticipated length of stay < 2 midnights
[2021-02-04 13:49] VITALS: BMI 18.6
[2021-02-04] MEDS: MONTELUKAST 10 MG TAB PO SCH (20:48)
[2021-02-04] MEDS: TOPIRAMATE 25 MG TAB PO SCH (20:48)
[2021-02-04] MEDS: AMITRIPTYLINE HCL 25 MG TAB PO SCH (20:48)
[2021-02-04 22:43] VITALS: RESP 16
[2021-02-05] MEDS: SODIUM CHLORIDE 0.9% 1,000 ML IV SCH (00:04)
[2021-02-05] MEDS: DICYCLOMINE 20 MG TAB PO SCH ×2 (00:06→08:44)
[2021-02-05] MEDS: PANTOPRAZOLE 40 MG TABLET PO SCH (06:23)
[2021-02-05] MEDS: ENOXAPARIN 60 MG/0.6 ML SYRINGE SQ SCH (06:23)
[2021-02-05 07:47] LABS: Anisocytosis Slight; Basophils # (A) 0.1 k/uL (0-0.2); Basophils % (A) 1 %; Eosinophils # (A) 0.1 k/uL (0-0.7); Eosinophils % (A) 2 %; Hypochromasia Moderate; Lymphocytes # (A) 1.9 k/uL (1.0-4.8); Lymphocytes % (A) 31 %; MCH 24.8 pg (25.0-35.0); MCHC 30.7 g/dL (31.0-37.0); MCV 80.8 fL (80.0-100.0); Mean Platelet Volume 7.3; Monocytes # (A) 0.4 k/uL (0-1.0); Monocytes % (A) 6 %; Neutrophils # (A) 3.6 k/uL (1.3-7.7); Neutrophils % (A) 58 %; Platelet Count 270 k/uL (150-450); RBC 4.45 m/uL (3.80-5.40); RDW 16.8 % (11.5-15.5); WBC 6.2 k/uL (3.8-10.6)
[2021-02-05 07:52] LABS: INR 2.6 (<1.2); Prothrombin Time 25.2 sec (9.0-12.0)
[2021-02-05 08:15] LABS: Calcium 8.6 mg/dL (8.4-10.2); Potassium 4.3 mmol/L (3.5-5.1)
[2021-02-05 08:32] LABS: Magnesium 1.9 mg/dL (1.6-2.3)
[2021-02-05] MEDS: ASPIRIN 81 MG PO SCH (08:44)
[2021-02-05] MEDS: LORATADINE 10 MG TAB PO SCH (08:44)
[2021-02-05] MEDS: DULoxetine HCL 60 MG CAPSULE.DR PO SCH (08:44)
[2021-02-05 08:53] VITALS: BP 94/50; PULSE 71; TEMP 98.4
--- NOTE | 2021-02-05 10:06 | P.PN ---
Subjective This is a pleasant 40-year-old female past medical history significant for valvular heart disease status post mechanical mitral valve replacement 2013, aortic stenosis, chronic nicotine dependence and migraines. She has followed in the past with Dr. Dr. Persaud however has not been to the office since 2017. She is seen and examined resting comfortably lying flat in bed in no acute distress. She denies any further symptoms of nausea or vomiting. She has had no shortness of breath or chest pain. Telemetry tracings reveal she is maintaining sinus rhythm. Blood pressure 100/64 heart rate 74 afebrile maintaining oxygen saturation on room air. Laboratory data reviewed, CBC unremarkable, INR 1.8, sodium 138, potassium 3.6, creatinine 0.95 and repeat troponin 0.0 37. Echocardiogram obtained reveals preserved LV systolic function with ejection fraction 60-65%, moderate to severe aortic regurgitation with a mean gradient across the valve of 15 mmHg, normally functioning mechanical valve in the mitral placement with a mean gradient of 4.5 mmHg, suspect bicuspid aortic valve. 02/05/2021 Patient seen and examined sitting up in bed with family at the bedside. She has no symptoms of chest discomfort or shortness of breath. Nausea and vomiting has resolved. INR today is 2.6. Blood pressure 94/50 heart rate 71 afebrile maintaining oxygen saturation on room air. GENERAL: Well-appearing, well-nourished and in no acute distress. NECK: Supple without JVD or thyromegaly. LUNGS: Breath sounds clear to auscultation bilaterally. Respiration equal and unlabored. No wheezes, rales or rhonchi. HEART: Regular rate and rhythm with mechanical click noted, systolic ejection murmurs, rubs or gallops. S1 and S2 heard. EXTREMITIES: Normal range of motion, no edema. No clubbing or cyanosis. Peripheral pulses intact. ASSESSMENT Subtherapeutic INR status post mechanical mitral valve replacement 2013 Troponin leak of unclear significance, not related to ACS Aortic stenosis, suspect bicuspid aortic valve Chronic nicotine dependence PLAN Stable for discharge with therapeutic INR today. Advised patient to continue her home dose of 7.5 mg daily. The importance of close follow-up in the office discussed with patient and family at the bedside. Nurse Practitioner note has been reviewed, I agree with a documented findings and plan of care. Patient was seen and examined. Objective - Vital Signs Vital signs: Vital Signs Temp 98.4 F 02/05/21 08:00 Pulse 71 02/05/21 08:00 Resp 16 02/05/21 08:00 BP 94/50 02/05/21 08:00 Pulse Ox 100 02/05/21 08:00 Intake & Output 02/04/21 02/05/21 02/05/21 18:59 06:59 18:59 Intake Total 900 0 Balance 900 0 Weight 50.8 kg 52.6 kg Intake: Oral 900 0 Other: Voiding Method Toilet Toilet Toilet # Voids 2 1 - Labs CBC & Chem 7: 02/05/21 07:09 02/05/21 07:09 Labs: Abnormal Lab Results - Last 24 Hours (Table) 02/05/21 02/05/21 02/05/21 Range/Units 07:09 07:09 07:09 Hgb 11.0 L (11.4-16.0) gm/dL MCH 24.8 L (25.0-35.0) pg MCHC 30.7 L (31.0-37.0) g/dL RDW 16.8 H (11.5-15.5) % PT 25.2 H (9.0-12.0) sec INR 2.6 H (<1.2) Chloride 111 H (98-107) mmol/L Carbon Dioxide 21 L (22-30) mmol/L
--- NOTE | 2021-02-05 12:07 | P.DS ---
Providers Date of admission: 02/02/21 00:14 Expected date of discharge: 02/05/21 Attending physician: Elenita Morales MD Consults: 02/02/21 03:14 Consult Physician Routine Consulting Provider: Rosalino Kumar Consult Reason/Comments: elevated trops Do you want consulting provider notified?: Yes Primary care physician: Yonny Nettles MD Hospital Course: Atypical chest pain Mechanical mitral valve non-compliant with coumadin Subtherapeutic INR - patient was admitted to observation and cardiology consultation. She was subtherapeutic in her INR for known mechanical valve for rheumatic fever history. Pts troponins were monitored and trended down, and ACS was ruled out. Her INR improved to 2.6 with the resumption of her home dose of coumadin. No major cardiac issues arose during hopsitalization. She will f/u with her cardiac cath tech as outpatient. Intractable nausea and vomiting Migraines During admission, patient had n/v due to migraine headache, but this improved with IVF, sumatriptan and pain medications, and had completely resolved by the time of discharge. Chronic conditions GERD IBS resumed home meds, no changes Assessment: Gen: awake, alert HEENT: normocephalic, atraumatic, good hearing acuity, moist mucous membranes Resp: good air exchange, breathing comfortably with no accessory muscle use, clear to auscultation bilaterally without wheezes or crackles CVS: good distal perfusion x 4, regular rate and rhythm, blowing systolic murmur GI: soft, NTTP, ND : no SPT, no CVAT, araujo catheter not present MSK: no pitting edema, no clubbing Neuro: non-focal, moving all extremities Psych: cooperative, euthymic mood Patient Condition at Discharge: Good Plan - Discharge Summary Discharge Rx Participant: Yes New Discharge Prescriptions: Continue Dicyclomine [Bentyl] 20 mg PO TID Aspirin EC [Ecotrin Low Dose] 162 mg PO DAILY Fluticasone Nasal [place] [Flonase Nasal [place]] 2 spr EA NOSTRIL DAILY PRN PRN Reason: ALLERGIES Montelukast [Singulair] 10 mg PO HS Potassium 99 mg PO DAILY Topiramate [Topamax] 50 mg PO HS Fexofenadine HCl [Sonja Allergy] 180 mg PO DAILY Rizatriptan Benzoate [Maxalt] 10 mg PO DAILY PRN PRN Reason: Migraine Headache Omeprazole 40 mg PO DAILY Albuterol Sulfate [Proair Hfa] 2 puff INHALATION RT-Q6H PRN PRN Reason: Shortness Of Breath DULoxetine HCL [Cymbalta] 60 mg PO DAILY Amitriptyline HCl [Elavil] 25 mg PO HS Warfarin [Coumadin] 7.5 mg PO HS Discharge Medication List Aspirin EC [Ecotrin Low Dose] 162 mg PO DAILY 01/13/16 [History] Dicyclomine [Bentyl] 20 mg PO TID 01/13/16 [History] Fluticasone Nasal [place] [Flonase Nasal [place]] 2 spr EA NOSTRIL DAILY PRN 01/13/16 [History] Montelukast [Singulair] 10 mg PO HS 01/13/16 [History] Potassium 99 mg PO DAILY 12/26/16 [History] Albuterol Sulfate [Proair Hfa] 2 puff INHALATION RT-Q6H PRN 02/01/21 [History] Amitriptyline HCl [Elavil] 25 mg PO HS 02/01/21 [History] DULoxetine HCL [Cymbalta] 60 mg PO DAILY 02/01/21 [History] Fexofenadine HCl [Sonja Allergy] 180 mg PO DAILY 02/01/21 [History] Omeprazole 40 mg PO DAILY 02/01/21 [History] Rizatriptan Benzoate [Maxalt] 10 mg PO DAILY PRN 02/01/21 [History] Topiramate [Topamax] 50 mg PO HS 02/01/21 [History] Warfarin [Coumadin] 7.5 mg PO HS 02/01/21 [History] Follow up Appointment(s)/Referral(s): Yonny Nettlse MD [Primary Care Provider] - 1-2 days Flaco Persaud MD [STAFF PHYSICIAN] - 1 Week (Office will call patient with appointment date and time. ) Patient Instructions/Handouts: Warfarin (By mouth), Acute Nausea and Vomiting (GEN) Discharge Disposition: HOME SELF-CARE
[2021-02-05] MEDS ORDERED: WARFARIN 7.5 MG TAB PO ONE (18:00)
== END 2021-02-05 11:08 | disposition home or self-care (01) ==
LOC: EC 22:01 → 3SCARD 02-02 00:14
PROVIDERS: ADMIT Internal Medicine; ATTEND Internal Medicine
DX: R11.2 Nausea with vomiting, unspecified (principal); R07.89 Other chest pain; R79.89 Other specified abnormal findings of blood chemistry; K58.9 Irritable bowel syndrome, unspecified; R79.1 Abnormal coagulation profile; Z91.14 Patient's other noncompliance with medication regimen; K52.9 Noninfective gastroenteritis and colitis, unspecified; G43.909 Migraine, unspecified, not intractable, without status migrainosus; D50.9 Iron deficiency anemia, unspecified; N92.0 Excessive and frequent menstruation with regular cycle; K21.9 Gastro-esophageal reflux disease without esophagitis; Z90.49 Acquired absence of other specified parts of digestive tract; F17.210 Nicotine dependence, cigarettes, uncomplicated; Z95.2 Presence of prosthetic heart valve; E87.6 Hypokalemia; E86.0 Dehydration; Z20.822 Contact with and (suspected) exposure to COVID-19; Z79.82 Long term (current) use of aspirin; Z79.01 Long term (current) use of anticoagulants; Z79.899 Other long term (current) drug therapy; Z91.048 Other nonmedicinal substance allergy status; I35.2 Nonrheumatic aortic (valve) stenosis with insufficiency; R61 Generalized hyperhidrosis; E78.5 Hyperlipidemia, unspecified; J45.909 Unspecified asthma, uncomplicated; M19.90 Unspecified osteoarthritis, unspecified site; I10 Essential (primary) hypertension; K44.9 Diaphragmatic hernia without obstruction or gangrene; Z98.51 Tubal ligation status; F32.9 Major depressive disorder, single episode, unspecified; F41.9 Anxiety disorder, unspecified; Z80.1 Family history of malignant neoplasm of trachea, bronchus and lung
CPT/HCPCS: 96376 ×2; 96361 ×3; 96372 ×5; 96374; 96375; 99285; 36415; 93306; 80053 ×2; 80048 ×2; 82728; 83540; 83550; 83735 ×2; 84484 ×2; 85025 ×4; 85610 ×5; 85730; 81001; G0378 ×4; J2060; J2270 ×2; J2405 ×2; J1650 ×4

== ENCOUNTER 2023-03-18 18:10 | Emergency (ER) | payer OTHER ==
[2023-03-18 18:17] VITALS: RESP 18; TEMP 97.7
--- NOTE | 2023-03-18 21:26 | ED ---
General Adult HPI - General Chief complaint: Recheck/Abnormal Lab/Rx Stated complaint: sob/trouble swallowing Time Seen by Provider: 03/18/23 21:04 Source: patient, RN notes reviewed, old records reviewed Mode of arrival: ambulatory Limitations: no limitations - History of Present Illness Initial comments: 42-year-old female history of mitral valve replacement, current tobacco use presenting with difficulty swallowing and difficulty breathing. Symptoms have been going for approximately one month. No fever. She does report a mild cough. No central chest pain. No lower extremity pain or swelling. No prior history of head or neck cancer. - Related Data Home Medications Medication Instructions Recorded Confirmed Aspirin EC [Ecotrin Low Dose] 162 mg PO DAILY 01/13/16 02/01/21 Dicyclomine [Bentyl] 20 mg PO TID 01/13/16 02/01/21 Fluticasone Nasal [place] [Flonase 2 spr EA NOSTRIL DAILY PRN 01/13/16 02/01/21 Nasal [place]] Montelukast [Singulair] 10 mg PO HS 01/13/16 02/01/21 Potassium 99 mg PO DAILY 12/26/16 02/01/21 Albuterol Sulfate [Proair Hfa] 2 puff INHALATION RT-Q6H PRN 02/01/21 02/01/21 Amitriptyline HCl [Elavil] 25 mg PO HS 02/01/21 02/01/21 DULoxetine HCL [Cymbalta] 60 mg PO DAILY 02/01/21 02/01/21 Fexofenadine HCl [Sonja Allergy] 180 mg PO DAILY 02/01/21 02/01/21 Omeprazole 40 mg PO DAILY 02/01/21 02/01/21 Rizatriptan Benzoate [Maxalt] 10 mg PO DAILY PRN 02/01/21 02/01/21 Topiramate [Topamax] 50 mg PO HS 02/01/21 02/01/21 Warfarin [Coumadin] 7.5 mg PO HS 02/01/21 02/01/21 Allergies Allergy/AdvReac Type Severity Reaction Status Date / Time adhesive tape Allergy Itching Verified 03/18/23 18:16 Review of Systems ROS Statement: Those systems with pertinent positive or pertinent negative responses have been documented in the HPI. ROS Other: All systems not noted in ROS Statement are negative. Past Medical History Past Medical History: Asthma, GERD/Reflux, Hyperlipidemia, Mitral Valve Prolapse (MVP), Osteoarthritis (OA) Additional Past Medical History / Comment(s): Mitral regurgitation status post mitral valve replacement with a mechanical valve, IBS, Migraines, hiatal hernia, anemia, spinal stenosis, deg disc disease, colitis History of Any Multi-Drug Resistant Organisms: None Reported Past Surgical History: Cardiac Valve Replacement, Cholecystectomy, Heart Catheterization, Hernia Repair, Tubal Ligation Additional Past Surgical History / Comment(s): mitral valve replacement 2013, Past Anesthesia/Blood Transfusion Reactions: Previous Problems w/ Anesthesia, Motion Sickness, Postoperative Nausea & Vomiting (PONV) Past Psychological History: ADD/ADHD, Anxiety, Depression Smoking Status: Current every day smoker Past Alcohol Use History: None Reported Past Drug Use History: Marijuana - Past Family History Mother Family Medical History: Cancer Additional Family Medical History / Comment(s): LUNG CA Father Additional Family Medical History / Comment(s): COLON CA General Exam Limitations: no limitations General appearance: alert, in no apparent distress Head exam: Present: atraumatic, normocephalic Eye exam: Present: normal appearance, PERRL Neck exam: Present: normal inspection. Absent: tenderness, meningismus Respiratory exam: Present: normal lung sounds bilaterally. Absent: respiratory distress, wheezes Cardiovascular Exam: Present: regular rate, normal rhythm GI/Abdominal exam: Present: soft. Absent: distended, tenderness, guarding Extremities exam: Present: normal inspection Neurological exam: Present: alert, oriented X3, CN II-XII intact Psychiatric exam: Present: normal affect, normal mood Skin exam: Present: warm, dry, intact Course Vital Signs 03/18/23 03/18/23 03/18/23 18:12 21:12 21:14 Temperature 97.7 F Pulse Rate 102 H 84 Respiratory 18 18 18 Rate Blood Pressure 165/78 154/87 O2 Sat by Pulse 100 99 Oximetry Medical Decision Making - Medical Decision Making Was pt. sent in by a medical professional or institution (, PA, SENIOR SYSTEMS ADMINISTRATOR, urgent care, hospital, or prison...) When possible be specific @ -No Did you speak to anyone other than the patient for history (EMS, parent, family, police, friend...)? What history was obtained from this source @ -No Did you review nursing and triage notes (agree or disagree)? Why? @ -I reviewed and agree with nursing and triage notes Were old charts reviewed (outside hosp., previous admission, EMS record, old EKG, old radiological studies, urgent care reports/EKG's, prison records)? Report findings @ -No old charts were reviewed Differential Diagnosis (chest pain, altered mental status, abdominal pain women, abdominal pain men, vaginal bleeding, weakness, fever, dyspnea, syncope, headache, dizziness, GI bleed, back pain, seizure, CVA, palpatations, mental h ealth, musculoskeletal)? @ Laryngeal or pharyngeal mass EKG interpreted by me (3pts min.). @ -As above X-rays interpreted by me (1pt min.). @ Chest x-ray showing prior sternotomy, no acute findings CT interpreted by me (1pt min.). @ -[CT negative for upper airway mass, no acute findings. U/S interpreted by me (1pt. min.). @ -None done What testing was considered but not performed or refused? (CT, X-rays, U/S, labs)? Why? @ -None What meds were considered but not given or refused? Why? @ -None Did you discuss the management of the patient with other professionals (professionals i.e. , PA, SENIOR SYSTEMS ADMINISTRATOR, lab, RT, psych nurse, social worker school, choral teacher, teacher, chief medical officer, nurse case manager)? Give summary @ -No Was smoking cessation discussed for >3mins.? @ -No Was critical care preformed (if so, how long)? @ -No Were there social determinants of health that impacted care today? How? (Homelessness, low income, unemployed, alcoholism, drug addiction, transportation, low edu. Level, literacy, decrease access to med. care, usp, rehab)? @ -No Was there de-escalation of care discussed even if they declined (Discuss DNR or withdrawal of care, Hospice)? DNR status @ -No What co-morbidities impacted this encounter? (DM, HTN, Smoking, COPD, CAD, Cancer, CVA, ARF, Chemo, Hep., AIDS, mental health diagnosis, sleep apnea, morbid obesity)? @ -None Was patient admitted / discharged? Hospital course, mention meds given and route, prescriptions, significant lab abnormalities, going to OR and other pertinent info. @ 42-year-old female with difficulty swallowing over the past one month. She has fullness sensation and sensation of difficulty breathing from upper airway related issue. CT is ordered given the patient's symptoms. This is negative for obstructing mass, no acute findings. Chest x-ray is clear. She has a baseline chronic anemia. Otherwise laboratory testing unremarkable. Patient will require close outpatient follow-up with her primary care provider, she may require either ENT or gastroenterology follow-up. Undiagnosed new problem with uncertain prognosis? @ -No Drug Therapy requiring intensive monitoring for toxicity (Heparin, Nitro, Insulin, Cardizem)? @ -No Were any procedures done? @ -No Diagnosis/symptom? @ -[Difficulty swallowing Acute, or Chronic, or Acute on Chronic? @ -[Chronic Uncomplicated (without systemic symptoms) or Complicated (systemic symptoms)? @ -default Side effects of treatment? @ -No Exacerbation, Progression, or Severe Exacerbation? @ -No Poses a threat to life or bodily function? How? (Chest pain, [place], [place], pneumonia, PE, COPD, DKA, ARF, appy, cholecystitis, CVA, Diverticulitis, Homicidal, Suicidal, threat to staff... and all critical care pts) @ -[Low risk at this time - Lab Data Result diagrams: 03/18/23 21:30 03/18/23 21:30 Lab Results 03/18/23 03/18/23 Range/Units 21:30 21:30 WBC 11.8 H (3.8-10.6) k/uL RBC 4.91 (3.80-5.40) m/uL Hgb 10.2 L (11.4-16.0) gm/dL Hct 34.2 (34.0-46.0) % MCV 69.6 L (80.0-100.0) fL MCH 20.8 L (25.0-35.0) pg MCHC 29.9 L (31.0-37.0) g/dL RDW 17.1 H (11.5-15.5) % Plt Count 337 (150-450) k/uL MPV 7.4 Neutrophils % 76 % Lymphocytes % 17 % Monocytes % 5 % Eosinophils % 1 % Basophils % 0 % Neutrophils # 8.9 H (1.3-7.7) k/uL Lymphocytes # 2.0 (1.0-4.8) k/uL Monocytes # 0.6 (0-1.0) k/uL Eosinophils # 0.1 (0-0.7) k/uL Basophils # 0.0 (0-0.2) k/uL Hypochromasia Marked Poikilocytosis Slight Anisocytosis Slight Microcytosis Marked Sodium 139 (137-145) mmol/L Potassium 4.3 (3.5-5.1) mmol/L Chloride 112 H (98-107) mmol/L Carbon Dioxide 16 L (22-30) mmol/L Anion Gap 11 mmol/L BUN 18 H (7-17) mg/dL Creatinine 0.70 (0.52-1.04) mg/dL Est GFR (CKD-EPI)AfAm >90 (>60 ml/min/1.73 sqM) Est GFR (CKD-EPI)NonAf >90 (>60 ml/min/1.73 sqM) Glucose 95 (74-99) mg/dL Calcium 9.2 (8.4-10.2) mg/dL Total Bilirubin 0.4 (0.2-1.3) mg/dL AST 35 (14-36) U/L ALT 21 (4-34) U/L Alkaline Phosphatase 101 (38-126) U/L Total Protein 7.0 (6.3-8.2) g/dL Albumin 4.2 (3.5-5.0) g/dL Disposition Clinical Impression: Difficulty swallowing Disposition: HOME SELF-CARE Condition: Fair Additional Instructions: Please follow up with her primary care physician. If symptoms persist may require evaluation by ENT or gastroenterology. Is patient prescribed a controlled substance at d/c from ED?: No Referrals: None,Stated [REFERRING] - 1-2 days Time of Disposition: 22:34
[2023-03-18 21:29] VITALS: PULSE 84
[2023-03-18 21:49] LABS: Anisocytosis Slight; Basophils % (A) 0 %; Eosinophils # (A) 0.1 k/uL (0-0.7); Eosinophils % (A) 1 %; HCT 34.2 % (34.0-46.0); HGB 10.2 gm/dL (11.4-16.0); Hypochromasia Marked; Lymphocytes % (A) 17 %; MCH 20.8 pg (25.0-35.0); MCHC 29.9 g/dL (31.0-37.0); MCV 69.6 fL (80.0-100.0); Mean Platelet Volume 7.4; Microcytosis Marked; Monocytes # (A) 0.6 k/uL (0-1.0); Monocytes % (A) 5 %; Neutrophils # (A) 8.9 k/uL (1.3-7.7); Neutrophils % (A) 76 %; Platelet Count 337 k/uL (150-450); Poikilocytosis Slight; RBC 4.91 m/uL (3.80-5.40); RDW 17.1 % (11.5-15.5); WBC 11.8 k/uL (3.8-10.6)
--- NOTE | 2023-03-18 22:01 | XR ---
EXAMINATION: XR chest 2V: 03/18/2023 9:43 PM CLINICAL INDICATION: cough TECHNIQUE: Departmental protocol COMPARISON: 06/13/2017 FINDINGS: Sternal sutures and aortic valve prosthesis noted. The lungs are clear. The pleural spaces are negative. The cardiac silhouette is not enlarged. The skeletal structures and soft tissues are negative for acute findings. IMPRESSION: No definite acute radiographic process.
--- NOTE | 2023-03-18 22:12 | CT ---
EXAMINATION TYPE: CT soft tissue neck w con DATE OF EXAM: 03/18/2023 HISTORY: difficulty breathing and swallowing COMPARISON: NONE CT DLP: 153.4 mGycm. Automated Exposure Control for Dose Reduction was Utilized. TECHNIQUE: CT scan of the neck is performed with IV Contrast, patient injected with 100 mL of Isovue 300, axial images are obtained, coronal and sagittal reformatted images are reviewed. FINDINGS: Airway: No gross abnormality is seen. Parotid/submandibular glands: No gross abnormality seen. Carotid/Vascular Structures: Unremarkable. Osseous Structures: Unremarkable. IMPRESSION: No significant abnormality is seen.
[2023-03-18 22:21] LABS: ALT 21 U/L (4-34); AST 35 U/L (14-36); African American GFR (CKD) >90 (>60 ml/min/1.73 sqM); Albumin 4.2 g/dL (3.5-5.0); Alkaline Phosphatase 101 U/L (38-126); Anion Gap 11 mmol/L; Blood Urea Nitrogen 18 mg/dL (7-17); Calcium 9.2 mg/dL (8.4-10.2); Carbon Dioxide 16 mmol/L (22-30); Chloride 112 mmol/L (98-107); Glucose 95 mg/dL (74-99); Non-African American GFR(CKD) >90 (>60 ml/min/1.73 sqM); Potassium 4.3 mmol/L (3.5-5.1); Sodium 139 mmol/L (137-145); Total Bilirubin 0.4 mg/dL (0.2-1.3)
[2023-03-18] MEDS ORDERED: KETOROLAC 15 MG/ML 1 ML VIAL IVP STA (22:40)
[2023-03-18 22:58] VITALS: BP 136/52
== END 2023-03-18 22:48 | disposition home or self-care (01) ==
LOC: EC 18:10
DX: R13.10 Dysphagia, unspecified (principal); J45.909 Unspecified asthma, uncomplicated; K21.9 Gastro-esophageal reflux disease without esophagitis; M19.90 Unspecified osteoarthritis, unspecified site; E78.5 Hyperlipidemia, unspecified; F32.A Depression, unspecified; F41.9 Anxiety disorder, unspecified; F17.200 Nicotine dependence, unspecified, uncomplicated; F12.90 Cannabis use, unspecified, uncomplicated; Z88.8 Allergy status to other drugs, medicaments and biological substances; Z79.82 Long term (current) use of aspirin; Z79.51 Long term (current) use of inhaled steroids; Z79.01 Long term (current) use of anticoagulants; Z79.899 Other long term (current) drug therapy
CPT/HCPCS: 36415; 80053; 85025; 71046; 70491; 99285; 96374; J1885; Q9967

== ENCOUNTER 2023-07-16 07:51 | Day surgery (SDC) | payer OTHER ==
[2023-07-14 11:38] VITALS: BMI 18.9
[~2023-07-16 07:51] MED LIST: LIDOCAINE 1% (10MG/ML) FOR IV START INTRADERMA PRN
[2023-07-16] MEDS: LACTATED RINGERS 1,000 ML IV SCH (08:30)
[2023-07-16] MEDS ORDERED: LIDOCAINE 1% INJ 10MG/ML (20 ML MDV) ONE (08:33)
[2023-07-16] MEDS ORDERED: MIDAZOLAM 2 MG/2 ML VIAL ONE (08:33)
[2023-07-16] MEDS ORDERED: PROPOFOL 10 MG/ML 20 ML VIAL IV ONE (08:33)
[2023-07-16] MEDS ORDERED: fentaNYL (PF) 50 MCG/ML 2 ML AMP ONE (08:33)
--- NOTE | 2023-07-16 08:56 | P.PCN ---
Date of Procedure: 07/16/23 Procedure(s) Performed: Brief history: Patient is a pleasant 43-year-old white female scheduled for an elective upper endoscopy as well as colonoscopy as a part of evaluation of iron deficiency anemia. She also has progressive weight loss of almost 30 pounds in the last 6 months duration. Evidence of nausea and decreased appetite. Procedure performed: Esophagogastroduodenoscopy with biopsy Colonoscopy Preoperative diagnosis: Iron deficiency anemia Anesthesia: [facility] [place] Procedure: After informed consent was obtained from the patient was brought into the endoscopy unit and IV sedation was administered by anesthesia under continuous monitoring. Initially upper endoscopy was done. The Olympus GF 160 video endoscope was inserted inserted into the mouth and esophagus intubated without any difficulty and was gradually advanced into the stomach and duodenum and carefully examined. The bulb and second part of the duodenum appeared normal. The scope was then withdrawn into the stomach adequately insufflated with air and upon careful examination the antrum had diffuse gastritis and biopsies were done from this area. Mucosa of the body, cardia and fundus appeared normal. The scope was then withdrawn into the esophagus. The GE junction was located at 40 cm to the incisors. It appeared regular with no erythema erosions or ulcerations. In the proximal midesophagus there was white plaques identified and biopsies were done from this area to rule out Carmen esophagitis. . Patient tolerated the procedure well. At this time the patient continued to remain sedation. Initial digital rectal examination was normal. Olympus CF 160 video colonoscope was then inserted into the rectum and gradually advanced to the cecum without any difficulty. Careful examination was performed as the scope was gradually being withdrawn. The prep was excellent. The cecum, ascending colon, transverse colon, descending colon, sigmoid colon and rectum appeared normal. Retroflexion was performed in the rectum and no lesions were noted. Patient tolerated the procedure well. Impression: 1. Upper endoscopy revealed antral gastritis and esophagitis with whitish plaques in the proximal esophagus to rule out Carmen esophagitis. 2. Colonoscopy was within normal limits with no evidence of colorectal neoplasia Recommendations: Findings of this examination were discussed with the patient as well as her family. She was advised to follow with the biopsy results. Recommend repeat screening colonoscopy in 10 years. Advised to follow with Dr. Nettles for further workup of weight loss
[2023-07-16 08:57] VITALS: RESP 16; TEMP 97.6
[2023-07-16] MEDS: ONDANSETRON 4 MG/2 ML VIAL ONE (09:23)
[2023-07-16 10:06] VITALS: BP 132/64; PULSE 56
[2023-07-16] MEDS: METOCLOPRAMIDE 5 MG/ML 2 ML VIAL ONE (10:30)
== END 2023-07-16 11:02 | disposition home or self-care (01) ==
LOC: ORWHC2ENDO 07:51
PROVIDERS: ATTEND Internal Medicine Gastroenterology
DX: K29.50 Unspecified chronic gastritis without bleeding (principal); K21.00 Gastro-esophageal reflux disease with esophagitis, without bleeding; D50.9 Iron deficiency anemia, unspecified; E78.5 Hyperlipidemia, unspecified; J45.909 Unspecified asthma, uncomplicated; M19.90 Unspecified osteoarthritis, unspecified site; G43.909 Migraine, unspecified, not intractable, without status migrainosus; F41.9 Anxiety disorder, unspecified; F32.A Depression, unspecified; F90.9 Attention-deficit hyperactivity disorder, unspecified type; F17.210 Nicotine dependence, cigarettes, uncomplicated; Z79.01 Long term (current) use of anticoagulants; Z79.899 Other long term (current) drug therapy
CPT/HCPCS: 81025; 45378; 43239; J2250; J2765; J2405; J2001; J3010; J2704; 88305

== ENCOUNTER → 2023-09-27 | Day surgery (SDC) | payer OTHER ==
[2023-09-27] MEDS: SIMETHICONE 40 MG/0.6 ML DROPS 2,000 MG/30 ML BOTTLE PO ONE ×2 (07:08→07:10)
[2023-09-27 07:14] VITALS: BP 111/56; PULSE 74; RESP 14; TEMP 97.2
== END ==
LOC: ORWHC2ENDO 06:25
PROVIDERS: ATTEND Internal Medicine Gastroenterology
DX: D63.8 Anemia in other chronic diseases classified elsewhere (principal)
CPT/HCPCS: 91110

== ENCOUNTER → 2024-01-14 | Outpatient (CLI) | payer OTHER ==
--- NOTE | 2024-01-15 08:22 | CA ---
Transthoracic Echo Report Name: Wilmer Mendoza Age: 43 Gender: F : 1980 Exam Date: 01/14/2024 18:03 Exam Location: [place] Ht (in): 65 Wt (lb): 137 Ordering Physician: Yonny Nettles MD Attending/Referring Phys: Yarder Operator Mallory Yang RDCS Procedure CPT: Indications: I50.22[place] heart failure, aortic insufficiency Cardiac Hx: Technical Quality: Good Contrast 1: Total Dose (mL): Contrast 2: Total Dose (mL): MEASUREMENTS (Male / Female) Normal Values 2D ECHO LV Diastolic Diameter PLAX 4.6 cm 4.2 - 5.9 / 3.9 - 5.3 cm LV Systolic Diameter PLAX 3.1 cm IVS Diastolic Thickness 0.9 cm 0.6 - 1.0 / 0.6 - 0.9 cm LVPW Diastolic Thickness 1.2 cm 0.6 - 1.0 / 0.6 - 0.9 cm LV Relative Wall Thickness 0.4 LVOT Diameter 1.9 cm LV Diastolic Volume MOD BP 151.7 cm??? 67 - 155 / 56 - 104 cm??? LV Systolic Volume MOD BP 65.6 cm??? 22 - 58 / 19 - 49 cm??? LV Ejection Fraction MOD BP 56.8 % >= 55 % LV Cardiac Index MOD BP 4273.5 cm???/min???m??? LV Diastolic Volume MOD 4C 158.6 cm??? LV Systolic Volume MOD 4C 81.5 cm??? LV Ejection Fraction MOD 4C 48.6 % LV Cardiac Index MOD 4C 3821.9 cm???/min???m??? LV Diastolic Length 4C 8.7 cm LV Systolic Length 4C 7.7 cm LV Diastolic Volume MOD 2C 142.7 cm??? LV Systolic Volume MOD 2C 53.1 cm??? LV Ejection Fraction MOD 2C 62.8 % LV Cardiac Index MOD 2C 4446.3 cm???/min???m??? LV Diastolic Length 2C 8.8 cm LV Systolic Length 2C 7.7 cm LA Volume 45.9 cm??? 18 - 58 / 22 - 52 cm??? LA Volume Index 27.1 cm???/m??? 16 - 28 cm???/m??? DOPPLER AV Peak Velocity 304.2 cm/s AV Peak Gradient 37.0 mmHg AV Mean Velocity 207.1 cm/s AV Mean Gradient 19.7 mmHg AV Velocity Time Integral 65.5 cm AI Peak Velocity 443.3 cm/s AI Peak Gradient 78.6 mmHg AI Pressure Half Time 293.9 ms LVOT Peak Velocity 181.5 cm/s LVOT Peak Gradient 13.2 mmHg LVOT Velocity Time Integral 37.3 cm LVOT Stroke Volume 106.2 cm??? LVOT Stroke Volume Index 63.0 ml/m??? LVOT Cardiac Index 5269.3 cm???/min???m??? AV Area Cont Eq vti 1.6 cm??? AV Area Cont Eq pk 1.7 cm??? TR Peak Velocity 211.3 cm/s TR Peak Gradient 17.9 mmHg Right Atrial Pressure 5.0 mmHg Pulmonary Artery Systolic Pressu 22.9 mmHg Right Ventricular Systolic Press 22.9 mmHg FINDINGS Left Ventricle Left ventricular ejection fraction is estimated at 50-55 %. Mildly increased posterior wall thickness. Severely increased left ventricular diastolic volume. Moderately increased left ventricular systolic volume. No obvious regional wall motion abnormalities. Right Ventricle Normal right ventricular size and function. Right ventricular systolic pressure within normal limits. Right Atrium Normal right atrial size. Left Atrium Normal left atrial size. Mitral Valve Prosthetic mitral valve. Mild regurgitation. Unable to estimate pressure due to significant aortic regurgitation. Aortic Valve Trileaflet aortic valve. Mild aortic stenosis. Severe aortic regurgitation. Unable to calculate flow reversals in the descending aorta or abdominal aorta. Tricuspid Valve Structurally normal tricuspid valve. No tricuspid stenosis. Mild tricuspid regurgitation. Pulmonic Valve Structurally normal pulmonic valve. No pulmonic stenosis. Trace pulmonic regurgitation. Pericardium No pericardial effusion. Aorta Normal size aortic root and proximal ascending aorta. CONCLUSIONS LVEF 50-55% LV DD 4.9 cm, LV SD 3.1 cm., normal LV cavity size, mild eccentric hypertrophy in posterior wall Severe Aortic regurgitation, central Prior prosthetic mitral valve , normally functioning No pericardial effusion. Normal RV size and function Previewed by: Dr Taco Heard (Electronically Signed) Final Date: 15 January 2024 08:21
== END | disposition home or self-care (01) ==
LOC: RADECHMAIN 17:59
PROVIDERS: ATTEND Family Medicine
DX: I50.22 Chronic systolic (congestive) heart failure (principal); I35.1 Nonrheumatic aortic (valve) insufficiency; Z95.2 Presence of prosthetic heart valve; R06.9 Unspecified abnormalities of breathing; K92.2 Gastrointestinal hemorrhage, unspecified
CPT/HCPCS: 93306

== ENCOUNTER 2024-02-23 10:59 | Observation (INO) | payer OTHER ==
[2024-02-23] MEDS: MORPHINE SULFATE 4 MG/ML SYRINGE IVP STA (12:19)
--- NOTE | 2024-02-23 12:35 | XR ---
EXAMINATION TYPE: XR chest 2V DATE OF EXAM: 02/23/2024 COMPARISON: 03/28/2023 TECHNIQUE: PA and lateral views submitted. HISTORY: Elevated heart rate FINDINGS: The lungs are clear and there is no pneumothorax, pleural effusion, or focal pneumonia. Heart size normal and no overt failure. Osseous structures demonstrate hypertrophic and degenerative changes of the spine. Elevated heart rate sternotomy changes and previously cardiac valve surgery. Surgical clip s gallbladder fossa. IMPRESSION: 1. No acute process. [facility], , 02/23/2024 12:33 PM
[2024-02-23 12:38] LABS: Anisocytosis Marked; Basophils % (A) 0 %; Eosinophils # (A) 0.1 k/uL (0-0.7); Eosinophils % (A) 1 %; Hypochromasia Marked; Lymphocytes % (A) 17 %; MCH 22.2 pg (25.0-35.0); MCHC 28.9 g/dL (31.0-37.0); MCV 76.7 fL (80.0-100.0); Mean Platelet Volume 7.6; Microcytosis Marked; Monocytes # (A) 0.3 k/uL (0-1.0); Monocytes % (A) 4 %; Neutrophils # (A) 4.6 k/uL (1.3-7.7); Neutrophils % (A) 76 %; Platelet Count 574 k/uL (150-450); Poikilocytosis Moderate; RBC 2.42 m/uL (3.80-5.40)
[2024-02-23 12:47] LABS: ALT 11 U/L (4-34); AST 23 U/L (14-36); African American GFR (CKD) >90 (>60 ml/min/1.73 sqM); Albumin 3.1 g/dL (3.5-5.0); Alkaline Phosphatase 70 U/L (38-126); Anion Gap 7 mmol/L; Blood Urea Nitrogen 22 mg/dL (7-17); Calcium 7.9 mg/dL (8.4-10.2); Carbon Dioxide 14 mmol/L (22-30); Chloride 118 mmol/L (98-107); Glucose 128 mg/dL (74-99); Non-African American GFR(CKD) >90 (>60 ml/min/1.73 sqM); Potassium 3.5 mmol/L (3.5-5.1); Sodium 139 mmol/L (137-145); Total Bilirubin 0.3 mg/dL (0.2-1.3); Total Protein 5.5 g/dL (6.3-8.2)
[2024-02-23 12:49] LABS: HCT 18.6 % (34.0-46.0); HGB 5.4 gm/dL (11.4-16.0); RDW 25.9 % (11.5-15.5)
[2024-02-23 12:55] LABS: NT-Pro-B-Type Natriuretic Pept 928 pg/mL
[2024-02-23 12:56] LABS: INR 3.2 (<1.2); Partial Thromboplastin Time 31.6 sec (22.0-30.0); Prothrombin Time 31.8 sec (10.0-12.5)
--- NOTE | 2024-02-23 14:34 | CT ---
EXAMINATION TYPE: CT angio abdomen pelvis CT DLP: 1314 mGycm, Automated exposure control for dose reduction was used. DATE OF EXAM: 02/23/2024 2:09 PM Comparison: ct abdomen and pelvis 12/26/2016 CLINICAL INDICATION:Female, 43 years old with history of GI bleed protocol; GI Bleed TECHNIQUE: Multiple thin slice sub-millimeter images were obtained through the abdomen and pelvis bef ore and after administration of contrast. Patient was given Isovue 370, 100 cc intravenously. 3-D r econstructed images and maximum intensity projection images were obtained of the abdomen and pelvis. FINDINGS: CTA Abdomen and pelvis: The abdominal aorta does not demonstrate aneurysmal dilatation. Atherosclero tic plaquing is identified within the abdominal aorta. The origins of the superior mesenteric artery , renal arteries, inferior mesenteric artery, and celiac axis are patent. There are 2 left renal luana kimberley. The iliac vessels are normal in morphology. Atherosclerotic plaquing with some mural thrombus formation is identified in the common iliac arteries. VISCERA: The liver, spleen, adrenal glands, kidneys, pancreas, and gallbladder are not optimally enha nced due the arterial phase utilized. LIVER: Unremarkable GALLBLADDER AND BILE DUCTS: The gallbladder is surgically absent. No biliary duct dilatation. PANCREAS: Unremarkable. SPLEEN: Unremarkable. ADRENAL GLANDS: Unremarkable. KIDNEYS AND URETERS: No evidence of hydronephrosis . Punctate nonobstructive left renal calculus. PELVIS BLADDER: Unremarkable REPRODUCTIVE: Unremarkable. ABDOMEN & PELVIS STOMACH AND BOWEL: Post surgical changes at the GE junction from suspected hernia repair.No focal bow el wall thickening or surrounding inflammatory changes. Hyperdense stool identified within the distal colon and rectum on noncontrast imaging. This limits evaluation. No focal significantly high density identified within the bowel. No evidence of bowel obstruction. PERITONEUM: No evidence of pneumoperitoneum or free fluid. MUSCULOSKELETAL: No acute osseous abnormalities LYMPH NODES: No evidence for lymphadenopathy. SOFT TISSUE/ABDOMINAL WALL: Right gluteal soft tissue calcified granuloma. LOWER CHEST: Median sternotomy wires. Suggested mitral annulus postsurgical change. Bilateral lower l obe dependent atelectasis. Right lower lobe pulmonary cyst. No pericardial effusion. IMPRESSION: 1. No definitive CTA evidence for acute GI bleed however evaluation is significantly limited due to intrinsic hyperdense stool within the distal colon and rectum. 2. No evidence of vascular occlusion or abdominal aortic aneurysm. Mild to moderate atherosclerotic calcification of the aorta and its branches. 3. Nonobstructive left renal calculus. [facility], , 02/23/2024 2:32 PM
[2024-02-23] MEDS ORDERED: NALOXONE 0.4 MG/ML 1 ML VIAL IV PRN (14:44)
[2024-02-23] MEDS ORDERED: ONDANSETRON 4 MG/2 ML VIAL IVP PRN (14:44)
--- NOTE | 2024-02-23 14:44 | ED ---
General Adult HPI - General Chief complaint: Shortness of Breath Stated complaint: Cardiac issues Time Seen by Provider: 02/23/24 12:40 Source: patient, family, RN notes reviewed, old records reviewed Mode of arrival: ambulatory Limitations: no limitations - History of Present Illness Initial comments: Patient is a 43-year-old female who presents emergency department complaining of chest pain. She is also complaining of some mild headaches. Endorses exertional shortness of breath. No significant lower extremity swelling. Denies any obvious source of bleeding including denying hematemesis, hemoptysis, melena, dark tarry stools. States she is having light brown stools. Previously has had a GI bleed and she felt the same way before when her hemoglobin was low. Patient states that recently she completed a course of dysfunctional uterine bleeding that lasted for approximately 1 month. She has been having symptoms for over a week but no longer is having any vaginal bleeding at this time. Denies abdominal pain. Endorses chest pain with exertion. Endorses shortness of breath with exertion. She is on Coumadin and has a history of chemical valve replacement in addition to asthma, hyperlipidemia, mitral valve prolapse. Pres ents for further evaluation at this time. - Related Data Home Medications Medication Instructions Recorded Confirmed Aspirin EC [Ecotrin Low Dose] 162 mg PO HS 01/13/16 02/23/24 Dicyclomine [Bentyl] 60 mg PO HS 01/13/16 02/23/24 Montelukast [Singulair] 10 mg PO HS 01/13/16 02/23/24 Albuterol Sulfate [Proair Hfa] 2 puff INHALATION RT-Q4H PRN 02/01/21 02/23/24 Warfarin [Coumadin] 7.5 mg PO HS 02/01/21 02/23/24 Hydrocodone/Acetaminophen 1 tab PO TID 07/14/23 02/23/24 [Hydrocodone/Acetaminophen 7.5-325] tiZANidine [Zanaflex] 4 mg PO TID 07/14/23 02/23/24 Metoprolol Tartrate [Lopressor] 25 mg PO BID 09/24/23 02/23/24 Amitriptyline HCl [Elavil] 50 mg PO HS 02/23/24 02/23/24 Furosemide [Lasix] 40 mg PO DAILY PRN 02/23/24 02/23/24 Pantoprazole [Protonix] 40 mg PO HS 02/23/24 02/23/24 Rizatriptan Odt [Maxalt Court Monitor] 10 mg PO BID PRN 02/23/24 02/23/24 Allergies Allergy/AdvReac Type Severity Reaction Status Date / Time adhesive tape Allergy Itching Verified 02/23/24 14:43 corn Allergy Allergy Verified 02/23/24 14:43 testing Review of Systems ROS Statement: Those systems with pertinent positive or pertinent negative responses have been documented in the HPI. Review of Systems: CONST: Denies fever EYES: Denies blurry vision ENT: Denies nasal congestion C/V: Endorses chest pain RESP: Endorses shortness of breath GI: Denies abdominal pain : Denies dysuria SKIN: Denies rash. MSK: Denies joint pain. NEURO: Denies headache ROS Other: All systems not noted in ROS Statement are negative. Past Medical History Past Medical History: Asthma, GERD/Reflux, GI Bleed, Hyperlipidemia, Mitral Valve Prolapse (MVP), Musculoskeletal Disorder, Osteoarthritis (OA) Additional Past Medical History / Comment(s): Mitral regurgitation with mitral valve replacement. IBS and Colitis. Migraines, hiatal hernia, anemia. Spinal Stenosis, Degenerative Disc Disease. episode of heart racing in August-was hospitalized in [place], . thinks related to GI bleeding in small colon, put on metoprolol-much better, weight loss History of Any Multi-Drug Resistant Organisms: None Reported Past Surgical History: Cardiac Valve Replacement, Cholecystectomy, Heart Catheterization, Hernia Repair, Tubal Ligation Additional Past Surgical History / Comment(s): Mitral valve replacement with mechanical valve 2013. EGC/colonoscopy in July, recent EGD in August in [place] Past Anesthesia/Blood Transfusion Reactions: Motion Sickness, Postoperative Naus ea & Vomiting (PONV) Past Psychological History: ADD/ADHD, Anxiety, Depression Smoking Status: Current every day smoker Past Alcohol Use History: None Reported Past Drug Use History: None Reported - Past Family History Mother Family Medical History: Cancer Additional Family Medical History / Comment(s): LUNG CANCER. Father Family Medical History: Cancer Additional Family Medical History / Comment(s): COLON CANCER. General Exam - General Exam Comments Initial Comments: General: Appears in no acute distress. HEAD: Normal with no signs of head trauma. EYES: PERRLA, EOMI, conjunctiva normal, no discharge. ENT: Hearing grossly intact, normal oropharynx. RESPIRATORY: Clear breath sounds bilaterally. No wheezes, rales, or rhonchi. C/V: Regular rate and rhythm. S1 and S2 auscultated, no edema, peripheral pulses 2+ and intact throughout ABD: Abd is soft, nontender, nondistended. Rectal exam unremarkable. Uncomplicated external hemorrhoid present. No gross blood per rectum. Light brown stool. Occult sent. Performed in the presence of a female staff member. EXT: Normal range of motion, no obvious deformity SKIN: No rashes or lesions observed on exposed skin. NEURO: Alert and oriented x 4. Limitations: no limitations Course Vital Signs 02/23/24 02/23/24 11:16 14:45 Temperature 98.2 F 98.3 F Pulse Rate 95 101 H Respiratory 18 16 Rate Blood Pressure 110/68 91/48 O2 Sat by Pulse 98 100 Oximetry Medical Decision Making - Medical Decision Making Was pt. sent in by a medical professional or institution (, PA, SENIOR TELLER, urgent care, hospital, or alf...) When possible be specific @ -No Did you speak to anyone other than the patient for history (EMS, parent, family, police, friend...)? What history was obtained from this source @ -No Did you review nursing and triage notes (agree or disagree)? Why? @ -I reviewed and agree with nursing and triage notes Were old charts reviewed (outside hosp., previous admission, EMS record, old EKG, old radiological studies, urgent care reports/EKG's, alf records)? Report findings @ -Old charts reviewed including medication list confirmed patient is on Coumadin Differential Diagnosis (chest pain, altered mental status, abdominal pain women, abdominal pain men, vaginal bleeding, weakness, fever, dyspnea, syncope, headache, dizziness, GI bleed, back pain, seizure, CVA, palpatations, mental health, musculoskeletal)? @ -Differential Chest Pain: Stable Angina, Unstable Angina, STEMI, NSTEMI Aortic Dissection, Pneumothorax, Musculoskeletal, Esophageal Spasm GERD, Cholecystitis, Pancreatitis, Zoster, this is not meant to be an all-inclusive list. EKG interpreted by me (3pts min.). @ -As above X-rays interpreted by me (1pt min.). @ -Chest x-ray reveals no obvious acute cardiopulmonary process. CT interpreted by me (1pt min.). @ -CT angiogram GI bleed protocol of the abdomen and pelvis reveals no evidence of obvious active GI bleed. Stool present. U/S interpreted by me (1pt. min.). @ -None done What testing was considered but not performed or refused? (CT, X-rays, U/S, labs)? Why? @ -None What meds were considered but not given or refused? Why? @ -Considered vitamin K as well as reversal therapy for Coumadin however patient does not appear to be having an active GI bleed based on workup and therefore this will be held at this time. Did you discuss the management of the patient with other professionals (didi tamez i.e. , PA, SENIOR TELLER, lab, RT, psych nurse, social insurance administrator, grocery team member, teacher, loan service officer, classification case manager)? Give summary @ -Discussed with the admitting provider, Dr. Ward who accepted the admission. Was smoking cessation discussed for >3mins.? @ -No Was critical care preformed (if so, how long)? @ -No Were there social determinants of health that impacted care today? How? (Homelessness, low income, unemployed, alcoholism, drug addiction, transportation, low edu. Level, literacy, decrease access to med. care, skilled nursing, rehab)? @ -No Was there de-escalation of care discussed even if they declined (Discuss DNR or withdrawal of care, Hospice)? DNR status @ -No What co-morbidities impacted this encounter? (DM, HTN, Smoking, COPD, CAD, Cancer, CVA, ARF, Chemo, Hep., AIDS, mental health diagnosis, sleep apnea, morbid obesity)? @ -None Was patient admitted / discharged? Hospital course, mention meds given and route, prescriptions, significant lab abnormalities, going to OR and other pert inent info. @ -Patient presents with chest pain and shortness of breath. Concerned she may be anemic. Previously has a history of GI bleed but denies any GI bleed symptoms currently. Exam is unremarkable including rectal exam showing normal light brown stool with no gross blood. Will obtain GI bleed workup as well as CT angiogram of the abdomen pelvis to rule out GI bleed. Patient was in agr eement this plan. EKG shows no signs of acute ischemia. Imaging shows no evidence of GI bleed at this time that is obvious. Chest x-ray unremarkable. EKG unremarkable. Laboratory studies show a microcytic anemia with a hemoglobin of 5.4. INR is therapeutic for the patient at 3.2. Troponin undetectable. Occult blood negative. On reevaluation, patient is receiving her first of 2 units of packed red blood cells that I ordered. As there is no clear evidence of GI bleed, and I do suspect that her anemia may be related to her extensive dysfunctional uterine bleeding that she experienced but currently is not experiencing. No active bleeding at this time that can be discerned. I believe is safe for the patient to remain at our facility. She was in agreement this plan. I did discuss the case with Dr. Ward who was in agreement with this plan as well. He requested surgery consult. Cardiology will also be consulted. Will trend the troponins. Undiagnosed new problem with uncertain prognosis? @ -No Drug Therapy requiring intensive monitoring for toxicity (Heparin, Nitro, Insulin, Cardizem)? @ -No Were any procedures done? @ -No Diagnosis/symptom? @ -Symptomatic anemia, chest pain Acute, or Chronic, or Acute on Chronic? @ -Acute Uncomplicated (without systemic symptoms) or Complicated (systemic symptoms)? @ -Complicated Side effects of treatment? @ -No Exacerbation, Progression, or Severe Exacerbation? @ -No Poses a threat to life or bodily function? How? (Chest pain, USA, AR, pneumonia, PE, COPD, DKA, ARF, appy, cholecystitis, CVA, Diverticulitis, Homicidal, Mikaela cidal, threat to staff... and all critical care pts) @ -Potentially, yes - Lab Data Result diagrams: 02/23/24 12:14 02/23/24 12:14 Lab Results 02/23/24 02/23/24 02/23/24 Range/Units 12:14 12:14 12:14 WBC 6.0 (3.8-10.6) k/uL RBC 2.42 L (3.80-5.40) m/uL Hgb 5.4 L* (11.4-16.0) gm/dL Hct 18.6 L* (34.0-46.0) % MCV 76.7 L (80.0-100.0) fL MCH 22.2 L (25.0-35.0) pg MCHC 28.9 L (31.0-37.0) g/dL RDW 25.9 H (11.5-15.5) % Plt Count 574 H (150-450) k/uL MPV 7.6 Neutrophils % 76 % Lymphocytes % 17 % Monocytes % 4 % Eosinophils % 1 % Basophils % 0 % Neutrophils # 4.6 (1.3-7.7) k/uL Lymphocytes # 1.0 (1.0-4.8) k/uL Monocytes # 0.3 (0-1.0) k/uL Eosinophils # 0.1 (0-0.7) k/uL Basophils # 0.0 (0-0.2) k/uL Hypochromasia Marked Poikilocytosis Moderate Anisocytosis Marked Microcytosis Marked PT 31.8 H (10.0-12.5) sec INR 3.2 H (<1.2) APTT 31.6 H (22.0-30.0) sec Sodium 139 (137-145) mmol/L Potassium 3.5 (3.5-5.1) mmol/L Chloride 118 H (98-107) mmol/L Carbon Dioxide 14 L (22-30) mmol/L Anion Gap 7 mmol/L BUN 22 H (7-17) mg/dL Creatinine 0.75 (0.52-1.04) mg/dL Est GFR (CKD-EPI)AfAm >90 (>60 ml/min/1.73 sqM) Est GFR (CKD-EPI)NonAf >90 (>60 ml/min/1.73 sqM) Glucose 128 H (74-99) mg/dL Plasma Lactic Acid Rodrick (0.7-2.0) mmol/L Calcium 7.9 L (8.4-10.2) mg/dL Magnesium 2.0 (1.6-2.3) mg/dL Total Bilirubin 0.3 (0.2-1.3) mg/dL AST 23 (14-36) U/L ALT 11 (4-34) U/L Alkaline Phosphatase 70 (38-126) U/L Troponin I (0.000-0.034) ng/mL NT-Pro-B Natriuret Pep 928 pg/mL Total Protein 5.5 L (6.3-8.2) g/dL Albumin 3.1 L (3.5-5.0) g/dL Stool Occult Blood (Negative) Influenza Type A (PCR) (Not Detectd) Influenza Type B (PCR) (Not Detectd) RSV (PCR) (Not Detectd) SARS-CoV-2 (PCR) (Not Detectd) Blood Type Blood Type Recheck Bld Type Recheck Status Antibody Screen Crossmatch Spec Expiration Date 02/23/24 02/23/24 02/23/24 Range/Units 12:14 12:14 12:14 WBC (3.8-10.6) k/uL RBC (3.80-5.40) m/uL Hgb (11.4-16.0) gm/dL Hct (34.0-46.0) % MCV (80.0-100.0) fL MCH (25.0-35.0) pg MCHC (31.0-37.0) g/dL RDW (11.5-15.5) % Plt Count (150-450) k/uL MPV Neutrophils % % Lymphocytes % % Monocytes % % Eosinophils % % Basophils % % Neutrophils # (1.3-7.7) k/uL Lymphocytes # (1.0-4.8) k/uL Monocytes # (0-1.0) k/uL Eosinophils # (0-0.7) k/uL Basophils # (0-0.2) k/uL Hypochromasia Poikilocytosis Anisocytosis Microcytosis PT (10.0-12.5) sec INR (<1.2) APTT (22.0-30.0) sec Sodium (137-145) mmol/L Potassium (3.5-5.1) mmol/L Chloride (98-107) mmol/L Carbon Dioxide (22-30) mmol/L Anion Gap mmol/L BUN (7-17) mg/dL Creatinine (0.52-1.04) mg/dL Est GFR (CKD-EPI)AfAm (>60 ml/min/1.73 sqM) Est GFR (CKD-EPI)NonAf (>60 ml/min/1.73 sqM) Glucose (74-99) mg/dL Plasma Lactic Acid Rodrick 1.3 (0.7-2.0) mmol/L Calcium (8.4-10.2) mg/dL Magnesium (1.6-2.3) mg/dL Total Bilirubin (0.2-1.3) mg/dL AST (14-36) U/L ALT (4-34) U/L Alkaline Phosphatase (38-126) U/L Troponin I <0.012 (0.000-0.034) ng/mL NT-Pro-B Natriuret Pep pg/mL Total Protein (6.3-8.2) g/dL Albumin (3.5-5.0) g/dL Stool Occult Blood (Negative) Influenza Type A (PCR) Not Detected (Not Detectd) Influenza Type B (PCR) Not Detected (Not Detectd) RSV (PCR) Not Detected (Not Detectd) SARS-CoV-2 (PCR) Not Detected (Not Detectd) Blood Type Blood Type Recheck Bld Type Recheck Status Antibody Screen Crossmatch Spec Expiration Date 02/23/24 02/23/24 Range/Units 12:50 12:50 WBC (3.8-10.6) k/uL RBC (3.80-5.40) m/uL Hgb (11.4-16.0) gm/dL Hct (34.0-46.0) % MCV (80.0-100.0) fL MCH (25.0-35.0) pg MCHC (31.0-37.0) g/dL RDW (11.5-15.5) % Plt Count (150-450) k/uL MPV Neutrophils % % Lymphocytes % % Monocytes % % Eosinophils % % Basophils % % Neutrophils # (1.3-7.7) k/uL Lymphocytes # (1.0-4.8) k/uL Monocytes # (0-1.0) k/uL Eosinophils # (0-0.7) k/uL Basophils # (0-0.2) k/uL Hypochromasia Poikilocytosis Anisocytosis Microcytosis PT (10.0-12.5) sec INR (<1.2) APTT (22.0-30.0) sec Sodium (137-145) mmol/L Potassium (3.5-5.1) mmol/L Chloride (98-107) mmol/L Carbon Dioxide (22-30) mmol/L Anion Gap mmol/L BUN (7-17) mg/dL Creatinine (0.52-1.04) mg/dL Est GFR (CKD-EPI)AfAm (>60 ml/min/1.73 sqM) Est GFR (CKD-EPI)NonAf (>60 ml/min/1.73 sqM) Glucose (74-99) mg/dL Plasma Lactic Acid Rodrick (0.7-2.0) mmol/L Calcium (8.4-10.2) mg/dL Magnesium (1.6-2.3) mg/dL Total Bilirubin (0.2-1.3) mg/dL AST (14-36) U/L ALT (4-34) U/L Alkaline Phosphatase (38-126) U/L Troponin I (0.000-0.034) ng/mL NT-Pro-B Natriuret Pep pg/mL Total Protein (6.3-8.2) g/dL Albumin (3.5-5.0) g/dL Stool Occult Blood Negative (Negative) Influenza Type A (PCR) (Not Detectd) Influenza Type B (PCR) (Not Detectd) RSV (PCR) (Not Detectd) SARS-CoV-2 (PCR) (Not Detectd) Blood Type A Positive Blood Type Recheck A Pos Bld Type Recheck Status No Antibody Screen NEGATIVE Crossmatch See Detail Spec Expiration Date 02/26/20242349 - EKG Data -: EKG Interpreted by Me EKG Comments: 12-lead Electrocardiogram Interpretation Note EKG was reviewed and interpreted by myself. 12-lead ECG performed at 1206 is interpreted by me as revealing normal sinus rhythm at a rate of 93 beats per minute. Bronson is normal. ID interval is 175 ms, QRS durations 84 ms, QTc is 402 ms.. There were no ST or T wave abnormalities to suggest myocardial ischemia or injury. R wave progression across the precordium was satisfactory. By my interpretation this EKG is non-diagnostic for acute ischemia. Disposition Clinical Impression: Symptomatic anemia, Chest pain Disposition: ADMITTED IP TO THIS HOSP Condition: Stable Referrals: Yonny Nettles MD [Primary Care Provider] - 1-2 days Time of Disposition: 14:44
[2024-02-23] MEDS ORDERED: ALBUTEROL NEBULIZED 2.5 MG/3 ML INHALATION PRN (14:56)
[2024-02-23] MEDS: MORPHINE SULFATE 4 MG/ML SYRINGE IVP PRN (15:23)
[2024-02-23 15:36] LABS: Appearance,Urine Clear (Clear); Bacteria,Urine Occasional /hpf; Bilirubin,Urine Negative (Negative); Blood,Urine Moderate (Negative); Color,Urine Colorless; Glucose,Urine (UA) Negative (Negative); Ketones,Urine Negative (Negative); Leukocyte Esterase,Urine Negative (Negative); Nitrite,Urine Negative (Negative); PH, Urine 5.5 (5.0-8.0); Protein,Urine Trace (Negative); RBC,Urine 5 /hpf (0-5); Squamous Epithelial Cell,Urine 5 /hpf (0-4); Urobilinogen,Urine <2.0 mg/dL (<2.0); WBC,Urine 1 /hpf (0-5)
[2024-02-23 15:45] LABS: Specific Gravity,Urine >1.050 (1.001-1.035)
[2024-02-23] MEDS: ACETAMINOPHEN TAB 325 MG TAB PO PRN (18:20)
[2024-02-23] MEDS: ASPIRIN 81 MG PO SCH (20:37)
[2024-02-23] MEDS: AMITRIPTYLINE HCL 50 MG TAB PO SCH (20:37)
[2024-02-23] MEDS: METOPROLOL TARTRATE 25 MG TAB PO SCH (20:37)
[2024-02-23] MEDS: PANTOPRAZOLE 40 MG TABLET PO SCH (20:37)
[2024-02-23] MEDS: tiZANidine 4 MG TAB PO SCH (20:37)
[2024-02-23] MEDS: DICYCLOMINE 20 MG TAB PO SCH (21:58)
--- NOTE | 2024-02-23 23:04 | HP ---
HISTORY AND PHYSICAL CHIEF COMPLAINT: Anemia as well as weakness and some chest pain. HISTORY OF PRESENT ILLNESS: This is a 43-year-old woman with a past medical history of anemia, history of asthma, hyperlipidemia, mitral valve prolapse, followed by Dr. Ruperto Camarillo in the outpatient setting, complaining of severe weakness and anemia. Hemoglobin was found to be 5.4. The patient also had menometrorrhagia just February 2 weeks ago. There is no history of any GI bleed. The patient was seen by Dr. Campa yesterday and 2 units of transfusion has been planned. INR is 3.2. The patient is on Coumadin for cardiac valve replacement. There is no history of any fever, rigors, or chills. PAST MEDICAL HISTORY: Reviewed include asthma, GI bleed, hyperlipidemia. Rest of the history and rest of the chart is also reviewed. HOME MEDICATIONS: Reviewed include Zanaflex. Doses are reviewed. Medications are not confirmed yet. ALLERGIES: Adhesive tape. FAMILY HISTORY: History of lung cancer. SOCIAL HISTORY: Current smoking. REVIEW OF SYSTEMS: Fourteen-point review is negative except as mentioned earlier. PHYSICAL EXAMINATION: VITAL SIGNS: Pulse is 95, blood pressure 110/64, respirations 18. HEENT: Conjunctivae normal. CARDIOVASCULAR: S1, S2. RESPIRATIONS: A few scattered rhonchi. ABDOMEN: Soft and nontender. NERVOUS SYSTEM: Nonfocal. LABORATORY DATA: Hemoglobin 5.4. ASSESSMENT: 1. Severe anemia, symptomatic, possibly iron deficiency secondary to genitourinary bleeding. 2. History of cardiac valve replacement, on Coumadin with INR 3.2. 3. Chest pain for evaluation. 4. Hyperlipidemia. 5. History of mitral valve prolapse. 6. Degenerative joint disease. 7. Multiple medical issues. RECOMMENDATIONS AND DISCUSSION: This is a 43-year-old woman presented with multiple complex medical issues, we will monitor the patient closely. I would recommend [address] angio of the abdomen and pelvis was noted. Otherwise, the patient is still undergoing workup in the ER. Discussed with the ER physician. Recommend admission with consultation with Surgery and as well as Cardiology. Prognosis guarded. Further recommendations to follow. See orders for further details. MMODL / IJN: [id number] /
[2024-02-23] MEDS: HYDROcodone/APAP 7.5-325MG 1 EACH TAB PO SCH (23:21)
[2024-02-23] MEDS: FUROSEMIDE 40 MG TAB PO PRN (23:21)
[2024-02-24] MEDS ORDERED: SUMAtriptan succinate 50 MG TAB PO PRN (06:32)
[2024-02-24 07:34] LABS: African American GFR (CKD) >90 (>60 ml/min/1.73 sqM); Anion Gap 2 mmol/L; Blood Urea Nitrogen 17 mg/dL (7-17); Carbon Dioxide 20 mmol/L (22-30); Chloride 115 mmol/L (98-107); Glucose 84 mg/dL (74-99); Non-African American GFR(CKD) >90 (>60 ml/min/1.73 sqM); Potassium 3.7 mmol/L (3.5-5.1); Sodium 137 mmol/L (137-145)
[2024-02-24 07:36] LABS: Anisocytosis Moderate; Basophils % (A) 0 %; Eosinophils # (A) 0.1 k/uL (0-0.7); Eosinophils % (A) 2 %; HCT 27.3 % (34.0-46.0); Hypochromasia Marked; Lymphocytes # (A) 2.1 k/uL (1.0-4.8); Lymphocytes % (A) 27 %; MCH 26.4 pg (25.0-35.0); Mean Platelet Volume 8.3; Microcytosis Moderate; Monocytes # (A) 0.6 k/uL (0-1.0); Monocytes % (A) 8 %; Neutrophils % (A) 63 %; Platelet Count 507 k/uL (150-450); Poikilocytosis Marked; RBC 3.31 m/uL (3.80-5.40); RDW 22.8 % (11.5-15.5); WBC 7.9 k/uL (3.8-10.6)
[2024-02-24 07:42] LABS: HGB 8.7 gm/dL (11.4-16.0); MCV 82.3 fL (80.0-100.0)
[2024-02-24 09:02] LABS: INR 1.3 (<1.2); Prothrombin Time 13.6 sec (10.0-12.5)
[2024-02-24] MEDS: BUTALB/APAP/CAFF 50-325-40MG TAB PO PRN (10:17)
--- NOTE | 2024-02-24 10:31 | P.CRDCN ---
History of Present Illness History of present illness: HISTORY OF PRESENT ILLNESS: This is a 43-year-old female with a past medical history significant for valvular heart disease with previous mechanical mitral valve replacement, anemia, and normal coronary arteries. Patient follows in the office with Dr. Campa. We have been asked to see the patient in consultation for chest pain. Patient examined at the bedside. Patient initially presented to the hospital with a chief complaint of shortness of breath. Patient reports she has been feeling short of breath and fatigued for the past few days. Patient currently denies chest pain or pressure. Patient's hemoglobin was found to be low at 5.4 on admission. She received 2 units RBCs. Repeat hemoglobin 8.7. Patient has had a longstanding history of anemia. She was evaluated by Dr. Yenny Campa earlier this year. Patient underwent EGD and colonoscopy on 07/16/2023 revealing antral gastritis and esophagitis with whitish plaques in the proximal esophagus. 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 Colonoscopy was within normal limits with no evidence of colorectal neoplasm. Patient also underwent small bowel capsule endoscopy revealing diffuse gastritis with some old blood in the antrum and normal small bowel mucosa with no evidence of active bleeding or small bowel angioectasia. Patient denies any recent signs of obvious bleeding. Patient does report that she was recently seen at [facility] as she was seeking a second opinion. She states that they recommended that she undergo aortic valve replacement. However nothing has been scheduled at this time. DIAGNOSTICS: - EKG reveals sinus mechanism with no signs of acute ischemia - Chest xray negative for acute process - Laboratory data: WBC 7.9. Hemoglobin 8.7. Platelet count 507. INR today 1.3. Sodium 137. Potassium 3.7. BUN 17. Creatinine 0.77. Troponin negative x 3. - Current home cardiac medications include Lasix 20 mg daily as needed, aspirin 162 mg at night, metoprolol tartrate 25 mg twice a day, and warfarin 7.5 mg at night - Most recent echocardiogram obtained in January 2024 revealing ejection fr action 50 to 55%, no obvious regional wall motion abnormalities, prosthetic mitral valve, mild mitral regurgitation, mild aortic stenosis, severe aortic regurgitation, mild tricuspid regurgitation - Cardiac catheterization history: 2012 revealing normal coronary arteries - Patient underwent Lexiscan stress test in June 2022 which was negative for ischemia REVIEW OF SYSTEMS: At the time of my exam: CONSTITUTIONAL: Denies fever or chills. HEENT: Denies blurred vision, vision changes, or eye pain. Denies hemoptysis CARDIOVASCULAR: Denies chest pain. Denies orthopnea. Denies PND. Denies pal pitations RESPIRATORY: Denies shortness of breath. GASTROINTESTINAL: Denies abdominal pain. Denies nausea or vomiting. HEMATOLOGIC: Reports history of anemia. Denies any obvious signs of bleeding. GENITOURINARY: Denies any blood in urine. SKIN: Denies pruitis. Denies rash. PHYSICAL EXAM: VITAL SIGNS: Reviewed. GENERAL: Well-developed in no acute distress. HEENT: Head is normocephalic. Pupils are equal, round. Sclerae anicteric. Mucous membranes of the mouth are moist. Neck supple. No JVD or thyromegaly LUNGS: Respirations even and unlabored. Lungs essentially clear to auscultation bilaterally. HEART: Regular rate and rhythm. S1 and S2 heard. Systolic murmur noted. ABDOMEN: Soft. Nondistended. Nontender. EXTREMITIES: Normal range of motion. No clubbing or cyanosis. Peripheral pul ses intact. No lower extremity edema NEUROLOGIC: Awake and alert. Oriented x 3. ASSESSMENT: Acute on chronic anemia, status post 2 units RBC transfusion History of EGD, colonoscopy, and small bowel capsule endoscopy, 2023 History of mechanical mitral valve replacement Chest pain, troponin negative x 3, secondary to severe anemia, no evidence of acute coronary syndrome Severe aortic regurgitation, following at [facility] Normal coronary arteries, per cardiac catheterization 2012 PLAN: An acute coronary event has been ruled out No need to repeat echocardiogram as this was performed last month Continue to transfuse as needed. RBC transfusions per internal medicine. Discontinue aspirin Patient with mechanical mitral valve. Patient is very high risk for developing thrombus on her valve if Coumadin is stopped. Patient needs to be continued on Coumadin with INR 2.5-3.5. Further recommendations pending patient course Nurse practitioner note has been reviewed by physician. Signing provider agrees with the documented findings, assessment, and plan of care documented by LINOLE[employer] FLOOR INSTALLER as a scribe. Past Medical History Past Medical History: Asthma, GERD/Reflux, GI Bleed, Hyperlipidemia, Mitral Valve Prolapse (MVP), Musculoskeletal Disorder, Osteoarthritis (OA) Additional Past Medical History / Comment(s): Mitral regurgitation with mitral valve replacement. IBS and Colitis. Migraines, hiatal hernia, anemia. Spinal Stenosis, Degenerative Disc Disease. episode of heart racing in August-was hospitalized in [place], pt. thinks related to GI bleeding in small colon, put on metoprolol-much better, weight loss History of Any Multi-Drug Resistant Organisms: None Reported Past Surgical History: Cardiac Valve Replacement, Cholecystectomy, Heart Catheterization, Hernia Repair, Tubal Ligation Additional Past Surgical History / Comment(s): Mitral valve replacement with mechanical valve 2013. EGC/colonoscopy in July, recent EGD in August in [place] Past Anesthesia/Blood Transfusion Reactions: Motion Sickness, Postoperative Nausea & Vomiting (PONV) Past Psychological History: ADD/ADHD, Anxiety, Depression Smoking Status: Current every day smoker Past Alcohol Use History: None Reported Additional Past Alcohol Use History / Comment(s): Smoker for 20 yrs, 1/2 PPD. Past Drug Use History: None Reported - Past Family History Mother Family Medical History: Cancer Additional Family Medical History / Comment(s): LUNG CANCER. Father Family Medical History: Cancer Additional Family Medical History / Comment(s): COLON CANCER. Medications and Allergies Home Medications Medication Instructions Recorded Confirmed Type Aspirin EC [Ecotrin Low Dose] 162 mg PO HS 01/13/16 02/23/24 History Dicyclomine [Bentyl] 60 mg PO HS 01/13/16 02/23/24 History Montelukast [Singulair] 10 mg PO HS 01/13/16 02/23/24 History Albuterol Sulfate [Proair Hfa] 2 puff INHALATION RT-Q4H PRN 02/01/21 02/23/24 History Warfarin [Coumadin] 7.5 mg PO HS 02/01/21 02/23/24 History Hydrocodone/Acetaminophen 1 tab PO TID 07/14/23 02/23/24 History [Hydrocodone/Acetaminophen 7.5-325] tiZANidine [Zanaflex] 4 mg PO TID 07/14/23 02/23/24 History Metoprolol Tartrate [Lopressor] 25 mg PO BID 09/24/23 02/23/24 History Amitriptyline HCl [Elavil] 50 mg PO HS 02/23/24 02/23/24 History Furosemide [Lasix] 40 mg PO DAILY PRN 02/23/24 02/23/24 History Pantoprazole [Protonix] 40 mg PO HS 02/23/24 02/23/24 History Rizatriptan Odt [Maxalt Telephone Lineman] 10 mg PO BID PRN 02/23/24 02/23/24 History Allergies Allergy/AdvReac Type Severity Reaction Status Date / Time adhesive tape Allergy Itching Verified 02/23/24 14:43 corn Allergy Allergy Verified 02/23/24 14:43 testing Physical Exam Vitals: Vital Signs Temp Pulse Pulse Resp BP BP Pulse Ox 02/24/24 08:00 97.8 F 73 14 91/50 100 02/24/24 04:10 78 16 101/58 100 02/23/24 23:35 68 16 105/64 100 02/23/24 21:56 97.7 F 81 90/54 81 L 02/23/24 20:10 98.1 F 85 16 91/52 100 02/23/24 19:11 98.4 F 89 101/53 100 02/23/24 18:51 98.6 F 93 117/57 100 02/23/24 18:42 98.5 F 88 99/54 100 02/23/24 18:13 97 16 107/58 100 02/23/24 17:14 97.5 F L 87 18 119/51 98 02/23/24 15:21 98 F 101 H 14 108/52 100 02/23/24 15:01 98 F 97 16 106/57 100 02/23/24 14:45 98.3 F 101 H 16 91/48 100 02/23/24 11:16 98.2 F 95 18 110/68 98 Intake and Output 02/23/24 02/24/24 02/24/24 22:59 06:59 14:59 Intake Total 660 20 118 Balance 660 20 118 Intake: IV 40 20 Invasive Line 1 20 10 Invasive Line 2 20 10 Oral 118 Blood Product 620 Rc As-1 Unit 310 [id number] Rc As-1 Unit 310 [id number] Other: Voiding Method Toilet Toilet Toilet # Voids 1 Weight 61.235 kg 59.1 kg Results 02/24/24 05:47 02/24/24 05:47 Cardiac Enzymes 02/23/24 02/23/24 02/23/24 Range/Units 12:14 12:14 17:29 AST 23 (14-36) U/L Troponin I <0.012 <0.012 (0.000-0.034) ng/mL 02/23/24 Range/Units 21:14 AST (14-36) U/L Troponin I <0.012 (0.000-0.034) ng/mL Coagulation 02/23/24 02/24/24 Range/Units 12:14 08:21 PT 31.8 H 13.6 H (10.0-12.5) sec APTT 31.6 H (22.0-30.0) sec CBC 02/23/24 02/24/24 Range/Units 12:14 05:47 WBC 6.0 7.9 (3.8-10.6) k/uL RBC 2.42 L 3.31 L (3.80-5.40) m/uL Hgb 5.4 L* 8.7 L D (11.4-16.0) gm/dL Hct 18.6 L* 27.3 L (34.0-46.0) % Plt Count 574 H 507 H (150-450) k/uL Comprehensive Metabolic Panel 02/23/24 02/24/24 Range/Units 12:14 05:47 Sodium 139 137 (137-145) mmol/L Potassium 3.5 3.7 (3.5-5.1) mmol/L Chloride 118 H 115 H (98-107) mmol/L Carbon Dioxide 14 L 20 L (22-30) mmol/L BUN 22 H 17 (7-17) mg/dL Creatinine 0.75 0.77 (0.52-1.04) mg/dL Glucose 128 H 84 (74-99) mg/dL Calcium 7.9 L 8.0 L (8.4-10.2) mg/dL AST 23 (14-36) U/L ALT 11 (4-34) U/L Alkaline Phosphatase 70 (38-126) U/L Total Protein 5.5 L (6.3-8.2) g/dL Albumin 3.1 L (3.5-5.0) g/dL Current Medications Generic Name Dose Route Start Last Admin Trade Name Freq PRN Reason Stop Dose Admin Acetaminophen 650 mg 02/23/24 14:44 02/24/24 06:18 Acetaminophen Tab 325 Mg Tab PO 650 mg Q6HR PRN Administration Mild Pain or Fever > 100.5 Hydrocodone Bitart/Acetaminophen 1 each 02/23/24 22:00 02/24/24 08:32 Hydrocodone/Apap 7.5-325mg 1 Each Tab PO 1 each TID KLAUDIA Administration Albuterol Sulfate 2.5 mg 02/23/24 14:56 Albuterol Nebulized 2.5 Mg/3 Ml INHALATION RT-Q4H PRN Shortness Of Breath Amitriptyline HCl 50 mg 02/23/24 21:00 02/23/24 20:37 Amitriptyline Hcl 50 Mg Tab PO 50 mg HS KLAUDIA Administration Aspirin 162 mg 02/23/24 21:00 02/23/24 20:37 Aspirin 81 Mg PO 162 mg HS KLAUDIA Administration Dicyclomine HCl 40 mg 02/23/24 21:00 02/23/24 21:58 Dicyclomine 20 Mg Tab PO 40 mg HS KLAUDIA Administration Furosemide 40 mg 02/23/24 14:56 02/23/24 23:21 Furosemide 40 Mg Tab PO 40 mg DAILY PRN Administration Edema Metoprolol Tartrate 25 mg 02/23/24 21:00 02/24/24 08:32 Metoprolol Tartrate 25 Mg Tab PO 25 mg BID KLAUDIA Administration Miscellaneous Information 1 each 02/24/24 08:07 Warfarin Per Pharmacy MISCELLANE DIRECTED PRN Per Protocol Protocol Morphine Sulfate 4 mg 02/23/24 15:20 02/24/24 03:57 Morphine Sulfate 4 Mg/Ml Syringe IVP 4 mg Q6HR PRN Administration Pain Naloxone HCl 0.2 mg 02/23/24 14:44 Naloxone 0.4 Mg/Ml 1 Ml Vial IV Q2M PRN Opioid Reversal Ondansetron HCl 4 mg 02/23/24 14:44 Ondansetron 4 Mg/2 Ml Vial IVP Q8HR PRN Nausea And Vomiting Pantoprazole Sodium 40 mg 02/23/24 21:00 02/23/24 20:37 Pantoprazole 40 Mg Tablet PO 40 mg HS KLAUDIA Administration Sumatriptan Succinate 100 mg 02/24/24 06:32 Sumatriptan Succinate 50 Mg Tab PO BID PRN Migraine Headache Tizanidine HCl 4 mg 02/23/24 22:00 02/24/24 08:32 Tizanidine 4 Mg Tab PO 4 mg TID KLAUDIA Administration Warfarin Sodium 7.5 mg 02/24/24 18:00 Warfarin 7.5 Mg Tab PO 02/24/24 18:01 ONCE@1800 ONE Intake and Output 02/23/24 02/24/24 02/24/24 22:59 06:59 14:59 Intake Total 660 20 118 Balance 660 20 118 Intake: IV 40 20 Invasive Line 1 20 10 Invasive Line 2 20 10 Oral 118 Blood Product 620 Rc As-1 Unit 310 [id number] Rc As-1 Unit 310 [id number] Other: Voiding Method Toilet Toilet Toilet # Voids 1 Weight 61.235 kg 59.1 kg 02/24/24 05:47 02/24/24 05:47
--- NOTE | 2024-02-24 10:42 | CT ---
EXAMINATION TYPE: CT brain wo con DATE OF EXAM: 02/24/2024 COMPARISON: 01/12/2016 HISTORY: Migraine CT DLP: 1045.4 mGycm. Automated Exposure Control for Dose Reduction was Utilized. TECHNIQUE: CT scan of the head is performed without contrast. FINDINGS: There is no acute intracranial hemorrhage, mass effect, or midline shift identified. The ventricles and sulci are within normal limits in size. The globes are intact and the visualized sin uses are clear. IMPRESSION: No acute intracranial hemorrhage, mass effect, or midline shift is seen. [facility], , 02/24/2024 10:39 AM
--- NOTE | 2024-02-24 11:22 | P.PN ---
Subjective Progress Note Date: 02/24/24 This is a pleasant 43-year-old female with medical history of a mechanical mitral valve anticoagulant with warfarin on an outpatient basis. Patient's INR was 3.2 she has been resumed on warfarin and currently her INR today is 1.3. Patient with no reports of hematemesis or rectal bleeding. She does report that she was recently on a menses cycle starting on February 08 she felt like it was lingering however at this time reports no further vaginal bleeding. Appears to be going through menopause has not received any gynecological care in quite some time per the patient. Urinalysis did show moderate hematuria. Per the patient there is no gross hematuria, appears to be only microscopic. Patient's he moglobin is up to 8.7 post 2 units of packed red blood cells. Iron studies and ferritin level have been checked and currently pending at this time. We did check a brain CT as patient is reporting a 9 out of 10 generalized migraine which feels as if her head is throbbing and pounding. She reports this came on when she was found to be anemic. A brain CT is negative for any acute bleeding or masslike effect no evidence of stroke. Neurology was consulted for further evaluation of the headache. Of note patient does have chronic migraines for which she receives Botox injections and is also on a combination of Elavil and Maxalt for these. She states that other than the headache she is experiencing right now she has not had any further episodes of headache recently. Most recently received a Botox injection 2 weeks ago follows with Dr. King with neurology up in [facility]. There is no GI services available for evaluation of the bleed this admission she does have a general surgery consultation and for further recommendations possibly upper and lower endoscopy. Review of Systems Constitutional: Denied any fatigue denied any fever. Cardio vascular: denied any chest pain, palpitations Gastrointestinal: denied any nausea, vomiting, diarrhea Pulmonary: Denied any shortness of breath cough Neurologic denied any new focal deficits; Reports Headache All inpatient medications were reviewed and appropriate changes in these medications as dictated in the interval history and assessment and plan. PHYSICAL EXAMINATION: GENERAL: The patient is alert and oriented x3, not in any acute distress. Well developed, well nourished. HEENT: Pupils are round and equally reacting to light. EOMI. No scleral icterus. No conjunctival pallor. Normocephalic, atraumatic. No pharyngeal erythema. No thyromegaly. CARDIOVASCULAR: S1 and S2 present. No murmurs, rubs, or gallops. PULMONARY: Chest is clear to auscultation, no wheezing or crackles. ABDOMEN: Soft, nontender, nondistended, normoactive bowel sounds. No palpable organomegaly. MUSCULOSKELETAL: No joint swelling or deformity. EXTREMITIES: No cyanosis, clubbing, or pedal edema. NEUROLOGICAL: Gross neurological examination did not reveal any focal deficits. SKIN: No rashes. Assessment Cephalgia under investigation Brain CT negative for bleed Acute on chronic anemia rule out iron deficiency. General surgery on for evalu ation. Pending Iron studies. Hemoglobin 8.7 s/p 2 units of PRBCs Mennorhagia likely exacerbated the Anemia. Currently bleeding has stopped. Recommending gynecological evaluation outpatient. Hematuria will need to repeat a urinalysis on an outpatient basis could have been false due to the recent mennorhagia. Hx of mechanical aortic valve anticoagulated with warfarin chronically Hyperlipidemia Hx of mitral valve prolapse with mechanical valve Degenerative joint disease Hx of migraine maintained on amitriptyline and receives botox injections Hx of asthma with no acute exacerbation GI bleed in the past Chronic nicotine use Anxiety/Depression GI prophylaxis: Protonix DVT prophylaxis: Warfarin Full Code Plan Check Iron studies/Ferritin level Hematology evaluation outpatient Neurology evaluation of the migraine. Brain CT negative General surgery evaluation of the anemia Transfuse blood for hemoglobin less than 7. Repeat blood work in the AM Continue pain management with norco, fioricet; morphine for the migraine. D/C home in the next 24 hours. The impression and plan of care has been dictated by Nurse Ursula Blair as directed. Dr. Rc MD I have performed a history and physical examination and medical decision making of this patient, discussed the same with the dictator, and agree with the dictators assessment and plan as written, documented as a scribe. Based on total visit time, I have performed more than 50% of this visit. The impression and plan of care has been dictated by Nurse Rossy Practitioner as directed. Dr. Rc MD I have performed a history and physical examination and medical decision making of this patient, discussed the same with the dictator, and agree with the dictators assessment and plan as written, documented as a scribe. Based on total visit time, I have performed more than 50% of this visit. Objective - Vital Signs Vital signs: Vital Signs Temp 97.8 F 02/24/24 08:00 Pulse 73 02/24/24 08:00 Resp 14 02/24/24 08:00 BP 91/50 02/24/24 08:00 Pulse Ox 100 02/24/24 08:00 FiO2 Intake & Output 02/23/24 02/24/24 02/24/24 18:59 06:59 18:59 Intake Total 310 370 118 Balance 310 370 118 Weight 61.235 kg 59.1 kg Intake: IV 60 Invasive Line 1 30 Invasive Line 2 30 Oral 118 Blood Product 310 310 Rc As-1 Unit 0 310 [id number] Rc As-1 Unit 310 [id number] Other: Voiding Method Toilet Toilet # Voids 1 - Labs CBC & Chem 7: 02/24/24 05:47 02/24/24 05:47 Labs: Abnormal Lab Results - Last 24 Hours (Table) 02/23/24 02/23/24 02/23/24 Range/Units 12:14 12:14 12:14 RBC 2.42 L (3.80-5.40) m/uL Hgb 5.4 L* (11.4-16.0) gm/dL Hct 18.6 L* (34.0-46.0) % MCV 76.7 L (80.0-100.0) fL MCH 22.2 L (25.0-35.0) pg MCHC 28.9 L (31.0-37.0) g/dL RDW 25.9 H (11.5-15.5) % Plt Count 574 H (150-450) k/uL PT 31.8 H (10.0-12.5) sec INR 3.2 H (<1.2) APTT 31.6 H (22.0-30.0) sec Chloride (98-107) mmol/L Carbon Dioxide (22-30) mmol/L BUN (7-17) mg/dL Glucose (74-99) mg/dL Calcium (8.4-10.2) mg/dL Total Protein (6.3-8.2) g/dL Albumin (3.5-5.0) g/dL Ur Specific [place] >1.050 H (1.001-1.035) Urine Protein Trace H (Negative) Urine Blood Moderate H (Negative) Ur Squamous Epith Cells 5 H (0-4) /hpf Urine Bacteria Occasional H (None) /hpf Crossmatch 02/23/24 02/23/24 02/24/24 Range/Units 12:14 12:50 05:47 RBC 3.31 L (3.80-5.40) m/uL Hgb 8.7 L D (11.4-16.0) gm/dL Hct 27.3 L (34.0-46.0) % MCV (80.0-100.0) fL MCH (25.0-35.0) pg MCHC (31.0-37.0) g/dL RDW 22.8 H (11.5-15.5) % Plt Count 507 H (150-450) k/uL PT (10.0-12.5) sec INR (<1.2) APTT (22.0-30.0) sec Chloride 118 H (98-107) mmol/L Carbon Dioxide 14 L (22-30) mmol/L BUN 22 H (7-17) mg/dL Glucose 128 H (74-99) mg/dL Calcium 7.9 L (8.4-10.2) mg/dL Total Protein 5.5 L (6.3-8.2) g/dL Albumin 3.1 L (3.5-5.0) g/dL Ur Specific [place] (1.001-1.035) Urine Protein (Negative) Urine Blood (Negative) Ur Squamous Epith Cells (0-4) /hpf Urine Bacteria (None) /hpf Crossmatch See Detail 02/24/24 02/24/24 Range/Units 05:47 08:21 RBC (3.80-5.40) m/uL Hgb (11.4-16.0) gm/dL Hct (34.0-46.0) % MCV (80.0-100.0) fL MCH (25.0-35.0) pg MCHC (31.0-37.0) g/dL RDW (11.5-15.5) % Plt Count (150-450) k/uL PT 13.6 H (10.0-12.5) sec INR 1.3 H (<1.2) APTT (22.0-30.0) sec Chloride 115 H (98-107) mmol/L Carbon Dioxide 20 L (22-30) mmol/L BUN (7-17) mg/dL Glucose (74-99) mg/dL Calcium 8.0 L (8.4-10.2) mg/dL Total Protein (6.3-8.2) g/dL Albumin (3.5-5.0) g/dL Ur Specific [place] (1.001-1.035) Urine Protein (Negative) Urine Blood (Negative) Ur Squamous Epith Cells (0-4) /hpf Urine Bacteria (None) /hpf Crossmatch Assessment and Plan Time with Patient: Less than 30
--- NOTE | 2024-02-24 13:03 | P.GSCN ---
History of Present Illness Consult date: 02/24/24 History of present illness: CHIEF COMPLAINT: Chest pain shortness of breath HISTORY OF PRESENT ILLNESS: This is a 43-year-old female who presented with chest pain, shortness of breath with exertion and headache. Patient reports that she has been feeling weak and dizzy. She reports that she has had all these similar symptoms when she was anemic in the past. Patient does have a known history of chronic anemia. Patient denies any blood in her stools. Denies any melanotic stools. Her last EGD and colonoscopy was in July 2023. Results were reviewed ported gastritis, esophagitis with white plaques and a normal colonoscopy. Patient also reports having a capsule endoscopy done in July and results were negative. Patient reports that she did have uterine ble eding for a month straight in January. She reports the bleeding was not heavy. Patient is on Coumadin for mitral mechanical heart valve. Patient had a hemoglobin of 5.4 on admission up to 8.7 after blood transfusion. Stool for occult blood was negative. Patient denies any abdominal pain. Denies any nausea or vomiting. PAST MEDICAL HISTORY: Severe aortic regurgitation, asthma, GERD/Reflux, GI Bleed, Hyperlipidemia, Mitral Valve Prolapse (MVP), Musculoskeletal Disorder, Osteoarthritis (OA), Mitral regurgitation with mitral valve replacement. IBS and Colitis. Migraines, hiatal hernia, anemia. Spinal Stenosis, Degenerative Disc Disease. episode of heart racing in August-was hospitalized in [facility]. thinks related to GI bleeding in small colon, put on metoprolol-much better, weight loss, anxiety, depression, ADHD PAST SURGICAL HISTORY: Mitral Valve Replacement with mechanical valve in 2013, Cholecystectomy, Heart Catheterization, Hernia Repair, Tubal Ligation MEDICATIONS: See below ALLERGIES: See below SOCIAL HISTORY: No illicit drug use. REVIEW OF SYSTEMS: CONSTITUTIONAL: Denies fever or chills. HEENT: Denies blurred vision, vision changes, or eye pain. Denies hemoptysis CARDIOVASCULAR: Denies chest pain or pressure. RESPIRATORY: No shortness of breath. GASTROINTESTINAL: See HPI for pertinent findings HEMATOLOGIC: Denies bleeding disorders. GENITOURINARY: Denies any blood in urine or increased urinary frequency. SKIN: Denies pruitis. Denies rash. PHYSICAL EXAM: VITAL SIGNS: Reviewed GENERAL: Well-developed in no acute distress. HEENT: No sclera icterus. Extraocular movements grossly intact. Moist buccal mucosa. Head is atraumatic, normocephalic. No nasal drainage. ABDOMEN: Soft. Nondistended. Nontender NEUROLOGIC: Alert and oriented. Cranial nerves II through XII grossly intact. LABORATORY DATA: WBC 7.9 Hgb 5.4 up to 8.7 after 2 units of blood. March 2023 hemoglobin 10.2 Albumin 3.1 INR 1.3 Sodium 137 potassium 3.7 creatinine 0.77 Lactic acid 1.3 LFTs normal Stool for occult blood negative IMAGING: CT scan brain negative CTA abdomen pelvis reports no evidence for acute GI bleed. Evaluation is significant limited due to intrinsic hyperdense stool within the distal colon and rectum. ASSESSMENT: 1. Acute Microcytic anemia with no active GI bleed. Status post 2 units of blood. Stool for occult blood is negative. Recent EGD and colonoscopy in July 2023. Recent uterine bleeding in January x 1 month 2. History of chronic anemia 3. History of mechanical mitral valve replacement 4. Moderate protein calorie malnutrition PLAN: -Continue to observe -No plans for endoscopy at this time -Agree with continuing Coumadin -Continue to monitor hemoglobin -Continue to monitor for any signs or symptoms of bleeding -Okay to resume regular diet -Add Ensure for nutritional supplement protein calorie malnutrition Physician Fisherman Helper note has been reviewed by physician. Signing provider agrees with the documented findings, assessment, and plan of care. Past Medical History Past Medical History: Asthma, GERD/Reflux, GI Bleed, Hyperlipidemia, Mitral Valve Prolapse (MVP), Musculoskeletal Disorder, Osteoarthritis (OA) Additional Past Medical History / Comment(s): Mitral regurgitation with mitral valve replacement. IBS and Colitis. Migraines, hiatal hernia, anemia. Spinal Stenosis, Degenerative Disc Disease. episode of heart racing in August-was hospitalized in [place], pt. thinks related to GI bleeding in small colon, put on metoprolol-much better, weight loss History of Any Multi-Drug Resistant Organisms: None Reported Past Surgical History: Cardiac Valve Replacement, Cholecystectomy, Heart Catheterization, Hernia Repair, Tubal Ligation Additional Past Surgical History / Comment(s): Mitral valve replacement with mechanical valve 2013. EGC/colonoscopy in July, recent EGD in August in [place] Past Anesthesia/Blood Transfusion Reactions: Motion Sickness, Postoperative Nausea & Vomiting (PONV) Past Psychological History: ADD/ADHD, Anxiety, Depression Smoking Status: Current every day smoker Past Alcohol Use History: None Reported Additional Past Alcohol Use History / Comment(s): Smoker for 20 yrs, 1/2 PPD. Past Drug Use History: None Reported - Past Family History Mother Family Medical History: Cancer Additional Family Medical History / Comment(s): LUNG CANCER. Father Family Medical History: Cancer Additional Family Medical History / Comment(s): COLON CANCER. Medications and Allergies Home Medications Medication Instructions Recorded Confirmed Type Aspirin EC [Ecotrin Low Dose] 162 mg PO HS 01/13/16 02/23/24 History Dicyclomine [Bentyl] 60 mg PO HS 01/13/16 02/23/24 History Montelukast [Singulair] 10 mg PO HS 01/13/16 02/23/24 History Albuterol Sulfate [Proair Hfa] 2 puff INHALATION RT-Q4H PRN 02/01/21 02/23/24 History Warfarin [Coumadin] 7.5 mg PO HS 02/01/21 02/23/24 History Hydrocodone/Acetaminophen 1 tab PO TID 07/14/23 02/23/24 History [Hydrocodone/Acetaminophen 7.5-325] tiZANidine [Zanaflex] 4 mg PO TID 07/14/23 02/23/24 History Metoprolol Tartrate [Lopressor] 25 mg PO BID 09/24/23 02/23/24 History Amitriptyline HCl [Elavil] 50 mg PO HS 02/23/24 02/23/24 History Furosemide [Lasix] 40 mg PO DAILY PRN 02/23/24 02/23/24 History Pantoprazole [Protonix] 40 mg PO HS 02/23/24 02/23/24 History Rizatriptan Odt [Maxalt Industrial Production Manager] 10 mg PO BID PRN 02/23/24 02/23/24 History Allergies Allergy/AdvReac Type Severity Reaction Status Date / Time adhesive tape Allergy Itching Verified 02/23/24 14:43 corn Allergy Allergy Verified 02/23/24 14:43 testing Surgical - Exam Vital Signs Temp Pulse Resp BP Pulse Ox 98.2 F 95 18 110/68 98 02/23/24 11:16 02/23/24 11:16 02/23/24 11:16 02/23/24 11:16 02/23/24 11:16 Results - Labs 02/24/24 05:47 10/17/24 05:47 Abnormal Lab Results - Last 24 Hours (Table) 02/23/24 02/23/24 02/23/24 Range/Units 12:14 12:14 12:14 RBC 2.42 L (3.80-5.40) m/uL Hgb 5.4 L* (11.4-16.0) gm/dL Hct 18.6 L* (34.0-46.0) % MCV 76.7 L (80.0-100.0) fL MCH 22.2 L (25.0-35.0) pg MCHC 28.9 L (31.0-37.0) g/dL RDW 25.9 H (11.5-15.5) % Plt Count 574 H (150-450) k/uL PT 31.8 H (10.0-12.5) sec INR 3.2 H (<1.2) APTT 31.6 H (22.0-30.0) sec Chloride (98-107) mmol/L Carbon Dioxide (22-30) mmol/L BUN (7-17) mg/dL Glucose (74-99) mg/dL Calcium (8.4-10.2) mg/dL Total Protein (6.3-8.2) g/dL Albumin (3.5-5.0) g/dL Ur Specific [place] >1.050 H (1.001-1.035) Urine Protein Trace H (Negative) Urine Blood Moderate H (Negative) Ur Squamous Epith Cells 5 H (0-4) /hpf Urine Bacteria Occasional H (None) /hpf Crossmatch 02/23/24 02/23/24 02/24/24 Range/Units 12:14 12:50 05:47 RBC 3.31 L (3.80-5.40) m/uL Hgb 8.7 L D (11.4-16.0) gm/dL Hct 27.3 L (34.0-46.0) % MCV (80.0-100.0) fL MCH (25.0-35.0) pg MCHC (31.0-37.0) g/dL RDW 22.8 H (11.5-15.5) % Plt Count 507 H (150-450) k/uL PT (10.0-12.5) sec INR (<1.2) APTT (22.0-30.0) sec Chloride 118 H (98-107) mmol/L Carbon Dioxide 14 L (22-30) mmol/L BUN 22 H (7-17) mg/dL Glucose 128 H (74-99) mg/dL Calcium 7.9 L (8.4-10.2) mg/dL Total Protein 5.5 L (6.3-8.2) g/dL Albumin 3.1 L (3.5-5.0) g/dL Ur Specific [place] (1.001-1.035) Urine Protein (Negative) Urine Blood (Negative) Ur Squamous Epith Cells (0-4) /hpf Urine Bacteria (None) /hpf Crossmatch See Detail 02/24/24 02/24/24 Range/Units 05:47 08:21 RBC (3.80-5.40) m/uL Hgb (11.4-16.0) gm/dL Hct (34.0-46.0) % MCV (80.0-100.0) fL MCH (25.0-35.0) pg MCHC (31.0-37.0) g/dL RDW (11.5-15.5) % Plt Count (150-450) k/uL PT 13.6 H (10.0-12.5) sec INR 1.3 H (<1.2) APTT (22.0-30.0) sec Chloride 115 H (98-107) mmol/L Carbon Dioxide 20 L (22-30) mmol/L BUN (7-17) mg/dL Glucose (74-99) mg/dL Calcium 8.0 L (8.4-10.2) mg/dL Total Protein (6.3-8.2) g/dL Albumin (3.5-5.0) g/dL Ur Specific [place] (1.001-1.035) Urine Protein (Negative) Urine Blood (Negative) Ur Squamous Epith Cells (0-4) /hpf Urine Bacteria (None) /hpf Crossmatch Diabetes panel 02/23/24 02/24/24 Range/Units 12:14 05:47 Sodium 139 137 (137-145) mmol/L Potassium 3.5 3.7 (3.5-5.1) mmol/L Chloride 118 H 115 H (98-107) mmol/L Carbon Dioxide 14 L 20 L (22-30) mmol/L BUN 22 H 17 (7-17) mg/dL Creatinine 0.75 0.77 (0.52-1.04) mg/dL Glucose 128 H 84 (74-99) mg/dL Calcium 7.9 L 8.0 L (8.4-10.2) mg/dL AST 23 (14-36) U/L ALT 11 (4-34) U/L Alkaline Phosphatase 70 (38-126) U/L Total Protein 5.5 L (6.3-8.2) g/dL Albumin 3.1 L (3.5-5.0) g/dL Calcium panel 02/23/24 02/24/24 Range/Units 12:14 05:47 Calcium 7.9 L 8.0 L (8.4-10.2) mg/dL Albumin 3.1 L (3.5-5.0) g/dL Pituitary panel 02/23/24 02/24/24 Range/Units 12:14 05:47 Sodium 139 137 (137-145) mmol/L Potassium 3.5 3.7 (3.5-5.1) mmol/L Chloride 118 H 115 H (98-107) mmol/L Carbon Dioxide 14 L 20 L (22-30) mmol/L BUN 22 H 17 (7-17) mg/dL Creatinine 0.75 0.77 (0.52-1.04) mg/dL Glucose 128 H 84 (74-99) mg/dL Calcium 7.9 L 8.0 L (8.4-10.2) mg/dL Adrenal panel 02/23/24 02/24/24 Range/Units 12:14 05:47 Sodium 139 137 (137-145) mmol/L Potassium 3.5 3.7 (3.5-5.1) mmol/L Chloride 118 H 115 H (98-107) mmol/L Carbon Dioxide 14 L 20 L (22-30) mmol/L BUN 22 H 17 (7-17) mg/dL Creatinine 0.75 0.77 (0.52-1.04) mg/dL Glucose 128 H 84 (74-99) mg/dL Calcium 7.9 L 8.0 L (8.4-10.2) mg/dL Total Bilirubin 0.3 (0.2-1.3) mg/dL AST 23 (14-36) U/L ALT 11 (4-34) U/L Alkaline Phosphatase 70 (38-126) U/L Total Protein 5.5 L (6.3-8.2) g/dL Albumin 3.1 L (3.5-5.0) g/dL
[2024-02-24 15:43] LABS: % Iron Saturation 16.22 (12.00-45.00); Ferritin 15.5 ng/mL (10.0-291.0)
[2024-02-24] MEDS: MAGNESIUM OXIDE 400 MG TAB PO SCH (16:49)
[2024-02-24] MEDS: WARFARIN 5 MG TAB PO ONE (16:49)
[2024-02-24] MEDS: SUMAtriptan succinate 6 MG/0.5 ML VIAL SQ STA (16:49)
[2024-02-24] MEDS ORDERED: WARFARIN 7.5 MG TAB PO ONE (18:00)
[2024-02-25 06:04] LABS: Anisocytosis Moderate; Basophils % (A) 0 %; Eosinophils # (A) 0.1 k/uL (0-0.7); Eosinophils % (A) 1 %; HCT 26.7 % (34.0-46.0); HGB 8.2 gm/dL (11.4-16.0); Hypochromasia Marked; Lymphocytes # (A) 1.6 k/uL (1.0-4.8); Lymphocytes % (A) 24 %; MCH 25.8 pg (25.0-35.0); MCHC 30.5 g/dL (31.0-37.0); MCV 84.4 fL (80.0-100.0); Mean Platelet Volume 7.2; Microcytosis Slight; Monocytes # (A) 0.5 k/uL (0-1.0); Monocytes % (A) 7 %; Neutrophils # (A) 4.2 k/uL (1.3-7.7); Neutrophils % (A) 64 %; Platelet Count 493 k/uL (150-450); Poikilocytosis Marked; RBC 3.17 m/uL (3.80-5.40); RDW 23.6 % (11.5-15.5); WBC 6.7 k/uL (3.8-10.6)
[2024-02-25 06:14] LABS: African American GFR (CKD) >90 (>60 ml/min/1.73 sqM); Anion Gap 3 mmol/L; Blood Urea Nitrogen 16 mg/dL (7-17); Calcium 7.9 mg/dL (8.4-10.2); Carbon Dioxide 20 mmol/L (22-30); Chloride 114 mmol/L (98-107); Glucose 90 mg/dL (74-99); Magnesium 2.1 mg/dL (1.6-2.3); Non-African American GFR(CKD) >90 (>60 ml/min/1.73 sqM); Potassium 3.7 mmol/L (3.5-5.1); Sodium 137 mmol/L (137-145)
[2024-02-25 06:17] LABS: INR 1.1 (<1.2); Prothrombin Time 11.7 sec (10.0-12.5)
--- NOTE | 2024-02-25 10:04 | P.CNNES ---
History of Present Illness Consult date: 02/24/24 Requesting physician: Armen Ward Reason for Consult: Aura/seeing spots History of Present Illness: Patient is a 43-year-old female with longstanding history of migraine headaches, came to the hospital yesterday at 10:59 AM for chest pain. Patient was found to have severe anemia, and acute coronary event has been ruled out by cardiology. Patient states that she went to a concert with her daughter on 02/22/2024. While she was there, she felt very pale, out of breath, could not walk. Her family helped her get into the car and she had no energy. When she came home, she started having a headache, she took Tylenol, laid down and felt like there was pounding jackhammer in the head, and dizziness her heartbeat was pounding inside her head. She has not slept since Wednesday. Because when she tr ies to lay down, she gets the headache and the pounding and she cannot sleep. She cannot relax. Since then the headache has not gone away. It mimics like her migraine. She has been feeling weak, dizzy lightheaded, takes 15 minutes to take shower. Patient states that the headache is global, pounding 10/10 without nausea or vomiting although she is light sensitive but no noise sensitivity. Patient did have some aura last night with spots and zigzag patterns in the vision. Patient states that 2 other times (March 2023 and August 2023) when she developed severe anemia, she developed a headache, that lasted until the anemia was corrected. Patient has longstanding history of migraines for which she is currently taking Botox injections, Elavil, Topamax. Also takes Maxalt as needed. She takes [place] for spinal stenosis and neuropathy and degenerative disc disease. She tried [place] but has not helped. She cannot take NSAIDs. Patient does have chronic daily headaches. She is about 15 days in the month that she is headache free. Patient states that her migraines she starts with an aura in which she see some floaters or zigzag patterns in the eyes which last for about 20 to 40 minutes and then she gets a headache. The headache resolves about an hour after she takes her Maxalt. Without Maxalt it may last for couple days. Patient states that she did not try her Maxalt with the headache that started on Wednesday, as she felt it was not a migraine. Patient states that she has not had any migraine for last 2 to 3 months. She follows up with Dr. Vandana Tejada in [facility]. Vital signs on arrival blood pressure 110/68, pulse rate 95 temperature 98.2. Blood tests shows normal WBC hemoglobin 5.4, platelets 574. INR is 3.2. Electrolytes are normal, renal functions normal, hepatic panel normal troponin negative. UA negative. Stool occult blood negative. Influenza, RSV and coronavirus PCR negative. Chest x-ray showed no acute process abdomen pelvis CT angio showed no definitive CT evidence of acute GI bleed however evaluation is significant limited due to intrinsic hyperdense stool within the distal colon and rectum. No evidence of vascular occlusion or abdominal aortic aneurysm. Mild to moderate atherosclerotic calcification of the aorta and its branches. Nonobstructive left renal calculus. EKG showed sinus rhythm. CT head showed no acute intracranial process. I personally reviewed CT head, agree with the findings. Home medications include aspirin 162 mg at bedtime, Singulair, albuterol, warfarin, Zanaflex, [place], metoprolol, Lasix, Maxalt 10 mg twice daily as needed, Elavil 50 mg at bedtime and Protonix. Patient smokes half pack per day for 20+ years. Denies hypertension or diabetes, does not know about her cholesterol status. Patient was adopted. Her children does have migraines. Patient does not take any control pills. Denies any alcohol or marijuana use. She quit marijuana about 7 or 8 months ago. Review of Systems All pertinent positive and negative review of systems mentioned in the HPI. Otherwise unremarkable. Past Medical History Past Medical History: Asthma, GERD/Reflux, GI Bleed, Hyperlipidemia, Mitral Valve Prolapse (MVP), Musculoskeletal Disorder, Osteoarthritis (OA) Additional Past Medical History / Comment(s): Mitral regurgitation with mitral valve replacement. IBS and Colitis. Migraines, hiatal hernia, anemia. Spinal Stenosis, Degenerative Disc Disease. episode of heart racing in August-was hospitalized in [place], . thinks related to GI bleeding in small colon, put on metoprolol-much better, weight loss History of Any Multi-Drug Resistant Organisms: None Reported Past Surgical History: Cardiac Valve Replacement, Cholecystectomy, Heart Catheterization, Hernia Repair, Tubal Ligation Additional Past Surgical History / Comment(s): Mitral valve replacement with mechanical valve 2013. EGC/colonoscopy in July, recent EGD in August in [place] Past Anesthesia/Blood Transfusion Reactions: Motion Sickness, Postoperative Nausea & Vomiting (PONV) Past Psychological History: ADD/ADHD, Anxiety, Depression Smoking Status: Current every day smoker Past Alcohol Use History: None Reported Additional Past Alcohol Use History / Comment(s): Smoker for 20 yrs, 1/2 PPD. Past Drug Use History: None Reported - Past Family History Mother Family Medical History: Cancer Additional Family Medical History / Comment(s): LUNG CANCER. Father Family Medical History: Cancer Additional Family Medical History / Comment(s): COLON CANCER. Medications and Allergies Home Medications Medication Instructions Recorded Confirmed Type Aspirin EC [Ecotrin Low Dose] 162 mg PO HS 01/13/16 02/23/24 History Dicyclomine [Bentyl] 60 mg PO HS 01/13/16 02/23/24 History Montelukast [Singulair] 10 mg PO HS 01/13/16 02/23/24 History Albuterol Sulfate [Proair Hfa] 2 puff INHALATION RT-Q4H PRN 02/01/21 02/23/24 History Warfarin [Coumadin] 7.5 mg PO HS 02/01/21 02/23/24 History Hydrocodone/Acetaminophen 1 tab PO TID 07/14/23 02/23/24 History [Hydrocodone/Acetaminophen 7.5-325] tiZANidine [Zanaflex] 4 mg PO TID 07/14/23 02/23/24 History Metoprolol Tartrate [Lopressor] 25 mg PO BID 09/24/23 02/23/24 History Amitriptyline HCl [Elavil] 50 mg PO HS 02/23/24 02/23/24 History Furosemide [Lasix] 40 mg PO DAILY PRN 02/23/24 02/23/24 History Pantoprazole [Protonix] 40 mg PO HS 02/23/24 02/23/24 History Rizatriptan Odt [Maxalt Senior Web Services Developer] 10 mg PO BID PRN 02/23/24 02/23/24 History Allergies Allergy/AdvReac Type Severity Reaction Status Date / Time adhesive tape Allergy Itching Verified 02/23/24 14:43 corn Allergy Allergy Verified 02/23/24 14:43 testing Physical Examination - Vital Signs Vital Signs: Vital Signs Temp Pulse Pulse Resp BP BP Pulse Ox 02/24/24 08:00 97.8 F 73 14 91/50 100 02/24/24 04:10 78 16 101/58 100 02/23/24 23:35 68 16 105/64 100 02/23/24 21:56 97.7 F 81 90/54 81 L 02/23/24 20:10 98.1 F 85 16 91/52 100 02/23/24 19:11 98.4 F 89 101/53 100 02/23/24 18:51 98.6 F 93 117/57 100 02/23/24 18:42 98.5 F 88 99/54 100 02/23/24 18:13 97 16 107/58 100 02/23/24 17:14 97.5 F L 87 18 119/51 98 02/23/24 15:21 98 F 101 H 14 108/52 100 02/23/24 15:01 98 F 97 16 106/57 100 02/23/24 14:45 98.3 F 101 H 16 91/48 100 Intake and Output 02/23/24 02/24/24 02/24/24 22:59 06:59 14:59 Intake Total 660 20 236 Balance 660 20 236 Intake: IV 40 20 Invasive Line 1 20 10 Invasive Line 2 20 10 Oral 236 Blood Product 620 As-1 Unit 310 [id number] As-1 Unit 310 [id number] Other: Voiding Method Toilet Toilet Toilet # Voids 1 Weight 61.235 kg 59.1 kg Patient is a middle aged female, in no acute distress. Patient frequently gets emotional. Patient is alert awake oriented to time place and person. Speech and language functions are normal. Patient can name and repeat very well. No aphasia or dysarthria. Attention, concentration and fund of knowledge is adequate. On cranial nerve examination, pupils are equal, round and reacting to light, visual camacho are full on confrontation, with no neglect on double simultaneous stimulation. Extraocular muscles are intact with no nystagmus. Face is symmetric, tongue protrudes to the midline. Palatal elevation and sensation normal, hearing and shoulder shrug normal, facial sensation normal. On muscle strength testing, there is no pronator drift and the strength is normal in arms and legs distally and proximally, except hip flexion which is about 4+ right, 3+ left. Deep tendon reflexes are symmetric and plantars downgoing. Sensory to touch is equal with no neglect on double simultaneous stimulation. Cerebellar function showed no ataxia for [id number] testing. No dysdiadochokinesia. No ataxia for [id number] testing on either side. Tone and bulk of muscles normal. Gait deferred.. On general examination, there is no carotid bruit or murmur, S1-S2 audible. Chest is clear on consultation. Abdomen is soft nontender. No organomegaly, bowel sounds present. Peripheral pulses are present. No peripheral edema. Results - Laboratory Findings CBC and BMP: 02/25/24 05:41 02/25/24 05:41 Abnormal Lab Findings: Abnormal Labs 02/23/24 02/23/24 02/23/24 12:14 12:14 12:14 RBC 2.42 L Hgb 5.4 L* Hct 18.6 L* MCV 76.7 L MCH 22.2 L MCHC 28.9 L RDW 25.9 H Plt Count 574 H PT 31.8 H INR 3.2 H APTT 31.6 H Chloride Carbon Dioxide BUN Glucose Calcium Total Protein Albumin Ur Specific [place] >1.050 H Urine Protein Trace H Urine Blood Moderate H Ur Squamous Epith Cells 5 H Urine Bacteria Occasional H Crossmatch 02/23/24 02/23/24 02/24/24 12:14 12:50 05:47 RBC 3.31 L Hgb 8.7 L D Hct 27.3 L MCV MCH MCHC RDW 22.8 H Plt Count 507 H PT INR APTT Chloride 118 H Carbon Dioxide 14 L BUN 22 H Glucose 128 H Calcium 7.9 L Total Protein 5.5 L Albumin 3.1 L Ur Specific [place] Urine Protein Urine Blood Ur Squamous Epith Cells Urine Bacteria Crossmatch See Detail 02/24/24 02/24/24 05:47 08:21 RBC Hgb Hct MCV MCH MCHC RDW Plt Count PT 13.6 H INR 1.3 H APTT Chloride 115 H Carbon Dioxide 20 L BUN Glucose Calcium 8.0 L Total Protein Albumin Ur Specific [place] Urine Protein Urine Blood Ur Squamous Epith Cells Urine Bacteria Crossmatch Assessment and Plan Assessment: * Atypical migraine, 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 * Anemia * Tobacco use * Moderate, protein calorie malnutrition Plan: * Patient has developed atypical migraine, perhaps triggered by anemia. Patient claims that she had 2 previous instances in which she had prolonged headache when she was diagnosed with anemia. Her current headache has been persistent since last 48 hours. Acute coronary event has been ruled out by cardiology. Patient usually takes Maxalt for her migraine but is not available in the hospital formulary. We will instead, give her Imitrex 6 mg subcu x 1 dose for migraine. * Start magnesium 400 mg daily. Patient was recommended to try vitamin B2 200 mg daily [id number] for migraine prevention. * Patient needs to follow-up with her neurologist regarding trying newer medication for migraines. Patient does take Botox injections. * CT head showed no acute process. No sinus disease. * We will check B12, folate, MMA, B6. * Neurology will follow. Thank you for the consultation. Time with Patient: Greater than 30
--- NOTE | 2024-02-25 11:50 | P.PN ---
Subjective HISTORY OF PRESENT ILLNESS: This is a 43-year-old female with a past medical history significant for valvular heart disease with previous mechanical mitral valve replacement, anemia, and normal coronary arteries. Patient follows in the office with Dr. Campa. We have been asked to see the patient in consultation for chest pain. Patient examined at the bedside. Patient initially presented to the hospital with a chief complaint of shortness of breath. Patient reports she has been feeling short of breath and fatigued for the past few days. Patient currently denies chest pain or pressure. Patient's hemoglobin was found to be low at 5.4 on admission. She received 2 units RBCs. Repeat hemoglobin 8.7. Patient has had a longstanding history of anemia. She was evaluated by Dr. Yenny Campa earlier this year. Patient underwent EGD and colonoscopy on 07/16/2023 revealing antral gastritis and esophagitis with whitish plaques in the proximal esophagus. 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 Colonoscopy was within normal limits with no evidence of colorectal neoplasm. Patient also underwent small bowel capsule endoscopy revealing diffuse gastritis with some old blood in the antrum and normal small bowel mucosa with no evidence of active bleeding or small bowel angioectasia. Patient denies any recent signs of obvious bleeding. Patient does report that she was recently seen at [facility] as she was seeking a second opinion. She states that they recommended that she undergo aortic valve replacement. However nothing has been scheduled at this time. DIAGNOSTICS: - EKG reveals sinus mechanism with no signs of acute ischemia - Chest xray negative for acute process - Laboratory data: WBC 7.9. Hemoglobin 8.7. Platelet count 507. INR today 1.3. Sodium 137. Potassium 3.7. BUN 17. Creatinine 0.77. Troponin negative x 3. - Current home cardiac medications include Lasix 20 mg daily as needed, aspirin 162 mg at night, metoprolol tartrate 25 mg twice a day, and warfarin 7.5 mg at night - Most recent echocardiogram obtained in January 2024 revealing ejection fraction 50 to 55%, no obvious regional wall motion abnormalities, prosthetic mitral valve, mild mitral regurgitation, mild aortic stenosis, severe aortic regurgitation, mild tricuspid regurgitation - Cardiac catheterization history: 2012 revealing normal coronary arteries - Patient underwent Lexiscan stress test in June 2022 which was negative for ischemia 02/25/2024 Patient examined this morning at the bedside. Patient currently denies chest pain or pressure. She denies shortness of breath. Patient received 10 mg of Coumadin last night. Patient's INR today 1.1. Hemoglobin remained stable at 8.2. Patient denies any signs or symptoms of bleeding. PHYSICAL EXAM: VITAL SIGNS: Reviewed. GENERAL: Well-developed in no acute distress. HEENT: Head is normocephalic. Pupils are equal, round. Sclerae anicteric. Mucous membranes of the mouth are moist. Neck supple. No JVD or thyromegaly LUNGS: Respirations even and unlabored. Lungs essentially clear to auscultation bilaterally. HEART: Regular rate and rhythm. S1 and S2 heard. Systolic murmur noted. ABDOMEN: Soft. Nondistended. Nontender. EXTREMITIES: Normal range of motion. No clubbing or cyanosis. Peripheral pulses intact. No lower extremity edema NEUROLOGIC: Awake and alert. Oriented x 3. ASSESSMENT: Acute on chronic anemia, status post 2 units RBC transfusion History of EGD, colonoscopy, and small bowel capsule endoscopy, 2023 Recent uterine bleeding x 1 month History of mechanical mitral valve replacement Chest pain, troponin negative x 3, secondary to severe anemia, no evidence of acute coronary syndrome Severe aortic regurgitation, following at [facility] Normal coronary arteries, per cardiac catheterization 2013 PLAN: An acute coronary event has been ruled out No need to repeat echocardiogram as this was performed last month Aspirin discontinued yesterday Patient with mechanical mitral valve. Patient is very high risk for developing thrombus on her valve if Coumadin is stopped. Patient needs to be continued on Coumadin with INR 2.5-3.5. Patient received 10mg of Coumadin last night. However her INR is only 1.1 today. We will begin IV heparin until INR is therapeutic. Further recommendations pending patient course Dr. Campa recommends that patient follow-up postdischarge with her principal gifts officer at [facility] Nurse practitioner note has been reviewed by physician. Signing provider agrees with the documented findings, assessment, and plan of care documented by SENIOR COMPLIANCE OFFICER as a scribe. Objective - Vital Signs Vital signs: Vital Signs Temp 97.1 F L 02/25/24 08:00 Pulse 79 02/25/24 08:00 Resp 18 02/25/24 08:00 BP 102/50 02/25/24 08:00 Pulse Ox 100 02/25/24 08:00 FiO2 Intake & Output 02/24/24 02/25/24 02/25/24 18:59 06:59 18:59 Intake Total 354 120 Balance 354 120 Weight 59 kg Intake: Oral 354 120 Other: Voiding Method Toilet Toilet Toilet # Voids 1 2 - Labs CBC & Chem 7: 02/25/24 05:41 02/25/24 05:41 Labs: Abnormal Lab Results - Last 24 Hours (Table) 02/25/24 02/25/24 Range/Units 05:41 05:41 RBC 3.17 L (3.80-5.40) m/uL Hgb 8.2 L (11.4-16.0) gm/dL Hct 26.7 L (34.0-46.0) % MCHC 30.5 L (31.0-37.0) g/dL RDW 23.6 H (11.5-15.5) % Plt Count 493 H (150-450) k/uL Chloride 114 H (98-107) mmol/L Carbon Dioxide 20 L (22-30) mmol/L Calcium 7.9 L (8.4-10.2) mg/dL Vitamin B12 171.0 L (200.0-944.0) pg/mL
--- NOTE | 2024-02-25 12:43 | P.PN ---
Subjective Progress Note Date: 02/25/24 CHIEF COMPLAINT: Anemia HISTORY OF PRESENT ILLNESS: No evidence of active bleeding. Hemoglobin stable at 8.2. Vital stable. Denies any abdominal pain. Denies any nausea or vomiting. INR is 1.1. Patient has mechanical valve. Cardiology is adjusting Coumadin. PHYSICAL EXAM: VITAL SIGNS: Reviewed. GENERAL: Well-developed in no acute distress. ABDOMEN: Soft. Nondistended. Nontender. NEUROLOGIC: Alert and oriented. Cranial nerves II through XII grossly intact. ASSESSMENT: 1. Acute Microcytic anemia with no active GI bleed. Status post 2 units of blood. Stool for occult blood is negative. Recent EGD and colonoscopy in July 2023. Recent uterine bleeding in January x 1 month 2. History of chronic anemia 3. History of mechanical mitral valve replacement 4. Moderate protein calorie malnutrition PLAN: -Patient can be discharged from surgical standpoint when medically cleared -No plans for endoscopy at this time Physician Emergency Planning And Response Manager note has been reviewed by physician. Signing provider agrees with the documented findings, assessment, and plan of care. Objective - Vital Signs Vital signs: Vital Signs Temp 97.1 F L 02/25/24 08:00 Pulse 79 02/25/24 08:00 Resp 18 02/25/24 08:00 BP 102/50 02/25/24 08:00 Pulse Ox 100 02/25/24 08:00 FiO2 Intake & Output 02/24/24 02/25/24 02/25/24 18:59 06:59 18:59 Intake Total 354 120 Balance 354 120 Weight 59 kg Intake: Oral 354 120 Other: Voiding Method Toilet Toilet Toilet # Voids 1 2 - Labs CBC & Chem 7: 02/25/24 05:41 02/25/24 05:41 Labs: Abnormal Lab Results - Last 24 Hours (Table) 02/25/24 02/25/24 Range/Units 05:41 05:41 RBC 3.17 L (3.80-5.40) m/uL Hgb 8.2 L (11.4-16.0) gm/dL Hct 26.7 L (34.0-46.0) % MCHC 30.5 L (31.0-37.0) g/dL RDW 23.6 H (11.5-15.5) % Plt Count 493 H (150-450) k/uL Chloride 114 H (98-107) mmol/L Carbon Dioxide 20 L (22-30) mmol/L Calcium 7.9 L (8.4-10.2) mg/dL Vitamin B12 171.0 L (200.0-944.0) pg/mL
--- NOTE | 2024-02-25 14:00 | P.PN ---
Subjective Progress Note Date: 02/25/24 This is a pleasant 43-year-old female with medical history of a mechanical mitral valve anticoagulant with warfarin on an outpatient basis. Patient's INR was 3.2 she has been resumed on warfarin and currently her INR today is 1.3. Patient with no reports of hematemesis or rectal bleeding. She does report that she was recently on a menses cycle starting on February 08 she felt like it was lingering however at this time reports no further vaginal bleeding. Appears to be going through menopause has not received any gynecological care in quite some time per the patient. Urinalysis did show moderate hematuria. Per the patient there is no gross hematuria, appears to be only microscopic. Patient's he moglobin is up to 8.7 post 2 units of packed red blood cells. Iron studies and ferritin level have been checked and currently pending at this time. We did check a brain CT as patient is reporting a 9 out of 10 generalized migraine which feels as if her head is throbbing and pounding. She reports this came on when she was found to be anemic. A brain CT is negative for any acute bleeding or masslike effect no evidence of stroke. Neurology was consulted for further evaluation of the headache. Of note patient does have chronic migraines for which she receives Botox injections and is also on a combination of Elavil and Maxalt for these. She states that other than the headache she is experiencing right now she has not had any further episodes of headache recently. Most recently received a Botox injection 2 weeks ago follows with Dr. King with neurology up in [facility]. There is no GI services available for evaluation of the bleed this admission she does have a general surgery consultation and for further recommendations possibly upper and lower endoscopy. 02/25/2024 Patient is evaluated today in follow-up on the medical floor. Patient has continued to report a significant 9 of 10 headache overnight did not improve with the subcutaneous Imitrex. Neurology is following. Patient received 10 mg of warfarin last night INR today is down to 1.1. Hemoglobin of 8.2 patient does state that she began having vaginal bleeding again today. We did consult gynecology for further evaluation. Her iron studies are within normal limits. B12 is low. Review of Systems Constitutional: Denied any fatigue denied any fever. Cardio vascular: denied any chest pain, palpitations Gastrointestinal: denied any nausea, vomiting, diarrhea Pulmonary: Denied any shortness of breath cough Neurologic denied any new focal deficits; Reports Headache All inpatient medications were reviewed and appropriate changes in these medications as dictated in the interval history and assessment and plan. PHYSICAL EXAMINATION: GENERAL: The patient is alert and oriented x3, not in any acute distress. Well developed, well nourished. HEENT: Pupils are round and equally reacting to light. EOMI. No scleral icterus. No conjunctival pallor. Normocephalic, atraumatic. No pharyngeal erythema. No thyromegaly. CARDIOVASCULAR: S1 and S2 present. No murmurs, rubs, or gallops. PULMONARY: Chest is clear to auscultation, no wheezing or crackles. ABDOMEN: Soft, nontender, nondistended, normoactive bowel sounds. No palpable organomegaly. MUSCULOSKELETAL: No joint swelling or deformity. EXTREMITIES: No cyanosis, clubbing, or pedal edema. NEUROLOGICAL: Gross neurological examination did not reveal any focal deficits. SKIN: No rashes. Assessment Cephalgia under investigation Brain CT negative for bleed Acute on chronic anemia general surgery on for evaluation. Not iron deficient hemoglobin 8.2 s/p 2 units of PRBCs Mennorhagia likely exacerbated the Anemia. Patient had finished a cycle of her menses beginning on February 08 and has started bleeding again today. Hematuria will need to repeat a urinalysis on an outpatient basis could have been false due to the recent mennorhagia. Hx of mechanical aortic valve anticoagulated with warfarin chronically Hyperlipidemia Hx of mitral valve prolapse with mechanical valve Degenerative joint disease Hx of migraine maintained on amitriptyline and receives botox injections Hx of asthma with no acute exacerbation GI bleed in the past Chronic nicotine use Anxiety/Depression GI prophylaxis: Protonix DVT prophylaxis: Warfarin Full Code Plan Hematology evaluation outpatient Neurology evaluation of the migraine. Brain CT negative General surgery evaluation of the anemia Transfuse blood for hemoglobin less than 7. Gynecology has been consulted Repeat blood work in the AM Continue pain management with norco, fioricet, Imitrex D/C home in the next 24 hours. The impression and plan of care has been dictated by Wendy Simeon, Nurse Practitioner as directed. Dr. Rc MD I have performed a history and physical examination and medical decision making of this patient, discussed the same with the dictator, and agree with the dictators assessment and plan as written, documented as a scribe. Based on total visit time, I have performed more than 50% of this visit. Objective - Vital Signs Vital signs: Vital Signs Temp 97.1 F L 02/25/24 08:00 Pulse 79 02/25/24 08:00 Resp 18 02/25/24 08:00 BP 102/50 02/25/24 08:00 Pulse Ox 100 02/25/24 08:00 FiO2 Intake & Output 02/24/24 02/25/24 02/25/24 18:59 06:59 18:59 Intake Total 354 120 Balance 354 120 Weight 59 kg Intake: Oral 354 120 Other: Voiding Method Toilet Toilet Toilet # Voids 1 2 - Labs CBC & Chem 7: 02/25/24 05:41 02/25/24 05:41 Labs: Abnormal Lab Results - Last 24 Hours (Table) 02/25/24 02/25/24 Range/Units 05:41 05:41 RBC 3.17 L (3.80-5.40) m/uL Hgb 8.2 L (11.4-16.0) gm/dL Hct 26.7 L (34.0-46.0) % MCHC 30.5 L (31.0-37.0) g/dL RDW 23.6 H (11.5-15.5) % Plt Count 493 H (150-450) k/uL Chloride 114 H (98-107) mmol/L Carbon Dioxide 20 L (22-30) mmol/L Calcium 7.9 L (8.4-10.2) mg/dL Vitamin B12 171.0 L (200.0-944.0) pg/mL Assessment and Plan Time with Patient: Less than 30
[2024-02-25] MEDS: CYANOCOBALAMIN 1,000 MCG/ML 1 ML VIAL IM SCH (15:59)
[2024-02-25] MEDS: WARFARIN 5 MG TAB PO ONE (17:30)
[2024-02-25] MEDS: methylPREDNISolone SOD SUCCI 125 MG/2 ML VIAL IM ONE (17:31)
[2024-02-26 06:43] LABS: INR 1.6 (<1.2); Prothrombin Time 16.1 sec (10.0-12.5)
[2024-02-26 06:56] LABS: African American GFR (CKD) >90 (>60 ml/min/1.73 sqM); Anion Gap 5 mmol/L; Blood Urea Nitrogen 18 mg/dL (7-17); Calcium 8.3 mg/dL (8.4-10.2); Carbon Dioxide 18 mmol/L (22-30); Chloride 114 mmol/L (98-107); Glucose 120 mg/dL (74-99); Magnesium 2.2 mg/dL (1.6-2.3); Non-African American GFR(CKD) >90 (>60 ml/min/1.73 sqM); Potassium 4.4 mmol/L (3.5-5.1); Sodium 137 mmol/L (137-145)
[2024-02-26 07:11] LABS: Anisocytosis Moderate; Basophils % (A) 0 %; Eosinophils % (A) 0 %; HCT 28.8 % (34.0-46.0); Hypochromasia Marked; Lymphocytes # (A) 0.6 k/uL (1.0-4.8); Lymphocytes % (A) 9 %; MCH 26.4 pg (25.0-35.0); MCHC 31.2 g/dL (31.0-37.0); MCV 84.6 fL (80.0-100.0); Mean Platelet Volume 8.2; Microcytosis Slight; Monocytes # (A) 0.2 k/uL (0-1.0); Monocytes % (A) 3 %; Neutrophils % (A) 87 %; Platelet Count 512 k/uL (150-450); Poikilocytosis Marked; RDW 23.2 % (11.5-15.5); WBC 6.9 k/uL (3.8-10.6)
[2024-02-26] MEDS: MORPHINE SULFATE 4 MG/ML SYRINGE IVP STA (09:10)
--- NOTE | 2024-02-26 09:23 | P.PN ---
Subjective Progress Note Date: 02/26/24 Patient's hemoglobin is 9. She shows no sign of active GI bleed. She will be medically managed. On exam vital signs appear stable. Abdomen is soft nontender Objective - Vital Signs Vital signs: Vital Signs Temp 98.2 F 02/26/24 03:29 Pulse 73 02/26/24 08:15 Resp 16 02/26/24 08:15 BP 92/54 02/26/24 08:15 Pulse Ox 100 02/26/24 08:15 FiO2 Intake & Output 02/25/24 02/26/24 02/26/24 18:59 06:59 18:59 Intake Total 240 128 Balance 240 128 Weight 60.3 kg Intake: IV 10 Invasive Line 2 10 Oral 240 118 Other: Voiding Method Toilet Toilet - Labs CBC & Chem 7: 02/26/24 05:32 02/26/24 05:32 Labs: Abnormal Lab Results - Last 24 Hours (Table) 02/25/24 02/26/24 02/26/24 Range/Units 05:41 05:32 05:32 RBC 3.40 L (3.80-5.40) m/uL Hgb 9.0 L (11.4-16.0) gm/dL Hct 28.8 L (34.0-46.0) % RDW 23.2 H (11.5-15.5) % Plt Count 512 H (150-450) k/uL Lymphocytes # 0.6 L (1.0-4.8) k/uL PT 16.1 H (10.0-12.5) sec INR 1.6 H (<1.2) Chloride (98-107) mmol/L Carbon Dioxide (22-30) mmol/L BUN (7-17) mg/dL Glucose (74-99) mg/dL Calcium (8.4-10.2) mg/dL Vitamin B12 171.0 L (200.0-944.0) pg/mL 02/26/24 Range/Units 05:32 RBC (3.80-5.40) m/uL Hgb (11.4-16.0) gm/dL Hct (34.0-46.0) % RDW (11.5-15.5) % Plt Count (150-450) k/uL Lymphocytes # (1.0-4.8) k/uL PT (10.0-12.5) sec INR (<1.2) Chloride 114 H (98-107) mmol/L Carbon Dioxide 18 L (22-30) mmol/L BUN 18 H (7-17) mg/dL Glucose 120 H (74-99) mg/dL Calcium 8.3 L (8.4-10.2) mg/dL Vitamin B12 (200.0-944.0) pg/mL
--- NOTE | 2024-02-26 12:55 | P.PN ---
Subjective Progress Note Date: 02/25/24 Patient was seen for a follow-up. Patient is tearful, saying that she has a bad headache 02/16. Imitrex subcutaneous did not help. Fioricet is not helping. She is getting [place]. Objective - Vital Signs Vital signs: Vital Signs Temp 98.2 F 02/26/24 03:29 Pulse 81 02/26/24 11:47 Resp 16 02/26/24 11:47 BP 94/58 02/26/24 11:47 Pulse Ox 100 02/26/24 11:47 FiO2 Intake & Output 02/25/24 02/26/24 02/26/24 18:59 06:59 18:59 Intake Total 240 128 Balance 240 128 Weight 60.3 kg Intake: IV 10 Invasive Line 2 10 Oral 240 118 Other: Voiding Method Toilet Toilet Toilet - Exam Patient tearful. Examination unchanged. 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 * Vitamin B12 deficiency * Folate borderline * Anemia * Tobacco use * Depression * Moderate, protein calorie malnutrition Plan: * Patient has developed atypical migraine, perhaps triggered by anemia. Patient claims that she had 2 previous instances in which she had prolonged headache when she was diagnosed with anemia. Her current headache has been persistent since last 48 hours. Acute coronary event has been ruled out by cardiology. Patient usually takes Maxalt for her migraine but is not available in the hospital formulary. Patient was given Imitrex 6 mg subcu injection, but did not help. No need to continue Imitrex. We will give Solu-Medrol 125 mg IV push. Consider Depacon 250 mg IV x 1 dose, Benadryl 50 mg x 1. * Start magnesium 400 mg daily. Patient was recommended to try vitamin B2 200 mg daily [id number] for migraine prevention. * Patient needs to follow-up with her neurologist regarding trying newer medication for migraines. Patient does take Botox injections. * CT head showed no acute process. No sinus disease. * B12 171, folate 6.8, MMA, B6 pending patient has B12, folate deficiency. We will start B12 and folate replacement..
[2024-02-26] MEDS: FOLIC ACID 1 MG TAB PO SCH (15:02)
[2024-02-26] MEDS: PYRIDOXINE 50 MG TAB PO SCH (15:03)
[2024-02-26 16:26] LABS: Anisocytosis Moderate; Basophils % (A) 0 %; Eosinophils % (A) 0 %; HCT 28.5 % (34.0-46.0); HGB 8.4 gm/dL (11.4-16.0); Hypochromasia Marked; Lymphocytes # (A) 1.6 k/uL (1.0-4.8); Lymphocytes % (A) 14 %; MCH 25.7 pg (25.0-35.0); MCHC 29.6 g/dL (31.0-37.0); MCV 86.8 fL (80.0-100.0); Mean Platelet Volume 7.2; Microcytosis Slight; Monocytes # (A) 0.5 k/uL (0-1.0); Monocytes % (A) 4 %; Neutrophils % (A) 79 %; Platelet Count 492 k/uL (150-450); Poikilocytosis Marked; RBC 3.28 m/uL (3.80-5.40); RDW 23.8 % (11.5-15.5); WBC 11.3 k/uL (3.8-10.6)
[2024-02-26 16:36] LABS: Partial Thromboplastin Time 25.6 sec (22.0-30.0); Prothrombin Time 20.2 sec (10.0-12.5)
[2024-02-26] MEDS: HEPARIN SOD,PORK IN 0.45% NACL 25,000 UNIT in 0.45% NACL 1 250ML.BAG IV SCH (16:45)
[2024-02-26] MEDS: HEPARIN SODIUM 1,000 UN/ML (10ML VL) IV ONE (16:46)
--- NOTE | 2024-02-26 17:41 | P.PN ---
Subjective Progress Note Date: 02/26/24 This is a pleasant 43-year-old female with medical history of a mechanical mitral valve anticoagulant with warfarin on an outpatient basis. Patient's INR was 3.2 she has been resumed on warfarin and currently her INR today is 1.3. Patient with no reports of hematemesis or rectal bleeding. She does report that she was recently on a menses cycle starting on February 08 she felt like it was lingering however at this time reports no further vaginal bleeding. Appears to be going through menopause has not received any gynecological care in quite some time per the patient. Urinalysis did show moderate hematuria. Per the patient there is no gross hematuria, appears to be only microscopic. Patient's he moglobin is up to 8.7 post 2 units of packed red blood cells. Iron studies and ferritin level have been checked and currently pending at this time. We did check a brain CT as patient is reporting a 9 out of 10 generalized migraine which feels as if her head is throbbing and pounding. She reports this came on when she was found to be anemic. A brain CT is negative for any acute bleeding or masslike effect no evidence of stroke. Neurology was consulted for further evaluation of the headache. Of note patient does have chronic migraines for which she receives Botox injections and is also on a combination of Elavil and Maxalt for these. She states that other than the headache she is experiencing right now she has not had any further episodes of headache recently. Most recently received a Botox injection 2 weeks ago follows with Dr. King with neurology up in [facility]. There is no GI services available for evaluation of the bleed this admission she does have a general surgery consultation and for further recommendations possibly upper and lower endoscopy. 02/25/2024 Patient is evaluated today in follow-up on the medical floor. Patient has continued to report a significant 9 of 10 headache overnight did not improve with the subcutaneous Imitrex. Neurology is following. Patient received 10 mg of warfarin last night INR today is down to 1.1. Hemoglobin of 8.2 patient does state that she began having vaginal bleeding again today. We did consult gynecology for further evaluation. Her iron studies are within normal limits. B12 is low. 02/26/2024 Patient evaluated today resting in bed. Reports headache is better. Gynecology to see patient in the office next week for the continued vaginal bleeding. Hemoglobin is 9.0 today. INR 1.6. Patient will be started on IV heparin bridge until INR therapeutic. Review of Systems Constitutional: Denied any fatigue denied any fever. Cardio vascular: denied any chest pain, palpitations Gastrointestinal: denied any nausea, vomiting, diarrhea Pulmonary: Denied any shortness of breath cough Neurologic denied any new focal deficits; Reports Headache All inpatient medications were reviewed and appropriate changes in these medications as dictated in the interval history and assessment and plan. PHYSICAL EXAMINATION: GENERAL: The patient is alert and oriented x3, not in any acute distress. Well developed, well nourished. HEENT: Pupils are round and equally reacting to light. EOMI. No scleral icterus. No conjunctival pallor. Normocephalic, atraumatic. No pharyngeal erythema. No thyromegaly. CARDIOVASCULAR: S1 and S2 present. No murmurs, rubs, or gallops. PULMONARY: Chest is clear to auscultation, no wheezing or crackles. ABDOMEN: Soft, nontender, nondistended, normoactive bowel sounds. No palpable organomegaly. MUSCULOSKELETAL: No joint swelling or deformity. EXTREMITIES: No cyanosis, clubbing, or pedal edema. NEUROLOGICAL: Gross neurological examination did not reveal any focal deficits. SKIN: No rashes. Assessment Cephalgia under investigation Brain CT negative for bleed Acute on chronic anemia general surgery on for evaluation. Not iron deficient hemoglobin 8.2 s/p 2 units of PRBCs Mennorhagia likely exacerbated the Anemia. Patient had finished a cycle of her menses beginning on February 08 and has started bleeding again today. Hematuria will need to repeat a urinalysis on an outpatient basis could have been false due to the recent mennorhagia. Hx of mechanical aortic valve anticoagulated with warfarin chronically Hyperlipidemia Hx of mitral valve prolapse with mechanical valve Degenerative joint disease Hx of migraine maintained on amitriptyline and receives botox injections Hx of asthma with no acute exacerbation GI bleed in the past Chronic nicotine use Anxiety/Depression GI prophylaxis: Protonix DVT prophylaxis: Warfarin Full Code Plan Hematology evaluation outpatient Neurology evaluation of the migraine. Brain CT negative General surgery evaluation of the anemia Transfuse blood for hemoglobin less than 7. Gynecology has been consulted and will see the patient in the office on discharge. Repeat blood work in the AM Continue pain management with norco, fioricet, Imitrex Patient has been started on IV heparin bridge will remain in patient until INR therapeutic. The impression and plan of care has been dictated by Wendy Simeon Nurse Practitioner as directed. Dr. Rc MD I have performed a history and physical examination and medical decision making of this patient, discussed the same with the dictator, and agree with the dictators assessment and plan as written, documented as a scribe. Based on total visit time, I have performed more than 50% of this visit. Objective - Vital Signs Vital signs: Vital Signs Temp 97.8 F 02/26/24 16:51 Pulse 80 02/26/24 16:51 Resp 16 02/26/24 16:51 BP 90/52 02/26/24 16:51 Pulse Ox 94 L 02/26/24 16:51 FiO2 Intake & Output 02/25/24 02/26/24 02/26/24 18:59 06:59 18:59 Intake Total 240 138 Balance 240 138 Weight 60.3 kg Intake: IV 20 Invasive Line 2 20 Oral 240 118 Other: Voiding Method Toilet Toilet Toilet - Labs CBC & Chem 7: 02/26/24 16:06 02/26/24 05:32 Labs: Abnormal Lab Results - Last 24 Hours (Table) 02/26/24 02/26/24 02/26/24 Range/Units 05:32 05:32 05:32 WBC (3.8-10.6) k/uL RBC 3.40 L (3.80-5.40) m/uL Hgb 9.0 L (11.4-16.0) gm/dL Hct 28.8 L (34.0-46.0) % MCHC (31.0-37.0) g/dL RDW 23.2 H (11.5-15.5) % Plt Count 512 H (150-450) k/uL Neutrophils # (1.3-7.7) k/uL Lymphocytes # 0.6 L (1.0-4.8) k/uL PT 16.1 H (10.0-12.5) sec INR 1.6 H (<1.2) Chloride 114 H (98-107) mmol/L Carbon Dioxide 18 L (22-30) mmol/L BUN 18 H (7-17) mg/dL Glucose 120 H (74-99) mg/dL Calcium 8.3 L (8.4-10.2) mg/dL 02/26/24 02/26/24 Range/Units 16:06 16:06 WBC 11.3 H (3.8-10.6) k/uL RBC 3.28 L (3.80-5.40) m/uL Hgb 8.4 L (11.4-16.0) gm/dL Hct 28.5 L (34.0-46.0) % MCHC 29.6 L (31.0-37.0) g/dL RDW 23.8 H (11.5-15.5) % Plt Count 492 H (150-450) k/uL Neutrophils # 9.0 H (1.3-7.7) k/uL Lymphocytes # (1.0-4.8) k/uL PT 20.2 H (10.0-12.5) sec INR 2.0 H (<1.2) Chloride (98-107) mmol/L Carbon Dioxide (22-30) mmol/L BUN (7-17) mg/dL Glucose (74-99) mg/dL Calcium (8.4-10.2) mg/dL Assessment and Plan Time with Patient: Less than 30
[2024-02-26] MEDS: WARFARIN 5 MG TAB PO ONE (18:06)
[2024-02-26] MEDS: HEPARIN SODIUM 1,000 UN/ML (10ML VL) IV PRN (22:30)
[2024-02-27 03:22] VITALS: TEMP 98.1
[2024-02-27 07:19] LABS: Anisocytosis Moderate; Basophils % (A) 0 %; Eosinophils # (A) 0.1 k/uL (0-0.7); Eosinophils % (A) 1 %; HCT 26.9 % (34.0-46.0); HGB 7.9 gm/dL (11.4-16.0); Hypochromasia Marked; Lymphocytes # (A) 2.1 k/uL (1.0-4.8); Lymphocytes % (A) 32 %; MCH 25.8 pg (25.0-35.0); MCHC 29.5 g/dL (31.0-37.0); MCV 87.3 fL (80.0-100.0); Mean Platelet Volume 7.9; Microcytosis Slight; Monocytes # (A) 0.4 k/uL (0-1.0); Monocytes % (A) 6 %; Neutrophils % (A) 59 %; Platelet Count 473 k/uL (150-450); Poikilocytosis Marked; RBC 3.08 m/uL (3.80-5.40); RDW 23.3 % (11.5-15.5); WBC 6.8 k/uL (3.8-10.6)
[2024-02-27 07:46] LABS: INR 2.8 (<1.2); Prothrombin Time 27.2 sec (10.0-12.5)
--- NOTE | 2024-02-27 08:28 | P.PN ---
Subjective Progress Note Date: 02/27/24 Patient main stable. She shows no signs of GI bleed. Her hemoglobins been stable. Objective - Vital Signs Vital signs: Vital Signs Temp 98.1 F 02/27/24 03:20 Pulse 71 02/27/24 03:20 Resp 14 02/27/24 03:20 BP 89/47 02/27/24 03:20 Pulse Ox 100 02/27/24 03:20 FiO2 Intake & Output 02/26/24 02/27/24 02/27/24 18:59 06:59 18:59 Intake Total 138 61.366 Balance 138 61.366 Weight 61 kg Intake: IV 20 20 Invasive Line 2 20 20 Intake, IV Titration 41.366 Amount Heparin Sod,Pork in 0.45% 41.366 NaCl 25,000 unit In 0.45 % NaCl 1 250ml.bag @ 12 UNITS/KG/HR 7.236 mls/hr IV .Q24H [facility] Rx#: [id number] Oral 118 Other: Voiding Method Toilet Toilet - Labs CBC & Chem 7: 02/27/24 06:19 02/26/24 05:32 Labs: Abnormal Lab Results - Last 24 Hours (Table) 02/26/24 02/26/24 02/26/24 Range/Units 16:06 16:06 21:59 WBC 11.3 H (3.8-10.6) k/uL RBC 3.28 L (3.80-5.40) m/uL Hgb 8.4 L (11.4-16.0) gm/dL Hct 28.5 L (34.0-46.0) % MCHC 29.6 L (31.0-37.0) g/dL RDW 23.8 H (11.5-15.5) % Plt Count 492 H (150-450) k/uL Neutrophils # 9.0 H (1.3-7.7) k/uL PT 20.2 H (10.0-12.5) sec INR 2.0 H (<1.2) APTT 35.8 H (22.0-30.0) sec 02/27/24 02/27/24 02/27/24 Range/Units 06:19 06:19 06:19 WBC (3.8-10.6) k/uL RBC 3.08 L (3.80-5.40) m/uL Hgb 7.9 L (11.4-16.0) gm/dL Hct 26.9 L (34.0-46.0) % MCHC 29.5 L (31.0-37.0) g/dL RDW 23.3 H (11.5-15.5) % Plt Count 473 H (150-450) k/uL Neutrophils # (1.3-7.7) k/uL PT 27.2 H (10.0-12.5) sec INR 2.8 H (<1.2) APTT 64.3 H (22.0-30.0) sec
[2024-02-27 09:59] VITALS: RESP 16
--- NOTE | 2024-02-27 10:37 | P.PN ---
Subjective Progress Note Date: 02/26/24 Patient was seen for a follow-up. Patient appears very pleasant today. Patient states her headache is completely gone. Patient states that she received morphine last night and it helped. No dizziness. Patient states that she has previously tried Nurtec ODT, but did not work. She also tried Qulipta did not work well. The injectables like Aimovig or Emgality were not approved by her insurance. Patient received Botox injections early in February 2024. Objective - Vital Signs Vital signs: Vital Signs Temp 98.2 F 02/26/24 03:29 Pulse 81 02/26/24 11:47 Resp 16 02/26/24 11:47 BP 94/58 02/26/24 11:47 Pulse Ox 100 02/26/24 11:47 FiO2 Intake & Output 02/25/24 02/26/24 02/26/24 18:59 06:59 18:59 Intake Total 240 128 Balance 240 128 Weight 60.3 kg Intake: IV 10 Invasive Line 2 10 Oral 240 118 Other: Voiding Method Toilet Toilet Toilet - Exam Patient is very pleasant. Normal alert and awake examination nonfocal. - Labs CBC & Chem 7: 02/27/24 06:19 02/26/24 05:32 Labs: Abnormal Lab Results - Last 24 Hours (Table) 02/26/24 02/26/24 02/26/24 Range/Units 05:32 05:32 05:32 RBC 3.40 L (3.80-5.40) m/uL Hgb 9.0 L (11.4-16.0) gm/dL Hct 28.8 L (34.0-46.0) % RDW 23.2 H (11.5-15.5) % Plt Count 512 H (150-450) k/uL Lymphocytes # 0.6 L (1.0-4.8) k/uL PT 16.1 H (10.0-12.5) sec INR 1.6 H (<1.2) Chloride 114 H (98-107) mmol/L Carbon Dioxide 18 L (22-30) mmol/L BUN 18 H (7-17) mg/dL Glucose 120 H (74-99) mg/dL Calcium 8.3 L (8.4-10.2) mg/dL Assessment and Plan Assessment: * Atypical migraine, triggered by anemia, now resolved * Longstanding history of migraine headaches, chronic daily headaches * History of mechanical mitral valve, on Coumadin. * Vitamin B12 deficiency * Folate borderline * Anemia * Tobacco use * Depression * Moderate, protein calorie malnutrition Plan: * Patient has developed atypical migraine, perhaps triggered by anemia. Patient claims that she had 2 previous instances in which she had prolonged headache when she was diagnosed with anemia. Patient did not respond to Imitrex 6 mg subcu injection, however her headache has resolved with morphine and sleeping overnight. At present her headache has resolved. * Continue magnesium 400 mg daily. Patient was recommended to try vitamin B2 200 mg daily [id number] for migraine prevention. * Patient needs to follow-up with her neurologist regarding trying newer medication for migraines. Patient does take Botox injections. * CT head showed no acute process. No sinus disease. * B12 171, folate 6.8, MMA, B6 pending patient has B12, folate deficiency. We will start B12 and folate replacement.. We will also empirically start vitamin B6 50 mg daily. * Patient on Coumadin, INR therapeutic 2.0. * Neurologically clear for discharge. Discussed with primary team.
--- NOTE | 2024-02-27 11:03 | P.PN ---
Subjective Progress Note Date: 02/26/24 HISTORY OF PRESENT ILLNESS: This is a 43-year-old female with a past medical history significant for va lvular heart disease with previous mechanical mitral valve replacement, anemia, and normal coronary arteries. Patient follows in the office with Dr. Campa. We have been asked to see the patient in consultation for chest pain. Patient examined at the bedside. Patient initially presented to the hospital with a chief complaint of shortness of breath. Patient reports she has been feeling short of breath and fatigued for the past few days. Patient currently denies chest pain or pressure. Patient's hemoglobin was found to be low at 5.4 on admission. She received 2 units RBCs. Repeat hemoglobin 8.7. Patient has had a longstanding history of anemia. She was evaluated by Dr. Yenny Campa earlier this year. Patient underwent EGD and colonoscopy on 07/16/2023 revealing antral gastritis and esophagitis with whitish plaques in the proximal esophagus. 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 Colonoscopy was within normal limits with no evidence of colorectal neoplasm. Patient also underwent small bowel capsule endoscopy revealing diffuse gastritis with some old blood in the antrum and normal small bowel mucosa with no evidence of active bleeding or small bowel angioectasia. Patient denies any recent signs of obvious bleeding. Patient does report that she was recently seen at [facility] as she was seeking a second opinion. She states that they recommended that she undergo aortic valve replacement. However nothing has been scheduled at this time. DIAGNOSTICS: - EKG reveals sinus mechanism with no signs of acute ischemia - Chest xray negative for acute process - Laboratory data: WBC 7.9. Hemoglobin 8.7. Platelet count 507. INR today 1.3. Sodium 137. Potassium 3.7. BUN 17. Creatinine 0.77. Troponin negative x 3. - Current home cardiac medications include Lasix 20 mg daily as needed, aspirin 162 mg at night, metoprolol tartrate 25 mg twice a day, and warfarin 7.5 mg at night - Most recent echocardiogram obtained in January 2024 revealing ejection fraction 50 to 55%, no obvious regional wall motion abnormalities, prosthetic mitral valve, mild mitral regurgitation, mild aortic stenosis, severe aortic regurgitation, mild tricuspid regurgitation - Cardiac catheterization history: 2012 revealing normal coronary arteries - Patient underwent Lexiscan stress test in June 2022 which was negative for ischemia 02/25/2024 Patient examined this morning at the bedside. Patient currently denies chest pain or pressure. She denies shortness of breath. Patient received 10 mg of Coumadin last night. Patient's INR today 1.1. Hemoglobin remained stable at 8.2. Patient denies any signs or symptoms of bleeding. 02/26/2024 Patient's hemoglobin stable with no concerns of any active other bleeding. INR still subtherapeutic. I will start her on IV heparin drip. Monitor signs of any bleeding. Repeat INR tomorrow. PHYSICAL EXAM: VITAL SIGNS: Reviewed. GENERAL: Well-developed in no acute distress. HEENT: Head is normocephalic. Pupils are equal, round. Sclerae anicteric. Mucous membranes of the mouth are moist. Neck supple. No JVD or thyromegaly LUNGS: Respirations even and unlabored. Lungs essentially clear to auscultation bilaterally. HEART: Regular rate and rhythm. S1 and S2 heard. Systolic murmur noted. ABDOMEN: Soft. Nondistended. Nontender. EXTREMITIES: Normal range of motion. No clubbing or cyanosis. Peripheral pulses intact. No lower extremity edema NEUROLOGIC: Awake and alert. Oriented x 3. ASSESSMENT: Acute on chronic anemia, status post 2 units RBC transfusion History of EGD, colonoscopy, and small bowel capsule endoscopy, 2023 Recent uterine bleeding x 1 month History of mechanical mitral valve replacement Chest pain, troponin negative x 3, secondary to severe anemia, no evidence of acute coronary syndrome Severe aortic regurgitation, following at [facility] Normal coronary arteries, per cardiac catheterization 2012 PLAN: Start IV heparin drip for warfarin bridging. Monitor INR levels. Once therapeutic between the range of 2.5-3.5, okay to be discharged Patient with mechanical mitral valve. Patient is very high risk for developing thrombus on her valve if Coumadin is stopped. Patient needs to be continued on Coumadin with INR 2.5-3.5. Patient received 10mg of Coumadin last night. However her INR is only 1.1 today. We will begin IV heparin until INR is therapeutic. Further recommendations pending patient course Dr. 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 [facility] Objective - Vital Signs Vital signs: Vital Signs Temp 98.1 F 02/27/24 03:20 Pulse 67 02/27/24 09:58 Resp 16 02/27/24 09:58 BP 106/53 02/27/24 09:58 Pulse Ox 100 02/27/24 09:58 FiO2 Intake & Output 02/26/24 02/27/24 02/27/24 18:59 06:59 18:59 Intake Total 138 61.366 100.601 Balance 138 61.366 100.601 Weight 61 kg Intake: IV 20 20 Invasive Line 2 20 20 Intake, IV Titration 41.366 100.601 Amount Heparin Sod,Pork in 0.45% 41.366 100.601 NaCl 25,000 unit In 0.45 % NaCl 1 250ml.bag @ 12 UNITS/KG/HR 7.236 mls/hr IV .Q24H [facility] Rx#: [id number] Oral 118 Other: Voiding Method Toilet Toilet Toilet - Labs CBC & Chem 7: 02/27/24 06:19 02/26/24 05:32 Labs: Abnormal Lab Results - Last 24 Hours (Table) 02/26/24 02/26/24 02/26/24 Range/Units 16:06 16:06 21:59 WBC 11.3 H (3.8-10.6) k/uL RBC 3.28 L (3.80-5.40) m/uL Hgb 8.4 L (11.4-16.0) gm/dL Hct 28.5 L (34.0-46.0) % MCHC 29.6 L (31.0-37.0) g/dL RDW 23.8 H (11.5-15.5) % Plt Count 492 H (150-450) k/uL Neutrophils # 9.0 H (1.3-7.7) k/uL PT 20.2 H (10.0-12.5) sec INR 2.0 H (<1.2) APTT 35.8 H (22.0-30.0) sec 02/27/24 02/27/24 02/27/24 Range/Units 06:19 06:19 06:19 WBC (3.8-10.6) k/uL RBC 3.08 L (3.80-5.40) m/uL Hgb 7.9 L (11.4-16.0) gm/dL Hct 26.9 L (34.0-46.0) % MCHC 29.5 L (31.0-37.0) g/dL RDW 23.3 H (11.5-15.5) % Plt Count 473 H (150-450) k/uL Neutrophils # (1.3-7.7) k/uL PT 27.2 H (10.0-12.5) sec INR 2.8 H (<1.2) APTT 64.3 H (22.0-30.0) sec
--- NOTE | 2024-02-27 11:07 | P.PN ---
Subjective Progress Note Date: 02/27/24 HISTORY OF PRESENT ILLNESS: This is a 43-year-old female with a past medical history significant for evan vular heart disease with previous mechanical mitral valve replacement, anemia, and normal coronary arteries. Patient follows in the office with Dr. Campa. We have been asked to see the patient in consultation for chest pain. Patient examined at the bedside. Patient initially presented to the hospital with a chief complaint of shortness of breath. Patient reports she has been feeling short of breath and fatigued for the past few days. Patient currently denies chest pain or pressure. Patient's hemoglobin was found to be low at 5.4 on admission. She received 2 units RBCs. Repeat hemoglobin 8.7. Patient has had a longstanding history of anemia. She was evaluated by Dr. Yenny Campa earlier this year. Patient underwent EGD and colonoscopy on 07/16/2023 revealing antral gastritis and esophagitis with whitish plaques in the proximal esophagus. 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 Colonoscopy was within normal limits with no evidence of colorectal neoplasm. Patient also underwent small bowel capsule endoscopy revealing diffuse gastritis with some old blood in the antrum and normal small bowel mucosa with no evidence of active bleeding or small bowel angioectasia. Patient denies any recent signs of obvious bleeding. Patient does report that she was recently seen at [facility] as she was seeking a second opinion. She states that they recommended that she undergo aortic valve replacement. However nothing has been scheduled at this time. DIAGNOSTICS: - EKG reveals sinus mechanism with no signs of acute ischemia - Chest xray negative for acute process - Laboratory data: WBC 7.9. Hemoglobin 8.7. Platelet count 507. INR today 1.3. Sodium 137. Potassium 3.7. BUN 17. Creatinine 0.77. Troponin negative x 3. - Current home cardiac medications include Lasix 20 mg daily as needed, aspirin 162 mg at night, metoprolol tartrate 25 mg twice a day, and warfarin 7.5 mg at night - Most recent echocardiogram obtained in January 2024 revealing ejection fraction 50 to 55%, no obvious regional wall motion abnormalities, prosthetic mitral valve, mild mitral regurgitation, mild aortic stenosis, severe aortic regurgitation, mild tricuspid regurgitation - Cardiac catheterization history: 2012 revealing normal coronary arteries - Patient underwent Lexiscan stress test in June 2022 which was negative for ischemia 02/25/2024 Patient examined this morning at the bedside. Patient currently denies chest pain or pressure. She denies shortness of breath. Patient received 10 mg of Coumadin last night. Patient's INR today 1.1. Hemoglobin remained stable at 8.2. Patient denies any signs or symptoms of bleeding. 02/26/2024 Patient's hemoglobin stable with no concerns of any active other bleeding. INR still subtherapeutic. I will start her on IV heparin drip. Monitor signs of any bleeding. Repeat INR tomorrow. 02/27/2024 BP 104/57, heart rate 70, sinus rhythm INR 2.8 PHYSICAL EXAM: VITAL SIGNS: Reviewed. GENERAL: Well-developed in no acute distress. HEENT: Head is normocephalic. Pupils are equal, round. Sclerae anicteric. Mucous membranes of the mouth are moist. Neck supple. No JVD or thyromegaly LUNGS: Respirations even and unlabored. Lungs essentially clear to auscultation bilaterally. HEART: Regular rate and rhythm. S1 and S2 heard. Systolic murmur noted. ABDOMEN: Soft. Nondistended. Nontender. EXTREMITIES: Normal range of motion. No clubbing or cyanosis. Peripheral pulses intact. No lower extremity edema NEUROLOGIC: Awake and alert. Oriented x 3. ASSESSMENT: Acute on chronic anemia, status post 2 units RBC transfusion History of EGD, colonoscopy, and small bowel capsule endoscopy, 2023 Recent uterine bleeding x 1 month History of mechanical mitral valve replacement Chest pain, troponin negative x 3, secondary to severe anemia, no evidence of acute coronary syndrome Severe aortic regurgitation, following at [facility] Normal coronary arteries, per cardiac catheterization 2012 PLAN: Patient's INR is therapeutic today at 2.8. Her goal INR level is 2.5-3.5. I will discharge her on home dose of warfarin. I would recommend her to follow-up in our Coumadin clinic on weekly basis. She has an upcoming appointment with her crm analyst at [facility] coming Wednesday. No black tarry stools. Iron supplement, B12 folate Metoprolol 25 mg twice daily, Lasix as needed, Okay to be discharged from cardiac standpoint Dr. Campa recommends that patient follow-up postdischarge with her crm analyst at [facility] Objective - Vital Signs Vital signs: Vital Signs Temp 98.1 F 02/27/24 03:20 Pulse 67 02/27/24 09:58 Resp 16 02/27/24 09:58 BP 106/53 02/27/24 09:58 Pulse Ox 100 02/27/24 09:58 FiO2 Intake & Output 02/26/24 02/27/24 02/27/24 18:59 06:59 18:59 Intake Total 138 61.366 100.601 Balance 138 61.366 100.601 Weight 61 kg Intake: IV 20 20 Invasive Line 2 20 20 Intake, IV Titration 41.366 100.601 Amount Heparin Sod,Pork in 0.45% 41.366 100.601 NaCl 25,000 unit In 0.45 % NaCl 1 250ml.bag @ 12 UNITS/KG/HR 7.236 mls/hr IV .Q24H [facility] Rx#: [id number] Oral 118 Other: Voiding Method Toilet Toilet Toilet - Labs CBC & Chem 7: 02/27/24 06:19 02/26/24 05:32 Labs: Abnormal Lab Results - Last 24 Hours (Table) 02/26/24 02/26/24 02/26/24 Range/Units 16:06 16:06 21:59 WBC 11.3 H (3.8-10.6) k/uL RBC 3.28 L (3.80-5.40) m/uL Hgb 8.4 L (11.4-16.0) gm/dL Hct 28.5 L (34.0-46.0) % MCHC 29.6 L (31.0-37.0) g/dL RDW 23.8 H (11.5-15.5) % Plt Count 492 H (150-450) k/uL Neutrophils # 9.0 H (1.3-7.7) k/uL PT 20.2 H (10.0-12.5) sec INR 2.0 H (<1.2) APTT 35.8 H (22.0-30.0) sec 02/27/24 02/27/24 02/27/24 Range/Units 06:19 06:19 06:19 WBC (3.8-10.6) k/uL RBC 3.08 L (3.80-5.40) m/uL Hgb 7.9 L (11.4-16.0) gm/dL Hct 26.9 L (34.0-46.0) % MCHC 29.5 L (31.0-37.0) g/dL RDW 23.3 H (11.5-15.5) % Plt Count 473 H (150-450) k/uL Neutrophils # (1.3-7.7) k/uL PT 27.2 H (10.0-12.5) sec INR 2.8 H (<1.2) APTT 64.3 H (22.0-30.0) sec
[2024-02-27] MEDS: FERROUS SULFATE 325 MG TAB PO SCH (12:31)
[2024-02-27 12:35] VITALS: BP 110/52; PULSE 64
--- NOTE | 2024-02-27 15:28 | P.PN ---
Subjective Progress Note Date: 02/27/24 Patient was seen for a follow-up. Patient appears very pleasant today. Patient denies any headache at this time. No dizziness. Patient states that she has previously tried Nurtec ODT, but did not work. She also tried Qulipta did not work well. The injectables like Aimovig or Emgality were not approved by her insurance. Patient received Botox injections early in February 2024. Objective - Vital Signs Vital signs: Vital Signs Temp 98.1 F 02/27/24 03:20 Pulse 64 02/27/24 12:00 Resp 16 02/27/24 12:00 BP 110/52 02/27/24 12:00 Pulse Ox 97 02/27/24 12:00 FiO2 Intake & Output 02/26/24 02/27/24 02/27/24 18:59 06:59 18:59 Intake Total 138 61.366 100.601 Balance 138 61.366 100.601 Weight 61 kg Intake: IV 20 20 Invasive Line 2 20 20 Intake, IV Titration 41.366 100.601 Amount Heparin Sod,Pork in 0.45% 41.366 100.601 NaCl 25,000 unit In 0.45 % NaCl 1 250ml.bag @ 12 UNITS/KG/HR 7.236 mls/hr IV .Q24H KLAUDIA Rx#: [id number] Oral 118 Other: Voiding Method Toilet Toilet Toilet # Voids 2 - Exam Patient is very pleasant. Normal alert and awake examination nonfocal. - Labs CBC & Chem 7: 02/27/24 06:19 02/26/24 05:32 Labs: Abnormal Lab Results - Last 24 Hours (Table) 02/26/24 02/26/24 02/26/24 Range/Units 16:06 16:06 21:59 WBC 11.3 H (3.8-10.6) k/uL RBC 3.28 L (3.80-5.40) m/uL Hgb 8.4 L (11.4-16.0) gm/dL Hct 28.5 L (34.0-46.0) % MCHC 29.6 L (31.0-37.0) g/dL RDW 23.8 H (11.5-15.5) % Plt Count 492 H (150-450) k/uL Neutrophils # 9.0 H (1.3-7.7) k/uL PT 20.2 H (10.0-12.5) sec INR 2.0 H (<1.2) APTT 35.8 H (22.0-30.0) sec 02/27/24 02/27/24 02/27/24 Range/Units 06:19 06:19 06:19 WBC (3.8-10.6) k/uL RBC 3.08 L (3.80-5.40) m/uL Hgb 7.9 L (11.4-16.0) gm/dL Hct 26.9 L (34.0-46.0) % MCHC 29.5 L (31.0-37.0) g/dL RDW 23.3 H (11.5-15.5) % Plt Count 473 H (150-450) k/uL Neutrophils # (1.3-7.7) k/uL PT 27.2 H (10.0-12.5) sec INR 2.8 H (<1.2) APTT 64.3 H (22.0-30.0) sec Assessment and Plan Assessment: * Atypical migraine, triggered by anemia, now resolved * Longstanding history of migraine headaches, chronic daily headaches * History of mechanical mitral valve, on Coumadin. * Vitamin B12 deficiency * Folate borderline * Anemia * Tobacco use * Depression * Moderate, protein calorie malnutrition Plan: * Patient has developed atypical migraine, perhaps triggered by anemia. Patient claims that she had 2 previous instances in which she had prolonged headache when she was diagnosed with anemia. Patient did not respond to Imitrex 6 mg subcu injection, however her headache has resolved with morphine and sleeping overnight. At present her headache has resolved. * Continue magnesium 400 mg daily. Patient was recommended to try vitamin B2 200 mg daily [id number] for migraine prevention. * Patient needs to follow-up with her neurologist regarding trying newer medication for migraines. Patient does take Botox injections. * CT head showed no acute process. No sinus disease. * B12 171, folate 6.8, MMA, B6 pending. Patient has B12, folate deficiency. We will start B12 and folate replacement.. We will also empirically start vitamin B6 50 mg daily. * Patient on Coumadin, INR therapeutic 2.0. * Neurologically clear for discharge. Addendum 03/13/2024: Methylmalonic acid 0.71(<0.40) Vitamin B6 2 (5-50) Spoke to patient on the phone, informed about above test results. Informed that she should perhaps take vitamin B12 injection 1000 mg IM monthly as well. Also recommended to take vitamin B6 25 mg OTC, 2 tablets daily, or can speak to her primary physician to get a prescription of vitamin B6 50 mg. She should also take folic acid 1 mg daily.
[2024-02-27] MEDS ORDERED: WARFARIN 5 MG TAB PO ONE (18:00)
--- NOTE | 2024-03-03 10:38 | P.DS ---
Providers Date of admission: 02/23/24 14:46 Expected date of discharge: 02/27/24 Attending physician: Armen Ward Consults: 02/23/24 14:44 Consult Physician Routine Consulting Provider: Dwight Membreno Consult Reason/Comments: symptomatic anemia, gi bleed workup neg Do you want consulting provider notified?: Yes Consult Physician Routine Consulting Provider: [facility] Consult Reason/Comments: chest pain Do you want consulting provider notified?: Yes 02/24/24 06:33 Consult Physician Routine Consulting Provider: Laureano Lagunas Consult Reason/Comments: Aura/seeing spots Do you want consulting provider notified?: Yes, Notify in am 02/25/24 13:07 Consult Physician Routine Consulting Provider: Malena Little Consult Reason/Comments: vaginal bleeding x 2 this month and on warfarin Do you want consulting provider notified?: Yes Primary care physician: Yonny Nettles MD Hospital Course: Final diagnosis Cephalgia under investigation Brain CT negative for bleed Acute on chronic anemia general surgery on for evaluation. Not iron deficient hemoglobin 8.2 s/p 2 units of PRBCs Mennorhagia likely exacerbated the Anemia. Patient had finished a cycle of her menses beginning on February 08 and has started bleeding again today. Hematuria will need to repeat a urinalysis on an outpatient basis could have been false due to the recent mennorhagia. Hx of mechanical aortic valve anticoagulated with warfarin chronically Hyperlipidemia Hx of mitral valve prolapse with mechanical valve Degenerative joint disease Hx of migraine maintained on amitriptyline and receives botox injections Hx of asthma with no acute exacerbation GI bleed in the past Chronic nicotine use Anxiety/Depression GI prophylaxis: Protonix DVT prophylaxis: Warfarin Full Code Discharge disposition Patient is being discharged in a stable condition with guarded prognosis to home. Patient will follow-up with Dr. Nettles in the outpatient setting upon discharge. Patient is to continue with current medications and outpatient follow-up with hematology as scheduled. Total time taken is greater than 35 minutes. Hospital course This is a 43-year-old female who was recently admitted with headache undergoing neurological workup. Patient also noted to have acute on chronic symptomatic anemia with a drop in hemoglobin most likely secondary to menorrhagia. Patient does follow with gynecology outpatient and also has an outpatient follow-up appointment with hematology. Hemoglobin is stable and has been cleared by consultations and also has been cleared to resume Coumadin. Recommend repeat PT/INR in 1 to 2 days on discharge and will continue current regimen. Please refer to other consultation notes for further HPI. Currently no reports of chest pain, shortness of breath, or palpitations. Patient is afebrile. No reports of nausea or vomiting and patient is tolerating diet. Patient will be discharged home today. Physical exam: Gen: This is a 43-year-old female who is awake, alert and oriented x 3, well- developed, well-nourished HEENT: Head is atraumatic, normocephalic. Pupils equal, round. Sclerae is anicteric. NECK: Supple. No JVD. No lymphadenopathy. No thyromegaly. LUNGS: Clear to auscultation. No wheezes or rhonchi. No intercostal retractions. HEART: Regular rate and rhythm. No murmur. ABDOMEN: Soft. Bowel sounds are present. No masses. No tenderness. EXTREMITIES: No pedal edema. No calf tenderness. NEUROLOGICAL: Patient is awake, alert and oriented x3. Cranial nerves 2 through 12 are grossly intact. Please refer to medication reconciliation sheet for a list of medications. The impression and plan of care has been dictated by Carmen Perales, Nurse Practitioner as directed. Dr. Rc MD I have performed a history and examination and MDM of this patient, discussed the same with the dictator, and agree with the dictator's assessment and plan as written ,documented as a scribe. Based on total visit time, I have performed more than 50% of the visit. Patient Condition at Discharge: Stable Plan - Discharge Summary Discharge Rx Participant: No New Discharge Prescriptions: New Cyanocobalamin (Vitamin B-12) [Vitamin B-12] 1,000 mcg PO DAILY #30 tablet Folic Acid 1 mg PO DAILY #30 tab Continue Dicyclomine [Bentyl] 60 mg PO HS Aspirin EC [Ecotrin Low Dose] 162 mg PO HS Montelukast [Singulair] 10 mg PO HS tiZANidine [Zanaflex] 4 mg PO TID Furosemide [Lasix] 40 mg PO DAILY PRN PRN Reason: Edema Rizatriptan Odt [Maxalt MEDICAL CLAIMS REPRESENTATIVE] 10 mg PO BID PRN PRN Reason: Migraine Headache Albuterol Sulfate [Proair Hfa] 2 puff INHALATION RT-Q4H PRN PRN Reason: Shortness Of Breath Warfarin [Coumadin] 7.5 mg PO HS Hydrocodone/Acetaminophen [Hydrocodone/Acetaminophen 7.5-325] 1 tab PO TID Metoprolol Tartrate [Lopressor] 25 mg PO BID Amitriptyline HCl [Elavil] 50 mg PO HS Pantoprazole [Protonix] 40 mg PO HS Discharge Medication List Aspirin EC [Ecotrin Low Dose] 162 mg PO HS 01/13/16 [History] Dicyclomine [Bentyl] 60 mg PO HS 01/13/16 [History] Montelukast [Singulair] 10 mg PO HS 01/13/16 [History] Albuterol Sulfate [Proair Hfa] 2 puff INHALATION RT-Q4H PRN 02/01/21 [History] Warfarin [Coumadin] 7.5 mg PO HS 02/01/21 [History] Hydrocodone/Acetaminophen [Hydrocodone/Acetaminophen 7.5-325] 1 tab PO TID 07/14/23 [History] tiZANidine [Zanaflex] 4 mg PO TID 07/14/23 [History] Metoprolol Tartrate [Lopressor] 25 mg PO BID 09/24/23 [History] Amitriptyline HCl [Elavil] 50 mg PO HS 02/23/24 [History] Furosemide [Lasix] 40 mg PO DAILY PRN 02/23/24 [History] Pantoprazole [Protonix] 40 mg PO HS 02/23/24 [History] Rizatriptan Odt [Maxalt MEDICAL CLAIMS REPRESENTATIVE] 10 mg PO BID PRN 02/23/24 [History] Cyanocobalamin (Vitamin B-12) [Vitamin B-12] 1,000 mcg PO DAILY #30 tablet 02/26/24 [Rx] Folic Acid 1 mg PO DAILY #30 tab 02/26/24 [Rx] Follow up Appointment(s)/Referral(s): Briana Almeida MD [STAFF PHYSICIAN] - 1 Week Wen King DO [REFERRING] - 1 Week Yonny Nettles MD [Primary Care Provider] - 1-2 days Mateo Campa MD [STAFF PHYSICIAN] - 1 Week Ambulatory/Diagnostic Orders: Basic Metabolic Panel [LAB.AMB] Location: None Selected Complete Blood Count w/diff [LAB.AMB] Time Frame: 4 Days, Location: None Selected Prothrombin Time INR [LAB.AMB] Time Frame: 3 Days, Location: None Selected Activity/Diet/Wound Care/Special Instructions: Call the office Wednesday and Dr. Almeida will see you next week Scripts are on back printer by nurses station Activity limited until follow-up Follow-up with primary care provider on discharge Continue holding Lasix for the next few days Resume Coumadin Repeat labs to monitor INR along with hemoglobin Discharge Disposition: HOME SELF-CARE
== END 2024-02-27 14:19 | disposition home or self-care (01) ==
LOC: EC 10:59 → INTOOBSV 14:46 → 3SCARD 14:46 → UNDODISIN 02-27 14:19
PROVIDERS: ADMIT Hospitalist; ATTEND Hospitalist
PROC: 30233N1 Transfusion of Nonautologous Red Blood Cells into Peripheral Vein, Percutaneous Approach (ICD-10-PCS; principal; 2024-02-23)
DX: D62 Acute posthemorrhagic anemia (principal); E44.0 Moderate protein-calorie malnutrition; G43.109 Migraine with aura, not intractable, without status migrainosus; E53.8 Deficiency of other specified B group vitamins; N93.8 Other specified abnormal uterine and vaginal bleeding; I08.3 Combined rheumatic disorders of mitral, aortic and tricuspid valves; J45.909 Unspecified asthma, uncomplicated; E78.5 Hyperlipidemia, unspecified; M19.90 Unspecified osteoarthritis, unspecified site; F17.210 Nicotine dependence, cigarettes, uncomplicated; M48.00 Spinal stenosis, site unspecified; G62.9 Polyneuropathy, unspecified; I70.0 Atherosclerosis of aorta; N20.0 Calculus of kidney; Z68.22 Body mass index [BMI] 22.0-22.9, adult; F41.9 Anxiety disorder, unspecified; F32.A Depression, unspecified; Z79.82 Long term (current) use of aspirin; Z79.01 Long term (current) use of anticoagulants; Z79.891 Long term (current) use of opiate analgesic; Z79.899 Other long term (current) drug therapy; Z91.018 Allergy to other foods; Z91.048 Other nonmedicinal substance allergy status; Z87.19 Personal history of other diseases of the digestive system; Z95.3 Presence of xenogenic heart valve; Z11.52 Encounter for screening for COVID-19; Z11.59 Encounter for screening for other viral diseases
CPT/HCPCS: 96376 ×5; 96365; 96366 ×2; 96372 ×3; 36430; 96375; 99285; 36415; 93005; 86900; 86901; 84207; 83921; 83880; 80053; 80048 ×3; 82607; 82728; 82746; 83540; 83550; 83605; 83735 ×3; 84484; 85025 ×5; 85610 ×5; 85730 ×3; 86850; 86920; 82272; 81001; 87636; 71046; 70450; 74174; G0378 ×5; P9016; J3030; J2270 ×4; J3420 ×2; J1644 ×2; Q9967; J2919; 96374

== ENCOUNTER 2024-10-04 04:12 | Inpatient (IN) | payer OTHER ==
[2024-10-04] MEDS: SODIUM CHLORIDE 0.9% 500 ML 500 ML IV ONE
[2024-10-04] MEDS: LIDOCAINE 1% INJ 10MG/ML (20 ML MDV) SQ ONE (05:45)
[2024-10-04] MEDS: MIDAZOLAM 2 MG/2 ML VIAL IVP ONE ×2 (05:47→05:58)
[2024-10-04] MEDS: VERAPAMIL SYRINGE (5 MG/10 ML) INTRAARTER ONE (05:48)
[2024-10-04] MEDS: fentaNYL (PF) 50 MCG/ML 2 ML AMP IVP ONE (05:51)
[2024-10-04] MEDS: SODIUM CHLORIDE 0.9% 1,000 ML IV ONE (05:52)
[2024-10-04] MEDS: HEPARIN SODIUM 1,000 UN/ML (10ML VL) IVP ONE (05:53)
[2024-10-04] MEDS: HEPARIN SODIUM,PORCINE (1 ML) 2,500 UNIT in SODIUM CHLORIDE 0.9% 250 ML IRRIGATION ONE (05:59)
[2024-10-04] MEDS: HEPARIN SODIUM,PORCINE 10,000 UNIT in SODIUM CHLORIDE 0.9% 1,000 ML IRRIGATION ONE (05:59)
[2024-10-04] MEDS: CLOPIDOGREL 75 MG TAB PO ONE (06:14)
[2024-10-04] MEDS: MORPHINE SULFATE 4 MG/ML SYRINGE IVP ONE (06:15)
[2024-10-04] MEDS: IOPAMIDOL-370 100ML BTL INJ ONE ×3 (06:20→07:02)
[2024-10-04] MEDS: niCARdipine Syringe (1,000 mcg/10 mL) INTRACORON ONE (06:36)
[2024-10-04] MEDS: NITROGLYCERIN 1000MCG/10ML SYRINGE INTRACORON ONE (06:36)
[2024-10-04] MEDS ORDERED: FUROSEMIDE 40 MG TAB PO PRN (07:06)
[2024-10-04] MEDS ORDERED: ALBUTEROL NEBULIZED 2.5 MG/3 ML INHALATION PRN (07:06)
[2024-10-04] MEDS ORDERED: SUMAtriptan succinate 50 MG TAB PO PRN (07:06)
[2024-10-04] MEDS ORDERED: NITROGLYCERIN SL TABS 0.4 MG TAB SUBLINGUAL PRN (07:08)
[2024-10-04] MEDS ORDERED: RX INFO: IV CONTRAST WAS GIVEN 1 EACH MISC MISCELLANE PRN (07:08)
[2024-10-04] MEDS ORDERED: MAG HYDROX/AL HYDROX/SIMETH 30 ML CUP PO PRN (07:08)
[2024-10-04] MEDS ORDERED: ATROPINE SULFATE 0.1 MG/ML 10ML SYRINGE IV PRN (07:08)
[2024-10-04] MEDS ORDERED: ZOLPIDEM 5 MG TAB PO PRN (07:08)
--- NOTE | 2024-10-04 07:16 | P.PCN ---
Date of Procedure: 10/04/24 Operative Findings: CARDIAC CATHETERIZATION AND PERCUTANEOUS CORONARY INTERVENTION PERFORMING PHYSICIAN: Rosalino Kumar MD, [facility] PROCEDURE PERFORMED: 1. Selective right and left coronary angiogram and SVG to RCA angiogram 2. Successful stenting of mid LAD using 3.0 x 18 mm Xience DENNIS with an excellent angiographic results along with balloon angioplasty of the first diagonal branch 3. Adjunctive use of IVUS 4. Ultrasound-guided access of the right radial artery INDICATION: Acute coronary syndrome COMPLICATION: None APPROACH: Right radial artery LEVEL OF SEDATION: Moderate with the sedation time off 76 minutes PROCEDURE DESCRIPTION: After obtaining informed consent the patient was brought to the cardiac Pad Machine Offbearer. The right radial artery was cannulated using micropuncture technique under ultrasound guidance a micropuncture wire passed easily then I placed a 6 Maltese 11 cm sheath at the right radial artery at that point and before the patient was given any heparin because she was on Coumadin and INR was performed. Subsequently heparin was given with continuous ACT monitoring. Selective right and left coronary angiogram performed using JR4 and JL 3.5 catheters. The SVG to RCA angiogram was performed using the JR4 catheter. Left heart catheterization was not performed because the patient had mechanical aortic valve. After that we decided to intervene on the LAD. Anticoagulation continued using heparin with continuous ACT monitoring and subsequently the patient was loaded with 600 of Plavix. I did engage the left main using JL 3.5 guiding catheter. I did wired the LAD using a run-through wire and subsequently the diagonal branch using another run-through wire. Balloon angioplasty was performed using 2.5 x 12 mm balloon to restore the flow in the LAD. I did balloon angioplasty of the diagonal branch as well. Subsequently IVUS was performed of the LAD and showed a diameter around 3 mm with I deployed 3.0 x 18 mm stent which was postdilated using 3.5 mm NC balloon with the following angiogram showing no flow in the diagonal branch in spite of balloon angioplasty so finally I did kissing balloon angioplasty of the LAD diagonal branch and was able to restore EAN-3 flow in the LAD and EAN II flow in the diagonal branch. There was residual thrombus was identified. The patient tolerated the procedure very well. SELECTIVE CORONARY ANGIOGRAM: The right coronary artery: Large caliber vessel and a dominant vessel with severe disease involving the proximal portion and competitive flow was seen distal Left main: Appear to be angiographically The left circumflex: Large caliber vessel with mild to moderate disease involving the midportion severe disease involving the distal part The left anterior descending artery: Occluded in the midportion CONCLUSION: 1. Occluded LAD in the midportion with the occlusion of large diagonal branch with a large thrombus burden. I did perform successful PCI of the LAD and diagonal branch with good angiographic results 2. Severe disease involving the RCA with patent SVG to RCA POSTPROCEDURE MANAGEMENT: 1. Dual antiplatelet therapy using triple therapy including aspirin and Plavix and Coumadin for 12 month 2. Aggressive cholesterol control 3. Follow-up with the patient
--- NOTE | 2024-10-04 07:19 | P.CRDCN ---
History of Present Illness Consult date: 10/04/24 History of present illness: The patient is a 44-year-old female patient who is known to our service from before with a past medical history significant for valvular heart disease status post mechanical valve in aortic position as well as a CAD with known severe disease involving the RCA and SVG to RCA as well as hypertension and dyslipidemia and smoking. The patient presented to the emergency department at [facility] complaining of chest discomfort started within the last 12 hours. The chest discomfort was in the middle of the chest as a pressure on the chest with no radiation to the arms or neck or shoulders or back and was associated with shortness of breath. The EKG showed sinus mechanism with ST changes concerning for anterolateral STEMI. The patient was emergently transferred to the cardiac [employer] where she underwent an emergent heart c atheterization which revealed occluded LAD and diagonal in the midportion with a large thrombus burden which she underwent successful angioplasty of the LAD and diagonal branch with good angiographic results by the end and restoring EAN-3 flow in the LAD and EAN-3 flow in the diagonal branch because of large thrombus burden. The RCA was severely diseased but she was found to have patent graft to the RCA. The LCx has mild to moderate disease in the left main appears to be angiographically normal. The patient tolerated the procedure very well and the procedure was performed from the right radial approach. Unfortunately she continues to smoke. Her INR when she presented was about 5. The physical examination is remarkable for regular rhythm with a distant heart sounds and mechanical second heart sounds and diminished breathing sounds bilaterally and no edema was noted in the lower extremities Assessment Acute anterolateral ST segment elevation myocardial infarction Occluded LAD and diagonal branch and status post PCI as described above Severe disease involving the RCA with patent graft to the RCA Valvular heart disease status post mechanical valve in aortic position History of smoking Multiple comorbid conditions Plan Continue triple therapy including aspirin and Plavix and Coumadin. Consider close monitoring of the INR and bradycardia patient was Lovenox if the INR is subtherapeutic Obtain an echocardiogram with Doppler Smoking cessation was addressed with her Follow-up with the patient Past Medical History Past Medical History: Asthma, GERD/Reflux, GI Bleed, Hyperlipidemia, Mitral Valve Prolapse (MVP), Musculoskeletal Disorder, Osteoarthritis (OA) Additional Past Medical History / Comment(s): Mitral regurgitation with mitral valve replacement. IBS and Colitis. Migraines, hiatal hernia, anemia. Spinal Stenosis, Degenerative Disc Disease. episode of heart racing in August-was hospitalized in [place], pt. thinks related to GI bleeding in small colon, put on metoprolol-much better, weight loss History of Any Multi-Drug Resistant Organisms: None Reported Past Surgical History: Cardiac Valve Replacement, Cholecystectomy, Heart Catheterization, Hernia Repair, Tubal Ligation Additional Past Surgical History / Comment(s): Mitral valve replacement with mechanical valve 2013. EGC/colonoscopy in July, recent EGD in August in [place] Past Anesthesia/Blood Transfusion Reactions: Motion Sickness, Postoperative Nausea & Vomiting (PONV) Past Psychological History: ADD/ADHD, Anxiety, Depression Smoking Status: Current every day smoker Past Alcohol Use History: None Reported Additional Past Alcohol Use History / Comment(s): Smoker for 20 yrs, 1/2 PPD. Past Drug Use History: None Reported - Past Family History Mother Family Medical History: Cancer Additional Family Medical History / Comment(s): LUNG CANCER. Father Family Medical History: Cancer Additional Family Medical History / Comment(s): COLON CANCER. Medications and Allergies Home Medications Medication Instructions Recorded Confirmed Type Aspirin EC [Ecotrin Low Dose] 162 mg PO HS 01/13/16 02/23/24 History Dicyclomine [Bentyl] 60 mg PO HS 01/13/16 02/23/24 History Montelukast [Singulair] 10 mg PO HS 01/13/16 02/23/24 History Albuterol Sulfate [Proair Hfa] 2 puff INHALATION RT-Q4H PRN 02/01/21 02/23/24 History Warfarin [Coumadin] 7.5 mg PO HS 02/01/21 02/23/24 History Hydrocodone/Acetaminophen 1 tab PO TID 07/14/23 02/23/24 History [Hydrocodone/Acetaminophen 7.5-325] tiZANidine [Zanaflex] 4 mg PO TID 07/14/23 02/23/24 History Metoprolol Tartrate [Lopressor] 25 mg PO BID 09/24/23 02/23/24 History Amitriptyline HCl [Elavil] 50 mg PO HS 02/23/24 02/23/24 History Furosemide [Lasix] 40 mg PO DAILY PRN 02/23/24 02/23/24 History Pantoprazole [Protonix] 40 mg PO HS 02/23/24 02/23/24 History Rizatriptan Odt [Maxalt CLERICAL ADJUDICATOR] 10 mg PO BID PRN 02/23/24 02/23/24 History Cyanocobalamin (Vitamin B-12) 1,000 mcg PO DAILY #30 tablet 02/26/24 Rx [Vitamin B-12] Folic Acid 1 mg PO DAILY #30 tab 02/26/24 Rx Allergies Allergy/AdvReac Type Severity Reaction Status Date / Time adhesive tape Allergy Itching Verified 02/23/24 14:43 Physical Exam Vitals: Intake and Output 10/03/24 10/04/24 10/04/24 22:59 06:59 14:59 Intake Total 650 Balance 650 Intake: IV 650 Other: Weight 65.4 kg Results Current Medications Generic Name Dose Route Start Last Admin Trade Name Freq PRN Reason Stop Dose Admin Hydrocodone Bitart/Acetaminophen 1 each 10/04/24 09:00 Hydrocodone/Apap 7.5-325mg 1 Each Tab PO TID KLAUDIA Al Hydroxide/Mg Hydroxide 30 ml 10/04/24 07:08 Mag Hydrox/Al Hydrox/Simeth 30 Ml Cup PO Q4HR PRN Heartburn Albuterol Sulfate 2.5 mg 10/04/24 07:06 Albuterol Nebulized 2.5 Mg/3 Ml INHALATION RT-Q4H PRN Shortness Of Breath Amitriptyline HCl 50 mg 10/04/24 21:00 Amitriptyline Hcl 50 Mg Tab PO HS KLAUDIA Aspirin 162 mg 10/04/24 21:00 Aspirin 81 Mg PO HS KLAUDIA Atropine Sulfate 0.5 mg 10/04/24 07:08 Atropine Sulfate 0.1 Mg/Ml 10ml Syringe IV ONCE PRN Symptomatic Bradycardia Clopidogrel Bisulfate 75 mg 10/05/24 09:00 Clopidogrel 75 Mg Tab PO DAILY [facility] Protocol Cyanocobalamin 1,000 mcg 10/04/24 09:00 Cyanocobalamin 500 Mcg Tab PO DAILY KLAUDIA Dicyclomine HCl 60 mg 10/04/24 21:00 Dicyclomine 20 Mg Tab PO HS KLAUDIA Folic Acid 1 mg 10/04/24 09:00 Folic Acid 1 Mg Tab PO DAILY KLAUDIA Furosemide 40 mg 10/04/24 07:06 Furosemide 40 Mg Tab PO DAILY PRN Edema Sodium Chloride 1,000 ml/ IV 1,000 mls @ 75 mls/hr 10/04/24 07:15 Solution IV 10/04/24 12:14 .[id number] KLAUDIA Metoprolol Tartrate 25 mg 10/04/24 09:00 Metoprolol Tartrate 25 Mg Tab PO BID KLAUDIA Miscellaneous Information 1 each 10/04/24 07:08 Rx Info: Iv Contrast Was Given 1 Each Misc MISCELLANE 10/06/24 07:08 DAILY PRN Per Protocol Montelukast Sodium 10 mg 10/04/24 21:00 Montelukast 10 Mg Tab PO HS KLAUDIA Nitroglycerin 0.4 mg 10/04/24 07:08 Nitroglycerin Sl Tabs 0.4 Mg Tab SUBLINGUAL Q5M PRN Chest Pain Pantoprazole Sodium 40 mg 10/04/24 21:00 Pantoprazole 40 Mg Tablet PO HS KLAUDIA Sumatriptan Succinate 100 mg 10/04/24 07:06 Sumatriptan Succinate 50 Mg Tab PO BID PRN Migraine Headache Tizanidine HCl 4 mg 10/04/24 09:00 Tizanidine 4 Mg Tab PO TID KLAUDIA Zolpidem Tartrate 5 mg 10/04/24 07:08 Zolpidem 5 Mg Tab PO HS PRN Insomnia Intake and Output 10/03/24 10/04/24 10/04/24 22:59 06:59 14:59 Intake Total 650 Balance 650 Intake: IV 650 Other: Weight 65.4 kg
[2024-10-04 07:23] LABS: Glucose,Whole Blood 107 mg/dL (70-110)
[2024-10-04] MEDS: SODIUM CHLORIDE 0.9% 1,000 ML in EMPTY BAG 1 BAG IV SCH (07:30)
--- NOTE | 2024-10-04 08:55 | P.PN ---
Subjective Progress Note Date: 10/04/24 HPI: This lady has known history of CAD with a prior bypass surgery and valve replacement probably both mitral and aortic are mechanical valves. Apparently 3 months ago she had a hemorrhagic stroke and was at [facility]. She presented here to the emergency room at [facility] and was transferred here for an urgent cardiac cath. There was a substantial amount of delay by the time she was here but underwent prompt PCI after arrival of LAD and diagonal with a lot of thrombus burden. Eventually she had a EAN-3 flow. Echo at bedside reveals a's extensive wall motion abnormality in the LAD distribution in the anteroapical and inferior apical anterior lateral monroy. She is hemodynam ically stable. Her INR was 5.0. We will continue aspirin Plavix and check PT/INR at this time. Prognosis remains guarded we will consider repeating an echo in 48 hours and consider a LifeVest at that time.. PHYSICIAL EXAM: Vitals are stable JVD 1 cm S1-S2 with the prosthetic valve clicks short systolic murmur lungs reveal diminished bilateral air entry abdomen is soft lower extremities reveal diminished pulses Central nervous system no focal deficits. IMPRESSION: 1. Acute anterior wall IA status post PCI of LAD and diagonal with a good result but there was a long delay from her first medical contact to PCI time. 2. Apparently s/p a hemorrhagic stroke 3 months ago details unavailable was in [facility]. 3. S/p coronary artery bypass surgery with vein graft to RCA and mechanical mitral and aortic valve replacement in the past and details unavailable. 4.. 5.. RECOMMENDATIONS: Continue aspirin Plavix and follow-up PT/INR prognosis remains guarded small dose of BROOKS inhibitor if tolerated and reduce the dose of beta- josefa prognosis remains guarded. Objective - Vital Signs Vital signs: Intake & Output 10/03/24 10/04/24 10/04/24 18:59 06:59 18:59 Intake Total 650 Balance 650 Weight 65.4 kg Intake: IV 650
[2024-10-04] MEDS ORDERED: METOPROLOL TARTRATE 25 MG TAB PO SCH (09:00)
[2024-10-04] MEDS: HYDROcodone/APAP 7.5-325MG 1 EACH TAB PO SCH (09:13)
[2024-10-04] MEDS: tiZANidine 4 MG TAB PO SCH (09:14)
[2024-10-04] MEDS: METOPROLOL TARTRATE 12.5 MG TAB PO SCH (09:15)
[2024-10-04] MEDS: FUROSEMIDE 40 MG TAB PO SCH (09:15)
[2024-10-04] MEDS: CYANOCOBALAMIN 500 MCG TAB PO SCH (09:15)
[2024-10-04] MEDS: FOLIC ACID 1 MG TAB PO SCH (09:15)
[2024-10-04 11:10] VITALS: BMI 24.0
[2024-10-04] MEDS: MORPHINE SULFATE 4 MG/ML SYRINGE IVP PRN (11:18)
[2024-10-04] MEDS: NICOTINE 14MG/24HR PATCH TRANSDERM SCH (11:18)
--- NOTE | 2024-10-04 11:30 | P.HPIM ---
History of Present Illness This is a pleasant 44 years old female with past medical history of multiple medical problems as below She was transferred from [facility] for chest pain and possible STEMI. Patient stated she came to the hospital because of she has severe chest pain started 2:00 in the morning about 10/10 felt like heaviness and burning radiating to the right arm. She says her right arm pain started together with her chest pain and is also severe, she has some difficulty moving her right upper extremity because of the pain. She felt little shortness of breath yesterday improved with inhalers and her wheezing resolved as well no significant coughing. She has nausea but no other GI/ symptom. No headache dizziness weakness or numbness She smokes half pack per day and she was counseled to quit and she agrees to the nicotine patch. No alcohol or illicit drugs. Patient was evaluated by chain puller and found to have anterolateral STEMI she underwent emergent cardiac cath with PCI to LAD and diagonal branch She is also on Coumadin and INR was 5 on admission. No overt bleeding right now She is also continued on aspirin and Plavix Art Manager recommend to continue with Coumadin while she is on dual antiplatelet therapy Blood pressure stable but patient is tachycardic and tachypneic with heart rate 124 and respiratory 24. In reviewing the records from [facility] sodium 136, potassium 3.4, bicarb is 18 and chloride 108 creatinine 0.8. WBC is 9.8 hemoglobin 13 and platelets 646. EKG showing ST elevation in V2, V3 and aVL and ST depression in lead III and aVF Influenza COVID and RSV were undetected. INR is 5.17. Review of Systems Review of systems CONSTITUTIONAL: No fever, no malaise, no fatigue. HEENT: No recent visual problems or hearing problems. Denied any sore throat. CARDIOVASCULAR: No orthopnea, PND, no palpitations, no syncope. PULMONARY: No shortness of breath, no cough, no hemoptysis. GASTROINTESTINAL: No diarrhea, no nausea, no vomiting, no abdominal pain. Normoactive bowel sounds. NEUROLOGICAL: No headaches, no weakness, no numbness. HEMATOLOGICAL: Denies any bleeding or petechiae. GENITOURINARY: Denies any burning micturition, frequency, or urgency. MUSCULOSKELETAL/RHEUMATOLOGICAL: Denies any joint pain, swelling, or any muscle pain. ENDOCRINE: Denies any polyuria or polydipsia. Past Medical History Past Medical History: Asthma, GERD/Reflux, GI Bleed, Hyperlipidemia, Mitral Valve Prolapse (MVP), Musculoskeletal Disorder, Osteoarthritis (OA) Additional Past Medical History / Comment(s): Mitral regurgitation with mitral valve replacement. IBS and Colitis. Migraines, hiatal hernia, anemia. Spinal Stenosis, Degenerative Disc Disease. episode of heart racing in August-was hospitalized in [place], pt. thinks related to GI bleeding in small colon, put on metoprolol-much better, weight loss History of Any Multi-Drug Resistant Organisms: None Reported Past Surgical History: Cardiac Valve Replacement, Cholecystectomy, Heart Catheterization, Hernia Repair, Tubal Ligation Additional Past Surgical History / Comment(s): Mitral valve replacement with mechanical valve 2013. EGC/colonoscopy in July, recent EGD in August in [place] Past Anesthesia/Blood Transfusion Reactions: Motion Sickness, Postoperative Nausea & Vomiting (PONV) Past Psychological History: ADD/ADHD, Anxiety, Depression Smoking Status: Current every day smoker Past Alcohol Use History: None Reported Additional Past Alcohol Use History / Comment(s): Smoker for 20 yrs, 1/2 PPD. Past Drug Use History: None Reported - Past Family History Mother Family Medical History: Cancer Additional Family Medical History / Comment(s): LUNG CANCER. Father Family Medical History: Cancer Additional Family Medical History / Comment(s): COLON CANCER. Medications and Allergies Home Medications Medication Instructions Recorded Confirmed Type Aspirin EC [Ecotrin Low Dose] 81 mg PO HS 01/13/16 10/04/24 History Dicyclomine [Bentyl] 20 mg PO Q8H PRN 01/13/16 10/04/24 History Montelukast [Singulair] 10 mg PO HS 01/13/16 10/04/24 History Albuterol Sulfate [Proair Hfa] 2 puff INHALATION RT-Q4H PRN 02/01/21 10/04/24 History Warfarin [Coumadin] 7.5 mg PO SUMOWETHSA 02/01/21 10/04/24 History Hydrocodone/Acetaminophen 1 tab PO Q6H PRN 07/14/23 10/04/24 History [Hydrocodone/Acetaminophen 7.5-325] tiZANidine [Zanaflex] 4 mg PO Q8H PRN 07/14/23 10/04/24 History Metoprolol Tartrate [Lopressor] 25 mg PO BID 09/24/23 10/04/24 History Amitriptyline HCl [Elavil] 50 mg PO HS 02/23/24 10/04/24 History Pantoprazole [Protonix] 40 mg PO HS 02/23/24 10/04/24 History Rizatriptan Odt [Maxalt STOCK FEEDER] 10 mg PO BID PRN 02/23/24 10/04/24 History Cyanocobalamin (Vitamin B-12) 1,000 mcg PO DAILY #30 tablet 02/26/24 10/04/24 Rx [Vitamin B-12] Folic Acid 1 mg PO DAILY #30 tab 02/26/24 10/04/24 Rx ALPRAZolam [Xanax] 0.5 mg PO Q8H PRN 10/04/24 10/04/24 History Magnesium Oxide [Mag-Ox] 400 mg PO DAILY 10/04/24 10/04/24 History Rosuvastatin [Crestor] 20 mg PO HS 10/04/24 10/04/24 History Warfarin Sodium 6 mg PO TUFR 10/04/24 10/04/24 History Allergies Allergy/AdvReac Type Severity Reaction Status Date / Time adhesive tape Allergy Itching Verified 10/04/24 08:46 gabapentin Allergy Per PCP Verified 10/04/24 08:46 office pregabalin [From Lyrica] Allergy Per PCP Verified 10/04/24 08:46 office Physical Exam Vitals: Intake and Output 10/03/24 10/04/24 10/04/24 22:59 06:59 14:59 Intake Total 650 Balance 650 Intake: IV 650 Other: Weight 65.4 kg GENERAL: The patient is alert and oriented x3, not in any acute distress. Well developed, well nourished. HEENT: Pupils are round and equally reacting to light. EOMI. No scleral icterus. No conjunctival pallor. Normocephalic, atraumatic. No pharyngeal erythema. No thyromegaly. CARDIOVASCULAR: S1 and S2 present. No murmurs, rubs, or gallops. PULMONARY: Chest is clear to auscultation, no wheezing , no crackles. ABDOMEN: Soft, nontender, nondistended, normoactive bowel sounds. No palpable organomegaly. MUSCULOSKELETAL: No joint swelling or deformity. -EXTREMITIES: No cyanosis, clubbing, or pedal edema. Right upper extremity swelling and tender, no discoloration . wrist band from the cardiac procedure is in place NEUROLOGICAL: Gross neurological examination did not reveal any focal deficits. SKIN: No rashes. no petechiae. Assessment and Plan Assessment: Anterolateral STEMI status post emergent cardiac cath and PCI to LAD and diagonal branch Coagulopathy secondary to Coumadin Coronary artery disease status post CABG previously Right arm pain with no trauma could be related to her chest pain. Continue monitoring GERD History of GI bleed Hyperlipidemia Osteoarthritis Mitral valve prolapse Irritable bowel syndrome Spinal stenosis History of hemorrhagic stone Plan: Continue with aspirin Plavix and Coumadin per recommendation of chain puller Continue with metoprolol Lasix and other cardiac medication Cardiology team are following closely Pain management Check x-ray of the right upper extremity Labs and medication were reviewed.. Continue same treatment. Continue with symptomatic treatment. Resume home medication. Monitor labs and vitals. DVT and GI prophylaxis. Further recommendations as per clinical course of the patient DVT prophylaxis: On Coumadin GI Prophylaxis: Protonix PT/OT: Pending Prognosis is guarded
--- NOTE | 2024-10-04 12:04 | XR ---
EXAMINATION TYPE: XR humerus RT DATE OF EXAM: 10/04/2024 11:57 AM COMPARISON: None CLINICAL INDICATION: Female, 44 years old with history of pain and swelling; PHH, pain TECHNIQUE: XR humerus RT examined in frontal and lateral projections. FINDINGS: No evidence of acute osseous pathology, joint dislocation, or soft tissue swelling. The rem aining portions of the visualized chest are unremarkable. The remaining portions of the visualized c hest are unremarkable. IMPRESSION: No acute osseous pathology. [facility], , 10/04/2024 12:02 PM
--- NOTE | 2024-10-04 12:46 | CA ---
Transthoracic Echo Report Name: Wilmer Mendoza Age: 44 Gender: F : 1980 Exam Date: 10/04/2024 07:39 Exam Location: [facility] Ht (in): 65 Wt (lb): 144 Ordering Physician: Rosalino Kumar MD ([id number]) Attending/Referring Phys: Med Surg Nurse Keagan Hernandez, MARA Procedure CPT: Indications: stemi Cardiac Hx: MVR, AVR Technical Quality: Good Contrast 1: Definity Total Dose (mL): 2 Contrast 2: Total Dose (mL): MEASUREMENTS (Male / Female) Normal Values 2D ECHO LV Diastolic Diameter PLAX 4.8 cm 4.2 - 5.9 / 3.9 - 5.3 cm LV Systolic Diameter PLAX 3.9 cm IVS Diastolic Thickness 1.0 cm 0.6 - 1.0 / 0.6 - 0.9 cm LVPW Diastolic Thickness 1.1 cm 0.6 - 1.0 / 0.6 - 0.9 cm LV Relative Wall Thickness 0.4 RV Internal Dim ED PLAX 3.1 cm LVOT Diameter 1.2 cm Aortic Root Diameter 2.5 cm LA Systolic Diameter LX 4.0 cm 3.0 - 4.0 / 2.7 - 3.8 cm LV Diastolic Volume MOD 4C 124.5 cm??? LV Systolic Volume MOD 4C 74.4 cm??? LV Ejection Fraction MOD 4C 40.2 % LV Diastolic Length 4C 8.8 cm LV Systolic Length 4C 8.7 cm LV Diastolic Volume MOD 2C 80.5 cm??? LV Systolic Volume MOD 2C 45.8 cm??? LV Ejection Fraction MOD 2C 43.1 % LV Diastolic Length 2C 8.4 cm LV Systolic Length 2C 8.0 cm DOPPLER AV Peak Velocity 405.7 cm/s AV Peak Gradient 65.8 mmHg AV Mean Velocity 326.5 cm/s AV Mean Gradient 45.5 mmHg AV Velocity Time Integral 72.5 cm MV Peak Velocity 264.2 cm/s MV Peak Gradient 27.9 mmHg MV Mean Velocity 152.9 cm/s MV Mean Gradient 11.2 mmHg MV Velocity Time Integral 26.5 cm MV Area PHT 4.4 cm??? TR Peak Velocity 331.1 cm/s TR Peak Gradient 43.9 mmHg Right Atrial Pressure 5.0 mmHg Pulmonary Artery Systolic Pressu 48.9 mmHg Right Ventricular Systolic Press 48.9 mmHg FINDINGS Left Ventricle Left ventricular ejection fraction is estimated at 25-30%. Mildly increased posterior wall thickness. Possible left ventricular mural thrombus. Cannot exclude left ventricular mural thrombus. [place] akinetic. Mid septal akinetic. Mid anterolateral akinetic. Right Ventricle Normal right ventricular size. Reduced right ventricular global systolic function. Moderate pulmonary hypertension. Right ventricular systolic pressure estimated at 49 mm hg. Right Atrium Normal right atrial size. Left Atrium Mildly increased left atrial diameter. Mitral Valve Mitral valve replacement. Severe mitral stenosis. Trace mitral regurgitation. Aortic Valve Aortic valve repacement. Severe aortic stenosis with a peak velocity of 4 m/s, peak gradient 71 mmHg, mean gradient 48 mmHg. Tricuspid Valve Structurally normal tricuspid valve. No tricuspid stenosis. Mild tricuspid regurgitation. Pulmonic Valve Structurally normal pulmonic valve. No pulmonic stenosis. [id number] pulmonic regurgitation. Pericardium No pericardial effusion. Aorta Aortic annulus normal. CONCLUSIONS Severely impaired LV function with EF between 25 to 30%. Mid ventricle and apical hypokinesia. Possible LV thrombus was identified as well Prostatic aortic valve with elevated peak and mean gradient across the valve Prostatic mitral valve will also elevated peak and mean gradient across the valve Previewed by: Dr. Rosalino Kumar MD (Electronically Signed) Final Date: 04 Oct 2024 12:46
[2024-10-04] MEDS: ONDANSETRON 4 MG/2 ML VIAL IVP PRN (18:53)
[2024-10-04] MEDS: DICYCLOMINE 20 MG TAB PO SCH (20:23)
[2024-10-04] MEDS: MONTELUKAST 10 MG TAB PO SCH (20:25)
[2024-10-04] MEDS: AMITRIPTYLINE HCL 50 MG TAB PO SCH (20:25)
[2024-10-04] MEDS: ASPIRIN 81 MG PO SCH (20:25)
[2024-10-04] MEDS: PANTOPRAZOLE 40 MG TABLET PO SCH (20:34)
[2024-10-04] MEDS ORDERED: ASPIRIN 81 MG PO SCH (21:00)
[2024-10-04] MEDS: MORPHINE SULFATE 2 MG/ML SYRINGE IVP PRN (23:46)
[2024-10-04] MEDS: LIDOCAINE 4% PATCH TOPICAL ONE (23:52)
[2024-10-05 05:15] LABS: Basophils % (A) 0.7 %; Eosinophils # (A) 0.01 10*3/uL (0.04-0.35); Eosinophils % (A) 0.1 %; HCT 34.6 % (37.2-46.3); HGB 10.3 g/dL (12.0-15.0); Lymphocytes # (A) 1.53 10*3/uL (0.90-5.00); Lymphocytes % (A) 10.8 %; MCH 25.6 pg (27.0-32.0); MCHC 29.8 g/dL (32.0-37.0); MCV 85.9 fL (80.0-97.0); Mean Platelet Volume 9.1 fL (9.5-12.2); Monocytes # (A) 1.18 10*3/uL (0.20-1.00); Monocytes % (A) 8.4 %; Neutrophils # (A) 11.16 10*3/uL (1.80-7.70); Neutrophils % (A) 79.1 %; Platelet Count 539 10*3/uL (140-440); RBC 4.03 10*6/uL (4.10-5.20); RDW 20.2 % (11.5-14.5); WBC 14.11 10*3/uL (4.50-10.00)
[2024-10-05 05:19] LABS: Prothrombin Time 61.8 sec (10.0-12.5)
[2024-10-05 05:24] LABS: ALT 49 U/L (4-34); AST 304 U/L (14-36); African American GFR (CKD) >90 (>60 ml/min/1.73 sqM); Albumin 3.1 g/dL (3.5-5.0); Alkaline Phosphatase 133 U/L (38-126); Anion Gap 13 mmol/L; Bilirubin, Delta 0.2 mg/dL (0.0-0.2); Bilirubin,Unconjugated 0.3 mg/dL (0.0-1.1); Blood Urea Nitrogen 18 mg/dL (7-17); Calcium 8.5 mg/dL (8.4-10.2); Carbon Dioxide 14 mmol/L (22-30); Chloride 105 mmol/L (98-107); Glucose 126 mg/dL (74-99); Non-African American GFR(CKD) >90 (>60 ml/min/1.73 sqM); Potassium 3.3 mmol/L (3.5-5.1); Sodium 132 mmol/L (137-145); Total Bilirubin 0.5 mg/dL (0.2-1.3); Total Protein 5.9 g/dL (6.3-8.2)
[2024-10-05] MEDS ORDERED: Potassium Replacement Protocol 1 EACH MISC MISCELLANE PRN (05:49)
[2024-10-05] MEDS: POTASSIUM CHLORIDE ER 20 MEQ TAB.ER PO SCH (05:55)
[2024-10-05 06:04] LABS: INR 6.2 (<1.2)
[2024-10-05] MEDS: SODIUM CHLORIDE 0.9% 500 ML 500 ML IV ONE ×2 (07:39→13:45)
[2024-10-05] MEDS: DEXTROSE 5% IN WATER 100 ML with AMIODARONE 150 MG IV ONE (08:45)
[2024-10-05] MEDS: CLOPIDOGREL 75 MG TAB PO SCH (08:50)
[2024-10-05] MEDS: AMIODARONE 360 MG in DEXTROSE 5% IN WATER 200 ML IV ONE (08:51)
[2024-10-05] MEDS ORDERED: PHYTONADIONE ORAL 5 MG/5 ML ORAL.SYRG PO STA (11:57)
--- NOTE | 2024-10-05 12:01 | P.PN ---
Subjective This is a pleasant 44 years old female with past medical history of multiple medical problems as below She was transferred from [facility] for chest pain and possible STEMI. Patient stated she came to the hospital because of she has severe chest pain started 2:00 in the morning about 10/10 felt like heaviness and burning radiating to the right arm. She says her right arm pain started together with her chest pain and is also severe, she has some difficulty moving her right upper extremity because of the pain. She felt little shortness of breath yesterday improved with inhalers and her wheezing resolved as well no significant coughing. She has nausea but no other GI/ symptom. No headache dizziness weakness or numbness She smokes half pack per day and she was counseled to quit and she agrees to the nicotine patch. No alcohol or illicit drugs. Patient was evaluated by sleep scientist and found to have anterolateral STEMI she underwent emergent cardiac cath with PCI to LAD and diagonal branch She is also on Coumadin and INR was 5 on admission. No overt bleeding right now She is also continued on aspirin and Plavix Beater Room Helper recommend to continue with Coumadin while she is on dual antiplatelet therapy Blood pressure stable but patient is tachycardic and tachypneic with heart rate 124 and respiratory 24. In reviewing the records from [facility] sodium 136, potassium 3.4, bicarb is 18 and chloride 108 creatinine 0.8. WBC is 9.8 hemoglobin 13 and platelets 646. EKG showing ST elevation in V2, V3 and aVL and ST depression in lead III and aVF Influenza COVID and RSV were undetected. INR is 5.17. 10/05 patient with no chest pain or dyspnea today She was complaining from severe Right shoulder and arm pain yesterday, today is completely resolved 0/10 pain and x-ray of the right arm was also unremarkable However today she is developing more pain in her left arm and shoulder without trauma it says less severe than the right shoulder happened yesterday. There is no restriction of movement Patient denies history of gout. Will check uric acid and continue with pain medication. There is no restriction of movement Her heart rate still tachycardic today 128-133 therefore she was started on Cardizem drip by sleep scientist. Blood pressure is soft and borderline but patient sitting up in chair and asymptomatic. Patient may be switched to amiodarone drip per sleep scientist Her INR was elevated more than 5 yesterday today 6.2 no evidence of active bleeding. Hemoglobin stable at 10.3. WBC 14.1. Platelet count is 539. Sodium 132 potassium 3.3. Liver enzymes slightly elevated with AST 304 and ALT 49 Keep monitoring INR Echocardiogram showed ejection fraction of 25 to 30% with severe impairment and mid ventricle and apical hypokinesia with possible LV thrombus was identified. Prosthetic aortic valve with elevated peak and mean gradient across the valve, prosthetic mitral valve which also elevated peak and mean gradient across the valve Active Medications Generic Name Dose Route Start Last Admin Trade Name Freq PRN Reason Stop Dose Admin Hydrocodone Bitart/Acetaminophen 1 each 10/05/24 11:14 Hydrocodone/Apap 7.5-325mg 1 Each Tab PO TID PRN Pain Al Hydroxide/Mg Hydroxide 30 ml 10/04/24 07:08 Mag Hydrox/Al Hydrox/Simeth 30 Ml Cup PO Q4HR PRN Heartburn Albuterol Sulfate 2.5 mg 10/04/24 07:06 Albuterol Nebulized 2.5 Mg/3 Ml INHALATION RT-Q4H PRN Shortness Of Breath Amitriptyline HCl 50 mg 10/04/24 21:00 10/04/24 20:25 Amitriptyline Hcl 50 Mg Tab PO 50 mg HS KLAUDIA Administration Aspirin 81 mg 10/04/24 21:00 10/04/24 20:25 Aspirin 81 Mg PO 81 mg HS KLAUDIA Administration Atropine Sulfate 0.5 mg 10/04/24 07:08 Atropine Sulfate 0.1 Mg/Ml 10ml Syringe IV ONCE PRN Symptomatic Bradycardia Clopidogrel Bisulfate 75 mg 10/05/24 09:00 10/05/24 08:50 Clopidogrel 75 Mg Tab PO 75 mg DAILY KLAUDIA Administration Protocol Cyanocobalamin 1,000 mcg 10/04/24 09:00 10/05/24 08:49 Cyanocobalamin 500 Mcg Tab PO 1,000 mcg DAILY KLAUDIA Administration Dicyclomine HCl 60 mg 10/04/24 21:00 10/04/24 20:23 Dicyclomine 20 Mg Tab PO 60 mg HS KLAUDIA Administration Folic Acid 1 mg 10/04/24 09:00 10/05/24 08:49 Folic Acid 1 Mg Tab PO 1 mg DAILY KLAUDIA Administration Furosemide 40 mg 10/04/24 09:00 10/05/24 08:49 Furosemide 40 Mg Tab PO 40 mg DAILY KLAUDIA Administration Amiodarone HCl 360 mg/ 200 mls @ 33.333 mls/hr 10/05/24 08:03 10/05/24 08:51 Dextrose/Water IV 10/05/24 14:02 1 mg/min .Q6H ONE 33.333 mls/hr Administration Protocol 1 MG/MIN Amiodarone HCl 450 mg/ 250 mls @ 16.667 mls/hr 10/05/24 14:15 Dextrose/Water IV 10/06/24 08:14 .Q15H KLAUDIA Protocol 0.5 MG/MIN Lisinopril 2.5 mg 10/04/24 21:00 10/04/24 20:26 Lisinopril 2.5 Mg Tab PO Not Given HS KLAUDIA Metoprolol Tartrate 12.5 mg 10/04/24 09:00 10/04/24 20:24 Metoprolol Tartrate 12.5 Mg Tab PO 12.5 mg BID KLAUDIA Administration Miscellaneous Information 1 each 10/04/24 07:08 Rx Info: Iv Contrast Was Given 1 Each Misc MISCELLANE 10/06/24 07:08 DAILY PRN Per Protocol Montelukast Sodium 10 mg 10/04/24 21:00 10/04/24 20:25 Montelukast 10 Mg Tab PO 10 mg HS KLAUDIA Administration Morphine Sulfate 4 mg 10/04/24 11:07 10/05/24 07:38 Morphine Sulfate 4 Mg/Ml Syringe IVP 4 mg Q4HR PRN Administration Pain Morphine Sulfate 2 mg 10/04/24 11:07 10/04/24 23:46 Morphine Sulfate 2 Mg/Ml Syringe IVP 2 mg Q4HR PRN Administration Pain/Discomfort Nicotine 1 patch 10/04/24 11:15 10/05/24 08:49 Nicotine 14mg/24hr Patch TRANSDERM 1 patch DAILY KLAUDIA Administration Nitroglycerin 0.4 mg 10/04/24 07:08 Nitroglycerin Sl Tabs 0.4 Mg Tab SUBLINGUAL Q5M PRN Chest Pain Ondansetron HCl 4 mg 10/04/24 18:40 10/04/24 18:53 Ondansetron 4 Mg/2 Ml Vial IVP 4 mg Q6HR PRN Administration Nausea And Vomiting Pantoprazole Sodium 40 mg 10/04/24 21:00 10/04/24 20:34 Pantoprazole 40 Mg Tablet PO 40 mg HS KLAUDIA Administration Sumatriptan Succinate 100 mg 10/04/24 07:06 Sumatriptan Succinate 50 Mg Tab PO BID PRN Migraine Headache Tizanidine HCl 4 mg 10/04/24 09:00 10/05/24 08:49 Tizanidine 4 Mg Tab PO 4 mg TID KLAUDIA Administration Zolpidem Tartrate 5 mg 10/04/24 07:08 Zolpidem 5 Mg Tab PO HS PRN Insomnia Objective - Vital Signs Vital signs: Vital Signs Temp 99.4 F 10/05/24 08:00 Pulse 128 H 10/05/24 11:20 Resp 23 10/05/24 11:20 BP 82/63 10/05/24 11:20 Pulse Ox 97 10/05/24 11:20 FiO2 21 10/05/24 08:47 Intake & Output 10/04/24 10/05/24 10/05/24 18:59 06:59 18:59 Intake Total 2045 725 500 Output Total 1825 1400 0 Balance 220 -675 500 Weight 65.4 kg 67.9 kg Intake: IV 825 225 500 Sodium Chloride 0.9% 1, 825 225 000 ml In Empty Bag 1 bag @ 75 mls/hr IV .[id number] KLAUDIA Rx#:[id number] Sodium Chloride 0.9% 500 500 ml 500 ml @ 999 mls/hr IV .Q31M ONE Rx#:[id number] Intake, IV Titration 500 Amount Sodium Chloride 0.9% 500 500 ml 500 ml @ 999 mls/hr IV .Q31M ONE Rx#:[id number] Oral 1220 Output: Urine 1825 1400 0 Other: Voiding Method Toilet Toilet Toilet # Voids 1 0 0 - Exam GENERAL: The patient is alert and oriented x3, not in any acute distress. Well developed, well nourished. HEENT: Pupils are round and equally reacting to light. EOMI. No scleral icterus. No conjunctival pallor. Normocephalic, atraumatic. No pharyngeal erythema. No thyromegaly. CARDIOVASCULAR: S1 and S2 present. No murmurs, rubs, or gallops. PULMONARY: Chest is clear to auscultation, no wheezing , no crackles. ABDOMEN: Soft, nontender, nondistended, normoactive bowel sounds. No palpable organomegaly. MUSCULOSKELETAL: No joint swelling or deformity. EXTREMITIES: No cyanosis, clubbing, or pedal edema. NEUROLOGICAL: Gross neurological examination did not reveal any focal deficits. SKIN: No rashes. no petechiae. - Labs CBC & Chem 7: 10/05/24 04:33 10/05/24 04:33 Labs: Abnormal Lab Results - Last 24 Hours (Table) 10/05/24 10/05/24 10/05/24 Range/Units 04:33 04:33 04:33 WBC 14.11 H (4.50-10.00) 10*3/uL RBC 4.03 L (4.10-5.20) 10*6/uL Hgb 10.3 L (12.0-15.0) g/dL Hct 34.6 L (37.2-46.3) % MCH 25.6 L (27.0-32.0) pg MCHC 29.8 L (32.0-37.0) g/dL Plt Count 539 H (140-440) 10*3/uL MPV 9.1 L (9.5-12.2) fL Immature Gran # 0.13 H (0.00-0.04) 10*3/uL Neutrophils # 11.16 H (1.80-7.70) 10*3/uL Monocytes # 1.18 H (0.20-1.00) 10*3/uL Eosinophils # 0.01 L (0.04-0.35) 10*3/uL PT 61.8 H (10.0-12.5) sec INR 6.2 H* (<1.2) Sodium 132 L (137-145) mmol/L Potassium 3.3 L (3.5-5.1) mmol/L Carbon Dioxide 14 L (22-30) mmol/L BUN 18 H (7-17) mg/dL Glucose 126 H (74-99) mg/dL AST 304 H (14-36) U/L ALT 49 H (4-34) U/L Alkaline Phosphatase 133 H (38-126) U/L Total Protein 5.9 L (6.3-8.2) g/dL Albumin 3.1 L (3.5-5.0) g/dL Assessment and Plan Assessment: Anterolateral STEMI status post emergent cardiac cath and PCI to LAD and diagonal branch Coagulopathy secondary to Coumadin Cardiomyopathy, ischemic. With low ejection fraction 25 to 30% with mid and apical hypokinesia Acute left ventricle thrombus also suspected on echocardiogram in view of her prosthetic valves Aortic and mitral valve replacement with prosthetic valves Coronary artery disease status post CABG previously Nonspecific bilateral arm and shoulder arthralgia, comes and goes GERD History of GI bleed Hyperlipidemia Osteoarthritis Mitral valve prolapse Irritable bowel syndrome Spinal stenosis History of hemorrhagic stone Plan: Continue with aspirin Plavix and Coumadin per recommendation of sleep scientist Monitor INR closely. Since no evidence of bleeding and patient has risk factor of thrombosis and left ventricle thrombus were not giving vitamin K K and close monitoring as patient also has prosthetic valve Continue with metoprolol Lasix and other cardiac medication Cardiology team are following closely Pain management Check x-ray of the right upper extremity Labs and medication were reviewed.. Continue same treatment. Continue with symptomatic treatment. Resume home medication. Monitor labs and vitals. DVT and GI prophylaxis. Further recommendations as per clinical course of the patient DVT prophylaxis: On Coumadin GI Prophylaxis: Protonix PT/OT: Pending Prognosis is guarded
[2024-10-05] MEDS: POTASSIUM CHLORIDE ER 20 MEQ TAB.ER PO STA (12:48)
[2024-10-05] MEDS: HYDROcodone/APAP 7.5-325MG 1 EACH TAB PO PRN (13:44)
--- NOTE | 2024-10-05 13:54 | P.PN ---
Subjective Progress Note Date: 10/05/24 10/04/24 HPI: This lady has known history of CAD with a prior bypass surgery and valve replacement probably both mitral and aortic are mechanical valves. Apparently 3 months ago she had a hemorrhagic stroke and was at [facility]. She presented here to the emergency room at [place] and was transferred here for an urgent cardiac cath. There was a substantial amount of delay by the time she was here but underwent prompt PCI after arrival of LAD and diagonal with a lot of thrombus burden. Eventually she had a EAN-3 flow. Echo at bedside reveals a's extensive wall motion abnormality in the LAD distribution in the anteroapical and inferior apical anterior lateral monroy. She is hemodynamically stable. Her INR was 5.0. We will continue aspirin Plavix and check PT/INR at this time. Prognosis remains guarded we will consider repeating an echo in 48 hours and consider a LifeVest at that time.. PHYSICIAL EXAM: Vitals are stable JVD 1 cm S1-S2 with the prosthetic valve cli cks short systolic murmur lungs reveal diminished bilateral air entry abdomen is soft lower extremities reveal diminished pulses Central nervous system no focal deficits. IMPRESSION: 1. Acute anterior wall ME status post PCI of LAD and diagonal with a good result but there was a long delay from her first medical contact to PCI time. 2. Apparently s/p a hemorrhagic stroke 3 months ago details unavailable was in [facility]. 3. S/p coronary artery bypass surgery with vein graft to RCA and mechanical mitral and aortic valve replacement in the past and details unavailable. 4.. 5.. RECOMMENDATIONS: Continue aspirin Plavix and follow-up PT/INR prognosis remains guarded small dose of BROOKS inhibitor if tolerated and reduce the dose of beta- josefa prognosis remains guarded. 10/05/24 Patient is a tachycardic and appears to be either in sinus tachycardia or in some tracings looks like atrial flutter at a rate of about 140 bpm. Echocardiogram revealed significant wall motion abnormality with possible layered thrombus at the apex. Given this she is not a good candidate for e lectrical cardioversion with the active thrombus within the cardiac chamber. I am recommending intravenous bolus and drip of amiodarone. Prognosis is very poor patient has significant LV dysfunction and her aortic valve apparently has an increased gradient as well on the echo which is a matter of concern. However for now we will treat her with amiodarone IV drip and bolus explained to her that the prognosis is very poor she has mitral and aortic valve replacement in the past. Overall prognosis appears to be quite poor with very limited options. However if she does not improve we will consider transfer to [facility]. Discussed with Dr. Kumar. Her INR is 6.0 so no further antico agulation but I will not reverse this in the face of possible thrombus within the cardiac chamber. Physical exam revealed a blood pressure of 94/60 heart rate of about 132 S1-S2 with tachycardia short systolic murmur audible prosthetic valve clicks audible lungs reveal diminished air entry abdomen is soft lower extremities reveal diminished pulses Central nervous system no focal deficits. Prognosis is very poor patient is aware of this. Will try and speak to her and consider transfer. Will try amiodarone to see if she will convert to sinus rhythm. Continue supportive care no reversal of anticoagulation Objective - Vital Signs Vital signs: Vital Signs Temp 98.4 F 10/05/24 12:00 Pulse 122 H 10/05/24 13:00 Resp 22 10/05/24 13:00 BP 77/57 10/05/24 13:00 Pulse Ox 96 10/05/24 13:00 FiO2 21 10/05/24 08:47 Intake & Output 10/04/24 10/05/24 10/05/24 18:59 06:59 18:59 Intake Total 2045 725 500 Output Total 1825 1400 500 Balance 220 -675 0 Weight 65.4 kg 67.9 kg Intake: IV 825 225 500 Sodium Chloride 0.9% 1, 825 225 000 ml In Empty Bag 1 bag @ 75 mls/hr IV .[id number] [facility] Rx#:[id number] Sodium Chloride 0.9% 500 500 ml 500 ml @ 999 mls/hr IV .Q31M ONE Rx#:[id number] Intake, IV Titration 500 Amount Sodium Chloride 0.9% 500 500 ml 500 ml @ 999 mls/hr IV .Q31M ONE Rx#:[id number] Oral 1220 Output: Urine 1825 1400 500 Other: Voiding Method Toilet Toilet Toilet # Voids 1 0 0 - Labs CBC & Chem 7: 10/05/24 04:33 10/05/24 04:33 Labs: Abnormal Lab Results - Last 24 Hours (Table) 10/05/24 10/05/24 10/05/24 Range/Units 04:33 04:33 04:33 WBC 14.11 H (4.50-10.00) 10*3/uL RBC 4.03 L (4.10-5.20) 10*6/uL Hgb 10.3 L (12.0-15.0) g/dL Hct 34.6 L (37.2-46.3) % MCH 25.6 L (27.0-32.0) pg MCHC 29.8 L (32.0-37.0) g/dL Plt Count 539 H (140-440) 10*3/uL MPV 9.1 L (9.5-12.2) fL Immature Gran # 0.13 H (0.00-0.04) 10*3/uL Neutrophils # 11.16 H (1.80-7.70) 10*3/uL Monocytes # 1.18 H (0.20-1.00) 10*3/uL Eosinophils # 0.01 L (0.04-0.35) 10*3/uL PT 61.8 H (10.0-12.5) sec INR 6.2 H* (<1.2) Sodium 132 L (137-145) mmol/L Potassium 3.3 L (3.5-5.1) mmol/L Carbon Dioxide 14 L (22-30) mmol/L BUN 18 H (7-17) mg/dL Glucose 126 H (74-99) mg/dL AST 304 H (14-36) U/L ALT 49 H (4-34) U/L Alkaline Phosphatase 133 H (38-126) U/L Total Protein 5.9 L (6.3-8.2) g/dL Albumin 3.1 L (3.5-5.0) g/dL
[2024-10-05] MEDS: AMIODARONE 450 MG in DEXTROSE 5% IN WATER 250 ML IV SCH (14:38)
[2024-10-05] MEDS: NOREPINEPHRINE 8 MG in SODIUM CHLORIDE 0.9% 250 ML IV SCH (14:38)
[2024-10-05 16:12] LABS: INR 4.2 (<1.2); Prothrombin Time 41.6 sec (10.0-12.5)
[2024-10-05] MEDS: HYDROmorphone 0.5 MG/0.5 ML SYRINGE IVP PRN (19:58)
[2024-10-05 20:17] VITALS: TEMP 98.3
--- NOTE | 2024-10-05 22:33 | P.DS ---
Providers Date of admission: 10/04/24 05:58 Attending physician: Armen Ward Consults: 10/04/24 07:08 Consult Physician Routine Consulting Provider: [facility] Consult Reason/Comments: Post Interventional Patient Do you want consulting provider notified?: Already Contacted 10/04/24 08:22 Consult Physician Routine Consulting Provider: Armen Ward Consult Reason/Comments: medical management Do you want consulting provider notified?: Yes 10/05/24 15:35 Consult Physician Routine Consulting Provider: Emiliano Lagunas Consult Reason/Comments: ICU management Do you want consulting provider notified?: Already Contacted Primary care physician: Yonny Nettles MD Hospital Course: Diagnoses: Anterolateral STEMI status post emergent cardiac cath and PCI to LAD and diagonal branch Coagulopathy secondary to Coumadin Cardiomyopathy, ischemic. With low ejection fraction 25 to 30% with mid and apical hypokinesia Acute left ventricle thrombus also suspected on echocardiogram in view of her prosthetic valves Aortic and mitral valve replacement with prosthetic valves Coronary artery disease status post CABG previously Nonspecific bilateral arm and shoulder arthralgia, comes and goes History of hemorrhagic stroke GERD History of GI bleed Hyperlipidemia Osteoarthritis Mitral valve prolapse Irritable bowel syndrome Spinal stenosis Hospital course: This is a pleasant 44 years old female with past medical history of multiple medical problems as below She was transferred from [facility] where she lives for chest pain and possible STEMI. Patient stated she came to the hospital because of she has severe chest pain started 2:00 in the morning about 10/10 felt like heaviness and burning radiating to the right arm. She says her right arm pain started together with her chest pain and is also severe, she has some difficulty moving her right upper extremity because of the pain. She felt little shortness of breath 1 day earlier improved with inhalers and her wheezing resolved as well no significant coughing. She has nausea but no other GI/ symptom. No headache dizziness weakness or numbness She smokes half pack per day Patient was evaluated by senior data developer and found to have anterolateral STEMI she underwent emergent cardiac cath with PCI to LAD and diagonal branch She is also on Coumadin and INR was 5 on admission. Down to 4.2 today She is also continued on aspirin and Plavix Wave Solder Offbearer recommend to continue with Coumadin while she is on dual antiplatelet therapy Blood pressure stable but patient is tachycardic and tachypneic with heart rate 124 and respiratory 24. Blood pressure also was 80s/50s earlier in the morning. She received about 1.5 L of normal saline boluses and then she was started on small dose of Levophed 0.09 while she was in the ICU. Currently her blood pressure improved and her vitals showing BP 130/79 saturating 99%. She is still mildly tachycardic 120 And currently also she denies no chest pain no either arm or shoulder pain She had some headache earlier but Dilaudid helped. Echocardiogram showed echocardiogram showed possible intraventricular thrombus In reviewing the records from [facility] sodium 136, potassium 3.4, bicarb is 18 and chloride 108 creatinine 0.8. WBC is 9.8 hemoglobin 13 and platelets 646. EKG showing ST elevation in V2, V3 and aVL and ST depression in lead III and aVF Influenza COVID and RSV were undetected. INR is 5.17. 10/05 patient with no chest pain or dyspnea today She was complaining from severe Right shoulder and arm pain yesterday, today is completely resolved 0/10 pain and x-ray of the right arm was also unremarkable However today she is developing more pain in her left arm and shoulder without trauma it says less severe than the right shoulder happened yesterday. There is no restriction of movement Patient denies history of gout. Will check uric acid and continue with pain medication. There is no restriction of movement Her heart rate still tachycardic today 128-133 therefore she was started on Cardizem drip by senior data developer. Blood pressure is soft and borderline but patient sitting up in chair and asymptomatic. Patient may be switched to amiod arone drip per senior data developer Her INR was elevated more than 5 yesterday today 6.2 no evidence of active bleeding. Hemoglobin stable at 10.3. WBC 14.1. Platelet count is 539. Sodium 132 potassium 3.3. Liver enzymes slightly elevated with AST 304 and ALT 49 Keep monitoring INR Echocardiogram showed ejection fraction of 25 to 30% with severe impairment and mid ventricle and apical hypokinesia with possible LV thrombus was identified. Prosthetic aortic valve with elevated peak and mean gradient across the valve, prosthetic mitral valve which also elevated peak and mean gradient across the valve Also patient on short course of amiodarone drip to control her heart rate Wave Solder Offbearer contacted [facility] who accepted the patient Patient currently medically stable for transfer although there are some risk but benefits more than risk. And prognosis remains guarded Physical exam Gen: patient is a AAOx3, no distress CVS: S1-S2, RRR, no murmur Lungs: B/L CTA, no wheezing Abdomen: soft, no distention, no tenderness, positive bowel sounds Extremity: no leg edema or induration Time spent more than 35 minutes Plan - Discharge Summary Discharge Rx Participant: No New Discharge Prescriptions: No Action Dicyclomine [Bentyl] 20 mg PO Q8H PRN PRN Reason: IBS Aspirin EC [Ecotrin Low Dose] 81 mg PO HS Montelukast [Singulair] 10 mg PO HS tiZANidine [Zanaflex] 4 mg PO Q8H PRN PRN Reason: Muscle Spasm Rizatriptan Odt [Maxalt HOSPICE EDUCATOR] 10 mg PO BID PRN PRN Reason: Migraine Headache Cyanocobalamin (Vitamin B-12) [Vitamin B-12] 1,000 mcg PO DAILY #30 tablet Magnesium Oxide [Mag-Ox] 400 mg PO DAILY Rosuvastatin [Crestor] 20 mg PO HS Warfarin Sodium 6 mg PO TUFR Albuterol Sulfate [Proair Hfa] 2 puff INHALATION RT-Q4H PRN PRN Reason: Shortness Of Breath Warfarin [Coumadin] 7.5 mg PO SUMOWETHSA Hydrocodone/Acetaminophen [Hydrocodone/Acetaminophen 7.5-325] 1 tab PO Q6H PRN PRN Reason: Pain Metoprolol Tartrate [Lopressor] 25 mg PO BID Amitriptyline HCl [Elavil] 50 mg PO HS Pantoprazole [Protonix] 40 mg PO HS Folic Acid 1 mg PO DAILY #30 tab ALPRAZolam [Xanax] 0.5 mg PO Q8H PRN PRN Reason: Anxiety Discharge Medication List Aspirin EC [Ecotrin Low Dose] 81 mg PO HS 01/13/16 [History] Dicyclomine [Bentyl] 20 mg PO Q8H PRN 01/13/16 [History] Montelukast [Singulair] 10 mg PO HS 01/13/16 [History] Albuterol Sulfate [Proair Hfa] 2 puff INHALATION RT-Q4H PRN 02/01/21 [History] Warfarin [Coumadin] 7.5 mg PO SUMOWETHSA 02/01/21 [History] Hydrocodone/Acetaminophen [Hydrocodone/Acetaminophen 7.5-325] 1 tab PO Q6H PRN 07/14/23 [History] tiZANidine [Zanaflex] 4 mg PO Q8H PRN 07/14/23 [History] Metoprolol Tartrate [Lopressor] 25 mg PO BID 09/24/23 [History] Amitriptyline HCl [Elavil] 50 mg PO HS 02/23/24 [History] Pantoprazole [Protonix] 40 mg PO HS 02/23/24 [History] Rizatriptan Odt [Maxalt HOSPICE EDUCATOR] 10 mg PO BID PRN 02/23/24 [History] Cyanocobalamin (Vitamin B-12) [Vitamin B-12] 1,000 mcg PO DAILY #30 tablet 02/26/24 [Rx] Folic Acid 1 mg PO DAILY #30 tab 02/26/24 [Rx] ALPRAZolam [Xanax] 0.5 mg PO Q8H PRN 10/04/24 [History] Magnesium Oxide [Mag-Ox] 400 mg PO DAILY 10/04/24 [History] Rosuvastatin [Crestor] 20 mg PO HS 10/04/24 [History] Warfarin Sodium 6 mg PO TUFR 10/04/24 [History]
--- NOTE | 2024-10-05 22:35 | P.DS ---
Providers Date of admission: 10/04/24 05:58 Attending physician: Armen Ward Consults: 10/04/24 07:08 Consult Physician Routine Consulting Provider: [facility] Consult Reason/Comments: Post Interventional Patient Do you want consulting provider notified?: Already Contacted 10/04/24 08:22 Consult Physician Routine Consulting Provider: Armen Ward Consult Reason/Comments: medical management Do you want consulting provider notified?: Yes 10/05/24 15:35 Consult Physician Routine Consulting Provider: Emiliano Lagunas Consult Reason/Comments: ICU management Do you want consulting provider notified?: Already Contacted Primary care physician: Yonny Nettles MD Hospital Course: Diagnoses: Anterolateral STEMI status post emergent cardiac cath and PCI to LAD and diagonal branch Coagulopathy secondary to Coumadin Cardiomyopathy, ischemic. With low ejection fraction 25 to 30% with mid and apical hypokinesia Acute left ventricle thrombus also suspected on echocardiogram in view of her prosthetic valves Aortic and mitral valve replacement with prosthetic valves Coronary artery disease status post CABG previously Nonspecific bilateral arm and shoulder arthralgia, comes and goes History of hemorrhagic stroke GERD History of GI bleed Hyperlipidemia Osteoarthritis Mitral valve prolapse Irritable bowel syndrome Spinal stenosis Hospital course: This is a pleasant 44 years old female with past medical history of multiple medical problems as below She was transferred from [facility] where she lives for chest pain and possible STEMI. Patient stated she came to the hospital because of she has severe chest pain started 2:00 in the morning about 10/10 felt like heaviness and burning radiating to the right arm. She says her right arm pain started together with her chest pain and is also severe, she has some difficulty moving her right upper extremity because of the pain. She felt little shortness of breath 1 day earlier improved with inhalers and her wheezing resolved as well no significant coughing. She has nausea but no other GI/ symptom. No headache dizziness weakness or numbness She smokes half pack per day Patient was evaluated by final touch up painter and found to have anterolateral STEMI she underwent emergent cardiac cath with PCI to LAD and diagonal branch She is also on Coumadin and INR was 5 on admission. Down to 4.2 today She is also continued on aspirin and Plavix Guard Entrance Registrar recommend to continue with Coumadin while she is on dual antiplatelet therapy Blood pressure stable but patient is tachycardic and tachypneic with heart rate 124 and respiratory 24. Blood pressure also was 80s/50s earlier in the morning. She received about 1.5 L of normal saline boluses and then she was started on small dose of Levophed 0.09 while she was in the ICU. Currently her blood pressure improved and her vitals showing BP 130/79 saturating 99%. She is still mildly tachycardic 120 And currently also she denies no chest pain no either arm or shoulder pain She had some headache earlier but Dilaudid helped. Echocardiogram showed ejection fraction of 25 to 30% with severe impairment and mid ventricle and apical hypokinesia with possible LV thrombus was identified. Prosthetic aortic valve with elevated peak and mean gradient across the valve, prosthetic mitral valve which also elevated peak and mean gradient across the valve Also patient on short course of amiodarone drip to control her heart rate Guard Entrance Registrar contacted [facility] who kindly accepted the patient for transfer for higher level of care Patient currently medically stable for transfer although there are some risk but benefits more than risk. And prognosis remains guarded Physical exam Gen: patient is a AAOx3, no distress CVS: S1-S2, RRR, no murmur Lungs: B/L CTA, no wheezing Abdomen: soft, no distention, no tenderness, positive bowel sounds Extremity: no leg edema or induration Time spent more than 35 minutes Plan - Discharge Summary Discharge Rx Participant: No New Discharge Prescriptions: No Action Dicyclomine [Bentyl] 20 mg PO Q8H PRN PRN Reason: IBS Aspirin EC [Ecotrin Low Dose] 81 mg PO HS Montelukast [Singulair] 10 mg PO HS tiZANidine [Zanaflex] 4 mg PO Q8H PRN PRN Reason: Muscle Spasm Rizatriptan Odt [Maxalt GRAIN BUYER] 10 mg PO BID PRN PRN Reason: Migraine Headache Cyanocobalamin (Vitamin B-12) [Vitamin B-12] 1,000 mcg PO DAILY #30 tablet Magnesium Oxide [Mag-Ox] 400 mg PO DAILY Rosuvastatin [Crestor] 20 mg PO HS Warfarin Sodium 6 mg PO TUFR Albuterol Sulfate [Proair Hfa] 2 puff INHALATION RT-Q4H PRN PRN Reason: Shortness Of Breath Warfarin [Coumadin] 7.5 mg PO SUMOWETHSA Hydrocodone/Acetaminophen [Hydrocodone/Acetaminophen 7.5-325] 1 tab PO Q6H PRN PRN Reason: Pain Metoprolol Tartrate [Lopressor] 25 mg PO BID Amitriptyline HCl [Elavil] 50 mg PO HS Pantoprazole [Protonix] 40 mg PO HS Folic Acid 1 mg PO DAILY #30 tab ALPRAZolam [Xanax] 0.5 mg PO Q8H PRN PRN Reason: Anxiety Discharge Medication List Aspirin EC [Ecotrin Low Dose] 81 mg PO HS 01/13/16 [History] Dicyclomine [Bentyl] 20 mg PO Q8H PRN 01/13/16 [History] Montelukast [Singulair] 10 mg PO HS 01/13/16 [History] Albuterol Sulfate [Proair Hfa] 2 puff INHALATION RT-Q4H PRN 02/01/21 [History] Warfarin [Coumadin] 7.5 mg PO SUMOWETHSA 02/01/21 [History] Hydrocodone/Acetaminophen [Hydrocodone/Acetaminophen 7.5-325] 1 tab PO Q6H PRN 07/14/23 [History] tiZANidine [Zanaflex] 4 mg PO Q8H PRN 07/14/23 [History] Metoprolol Tartrate [Lopressor] 25 mg PO BID 09/24/23 [History] Amitriptyline HCl [Elavil] 50 mg PO HS 02/23/24 [History] Pantoprazole [Protonix] 40 mg PO HS 02/23/24 [History] Rizatriptan Odt [Maxalt GRAIN BUYER] 10 mg PO BID PRN 02/23/24 [History] Cyanocobalamin (Vitamin B-12) [Vitamin B-12] 1,000 mcg PO DAILY #30 tablet 02/26/24 [Rx] Folic Acid 1 mg PO DAILY #30 tab 02/26/24 [Rx] ALPRAZolam [Xanax] 0.5 mg PO Q8H PRN 10/04/24 [History] Magnesium Oxide [Mag-Ox] 400 mg PO DAILY 10/04/24 [History] Rosuvastatin [Crestor] 20 mg PO HS 10/04/24 [History] Warfarin Sodium 6 mg PO TUFR 10/04/24 [History]
[2024-10-05 23:10] VITALS: BP 80/56; PULSE 117; RESP 27
== END 2024-10-05 23:48 | disposition short-term general hospital (02) | DRG 174 ==
LOC: 2SICU 05:58
PROVIDERS: ADMIT Hospitalist; ATTEND Hospitalist
PROC: 027034Z Dilation of Coronary Artery, One Artery with Drug-eluting Intraluminal Device, Percutaneous Approach (ICD-10-PCS; principal; 2024-10-04 04:34)
PROC: B2111ZZ Fluoroscopy of Multiple Coronary Arteries using Low Osmolar Contrast (ICD-10-PCS; 2024-10-04 04:34)
PROC: B240ZZ3 Ultrasonography of Single Coronary Artery, Intravascular (ICD-10-PCS; 2024-10-04 04:34)
PROC: 3E033RZ Introduction of Antiarrhythmic into Peripheral Vein, Percutaneous Approach (ICD-10-PCS; 2024-10-05)
DX: I21.09 ST elevation (STEMI) myocardial infarction involving other coronary artery of anterior wall (principal); I51.3 Intracardiac thrombosis, not elsewhere classified; D68.8 Other specified coagulation defects; I34.1 Nonrheumatic mitral (valve) prolapse; I10 Essential (primary) hypertension; I25.5 Ischemic cardiomyopathy; I25.10 Atherosclerotic heart disease of native coronary artery without angina pectoris; K21.9 Gastro-esophageal reflux disease without esophagitis; E78.5 Hyperlipidemia, unspecified; K58.9 Irritable bowel syndrome, unspecified; F17.210 Nicotine dependence, cigarettes, uncomplicated; M48.00 Spinal stenosis, site unspecified; T45.515A Adverse effect of anticoagulants, initial encounter; Z95.2 Presence of prosthetic heart valve; Z79.02 Long term (current) use of antithrombotics/antiplatelets; Z79.82 Long term (current) use of aspirin; Z79.01 Long term (current) use of anticoagulants; Z95.1 Presence of aortocoronary bypass graft; Z86.73 Personal history of transient ischemic attack (TIA), and cerebral infarction without residual deficits; Z87.19 Personal history of other diseases of the digestive system; Z79.899 Other long term (current) drug therapy; R00.0 Tachycardia, unspecified; R00.1 Bradycardia, unspecified; M25.512 Pain in left shoulder; M25.511 Pain in right shoulder; M19.90 Unspecified osteoarthritis, unspecified site
CPT/HCPCS: 80048; 80076; 84132; 85025; 85610; 92921; 92978; 93306; 93455